=== PATIENT | male | born 1950 | race Caucasian/White ===

== ENCOUNTER 2018-09-29 13:45 | Inpatient (IN) | payer MEDICARE, OTHER ==
[~2018-09-29 13:45] MED LIST: Heparin 10,000 UNITS/ 10 ML VIAL ONE
[2018-09-29 14:29] LABS: Hemoglobin 9.3 g/dL (14.0-18.0); Mean Corpuscular HGB CONC 35.8 g/dL (32.0-36.0); Mean Corpuscular Hemoglobin 31.3 pg (27.0-31.0); Mean Corpuscular Volume 87.6 fL (78.0-98.0); Platelet Count 406 thou/uL (130-400); RBC Distribution Width 12.3 % (11.5-14.5); Red Blood Cell (RBC) Count 2.97 mill/uL (4.70-6.10); White Blood Cell (WBC) Count 30.4 thou/uL (4.8-10.8)
[2018-09-29] MEDS ORDERED: cefTRIAXone\\ROCEPHIN 2 GM VIAL ONE (14:31)
[2018-09-29] MEDS ORDERED: Pantoprazole 40 MG VIAL ONE (14:31)
[2018-09-29 14:36] LABS: INR-International Normal Ratio 1.5; PTT 32.2 SEC (22.9-36.1); Prothrombin Time 18.5 SEC (12.0-14.7)
[2018-09-29 14:47] LABS: Band 36 % (5-11); Lymphocytes 2 % (21-51); MDiff Complete? YES; Metamyelocyte 1 % (0-0); Monocytes 2 % (0-10); Neutrophil 59 % (42-75); Platelet Morphology Comment Appears Increased
[2018-09-29 14:51] LABS: ALT (SGPT) 43 U/L (8-55); AST (SGOT) 33 U/L (5-34); Albumin 2.2 g/dL (3.4-4.8); Alkaline Phosphatase 67 U/L (40-150); Anion Gap 31 mmol/L (10-20); Bilirubin, Total 0.5 mg/dL (0.2-1.2); Calc. Creatinine Clearance 0 mL/min (70-130); Calcium 7.2 mg/dL (7.8-10.44); Carbon Dioxide 12 mmol/L (23-31); Chloride 97 mmol/L (98-107); Estimated GFR-MDRD 4; Globulin 3.3 g/dL (2.4-3.5); Glucose 233 mg/dL (80-115); Magnesium 1.9 mg/dL (1.6-2.6); Potassium 4.3 mmol/L (3.5-5.1); Protein, Total 5.5 g/dL (5.8-8.1); Sodium 136 mmol/L (136-145)
[2018-09-29 15:01] LABS: BUN (Urea Nitrogen) 217 mg/dL (8.4-25.7)
[2018-09-29 15:09] LABS: CKMB 5.7 ng/mL (0-6.6)
[2018-09-29 15:37] LABS: Actual Bicarbonate (HCO3a) 12.4 mEq/L (22-28); Analyzer IN Cardio ER; Base Excess (BEa) -17.4 mEq/L (-2.0 to +3.0); CO2 Tension 46.1 mmHg (35.0-45.0); Calcium, Ionized 0.86 mmol/L (1.12-1.30); Carboxyhemoglobin (COHb) 0.3 gm% (0.0-3.0); Hemoglobin (Hb) 10.7 g/dL (14.0-18.0); O2 Tension (PaO2) 79.3 mmHg (> 80.0); Potassium - ABG Lab 3.84 mmol/L (3.70-5.30)
[2018-09-29 15:43] LABS: ALV-art Gradient 34.195 (0-20); pH, Arterial 7.05 (7.35-7.45)
--- NOTE | 2018-09-29 15:55 | RAD ---
CHEST 1 VIEW: Date: 09/29/18 HISTORY: Altered mental status. COMPARISON: None. FINDINGS: Heart size enlarged. Mild edema and pulmonary venous congestion. No pneumothorax. No acute osseous ab normality. Right distal clavicular osteolysis. IMPRESSION: Cardiomegaly and mild pulmonary vascular congestion and early edema. POS: H
[2018-09-29] MEDS ORDERED: Rocuronium Bromide 10 MG/ML (10ML VIAL) ONE (16:05)
--- NOTE | 2018-09-29 17:32 | RAD ---
FRONTAL VIEW CHEST: 09/29/18 COMPARISON: Radiograph same day. CLINICAL HISTORY: Confirm endotracheal tube placement. FINDINGS: Endotracheal tube is in place with tip at the thoracic inlet level. Portion of the right lung is excl uded from view, laterally, limiting assessment in this regard. Calcification of the right perihilar r egion indicates granulomatous calcification. Chest otherwise similar. IMPRESSION: Interval placement of endotracheal tube, with tip overlying region of the thoracic aorta. POS: [facility]
[2018-09-29 17:49] LABS: Troponin I 0.035 ng/mL (< 0.028)
[2018-09-29 18:23] LABS: Lactic Acid 2.4 mmol/L (0.5-2.2)
[2018-09-29 18:29] LABS: HBSAB Concentration 0.96 mIU/mL; HBSAg Index 0.16 S/CO (0-0.99); Hep B Core Total Ab Non-Reactive (NonReactive); Hep B Core Total Index 0.09 S/CO (0-0.79); Hep B Surf AB Non-Reactive (NonReactive); Hep B Surf Ag Non-Reactive S/CO (NonReactive); Hep C IgG Ab Non-Reactive (NonReactive); Hep C Index 0.19 S/CO (0-0.79)
--- NOTE | 2018-09-29 18:50 | CON ---
DATE OF CONSULTATION: 09/29/2018 TIME SPENT: This is 35 minutes critical care time. CONSULTING PHYSICIAN: Dr. Vinson. REASON FOR CONSULTATION: Critical care management. HISTORY OF PRESENT ILLNESS: A 68-year-old male, who was found down at home by family. He had not been heard of from several days and the family went to check on him and found him basically unresponsive. He was brought to the ER. He was found to be in blood. It is assumed that he has a lower GI bleed. He was given some blood down in the ER. He was found to be profoundly acidotic with a low serum pH. He subsequently intubated by the ER staff. He was hypotensive during the post intubation. PAST MEDICAL HISTORY: Presumed to be remarkable for hypothyroidism and hypertension. PAST SURGICAL HISTORY: Unknown. FAMILY MEDICAL HISTORY: Not known. SOCIAL HISTORY: Not known. OUTPATIENT MEDICATIONS: Unknown. REVIEW OF SYSTEMS: Unobtainable. PHYSICAL EXAMINATION: VITAL SIGNS: Temperature 97, pulse 66, blood pressure 73/47, and O2 saturation 100% and tidal CO2 of 33. Before he was intubated, he was actually awake and able to converse with me some. HEENT: Class IV Mallampati airway. NECK: No JVD. LUNGS: Clear. CARDIAC: S1 and S2. Slightly tachycardic. ABDOMEN: Profoundly obese. EXTREMITIES: He has stasis changes over his ankles. He has tenia present over both feet. LABORATORY DATA: Sodium 136, potassium 4.3, chloride 97, CO2 of 12, BUN 217, creatinine 12, and glucose 233. Lactate 5. CPK 291 and troponin 0.035. Albumin 2.2. ABG, pH of 7.05, pCO2 of 46, and pO2 of 79, that was prior to intubation that was on 2 L. INR 1.5. White blood cell count 30, hematocrit 26, and platelet count 406 with 36% bands and 59% neutrophils. His chest x-ray showed no indication of mass, effusion, or infiltrate. ASSESSMENT: 1. Acute renal failure. 2. Lower gastrointestinal bleed. 3. Possible sepsis. 4. Hyperglycemia. PLAN: 1. The patient has been intubated for his severe acidosis. 2. Nephrology has been consulted for acute hemodialysis. 3. GI has been consulted to evaluate lower GI bleeding. 4. He has received transfusion and he will likely need serial H and Hs. 5. Empiric antibiotic coverage. 6. Bicarbonate ip with possible just an IV fluids after hemodialysis. 7. Methylprednisolone empirically since he was given an etomidate by the emergency room physician for intubation. Job ID: [id number]
[2018-09-29 19:05] LABS: Actual Bicarbonate (HCO3a) 12.5 mEq/L (22-28); Base Excess (BEa) -16.1 mEq/L (-2.0 to +3.0); CO2 Tension 40.1 mmHg (35.0-45.0); Calcium, Ionized 0.87 mmol/L (1.12-1.30); Carboxyhemoglobin (COHb) 0.6 gm% (0.0-3.0); O2 Tension (PaO2) 229.8 mmHg (> 80.0); Potassium - ABG Lab 4.08 mmol/L (3.70-5.30); Puncture Site R RADIAL; pH, Arterial 7.11 (7.35-7.45)
[2018-09-29 19:06] LABS: ALV-art Gradient 147.875 (0-20)
[2018-09-29] MEDS ORDERED: Ventilator Sedation Protocol 1 EACH FS ONE (19:22)
[2018-09-29] MEDS ORDERED: DISCONTINUE PREVIOUS NARCOTIC PAIN MEDICATIONS AND BENZODIAZEPINES FS SCH (19:26)
[2018-09-29] MEDS ORDERED: Propofol BOLUS 1,000 MG/100 ML VIAL IV PRN (19:26)
[2018-09-29] MEDS ORDERED: fentaNYL Citrate/PF 2,000 MCG in Sodium Chloride 0.9% 60 ML IV SCH (19:26)
[2018-09-29] MEDS ORDERED: Fentanyl BOLUS 250 ML IVPB PRN (19:26)
[2018-09-29] MEDS ORDERED: Sodium Bicarb 50 MEQ/50 ML Abboject 8.4% SYRINGE IVP SCH (19:30)
[2018-09-29] MEDS ORDERED: methylPREDNISolone Sod Succ 40 MG VIAL IVP SCH (19:30)
[2018-09-29] MEDS: Sodium Bicarbonate 140 MEQ in Dextrose 5% in Water 1,000 ML IV SCH (19:52)
[2018-09-29 19:59] LABS: Hemoglobin 11.5 g/dL (14.0-18.0); Mean Corpuscular HGB CONC 35.5 g/dL (32.0-36.0); Mean Corpuscular Hemoglobin 30.3 pg (27.0-31.0); Mean Corpuscular Volume 85.5 fL (78.0-98.0); Mean Platelet Volume 8.3 fL (7.4-10.4); Platelet Count 370 thou/uL (130-400); RBC Distribution Width 12.6 % (11.5-14.5); White Blood Cell (WBC) Count 19.9 thou/uL (4.8-10.8)
[2018-09-29] MEDS ORDERED: EPINEPHrine 1 MG/10 ML Abboject SYRINGE ONE (20:00)
[2018-09-29] MEDS: Lorazepam 2 MG/ML VIAL SLOW IVP PRN (20:01)
[2018-09-29 20:02] LABS: INR-International Normal Ratio 1.3
[2018-09-29] MEDS: Propofol 1,000 MG/100 ML VIAL IV PRN (20:07)
[2018-09-29] MEDS: Piperacillin/Tazobactam 2.25 GM in Sodium Chloride 0.9% 100 ML IVPB SCH (20:08)
[2018-09-29] MEDS: Norepinephrine 8 MG/0.9% NS 250 ML IVPB SCH (20:18)
[2018-09-29 20:23] LABS: Band 33 % (5-11); Eosinophils 1 % (0-10); Lymphocytes 5 % (21-51); MDiff Complete? YES; Monocytes 5 % (0-10); Myelocyte 2 % (0-0); Neutrophil 54 % (42-75); Toxic Granulation SLIGHT; Troponin I 0.038 ng/mL (< 0.028)
[2018-09-29 20:43] LABS: ALT (SGPT) 47 U/L (8-55); AST (SGOT) 41 U/L (5-34); Albumin 2.7 g/dL (3.4-4.8); Alkaline Phosphatase 93 U/L (40-150); Anion Gap 27 mmol/L (10-20); Bilirubin, Total 0.6 mg/dL (0.2-1.2); Calc. Creatinine Clearance 0 mL/min (70-130); Calcium 7.5 mg/dL (7.8-10.44); Carbon Dioxide 16 mmol/L (23-31); Chloride 99 mmol/L (98-107); Estimated GFR-MDRD 5; Globulin 3.8 g/dL (2.4-3.5); Glucose 173 mg/dL (80-115); Iron 109 ug/dL (65-175); Iron Binding Capacity, Total 131 mcg/dL (261-462); Potassium 4.2 mmol/L (3.5-5.1); Protein, Total 6.5 g/dL (5.8-8.1); Sodium 138 mmol/L (136-145)
[2018-09-29 20:56] LABS: BUN (Urea Nitrogen) 189 mg/dL (8.4-25.7)
[2018-09-29] MEDS: Pantoprazole 80 MG, Admixture Fee 1 EACH in Sodium Chloride 0.9% 100 ML IVP SCH (22:34)
--- NOTE | 2018-09-29 22:37 | CON ---
DATE OF CONSULTATION: 09/29/2018 GASTROENTEROLOGY CONSULTATION CHIEF COMPLAINT: Blood from the rectum. HISTORY OF PRESENT ILLNESS: Mr. Garcia is a 68-year-old man, who came to the emergency room confused with blood caked on his hands and body that apparently was from bloody diarrhea over the last unknown period of time. He at baseline is normal functioning individual who lives alone. I spoke to his brother who states that they normally talk on the phone every three days, however, he has not heard from him for at least the last five days or perhaps the last seven days. He has been cared for at the [place] prior to this. The patient is able to tell me his name, but otherwise he is not oriented. He states that he drinks no alcohol and his brother states that he is aware of no alcohol or smoking history. The patient was able to tell me that he takes metformin, but is unable to relate any other past medical history or past surgical history. The patient's brother states that he has a plate in his head from a fall when he was in the [employer]. His brother did report that he over the last year has reported intermittent red blood with the stool, but he has never had a colonoscopy before. PAST MEDICAL HISTORY: Apparently diabetes mellitus. PAST SURGICAL HISTORY: He had a plate in his head from a fall in the past. No other history known as the patient is unable to communicate meaningfully. FAMILY HISTORY: Brother has had colon polyps and the father had colon polyps. No known history of cancer. SOCIAL HISTORY: Brother is not aware of any alcohol, tobacco, or drugs. ALLERGIES: NO KNOWN DRUG ALLERGIES. MEDICATIONS: The patient reports metformin, but otherwise medicines are unknown. REVIEW OF SYSTEMS: Negative x10 systems reviewed except as stated in the history of present illness. PHYSICAL EXAMINATION: VITAL SIGNS: The ER doctor reported that his blood pressure was 50/30 on presentation. His blood pressure is up to 100/60s range now after fluid resuscitation. He was actually given 2 units of red blood cell transfusion empirically by the ER after he was found to be hypotensive with the findings of the blood. His pulse is in the 80s. He was hypothermic with the temperature of 92 rectally and this appears to be coming up. GENERAL: The patient is confused. He is oriented to his name only. HEENT: His eyes have no scleral icterus. Oropharynx is clear without lesions. No cervical or supraclavicular lymphadenopathy. LUNGS: Lungs have diffuse expiratory wheezes with prolonged expiratory phase. HEART: Regular rate and rhythm without murmur. ABDOMEN: Soft and he states it is tender to palpation. However, there is no guarding. Bowel sounds are hypoactive. EXTREMITIES: No lower extremity edema. RECTAL: Reveals some small amount of liquid red blood in the rectal vault. LABORATORY DATA: White blood cell count 30.4, hemoglobin 9.3, platelet count 406. INR 1.5. PH 7.05, pCO2 of 46, PO2 of 79. Sodium 136, potassium 4.3, chloride 97, CO2 of 12, BUN 217, creatinine 12.52, and lactic acid 5.0, magnesium 1.9, bilirubin 0.5, AST 33, ALT 43, alkaline phosphatase 67, ammonia 90, CK 291, and albumin 2.2. IMPRESSION: 1. Hypovolemic shock. Sepsis is possible with high white count and hypothermia. No obvious source identified yet. 2. Hematochezia. Brother reports that he has had intermittent hematochezia for the last year. However, he presents now with red blood from the rectum and red blood in his fingernails and hands and caked on his abdomen from prior incontinence of bloody stool. 3. Uremia. 4. Encephalopathy. 5. Anemia secondary to acute blood loss. 6. Question of chronic liver disease given mildly elevated ammonia and elevated INR at 1.5. No known history of alcohol use. [facility]. His albumin is low. RECOMMENDATIONS: 1. We will check labs to further evaluate the liver disease. 2. Octreotide and proton pump inhibitor IV drip. 3. Follow trend of the hemoglobin and transfuse as necessary. 4. Nephrology has been consulted. 5. For the severe acidosis, he is being intubated and will be admitted to the ICU. 6. We will defer endoscopy until he is further stabilized. He will likely need to start with upper endoscopy. For now, he just needs volume resuscitation and we can transfuse as needed. Job ID: [id number]
[2018-09-29 22:40] LABS: Bilirubin Negative (Negative); Blood, Urine Large (Negative); Glucose, Urine (Dipstick) Negative (Negative); Leukocyte Moderate (Negative); Nitrite Positive (Negative); Protein, Urine (Dipstick) > or equal to 300 mg/dL (Neg-Trace); Urobilinogen 0.2 mg/dL (0.2-1.0)
[2018-09-29 22:41] LABS: Clarity Turbid (Clear)
[2018-09-29 22:42] LABS: Specific Gravity, Urine 1.022 (1.002-1.036)
[2018-09-29 22:44] LABS: Bacteria/HPF 1+ HPF (None Seen); Crystals/HPF 3+ AMORPH URATES HPF (Negative); Hyaline Casts/LPF 0-3 HYALINE CAST LPF (0-3 Hyaline); Squamous Epithelial 0-3 HPF (0-3); Yeast-All Forms None Seen HPF (None Seen)
[2018-09-29] MEDS: methylPREDNISolone Sod Succ 40 MG VIAL IVP SCH (23:24)
--- NOTE | 2018-09-30 00:11 | HP ---
PRIMARY CARE PROVIDER: [facility]. CHIEF COMPLAINT: Found down. HISTORY OF PRESENT ILLNESS: This is a 68-year-old male, who presents to [facility] Emergency Department in transport by the EMS personnel after patient was found down on the floor covered in blood. The patient apparently was discovered after welfare check at which point, the patient's mother and brother were concerned for his health. The patient was last seen normal multiple days prior to this admission. The history is obtained after review of the electronic medical record as well as discussion with the emergency room attending as the patient is currently on mechanical ventilation and obtunded. The patient was noted with blood covering his body and concerned for GI bleed. EMS personnel reported the patient's initial blood pressure in the 72/45 range and initiated on IV fluids. The patient apparently had complained of abdominal pain and general weakness. In the emergency room, the patient underwent extensive evaluation and was typed and crossed for 4 units of blood and transfused 2 units due to hypotension and concerned for ongoing GI bleed. The patient was noted with a multitude of metabolic processes including a creatinine of 12.5, lactic acidosis, elevated ammonia level, and signs of septic shock. The patient was placed on aggressive IV fluid hydration as well as given vancomycin, Rocephin, and Protonix. The patient was intubated in the emergency room and continued on hyperventilation. The patient is currently undergoing placement of a right femoral temporary hemodialysis catheter. PAST MEDICAL HISTORY: 1. Congestive heart failure, unknown type. 2. Hypothyroidism. 3. Morbid obesity. PAST SURGICAL HISTORY: Reviewed and negative. MEDICATIONS: Current medications, reviewed and negative. ALLERGIES: NO KNOWN DRUG ALLERGIES. FAMILY HISTORY: Unable to obtain due to the patient's altered mentation and respiratory failure. SOCIAL HISTORY: Unable to obtain due to the patient's respiratory failure. REVIEW OF SYSTEMS: Unable to obtain due to the patient's respiratory failure and altered mentation. PHYSICAL EXAMINATION: VITAL SIGNS: Currently, blood pressure 97/46, pulse 80, respiratory rate 24, temperature 93.1 degrees rectally, and O2 saturation 98% on 60% FiO2 by mechanical ventilation. GENERAL APPEARANCE: This is a 68-year-old male, currently on mechanical ventilation, sedate and unresponsive. HEENT: Pupils are minimally reactive to light and accommodation. Extraocular muscles noted. Sclerae anicteric. Nares patent. OP with ET tube in place. NECK: Supple. No cervical adenopathy. No thyromegaly. No carotid bruits. No JVD noted. CHEST: Diminished breath sounds in the bases bilaterally. CARDIOVASCULAR: S1 and S2 with tachycardia. No murmur, rub, or gallop appreciated. ABDOMEN: Obese with landmarks difficult to palpate due to the patient's body habitus. Bowel sounds positive in all four quadrants. EXTREMITIES: Warm and dry with fair turgor. Mild edema to the lower extremities bilaterally. Pulses palpable distally at the dorsalis pedis, posterior tibial, and popliteal arteries bilaterally. Capillary refill less than 2 seconds. NEUROLOGIC: Obtunded and unresponsive on current mechanical ventilation with sedation. GENITOURINARY: Shows Malloy catheter with scant rohini urine. PERTINENT LABORATORY FINDINGS: Sodium 136, potassium 4.3, chloride 97, CO2 of 12, BUN 217, creatinine 12.52, estimated GFR 4, glucose 233, lactic acid level 5.0, calcium 7.2, and magnesium 1.9. LFTs within normal limits. Serum ammonia level 90. Total CK of 291, troponin I 0.035. Albumin 2.2. CBC showed a white blood cell count of 30.4, hemoglobin 9.3, hematocrit 26, MCV 88, platelet count 406 with 59 % neutrophils, 36% bands. PT 18.5, INR 1.5, and PTT 32.2. ABG dated 09/29/2018 at 1525 p.m. showed a pH of 7.05, pCO2 of 46.1, pO2 of 79.3, bicarbonate 12.4, and O2 saturation 91% on 24% FiO2. X-RAY FINDINGS: Portable chest x-ray dated 09/29/2018 showed endotracheal tube in appropriate positioning. No acute infiltrate identified. EKG dated 09/29/2018 by my interpretation shows sinus mechanism with heart rates in the 70s. Normal R- wave progression noted in precordial leads. Normal axis. No acute ST-T wave changes noted. ASSESSMENT/PLAN: 1. Sepsis with septic shock. The patient will be admitted to the Critical Care Unit. Exact etiology and source unclear. We will continue vancomycin and Zosyn empirically. Continue aggressive fluid hydration per protocol. Serial lactic acid monitoring. Blood and urine cultures pending. Continue pressor support due to severe hypotension with Levophed. 2. Acute hypercapnic respiratory failure. Status post intubation in the emergency room. We will continue SIMV mechanical ventilation with FiO2 of 60%. Consult Pulmonology, Critical Care Service for further management and ongoing evaluation. Suspect multifactorial respiratory failure. Continue IV antibiotics as stated previously. 3. Acute gastrointestinal bleed. Exact source unclear. We will continue serial hemoglobin and hematocrit monitoring. Stat GI consultation. Status post transfusion of 2 units of packed red blood cells. We will continue serial hemoglobin and hematocrit monitoring and transfuse as clinically appropriate. Likely will need endoscopy once clinically stabilizing. Continue Protonix 40 mg IV daily. Avoid anticoagulation and NSAIDs. 4. Acute kidney injury, suspect multifactorial including severe volume depletion. Avoid nephrotoxic agents and limit contrast exposure. Consult Nephrology Service. Right femoral hemodialysis catheter placement completed. Plan for emergent hemodialysis. Continue IV fluids and monitor renal function. 5. Acute blood loss anemia. Secondary to gastrointestinal bleed. See above for management. Repeat CBC in the a.m. 6. Prophylaxis. SCDs while in bed. Protonix 40 mg IV daily. Repeat portable chest x-ray in the a.m. 7. Code status Full. Surrogate medical decision maker is patient's brother. Job ID: [id number] [facility]
[2018-09-30 00:46] LABS: Hemoglobin 9.4 g/dL (14.0-18.0); Platelet Count 379 thou/uL (130-400)
[2018-09-30 01:05] LABS: Actual Bicarbonate (HCO3a) 17.2 mEq/L (22-28); Base Excess (BEa) -9.1 mEq/L (-2.0 to +3.0); CO2 Tension 38.7 mmHg (35.0-45.0); Calcium, Ionized 0.85 mmol/L (1.12-1.30); Carboxyhemoglobin (COHb) 0.6 gm% (0.0-3.0); Hemoglobin (Hb) 10.2 g/dL (14.0-18.0); O2 Tension (PaO2) 80.7 mmHg (> 80.0); Potassium - ABG Lab 4.06 mmol/L (3.70-5.30); pH, Arterial 7.27 (7.35-7.45)
[2018-09-30 01:07] LABS: Puncture Site R RADIAL
[2018-09-30 01:08] LABS: ALV-art Gradient 156.125 (0-20)
--- NOTE | 2018-09-30 03:20 | CON ---
DATE OF CONSULTATION: HISTORY OF PRESENT ILLNESS: Mr. Garcia is a 68-year-old white male, who was found at home in a pool of blood. No working diagnosis. He may have had a GI bleed-rectal hemorrhage? He was found to be short of breath and with generalized weakness. At the ER, he was found to be in respiratory distress. He was subsequently intubated. He was noted to have acute kidney injury. Due to the feelings that he may have had uremic sign and symptoms, we initiated dialysis. He underwent a 1-hour dialysis today with minimal fluid removal. REVIEW OF SYSTEMS: Not obtainable since the patient is now intubated and sedated. HOME MEDICATIONS: None reported. HOSPITAL MEDICATIONS: He is on, 1. Levophed drip. 2. Protonix 40 mg IV daily. 3. Zosyn 2.25 g IV q.8. 4. Fentanyl drip. 5. Solu-Medrol 20 mg IV q.6. 6. Ativan 2 mg IV p.r.n. PAST MEDICAL HISTORY: 1. Hypertension. 2. Hypothyroidism. PAST SURGICAL HISTORY: Unable to obtain. SOCIAL HISTORY: The patient lives in the [facility], lives alone, single, his nearest relative is from [place], [place]. ALLERGIES: UNKNOWN. TRAUMA: None. IMMUNIZATION: Unknown. HOSPITALIZATIONS: Please see past medical history. FAMILY HISTORY: Noncontributory. PHYSICAL EXAMINATION: VITAL SIGNS: Initial blood pressure 80/52, with heart rate of 73, respiratory rate 17, and O2 saturation was noted at 100% on 2 L. GENERAL: The patient is sedated, intubated on ventilator support. SKIN: Adequate turgor. HEENT: He has pale conjunctivae. Anicteric sclerae. No neck mass. No carotid bruits. No JVD. CHEST: No deformities. LUNGS: Decreased breath sounds. HEART: Normal sinus rhythm. No murmurs, gallops, or rubs. ABDOMEN: Globular, soft, nontender. No masses. EXTREMITIES: No edema. No deformities. LABORATORY DATA: Laboratories of September 29, 2018; sodium 138, potassium 4.2, chloride 99, carbon dioxide 16, BUN 189, creatinine 9.94, calcium 7.5, iron 109, AST 41, ALT 47, and albumin is 2.7. Troponin I 0.038. White count 30.4 and hemoglobin 9.3. Chest x-ray; no acute CHF, but there are increased lung markings. ASSESSMENT AND PLAN: 1. Acute kidney injury - consider hemodynamically-mediated renal dysfunction secondary to the bleeding. I could not rule out superimposed acute tubular necrosis. We will review urine sediment once it is available. For the moment, continue supportive care. Hemodialysis has been initiated. The plan is to do daily dialysis with this patient. 2. Gastrointestinal bleed. Continue supportive care. P.r.n. blood transfusion. Overall prognosis remains guarded with this patient. Job ID: [id number]
[2018-09-30] MEDS: Piperacillin/Tazobactam 2.25 GM in Sodium Chloride 0.9% 100 ML IVPB SCH ×3 (04:07→20:26)
[2018-09-30 05:00] LABS: Lactic Acid 1.1 mmol/L (0.5-2.2)
[2018-09-30 05:07] LABS: ALT (SGPT) 36 U/L (8-55); AST (SGOT) 34 U/L (5-34); Albumin 2.2 g/dL (3.4-4.8); Alkaline Phosphatase 57 U/L (40-150); Anion Gap 26 mmol/L (10-20); Bilirubin, Total 0.5 mg/dL (0.2-1.2); Calc. Creatinine Clearance 14 mL/min (70-130); Calcium 6.7 mg/dL (7.8-10.44); Carbon Dioxide 19 mmol/L (23-31); Chloride 98 mmol/L (98-107); Estimated GFR-MDRD 5; Glucose 246 mg/dL (80-115); Potassium 4.2 mmol/L (3.5-5.1); Protein, Total 5.2 g/dL (5.8-8.1); Sodium 139 mmol/L (136-145)
[2018-09-30 05:14] LABS: Band 29 % (5-11); Hemoglobin 9.4 g/dL (14.0-18.0); Lymphocytes 4 % (21-51); MDiff Complete? YES; Mean Corpuscular HGB CONC 35.8 g/dL (32.0-36.0); Mean Corpuscular Hemoglobin 30.3 pg (27.0-31.0); Mean Corpuscular Volume 84.6 fL (78.0-98.0); Mean Platelet Volume 8.1 fL (7.4-10.4); Monocytes 5 % (0-10); Myelocyte 1 % (0-0); Neutrophil 61 % (42-75); Platelet Count 387 thou/uL (130-400); Platelet Morphology Comment Appears Adequate; RBC Distribution Width 12.7 % (11.5-14.5); Red Blood Cell (RBC) Count 3.11 mill/uL (4.70-6.10); White Blood Cell (WBC) Count 22.4 thou/uL (4.8-10.8)
[2018-09-30 05:18] LABS: BUN (Urea Nitrogen) 193 mg/dL (8.4-25.7)
[2018-09-30] MEDS: methylPREDNISolone Sod Succ 40 MG VIAL IVP SCH ×4 (05:24→23:59)
[2018-09-30 06:47] LABS: Actual Bicarbonate (HCO3a) 19.3 mEq/L (22-28); Base Excess (BEa) -7.4 mEq/L (-2.0 to +3.0); Calcium, Ionized 0.85 mmol/L (1.12-1.30); Carboxyhemoglobin (COHb) 0.9 gm% (0.0-3.0); O2 Tension (PaO2) 95.5 mmHg (> 80.0); Potassium - ABG Lab 3.93 mmol/L (3.70-5.30); pH, Arterial 7.26 (7.35-7.45)
[2018-09-30 06:50] LABS: Puncture Site RRA
[2018-09-30] MEDS ORDERED: Dextrose 50% Abboject 50 ML SYRINGE SLOW IVP PRN (07:27)
[2018-09-30] MEDS ORDERED: Dextrose 5% in Water 1,000 ML IV PRN (07:27)
[2018-09-30] MEDS ORDERED: VANCOMYCIN IVPB PRN (07:28)
--- NOTE | 2018-09-30 08:09 | PRG ---
DATE OF SERVICE: 09/30/2018 CRITICAL CARE TIME: 40 minutes. SUBJECTIVE: The patient remains intubated on mechanical ventilation. He is sedated on propofol. He would not wake up for me this morning with the stimulation, but would withdrawal. OBJECTIVE: VITAL SIGNS: Temperature is 98.2, pulse 94, blood pressure 137/56, and O2 saturation 99%. He is currently on Levophed at 5 mcg/minutes. He remains on a bicarbonate drip. He had 1 hour of dialysis yesterday. His total intake since admission has been 1963 mL and output 415 mL. HEENT: Pupils reactive. Sclerae anicteric. Oropharynx clear. NECK: No JVD. LUNGS: Clear anteriorly. CARDIAC: S1 and S2, regular. ABDOMEN: Soft and nontender. Very obese. EXTREMITIES: Stasis changes over the ankles bilaterally. LABORATORY DATA: White blood cell count 22.4, hemoglobin 9.4, hematocrit 26.3, and platelet count 387. INR 1.3. PH 7.26, pCO2 of 44, pO2 of 95, that is on SIMV rate 28, tidal volume 500, PEEP 5, pressure support 10, and FiO2 of 40%. Sodium 139, potassium 4.2, chloride 98, CO2 of 19, BUN 193, creatinine 10.0, glucose 246, calcium 6.7, and albumin 2.2. His x-ray demonstrates an ET tube is in good position. Lung somers are actually fairly clear ASSESSMENT: 1. Acute renal failure, etiology likely acute tubular necrosis. 2. Gastrointestinal bleeding, which does not seem to be active at this time as his H and H are stable. 3. Severe metabolic acidosis, mediated by the renal failure. 4. Acute hypoxic respiratory failure, requiring mechanical ventilation. 5. Possible underlying sepsis syndrome. 6. Morbid obesity. 7. . PLAN: 1. This patient is not a candidate for weaning or extubation at this time due to his underlying critical illness. He will be continued on IV Zosyn and adjustments to the antibiotics will be made based on culture results. 2. Wean Levophed as tolerated. 3. Continue hemodialysis. 4. Hold enteral tube feeds at this time until his hemodynamics are more stable. 5. Continue methylprednisolone for another day or so given that he got etomidate yesterday. 6. Continue to monitor daily labs, ABG, and x-ray. 7. Update family when they become available. Job ID: [id number]
[2018-09-30] MEDS ORDERED: Prevnar 13-Val Conj/PF 0.5 ML SYRINGE IM ONE (09:00)
[2018-09-30] MEDS: Propofol 1,000 MG/100 ML VIAL IV PRN ×4 (09:12→22:58)
[2018-09-30] MEDS: Pantoprazole 80 MG, Admixture Fee 1 EACH in Sodium Chloride 0.9% 100 ML IVP SCH ×2 (09:13→16:09)
[2018-09-30] MEDS: Sodium Bicarbonate 140 MEQ in Dextrose 5% in Water 1,000 ML IV SCH ×2 (09:13→19:44)
[2018-09-30] MEDS: Pantoprazole 40 MG VIAL IVP SCH (09:13)
--- NOTE | 2018-09-30 09:30 | RAD ---
CHEST 1 VIEW: Date: 09/30/18 HISTORY: Ventilated patient. COMPARISON: Radiograph prior day. FINDINGS: Endotracheal tube tip in good position. Calcified right hilar lymph nodes. Mild edema. Small effusion s. No pneumothorax. IMPRESSION: Similar examination of the chest. Enteric tube tip not well seen beyond the level of the clavicles. R ecommend retracting and readvancing. POS: [facility]
--- NOTE | 2018-09-30 09:52 | ULT ---
BILATERAL RENAL SONOGRAM: Date: 09/30/18 HISTORY: Renal failure. FINDINGS: Right kidney is 13.7 cm and left is 14.5 cm. Each has a normal sonographic appearance without evidenc e of mass, stone, or hydronephrosis. Urinary bladder is decompressed by a Malloy catheter. IMPRESSION: No evidence of urinary tract obstruction. POS: [facility]
--- NOTE | 2018-09-30 10:25 | PRG ---
DATE OF SERVICE: 09/30/2018 SUBJECTIVE: Mr. Garcia is a 68-year-old white male, who was seen by the Renal Service for his acute kidney injury. An emergent hemodialysis was done due to uremic signs and symptoms. The patient underwent one-hour hemodialysis yesterday. I am currently dialyzing him for 2 hours and will do a daily dialysis with him. Renal ultrasound did not show any obstruction. Urinalysis was suggestive more of a prerenal azotemia. No overt ATN was seen on the urine sediment. The plan is to continue supportive care and IV hydration as needed. No acute events noted last night. Please note, he is intubated. OBJECTIVE: VITAL SIGNS: Blood pressure is 106/56, heart rate is 80, respiratory rate 28, and pulse ox 99%. GENERAL: Sedated, intubated on ventilator support. SKIN: Adequate turgor. HEENT: He has a slightly pale conjunctivae. Anicteric sclerae. No neck mass. No carotid bruits. No JVD. CHEST: No deformities. LUNGS: Decreased breath sounds. HEART: Normal sinus rhythm. No murmur. No gallops. No rubs. ABDOMEN: Globular, soft, nontender. No masses. EXTREMITIES: No edema. No deformities. MEDICATIONS: Medications of September 30, 2018, reviewed. LABORATORY DATA: Laboratories of September 30, 2018, white count 22.4, hemoglobin 9.4. Sodium 139, potassium 4.2, chloride 98, carbon dioxide 19, BUN 193, creatinine 10, glucose is 246, calcium 6.7, AST 34, ALT 36. ASSESSMENT AND PLAN: 1. Acute kidney injury - continue to optimize hemodynamics. Consider again the possibility he may have acute tubular necrosis. Continuing daily hemodialysis. 2. Anemia, p.r.n. blood transfusion. 3. Sepsis syndrome ? - on empiric IV antibiotics. I would add albumin infusion today. Job ID: [id number]
[2018-09-30] MEDS ORDERED: HOLD VANCOMYCIN FOR LEVEL >20 FS SCH (10:30)
[2018-09-30] MEDS ORDERED: Vancomycin HCl 1.5 GM in Sodium Chloride 0.9% 250 ML 300 ML IVPB SCH (10:30)
[2018-09-30] MEDS ORDERED: Vancomycin HCl 750 MG in Sodium Chloride 0.9% 250 ML 250 ML IVPB SCH (10:30)
[2018-09-30] MEDS ORDERED: Vancomycin Sliding Scale 1 EACH FS ONE (10:30)
[2018-09-30] MEDS ORDERED: Vancomycin HCl 1.25 GM in Sodium Chloride 0.9% 250 ML 250 ML IVPB SCH (10:30)
[2018-09-30] MEDS ORDERED: Heparin 1,000 UNITS/ML VIAL ONE (11:11)
--- NOTE | 2018-09-30 11:58 | PRG ---
DATE OF SERVICE: 09/30/2018 SUBJECTIVE: Mr. Garcia passed one black stool last night and another black stool around 4 o'clock this morning. He is sedated on the ventilator now. OBJECTIVE: VITAL SIGNS: Temperature is 98.2, pulse 80, blood pressure 106/56. GENERAL: He is sedated on the ventilator with endotracheal and orogastric tube in place. LUNGS: Clear to auscultation bilaterally. HEART: Regular rate and rhythm. ABDOMEN: Soft and nondistended. EXTREMITIES: 1+ pitting lower extremity edema. LABORATORY DATA: White blood cell count 22.4, hemoglobin 9.4, platelets 387. INR 1.3, creatinine 10.0, bilirubin 0.5, AST 34, ALT 36, alkaline phosphatase 57, albumin 2.2. Viral hepatitis screen is negative. IMPRESSION: 1. Acute kidney disease with possible acute tubular necrosis. He has been started on hemodialysis. 2. Acidosis and leukocytosis. He is on broad-spectrum antibiotics. 3. Hematochezia/GI bleed. His hemoglobin is 9.4 after 2 units transfusion. He will eventually need endoscopy starting with upper endoscopy to evaluate, however, we will continue with acute supportive care for now. RECOMMENDATIONS: 1. Continue proton pump inhibitor. 2. Follow trend of the hemoglobin. Job ID: [id number]
[2018-09-30] MEDS: HumaLOG 300 UNITS/3 ML VIAL SC PRN ×3 (13:00→21:01)
[2018-09-30] MEDS: Albuterol Sulfate 2.5 mg/3 ml Neb NEB SCH ×3 (13:19→23:11)
[2018-09-30] MEDS: Albumin 25% 25 GM/100 ML BOT IVPB SCH ×2 (13:28→17:45)
[2018-09-30 13:36] LABS: Hemoglobin 9.1 g/dL (14.0-18.0)
[2018-09-30] MEDS: Lorazepam 2 MG/ML VIAL SLOW IVP PRN ×2 (14:25→19:12)
--- NOTE | 2018-09-30 14:29 | PDOC.PN ---
- Subjective Encounter Start Date: 09/30/18 Encounter Start Time: 14:26 Subjective: seen & examined in CCU.remains intubated and sedated. -: chart reviewed. -: 2 black BMs since yesterday - Objective Resuscitation Status - Order Detail: 09/29/18 17:25 Resuscitation Status Routine Resuscitation Status: FULL: Full Resuscitation MAR Reviewed: Yes Vital Signs & Weight: Vital Signs (12 hours) Temp Pulse Resp BP Pulse Ox 09/30/18 13:19 72 115/64 09/30/18 12:00 98.2 F 28 H 09/30/18 11:17 82 85/62 L 09/30/18 10:00 28 H 09/30/18 08:00 98.3 F 28 H 100 09/30/18 07:48 80 106/56 L 09/30/18 06:00 28 H 09/30/18 04:00 98.2 F 28 H 09/30/18 03:30 98 110/62 Weight Weight 310 lb Most Recent Monitor Data Heart Rate from ECG 79 NIBP 95/63 NIBP BP-Mean 73 Respiration from ECG 28 SpO2 100 I&O: 09/29/18 09/30/18 10/01/18 06:59 06:59 06:59 Intake Total 1962 Output Total 415 40 Balance 1547 -40 Result Diagrams: 09/30/18 13:22 09/30/18 04:00 Additional Labs: Accuchecks 09/30/18 12:58 POC Glucose 202 H Microbiology 09/29/18 14:02 Venous blood - Right Hand Blood Culture - Preliminary Specimen has been received and culture in progress. No Growth to date. 09/29/18 14:02 Venous blood - Left Arm Blood Culture - Preliminary Specimen has been received and culture in progress. No Growth to date. Laboratory Tests 09/29/18 09/29/18 09/29/18 14:02 14:02 14:02 WBC 30.4 H Hgb 9.3 L Band Neuts % (Manual) 36 H Creatinine 12.52 H Lactic Acid 5.0 H* 09/29/18 09/29/18 09/29/18 17:57 19:40 19:40 WBC 19.9 H Hgb 11.5 L Band Neuts % (Manual) 33 H Creatinine 9.94 H Lactic Acid 2.4 H 09/30/18 09/30/18 09/30/18 00:25 04:00 04:00 WBC 22.4 H Hgb 9.4 L 9.4 L Band Neuts % (Manual) 29 H Creatinine 10.00 H Lactic Acid 09/30/18 04:00 WBC Hgb Band Neuts % (Manual) Creatinine Lactic Acid 1.1 Phys Exam - Physical Examination Constitutional: NAD sedated HEENT: moist MMs, sclera anicteric ETT Neck: no nodes, no JVD Respiratory: no wheezing, no rales, no rhonchi Cardiovascular: RRR, no significant murmur BS distant Musculoskeletal: no edema, pulses present sedated Deviation from normal: sedated Skin: no rash Dx/Plan (1) Hemorrhagic shock Code(s): R57.8 - OTHER SHOCK Status: Acute Comment: GI bleed (2) MARCK (acute kidney injury) Code(s): N17.9 - ACUTE KIDNEY FAILURE, UNSPECIFIED Status: Acute Comment: started on Hemodialysis (3) Acute hypercapnic respiratory failure Code(s): J96.02 - ACUTE RESPIRATORY FAILURE WITH HYPERCAPNIA Status: Acute Comment: Intuabted.Vent management per [facility].Non weanable (4) Acute GI bleeding Code(s): K92.2 - GASTROINTESTINAL HEMORRHAGE, UNSPECIFIED Status: Acute (5) Metabolic encephalopathy Code(s): G93.41 - METABOLIC ENCEPHALOPATHY Status: Acute (6) Sepsis Code(s): A41.9 - SEPSIS, UNSPECIFIED ORGANISM Status: Acute (7) UTI (urinary tract infection) Status: Acute Qualifiers: Encounter type: initial encounter - Plan continue antibiotics, respiratory therapy, DVT proph w/SCDs Cont empiric ABx,supportive care -: cont PPI.Endoscopy when stable. -: HD w daily monitoring of renal Fx. cont albumin -: Vent support .Daily labs.serial H/H.stable for now -: urine & blood Cx. * .Guarded prognosis * remains on pressors.Monitor BP Review of Systems - Review of Systems Other: can not be obtained due to intubated /sedated state - Medications/Allergies Allergies/Adverse Reactions: Allergies Allergy/AdvReac Type Severity Reaction Status Date / Time No Known Allergies Allergy Unverified 09/29/18 22:20 Medications: Current Medications Albumin Human (Albumin 25%) 25 gm IVPB Q6HR DOMINIQUE Stop: 10/03/18 06:01 Last Admin: 09/30/18 13:28 Dose: 25 gm Albuterol Sulfate (Ventolin) 2.5 mg NEB [id number] [facility] Last Admin: 09/30/18 13:19 Dose: 2.5 mg Dextrose/Water (Dextrose 50%) 25 gm SLOW IVP PRN PRN PRN Reason: Hypoglycemia Glucagon (Glucagon) 1 mg IM PRN PRN PRN Reason: Hypoglycemia Sodium Bicarbonate 140 meq/ (Dextrose/Water) 1,140 mls @ 100 mls/hr IV .[id number] [facility] Last Admin: 09/30/18 09:13 Dose: 1,140 mls Norepinephrine Bitartrate (Levophed) 250 mls @ 0 mls/hr IVPB INF [facility]; Protocol Last Admin: 09/29/18 20:18 Dose: 250 mls Piperacillin Sod/Tazobactam (Sod 2.25 gm/ Sodium Chloride) 100 mls @ 200 mls/ hr IVPB 0400,1200,2000 [facility] Last Admin: 09/30/18 13:27 Dose: 100 mls Fentanyl Citrate 2,000 mcg/ (Sodium Chloride) 100 mls @ 0 mls/hr IV INF [facility]; Protocol Stop: 10/29/18 19:26 Fentanyl Citrate (Fentanyl Bolus) 250 mls @ 0 mls/hr IVPB PRN PRN PRN Reason: Breakthrough pain/agitation Stop: 10/29/18 19:26 Pantoprazole Sodium 80 mg/Miscellaneous Medication 1 each/ Sodium Chloride 100 mls @ 10 mls/hr IVP INF [facility] Last Admin: 09/30/18 09:13 Dose: 100 mls Dextrose/Water (D5w) 1,000 mls @ 0 mls/hr IV .Q0M PRN PRN Reason: Hypoglycemia Vancomycin HCl 1.5 gm/ Sodium (Chloride) 300 mls @ 200 mls/hr IVPB WILLCALL DOMINIQUE Vancomycin HCl 1.25 gm/ Sodium (Chloride) 250 mls @ 166.667 mls/hr IVPB [facility]CALL DOMINIQUE Vancomycin HCl 1 gm/ Device 200 mls @ 200 mls/hr IVPB [place]CALL DOMINIQUE Vancomycin HCl 750 mg/ Sodium (Chloride) 250 mls @ 250 mls/hr IVPB WILLCALL [facility] Insulin Human Lispro (Humalog) 0 units SC .AGGRESSIVE SLIDING PRN PRN Reason: Aggressive Correctional Scale Lorazepam (Ativan) 2 mg SLOW IVP Q1H PRN PRN Reason: Breakthrough agitation Stop: 10/29/18 19:26 Last Admin: 09/29/18 20:01 Dose: 2 mg Methylprednisolone Sodium Succinate (Solu-Medrol) 20 mg IVP Q6HR [facility] Last Admin: 09/30/18 13:27 Dose: 20 mg Miscellaneous Medication (Pharmacy To Dose) 1 each IVPB DAILYPRN PRN PRN Reason: LABS Morphine Sulfate (Morphine) 2 mg SLOW IVP Q1H PRN PRN Reason: BREAKTHROUGH PAIN/Agitation Stop: 10/29/18 19:26 Discontinue Previous Narcotic Pain Medications And Benzodiazepines 1 each FS .ONE [facility] Stop: 10/29/18 19:26 Hold Vancomycin For (Level >20) 0 each FS .AT DIALYSIS [facility] Pantoprazole Sodium (Protonix) 40 mg IVP DAILY [facility] Last Admin: 09/30/18 09:13 Dose: Not Given Propofol (Diprivan) 1,000 mg IV INF PRN; Protocol PRN Reason: TO ACHIEVE GOAL RASS Stop: 10/29/18 19:26 Last Admin: 09/30/18 13:27 Dose: 1,000 mg Propofol (Diprivan Bolus) 20 mg IV Q5MIN PRN PRN Reason: BREAKTHROUGH AGITATION Stop: 10/29/18 19:26 Sodium Chloride (Flush - Normal Saline) 10 ml IV DAILY [facility] Last Admin: 09/30/18 09:14 Dose: 10 ml
[2018-09-30 18:11] LABS: Hemoglobin 7.8 g/dL (14.0-18.0)
[2018-10-01] MEDS: HumaLOG 300 UNITS/3 ML VIAL SC PRN ×5 (00:36→20:02)
[2018-10-01] MEDS: Propofol 1,000 MG/100 ML VIAL IV PRN ×6 (01:52→21:08)
[2018-10-01] MEDS: Piperacillin/Tazobactam 2.25 GM in Sodium Chloride 0.9% 100 ML IVPB SCH ×3 (04:11→20:01)
[2018-10-01] MEDS: Pantoprazole 80 MG, Admixture Fee 1 EACH in Sodium Chloride 0.9% 100 ML IVP SCH (04:26)
[2018-10-01 05:06] LABS: Anion Gap 20 mmol/L (10-20); Calc. Creatinine Clearance 20 mL/min (70-130); Calcium 6.7 mg/dL (7.8-10.44); Carbon Dioxide 24 mmol/L (23-31); Chloride 97 mmol/L (98-107); Estimated GFR-MDRD 8; Glucose 243 mg/dL (80-115); Potassium 3.1 mmol/L (3.5-5.1); Sodium 138 mmol/L (136-145)
[2018-10-01 05:18] LABS: BUN (Urea Nitrogen) 133 mg/dL (8.4-25.7)
[2018-10-01 05:39] LABS: Hemoglobin 7.9 g/dL (14.0-18.0); Mean Corpuscular HGB CONC 35.5 g/dL (32.0-36.0); Mean Corpuscular Volume 84.5 fL (78.0-98.0); Mean Platelet Volume 7.9 fL (7.4-10.4); Platelet Count 309 thou/uL (130-400); RBC Distribution Width 12.7 % (11.5-14.5); Red Blood Cell (RBC) Count 2.62 mill/uL (4.70-6.10); White Blood Cell (WBC) Count 20.4 thou/uL (4.8-10.8)
[2018-10-01] MEDS: Albumin 25% 25 GM/100 ML BOT IVPB SCH ×3 (06:05→11:36)
[2018-10-01] MEDS: methylPREDNISolone Sod Succ 40 MG VIAL IVP SCH ×3 (06:05→18:23)
[2018-10-01] MEDS: Albuterol Sulfate 2.5 mg/3 ml Neb NEB SCH ×3 (06:27→18:33)
[2018-10-01 06:52] LABS: Actual Bicarbonate (HCO3a) 25.5 mEq/L (22-28); Base Excess (BEa) 2.2 mEq/L (-2.0 to +3.0); CO2 Tension 34.2 mmHg (35.0-45.0); Calcium, Ionized 0.87 mmol/L (1.12-1.30); Carboxyhemoglobin (COHb) 1.1 gm% (0.0-3.0); Hemoglobin (Hb) 8.4 g/dL (14.0-18.0); O2 Tension (PaO2) 104.6 mmHg (> 80.0); Potassium - ABG Lab 2.93 mmol/L (3.70-5.30); pH, Arterial 7.49 (7.35-7.45)
[2018-10-01 06:55] LABS: Puncture Site LRA
[2018-10-01] MEDS: Lorazepam 2 MG/ML VIAL SLOW IVP PRN ×2 (07:36→12:40)
[2018-10-01] MEDS ORDERED: Dextrose 50% Abboject 50 ML SYRINGE SLOW IVP PRN (07:36)
[2018-10-01] MEDS ORDERED: Insulin Regular 300 UNITS/3 ML VIAL SC PRN (07:36)
[2018-10-01] MEDS ORDERED: Dextrose 5% in Water 1,000 ML IV PRN (07:36)
[2018-10-01] MEDS: Sodium Chloride 0.9% 1,000 ML IV SCH ×2 (07:39→22:57)
[2018-10-01 07:56] LABS: MDiff Complete? YES
[2018-10-01 07:57] LABS: Band 33 % (5-11); Eosinophils 1 % (0-10); Lymphocytes 11 % (21-51); Monocytes 6 % (0-10); Myelocyte 4 % (0-0); Neutrophil 45 % (42-75); Platelet Morphology Comment Appears Adequate; Polychromasia SLIGHT = 2-3 cells (100X) (0-2/hpf); Toxic Granulation SLIGHT
--- NOTE | 2018-10-01 08:20 | PRG ---
DATE OF SERVICE: 10/01/2018 TIME SPENT: 35 minutes of critical care time. SUBJECTIVE: The patient remains intubated on mechanical ventilation. He required blood transfusion last night because his H and H dropped today. OBJECTIVE: VITAL SIGNS: Temperature is 98.3 with no fever overnight, pulse 67, and blood pressure 142/68. He has been weaned off his Levophed drip, Protonix drip, and propofol. Intake for 24 hours was 2546, output 330 urine, 110 gastric. He also was dialyzed, but I do not think any fluid was removed with that. NEUROLOGIC: He will open his eyes. He will follow commands by squeezing hand and moving feet. HEENT: Otherwise, unremarkable. NECK: No JVD. LUNGS: Clear anteriorly. CARDIAC: S1 and S2, regular. ABDOMEN: Obese, soft, and nontender. EXTREMITIES: Edematous. LABORATORY DATA: White blood cell count 20.4, hemoglobin 7.9, hematocrit 22.1, and platelet count 309. PH of 7.49, pCO2 of 34, and pO2 of 105. Sodium 138, potassium 3.1, chloride 97, CO2 of 24, BUN 133, creatinine 7.3, and glucose 243. IMAGING DATA: His chest x-ray shows an ET tube that is in the proper position. He has clear diaphragms, clear heart borders. Lung somers are actually fairly clear. ASSESSMENT: 1. Acute renal failure, likely secondary to acute tubular necrosis. 2. Gastrointestinal bleeding with continued melena. 3. Anemia due to blood loss. 4. Severe metabolic acidosis that has been corrected with bicarbonate infusion and by dialysis. 5. Acute hypoxic respiratory failure, requiring mechanical ventilation. 6. Possible underlying sepsis syndrome. 7. Morbid obesity. 8. Hyperglycemia. PLAN: 1. The patient will have an EGD and perhaps colonoscopy today. 2. He will receive 2 more units of PRBCs. 3. I have decreased his respiratory rate downward. 4. Stop bicarbonate drip. Start low-dose normal saline. 5. Continue IV antibiotics. 6. Start insulin coverage for the hyperglycemia. Job ID: [id number]
--- NOTE | 2018-10-01 08:51 | RAD ---
SINGLE VIEW OF THE CHEST: Comparison: 09-30-18 History: Ventilated patient with respiratory failure. FINDINGS: Single view of the chest shows a normal sized cardiomediastinal silhouette. Endotracheal tube is unch anged in position. There is no evidence of consolidation, mass, or pleural effusion. Degenerative anabell nges are seen in the spine and shoulders. IMPRESSION: Stable exam. POS: [facility]
--- NOTE | 2018-10-01 09:06 | PRG ---
DATE OF SERVICE: 10/01/2018 RENAL MEDICINE SUBJECTIVE: Mr. Garcia is a 68-year-old white male, who was seen for his acute kidney injury secondary to presumed ATN. The patient underwent hemodialysis in the last two days. I am currently dialyzing him for total of 3 hours with fluid removal only as tolerated. During dialysis, he will be given 2 units of packed RBC. The patient is also being followed up by GI for his acute GI bleed. OBJECTIVE: VITAL SIGNS: Blood pressure is 145/69, heart rate 73, respiratory rate 20, pulse ox 99%. GENERAL: The patient is intubated on ventilator support, arousable. SKIN: Adequate turgor. HEENT: He has pale conjunctivae. Anicteric sclerae. No neck mass. No carotid bruits. No JVD. CHEST: No deformities. LUNGS: Decreased breath sounds. HEART: Normal sinus rhythm. No murmurs, no gallops, no rubs. ABDOMEN: Globular, soft, nontender. No masses. EXTREMITIES: No edema. No deformities. LABORATORY DATA: Laboratories of October 01, 2018; white count 20.4, hemoglobin 7.9. Sodium 138, potassium 3.1, chloride 97, carbon dioxide 24, BUN 133, creatinine 7.29, glucose 243, calcium 6.7. MEDICATIONS: Medications of October 01, 2018 was reviewed. ASSESSMENT AND PLAN: 1. Acute kidney injury-secondary to presumptive acute tubular necrosis. Continue supportive care. Continue to optimize hemodynamics. Currently, on albumin. p.r.n. blood transfusion. 2. Anemia. We will transfuse 2 units of packed RBC with dialysis today. 3. Mild hypokalemia. Adjust potassium bath with dialysis. 4. Continue daily dialysis. Job ID: [id number]
[2018-10-01] MEDS: Pantoprazole 40 MG VIAL IVP SCH (09:11)
[2018-10-01 09:23] LABS: Vancomycin, Random 14.1 ug/mL (See Comment)
[2018-10-01] MEDS: Vancomycin HCl 1 GM in Premix Bag 1 BAG IVPB SCH (10:11)
[2018-10-01] MEDS ORDERED: EPINEPHrine 1 MG/10 ML Abboject SYRINGE ONE (12:43)
--- NOTE | 2018-10-01 14:15 | PDOC.PN ---
- Subjective Encounter Start Date: 10/01/18 Encounter Start Time: 12:10 -: non-verbal, old records requested/rev Pt seen and examined, chart reviewed in its entirety, this is my first visit with this patient follow up for UGIB,m ABLA, hemorrhagic shock, MARCK and acute respiratory failure No F/C, no N/V/D/C. No cough or sputum. continues to have melena. GI in room to perform EGD now ROs not obtainable due to intubated statis - Objective Resuscitation Status - Order Detail: 09/29/18 17:25 Resuscitation Status Routine Resuscitation Status: FULL: Full Resuscitation MAR Reviewed: Yes Vital Signs & Weight: Vital Signs (12 hours) Temp Pulse Resp BP Pulse Ox 10/01/18 14:08 73 20 95 10/01/18 10:30 97.6 F 20 100 10/01/18 10:23 61 149/76 H 10/01/18 10:02 97.6 F 21 H 100 10/01/18 10:00 22 H 10/01/18 09:30 97.5 F L 20 100 10/01/18 08:00 97.6 F 22 H 99 10/01/18 06:27 63 28 H 124/64 99 10/01/18 06:00 28 H 10/01/18 04:00 98.3 F 28 H 10/01/18 03:25 69 139/75 10/01/18 02:44 98.2 F Weight Admit Weight 310 lb Weight 310 lb Most Recent Monitor Data Heart Rate from ECG 62 NIBP 144/72 NIBP BP-Mean 96 Respiration from ECG 20 SpO2 100 I&O: 09/30/18 10/01/18 10/02/18 06:59 06:59 06:59 Intake Total 1962 2546.4 587 Output Total 415 440 60 Balance 1547 2106.4 527 Result Diagrams: 10/02/18 05:00 10/02/18 05:00 Additional Labs: Accuchecks 10/01/18 10/01/18 10/01/18 11:45 04:30 00:33 POC Glucose 160 H 253 H 272 H 09/30/18 09/30/18 20:53 16:14 POC Glucose 265 H 229 H Radiology Reviewed by me: Yes EKG Reviewed by me: Yes Phys Exam - Physical Examination Constitutional: NAD sedated and intubated HEENT: PERRLA, moist MMs, sclera anicteric, oral pharynx no lesions Neck: no nodes, no JVD, supple, full ROM Respiratory: no wheezing, no rales, no rhonchi, clear to auscultation bilateral Cardiovascular: RRR, no significant murmur, no rub Gastrointestinal: soft, non-tender, no distention, positive bowel sounds Musculoskeletal: edema present Neurological: non-focal Lymphatic: no nodes Deviation from normal: sedated and intubated Skin: no rash, normal turgor, cap refill <2 seconds Dx/Plan (1) UGIB (upper gastrointestinal bleed) Code(s): K92.2 - GASTROINTESTINAL HEMORRHAGE, UNSPECIFIED Status: Acute Comment: endoscopy today, follow up GI recs (2) Acute blood loss anemia Code(s): D62 - ACUTE POSTHEMORRHAGIC ANEMIA Status: Acute (3) MARCK (acute kidney injury) Code(s): N17.9 - ACUTE KIDNEY FAILURE, UNSPECIFIED Status: Acute Comment: started on Hemodialysis (4) Acute hypercapnic respiratory failure Code(s): J96.02 - ACUTE RESPIRATORY FAILURE WITH HYPERCAPNIA Status: Acute Comment: Intuabted.Vent management per PCCM.Non weanable (5) Hemorrhagic shock Code(s): R57.8 - OTHER SHOCK Status: Acute Comment: GI bleed (6) Metabolic encephalopathy Code(s): G93.41 - METABOLIC ENCEPHALOPATHY Status: Acute - Plan cont current plan of care, plan discussed w/ family, PT/OT, respiratory therapy * .
--- NOTE | 2018-10-01 17:05 | OP ---
DATE OF PROCEDURE: 10/01/2018 PROCEDURE PERFORMED: Esophagogastroduodenoscopy with control of hemorrhage with bipolar cautery of a visible vessel within a duodenal ulcer. DESCRIPTION OF PROCEDURE: Informed consent was obtained. The patient was already sedated on vent with propofol, and no additional anesthesia was needed. The endoscope was advanced easily to the second portion of the duodenum, and retroflexion was performed in the stomach. The esophagus had severe grade D erosive esophagitis at the GE junction. There was a near circumferential ulcer that was somewhat cratered at the GE junction. The stomach had NG trauma and some slightly ischemic appearing changes in the mid body of the stomach along the greater curvature. The mucosa was somewhat edematous and erythematous. The pylorus was normal. At the junction between the first and second portions of the duodenum, there was a 1 cm cratered ulcer with a clean white base. There was a larger 2.5 cm ulcer, which was cratered just distal to that with a visible vessel in the base. There were actually two protruding red vessels, and initially the ulcer was cauterized with epinephrine 1:10,000 in four quadrants with 1 mL per quadrant. Both vessels were then cauterized with a 10-Bahraini gold probe with good hemostasis confirmed. The remainder of the second portion of the duodenum was unremarkable. IMPRESSION: 1. Large ulcer at the junction between the first and second portion of the duodenum with a visible vessel cauterized with 10-Bahraini gold probe with good hemostasis and injection with epinephrine. 2. Second 1 cm duodenal bulb ulcer was also noted. 3. Near circumferential ulceration at the GE junction. 4. NG trauma in the stomach with some erythematous and friable changes of this gastric mucosa with mild ischemic changes of the mid body at the greater curvature. RECOMMENDATIONS: Continue proton pump inhibitor drip. Job ID: [id number]
[2018-10-01] MEDS: Sodium Bicarbonate 140 MEQ in Dextrose 5% in Water 1,000 ML IV SCH (22:25)
[2018-10-02] MEDS: methylPREDNISolone Sod Succ 40 MG VIAL IVP SCH ×2 (00:13→05:50)
[2018-10-02] MEDS: HumaLOG 300 UNITS/3 ML VIAL SC PRN ×2 (00:30→04:14)
[2018-10-02] MEDS: Albuterol Sulfate 2.5 mg/3 ml Neb NEB SCH ×5 (01:07→23:34)
[2018-10-02] MEDS: Pantoprazole 80 MG, Admixture Fee 1 EACH in Sodium Chloride 0.9% 100 ML IVP SCH ×2 (01:23→11:09)
[2018-10-02] MEDS: Lorazepam 2 MG/ML VIAL SLOW IVP PRN (03:34)
[2018-10-02] MEDS: Piperacillin/Tazobactam 2.25 GM in Sodium Chloride 0.9% 100 ML IVPB SCH ×3 (04:10→23:32)
[2018-10-02] MEDS: Propofol 1,000 MG/100 ML VIAL IV PRN ×5 (05:16→19:41)
[2018-10-02 05:34] LABS: Anion Gap 17 mmol/L (10-20); BUN (Urea Nitrogen) 90 mg/dL (8.4-25.7); Calc. Creatinine Clearance 27 mL/min (70-130); Calcium 7.1 mg/dL (7.8-10.44); Carbon Dioxide 25 mmol/L (23-31); Chloride 99 mmol/L (98-107); Estimated GFR-MDRD 11; Glucose 189 mg/dL (80-115); Potassium 3.4 mmol/L (3.5-5.1); Sodium 138 mmol/L (136-145)
[2018-10-02 06:10] LABS: Band 22 % (5-11); Lymphocytes 2 % (21-51); MDiff Complete? YES; Mean Corpuscular HGB CONC 34.6 g/dL (32.0-36.0); Mean Corpuscular Hemoglobin 29.7 pg (27.0-31.0); Mean Corpuscular Volume 85.8 fL (78.0-98.0); Mean Platelet Volume 7.3 fL (7.4-10.4); Metamyelocyte 3 % (0-0); Monocytes 7 % (0-10); Myelocyte 3 % (0-0); Neutrophil 63 % (42-75); Platelet Count 341 thou/uL (130-400); RBC Distribution Width 12.9 % (11.5-14.5); Red Blood Cell (RBC) Count 3.02 mill/uL (4.70-6.10); Toxic Granulation SLIGHT; White Blood Cell (WBC) Count 22.6 thou/uL (4.8-10.8)
[2018-10-02 07:10] LABS: Actual Bicarbonate (HCO3a) 24.7 mEq/L (22-28); CO2 Tension 40.5 mmHg (35.0-45.0); Calcium, Ionized 0.92 mmol/L (1.12-1.30); Carboxyhemoglobin (COHb) 1.7 gm% (0.0-3.0); Hemoglobin (Hb) 7.5 g/dL (14.0-18.0); O2 Tension (PaO2) 95.2 mmHg (> 80.0); Potassium - ABG Lab 3.23 mmol/L (3.70-5.30)
[2018-10-02 07:11] LABS: ALV-art Gradient 103.725 (0-20); Puncture Site RRA
--- NOTE | 2018-10-02 08:04 | PRG ---
DATE OF SERVICE: 10/02/2018 TIME SPENT: 35 minutes of critical care time. SUBJECTIVE: The patient remains intubated, on mechanical ventilation. He is deeply sedated this morning, although he tends to move his all 4 extremities without much difficulty. OBJECTIVE: VITAL SIGNS: Temperature is 97.7 with no fever overnight, pulse 77, blood pressure 142/69, saturation 100%, respiratory rate 20. Intake for 24 hours was 3687, output 347 urine, and 330 gastric, no ultrafiltration volume was documented. HEENT: Pupils are reactive. Oropharynx, ET tube in place. NECK: No JVD. LUNGS: Clear anteriorly. CARDIOVASCULAR: S1 and S2, regular. No murmur. ABDOMEN: Obese, soft, nontender. EXTREMITIES: He has a right groin Trialysis catheter. LABORATORY DATA: White blood count 22.6, hemoglobin 9, hematocrit 25.9, and platelet count 341. PH 7.40, pCO2 of 40, pO2 of 95 on SIMV rate 20, tidal volume 500, PEEP 5, pressure support 10, FiO2 of 35%. Sodium 138, potassium 3.4, chloride 99, CO2 of 25, BUN 90, creatinine 5.2, glucose 189. ASSESSMENT: 1. Acute respiratory failure, requiring mechanical ventilation. 2. Gastrointestinal bleeding from a duodenal ulcer - status post EGD and cauterization yesterday. 3. Anemia due to blood loss. 4. Metabolic acidosis that has been corrected with dialysis and bicarbonate infusion. 5. Possible underlying sepsis. 6. Morbid obesity. 7. Hyperglycemia. PLAN: 1. The patient is experiencing some bleeding from his NG tube this morning, he may need a second look by Gastroenterology. 2. Hold tube feeds until he is cleared by GI. 3. Continue Protonix. 4. Decrease methylprednisolone. 5. Continue empiric antibiotics. Job ID: [id number]
[2018-10-02] MEDS: NPH, Human Insulin Isophane 300 UNIT/3 ML VIAL SC SCH ×2 (08:23→23:59)
[2018-10-02] MEDS: Pantoprazole 40 MG VIAL IVP SCH (08:24)
--- NOTE | 2018-10-02 09:08 | PRG ---
DATE OF SERVICE: 10/02/2018 RENAL MEDICINE SUBJECTIVE: Mr. Garcia is a 68-year-old white male, who was admitted for hemorrhagic shock. He was given volume depletion as well, placed on pressor support. He was found to be in acute kidney injury. He received hemodialysis in the last several days. We will continue current maintenance hemodialysis. No evidence of renal recovery. In the interim, he had an upper GI endoscopy with findings of a large ulcer at the junction of the 1st, 2nd duodenum, and visible vessel was noted and this was subsequently cauterized. The patient remains intubated, but he is arousable. OBJECTIVE: VITAL SIGNS: Blood pressure is 109/54, heart rate 76, respiratory rate 16, pulse ox 100%. GENERAL: The patient is sedated, but arousable and still intubated on ventilator support. SKIN: Adequate turgor. HEENT: He has a slightly pale conjunctivae. Anicteric sclerae. No neck mass. No carotid bruits. No JVD. CHEST: No deformities. LUNGS: Decreased breath sounds. No wheezing. HEART: Normal sinus rhythm. No murmur. No gallops. No rubs. ABDOMEN: Globular, soft, nontender. No masses. EXTREMITIES: No edema. No deformities. MEDICATIONS: Medications of October 02, 2018 was reviewed. LABORATORY DATA: Laboratories of October 02, 2018; white count 22.6, hemoglobin 9. Sodium 138, potassium 3.4, chloride 99, carbon dioxide 25, BUN 90, creatinine 5.27, glucose 189, calcium 7.1. ASSESSMENT/PLAN: 1. Acute kidney injury-most likely from a presumed ischemic acute tubular necrosis. Continue supportive care. The patient will be scheduled for hemodialysis. After today's dialysis, consider placing this patient on a 3 times a week hemodialysis regimen. Observe for any possible renal recovery. 2. Status post GI bleed, stable. Status post upper GI endoscopy with cauterization of significant ulcers and blood vessels. GI is following. 3. Sepsis syndrome on empiric IV antibiotics. I discussed the case at length with the patient's brother. Consider doing daily basic met. Job ID: [id number]
--- NOTE | 2018-10-02 09:39 | RAD ---
PORTABLE UPRIGHT FRONTAL CHEST RADIOGRAPH: Date: 10-02-18 Comparison: 10-01-18 History: Ventilated patient. FINDINGS: Stable endotracheal tube and nasogastric tube. No pneumothorax is evident. There is pulmonary vascular congestion with nonspecific increased linear density in the perihilar reg ions in both lung bases, right greater than left. There is no lobar consolidation. IMPRESSION: Lines and tubes as detailed above. Nonspecific hazy increased density in the perihilar regions in bot h lung bases, right greater than left. Findings may signify pulmonary edema and/or infectious pneumon itis. Follow up to resolution advised. POS: [facility]
[2018-10-02] MEDS: Sodium Chloride 0.9% 1,000 ML IV SCH (11:04)
[2018-10-02] MEDS ORDERED: Norepinephrine 4 MG/4 ML VIAL ONE (12:11)
[2018-10-02] MEDS ORDERED: PROPOFOL 200 MG/20 ML VIAL ONE (12:11)
[2018-10-02] MEDS ORDERED: Sodium Chloride 0.9% 500 ML IVPB PRN (12:26)
--- NOTE | 2018-10-02 12:49 | PDOC.PN ---
- Subjective Encounter Start Date: 10/02/18 Encounter Start Time: 11:40 -: non-verbal ollow up for UGIB, ABLA, hemorrhagic shock, MARCK and acute respiratory failure No F/C, no N/V/D/C. No cough or sputum. continues to have melena. EGD with multiple UGI sourced, causterized, still having bloody NG tube output and BRBPR. to repeat EGD today. ROs not obtainable due to intubated statis - Objective Resuscitation Status - Order Detail: 09/29/18 17:25 Resuscitation Status Routine Resuscitation Status: FULL: Full Resuscitation MAR Reviewed: Yes Vital Signs & Weight: Vital Signs (12 hours) Temp Pulse Pulse Resp BP BP Pulse Ox 10/02/18 12:00 98.4 F 21 H 10/02/18 11:39 98.7 F 85 24 H 107/57 L 100 10/02/18 11:10 98.3 F 79 18 80/42 L 100 10/02/18 10:30 81 93/56 L 10/02/18 10:00 26 H 10/02/18 08:00 98.4 F 23 H 100 10/02/18 06:29 70 143/75 H 10/02/18 06:24 62 20 99 10/02/18 06:00 20 10/02/18 04:00 97.7 F 20 10/02/18 02:00 20 10/02/18 01:07 62 20 100 Weight Admit Weight 310 lb Weight 313 lb 7 oz Most Recent Monitor Data Heart Rate from ECG 82 NIBP 88/50 NIBP BP-Mean 62 Respiration from ECG 20 SpO2 100 I&O: 10/01/18 10/02/18 10/03/18 06:59 06:59 06:59 Intake Total 2546.4 3687 350 Output Total 440 577 270 Balance 2106.4 3110 80 Result Diagrams: 10/02/18 05:00 10/02/18 05:00 Additional Labs: Accuchecks 10/02/18 10/02/18 10/02/18 08:01 04:15 00:26 POC Glucose 184 H 203 H 192 H 10/01/18 10/01/18 19:33 16:51 POC Glucose 180 H 205 H Phys Exam - Physical Examination sedated and intubated HEENT: PERRLA, moist MMs, sclera anicteric Neck: no nodes, no JVD, supple, full ROM Respiratory: no wheezing, no rales, no rhonchi, clear to auscultation bilateral Cardiovascular: RRR, no significant murmur, no rub Gastrointestinal: soft, no distention, positive bowel sounds Musculoskeletal: edema present Lymphatic: no nodes Skin: no rash, normal turgor, cap refill <2 seconds Dx/Plan (1) UGIB (upper gastrointestinal bleed) Code(s): K92.2 - GASTROINTESTINAL HEMORRHAGE, UNSPECIFIED Status: Acute Comment: endoscopy today, follow up GI recs (2) Acute blood loss anemia Code(s): D62 - ACUTE POSTHEMORRHAGIC ANEMIA Status: Acute (3) MARCK (acute kidney injury) Code(s): N17.9 - ACUTE KIDNEY FAILURE, UNSPECIFIED Status: Acute Comment: started on Hemodialysis (4) Acute hypercapnic respiratory failure Code(s): J96.02 - ACUTE RESPIRATORY FAILURE WITH HYPERCAPNIA Status: Acute Comment: Intuabted.Vent management per PCCM.Non weanable (5) Hemorrhagic shock Code(s): R57.8 - OTHER SHOCK Status: Acute Comment: GI bleed (6) Metabolic encephalopathy Code(s): G93.41 - METABOLIC ENCEPHALOPATHY Status: Acute - Plan * .
[2018-10-02 13:14] LABS: Hemoglobin 8.3 g/dL (14.0-18.0)
[2018-10-02] MEDS: Norepinephrine 8 MG/0.9% NS 250 ML IVPB SCH (13:25)
[2018-10-02 17:04] LABS: Hemoglobin 9.9 g/dL (14.0-18.0)
--- NOTE | 2018-10-02 20:08 | OP ---
DATE OF PROCEDURE: 10/02/2018 HORTICULTURE PROFESSOR SURGEON: None. PROCEDURE PERFORMED: Esophagogastroduodenoscopy, diagnostic. INDICATION: Recurrent upper gastrointestinal bleeding with further acute blood loss anemia. The patient had an EGD yesterday demonstrating a duodenal ulcer with visible vessels, which were cauterized by Dr. Rojas. MEDICATIONS: See Anesthesia record. LOCATION: The procedure was performed rather in the patient's intensive care unit room. FINDINGS: After discussion of the risks, benefits, and alternatives of the procedure, informed consent was obtained and verified. Pre-endoscopic cardiopulmonary examination was satisfactory. Time-out was performed before the procedure started. The procedure was performed with anesthesia assistance in the patient's ICU room. The patient was placed in left lateral decubitus position. A Pentax adult therapeutic upper endoscope was placed into the oropharynx and passed through the cricopharyngeus under direct visualization. The esophageal mucosa appeared normal in the proximal and mid esophagus. In the very distal esophagus of the GE junction, there was significant erosive esophagitis with circumferential ulceration, but this was clean based with no evidence of bleeding. There were no esophageal varices. The endoscope was advanced into the stomach. Forward and retroflexed views of the entire gastric mucosa were obtained. There was a moderate amount of clotted blood in the gastric fundus. I was able to completely evacuate the gastric fundus with suction and get a good examination of the entire gastric mucosa. There was some NG tube trauma and diffuse erythema and edema throughout the stomach, but no evidence of any ulcerations or erosions within the stomach. No bleeding lesion within the stomach. No gastric varices. The endoscope was passed through the pylorus and into the first and second portions of the duodenum. At the apex of the duodenal bulb, there was a very large cratered ulcer. This was previously seen by Dr. Rojas yesterday. There was an adherent clot involving most of the base of this ulceration and with some doing, I was able to completely remove the blood clot from the base of the ulcer. There was no active bleeding or oozing from the ulcer bed at the time of this exam. The ulcer base was quite large, clean based for the most part, but with several necrotic appearing areas. There were several large red pigmented areas within the ulcer bed. I am really not able to identify, which specific area the recent bleeding came from. The second and third portions of the duodenum appeared normal. I did not apply any endoscopic therapy to the ulcer bed on this examination, as the patient's active bleeding have stopped, also due to the significant depth of the ulceration and concerns for possibly instigating further bleeding with attempted cautery of the ulcer bed. The upper endoscope was completely withdrawn and the patient allowed to recover. The patient tolerated the procedure well. There were no immediate postprocedure complications. IMPRESSION: 1. Large deep cratered ulcer in the duodenal bulb, with several necrotic appearing areas at the base, no active bleeding. 2. Some old blood in the gastric fundus, completely removed with suctioning. 3. Orogastric tube trauma in the gastric body. 4. Circumferential clean based ulceration at the gastroesophageal junction. RECOMMENDATION: 1. Continue close monitoring in the ICU. 2. Trend H and H and transfuse as needed. 3. Stay on Protonix IV continuous infusion. 4. Please call us back anytime if concern for rebleeding. GI will continue to follow. Job ID: [id number]
[2018-10-02 20:16] LABS: Vancomycin, Random 10.8 ug/mL (See Comment)
[2018-10-02] MEDS ORDERED: methylPREDNISolone Sod Succ 40 MG VIAL IVP SCH (21:00)
[2018-10-02] MEDS: Vancomycin HCl 1 GM in Premix Bag 1 BAG IVPB SCH (21:40)
[2018-10-03] MEDS: Propofol 1,000 MG/100 ML VIAL IV PRN ×6 (00:26→20:19)
[2018-10-03] MEDS: Sodium Chloride 0.9% 1,000 ML IV SCH ×4 (02:19→22:42)
[2018-10-03 04:17] LABS: Anion Gap 13 mmol/L (10-20); BUN (Urea Nitrogen) 44 mg/dL (8.4-25.7); Calc. Creatinine Clearance 45 mL/min (70-130); Calcium 6.7 mg/dL (7.8-10.44); Carbon Dioxide 27 mmol/L (23-31); Chloride 103 mmol/L (98-107); Estimated GFR-MDRD 19; Glucose 171 mg/dL (80-115); Potassium 3.9 mmol/L (3.5-5.1); Sodium 139 mmol/L (136-145)
[2018-10-03] MEDS: Piperacillin/Tazobactam 2.25 GM in Sodium Chloride 0.9% 100 ML IVPB SCH ×3 (04:19→20:14)
[2018-10-03 04:56] LABS: Band 20 % (5-11); Eosinophils 1 % (0-10); Hemoglobin 9.2 g/dL (14.0-18.0); Lymphocytes 4 % (21-51); MDiff Complete? YES; Mean Corpuscular HGB CONC 34.9 g/dL (32.0-36.0); Mean Corpuscular Hemoglobin 30.5 pg (27.0-31.0); Mean Corpuscular Volume 87.3 fL (78.0-98.0); Metamyelocyte 1 % (0-0); Myelocyte 3 % (0-0); Neutrophil 71 % (42-75); Platelet Count 279 thou/uL (130-400); RBC Distribution Width 13.1 % (11.5-14.5); White Blood Cell (WBC) Count 31.8 thou/uL (4.8-10.8)
[2018-10-03] MEDS: Albuterol Sulfate 2.5 mg/3 ml Neb NEB SCH ×4 (06:11→23:24)
[2018-10-03 06:48] LABS: Actual Bicarbonate (HCO3a) 28.1 mEq/L (22-28); Base Excess (BEa) 2.7 mEq/L (-2.0 to +3.0); CO2 Tension 48.7 mmHg (35.0-45.0); Calcium, Ionized 0.95 mmol/L (1.12-1.30); Carboxyhemoglobin (COHb) 2.8 gm% (0.0-3.0); Hemoglobin (Hb) 5.5 g/dL (14.0-18.0); O2 Tension (PaO2) 71.1 mmHg (> 80.0); Potassium - ABG Lab 3.73 mmol/L (3.70-5.30); pH, Arterial 7.38 (7.35-7.45)
[2018-10-03 06:49] LABS: ALV-art Gradient 117.575 (0-20); Puncture Site RRA
[2018-10-03] MEDS: Pantoprazole 80 MG, Admixture Fee 1 EACH in Sodium Chloride 0.9% 100 ML IVP SCH ×2 (07:23→20:20)
[2018-10-03] MEDS ORDERED: Pancrelipase DR 12000 1 CAP PER TUBE PRN (08:11)
[2018-10-03] MEDS ORDERED: Sodium Bicarbonate Tab 325 MG TAB PER TUBE PRN (08:11)
--- NOTE | 2018-10-03 08:40 | PRG ---
DATE OF SERVICE: 10/03/2018 This is 35 minutes critical care time. SUBJECTIVE: The patient remains intubated on mechanical ventilation. This morning the nurse had turned the sedation off, and he actually followed all commands for me. OBJECTIVE: VITAL SIGNS: Temperature is 99.0, pulse 72, blood pressure 116/51, 24-hour intake 3021 and output 751. HEENT: Unremarkable. NECK: No JVD. LUNGS: Clear anteriorly. CARDIAC: S1, S2 regular. ABDOMEN: Soft, obese, nontender. EXTREMITIES: Edematous. LABORATORY DATA: White blood cell count 31.8, hemoglobin 9.2, hematocrit 26.2, and platelet count 279. PH of 7.38, pCO2 of 48, pO2 of 71, SIMV rate 16, tidal volume 500, PEEP 5, pressure support 10, FiO2 of 35%. Sodium 139, potassium 3.9, chloride 103, CO2 of 27, BUN 44, creatinine 3.2, glucose 171, calcium 6.7. Cultures at this point show no growth to date. IMAGING STUDIES: Chest x-ray demonstrates a very turned film. He has bilateral pulmonary edema, left greater than right. ET tube is in good position. ASSESSMENT: 1. Acute respiratory failure requiring mechanical ventilation. 2. Gastrointestinal bleeding, which appears to have stabilized. 3. Anemia due to blood loss. 4. Metabolic acidosis that has been corrected with bicarbonate and dialysis. 5. Increasing white count. PLAN: 1. The patient will continue hemodialysis. 2. Go ahead and draw some surveillance cultures given the increase in his white count. 3. Continue the Zosyn and vancomycin for the time being. 4. Discontinue the methylprednisolone. 5. Turn the ventilator rate some more. Goal extubation in the next 48 hours. Job ID: [id number]
--- NOTE | 2018-10-03 08:49 | RAD ---
PORTABLE FRONTAL CHEST RADIOGRAPH: Date: 10/03/18 COMPARISON: 10/02/18. HISTORY: Ventilated patient. FINDINGS: Rotation to the right limits detailed assessment. Endotracheal tube present, in proper position. There is hazy increased density throughout the left hemithorax, which may signify nonspecific air spa ce disease and/or pleural fluid. Follow-up imaging following treatment suggested. IMPRESSION: Rotation to the right limits detailed assessment. Hazy increased density noted in left hemithorax. POS: [facility]
--- NOTE | 2018-10-03 09:25 | PRG ---
DATE OF SERVICE: 10/03/2018 RENAL MEDICINE SUBJECTIVE: Mr. Garcia is a 68-year-old white male, who was seen by the Renal Service for his acute kidney injury. Due to his uremic signs and symptoms at that time, he was initiated on dialysis. The renal dysfunction is most likely from acute tubular necrosis. He is now currently on three times a week hemodialysis. No acute events noted. He was noted to have worsening white count. For that reason, sal cultures being done. He continues to be on empiric antibiotics. OBJECTIVE: VITAL SIGNS: Blood pressure is 126/62-Levophed drip being tapered, heart rate 83, respiratory 20, pulse ox 97%. GENERAL: The patient is arousable, intubated on ventilator support. SKIN: Adequate turgor. HEENT: He has slightly pale conjunctivae. Anicteric sclerae. No neck mass. No carotid bruits. No JVD. CHEST: No deformities. LUNGS: Decreased breath sounds. HEART: Normal sinus rhythm. No murmur. No gallops. No rubs. ABDOMEN: Globular, soft, nontender. No masses. EXTREMITIES: No edema. No deformities. MEDICATIONS: Medications of October 03, 2018 was reviewed. LABORATORY DATA: Laboratories of October 03, 2018; white count 31.8, hemoglobin 9.2. Sodium 139, potassium 3.9, chloride 103, carbon dioxide 27, BUN 44, creatinine 3.27, glucose 171, calcium 6.7. ASSESSMENT AND PLAN: 1. Acute kidney injury-secondary to presumed acute tubular necrosis. The patient received daily dialysis in the last several days. The plan is to hold off dialysis today. We will again schedule him for hemodialysis tomorrow-I placed him on three times a week hemodialysis with each dialysis at 4 hours. 2. Sepsis-currently on IV antibiotics. Repeat cultures have been done. 3. Borderline anemia. Continue to observe. Overall, prognosis remains guarded. Job ID: [id number]
[2018-10-03 09:54] LABS: Vancomycin, Random 14.5 ug/mL (See Comment)
[2018-10-03] MEDS: NPH, Human Insulin Isophane 300 UNIT/3 ML VIAL SC SCH ×2 (10:00→20:20)
[2018-10-03] MEDS: Pantoprazole 40 MG VIAL IVP SCH ×2 (10:08→20:14)
[2018-10-03] MEDS ORDERED: Heparin 10,000 UNITS/ 10 ML VIAL ONE (12:56)
[2018-10-03] MEDS ORDERED: Norepinephrine 8 MG/0.9% NS 250 ML ONE (12:57)
[2018-10-03] MEDS ORDERED: Phenylephrine HCL 10 MG/ML VIAL ONE (12:57)
[2018-10-03] MEDS ORDERED: Fentanyl 250 MCG/5 ML VIAL ONE (12:58)
[2018-10-03] MEDS ORDERED: Midazolam HCl 2 mg/2 ml Vial ONE (12:58)
--- NOTE | 2018-10-03 13:46 | PDOC.PN ---
- Subjective Encounter Start Date: 10/03/18 Encounter Start Time: 13:43 Mr. Garcia was seen today in follow-up of Peptic ulcer, and GI bleed. - Objective Resuscitation Status - Order Detail: 09/29/18 17:25 Resuscitation Status Routine Resuscitation Status: FULL: Full Resuscitation MAR Reviewed: Yes Vital Signs & Weight: Vital Signs (12 hours) Temp Pulse Pulse Resp BP BP Pulse Ox 10/03/18 12:01 99.0 F 72 14 143/69 H 99 10/03/18 11:50 98.6 F 83 18 121/65 99 10/03/18 11:45 98.6 F 71 13 143/69 H 99 10/03/18 10:37 72 94/43 L 10/03/18 08:00 18 99 10/03/18 07:00 99.0 F 10/03/18 06:12 72 116/51 L 10/03/18 06:11 67 16 99 10/03/18 06:00 20 10/03/18 04:00 99.0 F 16 10/03/18 02:00 18 Weight Admit Weight 310 lb Weight 317 lb 1.6 oz Most Recent Monitor Data Heart Rate from ECG 81 NIBP 103/66 NIBP BP-Mean 78 Respiration from ECG 21 SpO2 100 I&O: 10/02/18 10/03/18 10/04/18 06:59 06:59 06:59 Intake Total 3687 3021.9 0 Output Total 577 751 80 Balance 3110 2270.9 -80 Result Diagrams: 10/03/18 03:50 10/03/18 03:50 Additional Labs: Accuchecks 10/03/18 10/02/18 10/02/18 00:28 19:19 16:36 POC Glucose 128 H 134 H 161 H Phys Exam - Physical Examination HEENT: PERRLA Respiratory: no wheezing, no rales, no rhonchi, clear to auscultation bilateral Cardiovascular: RRR, no significant murmur, no rub Gastrointestinal: soft + distention, bbowel sounds decreased Musculoskeletal: pulses present, edema present trace pedal edema Dx/Plan (1) Duodenal ulcer with hemorrhage Code(s): K26.4 - CHRONIC OR UNSPECIFIED DUODENAL ULCER WITH HEMORRHAGE Status : Acute (2) Acute respiratory failure Code(s): J96.00 - ACUTE RESPIRATORY FAILURE, UNSP W HYPOXIA OR HYPERCAPNIA Status: Acute (3) Hemorrhagic shock Code(s): R57.8 - OTHER SHOCK Status: Acute Comment: GI bleed (4) MARCK (acute kidney injury) Code(s): N17.9 - ACUTE KIDNEY FAILURE, UNSPECIFIED Status: Acute Comment: started on Hemodialysis (5) Acute blood loss anemia Code(s): D62 - ACUTE POSTHEMORRHAGIC ANEMIA Status: Acute - Plan * Duodenal Ulcer with hemorrhage- patient had EGD yesterday with cauterization- however this afternoon, he was noted to again have bright red blood coming from the NG tube * Plan is for Surgery for the Duodenal ulcer- continue Protonix drip * MARCK- requiring dialysis- this is due to ATN from hemorrhagic shock * Acute blood loss anemia- this was severe, and has required transfusion of 10 units of Packed RBC's, I anticipate he will be requiring more * He continue to require Vent support * Prognosis is guarded.
[2018-10-03] MEDS ORDERED: PROPOFOL 200 MG/20 ML VIAL ONE (14:52)
[2018-10-03] MEDS ORDERED: Rocuronium Bromide 10 MG/ML (10ML VIAL) ONE (14:52)
[2018-10-03 15:02] LABS: INR-International Normal Ratio 1.2; PTT 23.4 SEC (22.9-36.1)
[2018-10-03 15:03] LABS: D-Dimer Test 2.63 *mcg/mL (0.27-0.43)
[2018-10-03] MEDS ORDERED: Sodium Chloride 0.9% 40 ML ONE (15:13)
[2018-10-03] MEDS ORDERED: Heparin 10,000 UNITS/1 ML VIAL ONE ×2 (15:13→15:43)
[2018-10-03] MEDS ORDERED: Lidocaine 2% PF 5 ML VIAL ONE (15:29)
[2018-10-03] MEDS ORDERED: Bupivacaine HCl 0.5%/Epinephrine 1:200,000/PF 30 ml Vial ONE (15:29)
[2018-10-03 15:57] LABS: Follow-up Coag Comp? YES
[2018-10-03 16:36] LABS: Actual Bicarbonate (HCO3a) 21.4 mEq/L (22-28); CO2 Tension 58.3 mmHg (35.0-45.0); Calcium, Ionized 0.91 mmol/L (1.12-1.30); Carboxyhemoglobin (COHb) 1.3 gm% (0.0-3.0); Hemoglobin (Hb) 9.8 g/dL (14.0-18.0); O2 Tension (PaO2) 103.1 mmHg (> 80.0); Potassium - ABG Lab 3.67 mmol/L (3.70-5.30)
[2018-10-03 16:37] LABS: Hemoglobin 9.3 g/dL (14.0-18.0); Mean Corpuscular HGB CONC 33.2 g/dL (32.0-36.0); Mean Corpuscular Hemoglobin 29.9 pg (27.0-31.0); Mean Corpuscular Volume 90.2 fL (78.0-98.0); Mean Platelet Volume 7.4 fL (7.4-10.4); Platelet Count 241 thou/uL (130-400); RBC Distribution Width 13.3 % (11.5-14.5); Red Blood Cell (RBC) Count 3.12 mill/uL (4.70-6.10); White Blood Cell (WBC) Count 43.7 thou/uL (4.8-10.8)
[2018-10-03 16:41] LABS: Puncture Site ALINE; pH, Arterial 7.18 (7.35-7.45)
[2018-10-03 16:42] LABS: ALV-art Gradient 144.875 (0-20)
[2018-10-03 16:43] LABS: Anion Gap 17 mmol/L (10-20); BUN (Urea Nitrogen) 50 mg/dL (8.4-25.7); Calc. Creatinine Clearance 37 mL/min (70-130); Calcium 6.3 mg/dL (7.8-10.44); Carbon Dioxide 18 mmol/L (23-31); Chloride 108 mmol/L (98-107); Estimated GFR-MDRD 15; Glucose 189 mg/dL (80-115); Potassium 3.9 mmol/L (3.5-5.1); Sodium 139 mmol/L (136-145)
[2018-10-03 17:04] LABS: Anisocytosis SLIGHT = 6-15 cells (100X) (0-5/hpf); Band 22 % (5-11); Elliptocytes SLIGHT = 2-5 cells (100X) (0-1/hpf); Lymphocytes 21 % (21-51); MDiff Complete? YES; Monocytes 4 % (0-10); Neutrophil 52 % (42-75); Platelet Morphology Comment Appears Adequate; Poikilocytosis SLIGHT = 6-15 cells (100X) (0-5/hpf); Reactive Lymphocytes 1 % (0-10); Toxic Granulation SLIGHT
--- NOTE | 2018-10-03 18:16 | OP ---
DATE OF PROCEDURE: 10/03/2018 PROCEDURE PERFORMED: Esophagogastroduodenoscopy to control hemorrhage. PREMEDICATION: The patient is on propofol drip. PREPROCEDURE DIAGNOSES: 1. Recurrent gastrointestinal bleed manifesting as hematochezia and bloody effluent through the nasogastric tube. 2. Anemia from acute gastrointestinal blood loss. POSTPROCEDURE DIAGNOSES: 1. Large actively bleeding duodenal ulcer, unable to control. 2. Circumferential gastroesophageal junction ulcer, no bleeding. DESCRIPTION OF PROCEDURE: Written consents were obtained prior to procedure. After adequate sedation, forward viewing endoscope was advanced down the stomach under direct vision. There was large amount of blood and clots in the stomach. These were copiously irrigated. Was visualized in the stomach, no mucosal abnormality other than NG suction trauma was noted. No source of active bleeding was noted in the stomach lumen. A circumferential ulcer was seen also in the lower esophagus above the GE junction. This appears to be that there is no stigmata of bleeding from this ulcer. Upon entering the duodenum, copious amount of fresh hemorrhage was noted. Despite vigorous insufflation and irrigation, the ulcer base could not be fully visualized because of the clots and active hemorrhage. Injection of epinephrine was performed into the ulcer base for a total of 4 cm. The abdomen became progressively distended. There was a concern that patient may have a perforation. The hemorrhage could not be controlled endoscopically. The instruments were fully removed. Vitals remained stable. ASSESSMENT: Recurrent and actively bleeding duodenal ulcer, unsuccessful endoscopic therapy to control hemorrhage. PLAN: Surgery, I have discussed with Dr. Escalante. Also discussed with his brother and uncle. Job ID: [id number]
[2018-10-03] MEDS: Norepinephrine 8 MG/0.9% NS 250 ML IVPB SCH (18:59)
--- NOTE | 2018-10-03 19:39 | RAD ---
PORTABLE SUPINE CHEST: 10/03/2018 PROVIDED CLINICAL HISTORY: Central line placement. COMPARISON: Study performed earlier, same date. FINDINGS: Interval placement of right IJ dialysis catheter, the tip of which projects in the expected location of the cavoatrial junction. The supine nature of the examination is not sensitive for detection of p neumothorax or pleural fluid. Left perihilar air space disease may be present. Endotracheal tube is again seen in a similar position. Enteric catheter may also be present, but the distal aspects of t he catheter are not well visualized. IMPRESSION: 1. Interval right internal jugular central line placement. 2. Left perihilar air space disease. POS: [facility]
--- NOTE | 2018-10-03 20:16 | ULT ---
BILATERAL UPPER EXTREMITY VENOUS MAPPIN10/03/18 PROVIDED CLINICAL HISTORY: End-stage renal disease. FINDINGS: The bilateral internal jugular, proximal subclavian and mid right internal jugular veins are not seen due to bandaging. RIGHT UPPER EXTREMITY BRACHIAL ARTERY: 4.3 mm RADIAL ARTERY: 2 mm ULNAR ARTERY: 2.3 mm CEPHALIC VEIN Proximal Arm: Partial clot Mid Arm: Partial clot Distal Arm: Partial clot Antecubital Fossa: Noncompressible Proximal Forearm: Not evaluated Mid Forearm: Not evaluated Distal Forearm: Not evaluated BASILIC VEIN Proximal Arm: 2.9 mm Mid Arm: 1.9 mm Distal Arm: 1.1 mm Antecubital Fossa: 1.6 mm Proximal Forearm: 0.8 mm Mid Forearm: 0.9 mm Distal Forearm: 0.5 mm LEFT UPPER EXTREMITY BRACHIAL ARTERY: 4.3 mm RADIAL ARTERY: 2.2 mm ULNAR ARTERY: 2.2 mm CEPHALIC VEIN Proximal Arm: 1.5 mm Mid Arm: 2.7 mm Distal Arm: Thrombus about IV Antecubital Fossa: 1.1 mm Proximal Forearm: 0.9 mm Mid Forearm: 0.6 mm Distal Forearm: 0.6 mm BASILIC VEIN Proximal Arm: Not seen Mid Arm: Not seen Distal Arm: 0.9 mm Antecubital Fossa: 1.5 mm Proximal Forearm: 0.8 mm Mid Forearm: 0.8 mm Distal Forearm: 0.7 mm IMPRESSION: Venous mapping as above. Evidence for thrombus formation involving the right cephalic vein. POS: [facility]
[2018-10-03 22:09] LABS: Anion Gap 15 mmol/L (10-20); BUN (Urea Nitrogen) 55 mg/dL (8.4-25.7); Calc. Creatinine Clearance 35 mL/min (70-130); Calcium 6.2 mg/dL (7.8-10.44); Carbon Dioxide 18 mmol/L (23-31); Chloride 108 mmol/L (98-107); Estimated GFR-MDRD 14; Glucose 154 mg/dL (80-115); Sodium 137 mmol/L (136-145)
[2018-10-03 22:10] LABS: Hemoglobin 9.7 g/dL (14.0-18.0); Mean Corpuscular HGB CONC 33.6 g/dL (32.0-36.0); Mean Corpuscular Hemoglobin 29.6 pg (27.0-31.0); Mean Corpuscular Volume 88.1 fL (78.0-98.0); Mean Platelet Volume 7.4 fL (7.4-10.4); Platelet Count 222 thou/uL (130-400); RBC Distribution Width 13.3 % (11.5-14.5); Red Blood Cell (RBC) Count 3.29 mill/uL (4.70-6.10); White Blood Cell (WBC) Count 35.4 thou/uL (4.8-10.8)
[2018-10-03 22:11] LABS: Band 23 % (5-11); Lymphocytes 8 % (21-51); MDiff Complete? YES; Metamyelocyte 3 % (0-0); Monocytes 5 % (0-10); Myelocyte 4 % (0-0); Neutrophil 57 % (42-75); Nucleated RBC 1 % (0); Toxic Granulation SLIGHT
--- NOTE | 2018-10-03 22:32 | HP ---
HISTORY OF PRESENT ILLNESS: Josh Garcia is a 68-year-old male patient, admitted with a bleeding duodenal ulcer on 09/29/2018. He has had several interventions about the case and more to stop the bleeding on 10/01/2018, 10/02/2018, and 10/03/2018. He has a bleeding post-bulbar ulcer. He has received more than 12 units of blood. As I see him today, he started bleeding again of bright red blood from his NG tube and per rectum. Dr. Gray looked with the scope and could not see any blood. Plan is to take emergently to the operating room as he is in hemorrhagic shock, hypotensive on pressors. Home medications are not known. The patient is admitted by the hospitalist service, seen by Dr. Lavon Romero for acute renal failure and a temporary hemodialysis catheter of Trialysis placed in the right groin. The patient lives at home alone. He mostly stays inside. He is not very active. PAST MEDICAL HISTORY: Reports congestive heart failure, type unknown, hypothyroidism, morbid obesity, metabolic syndrome. PAST SURGICAL HISTORY: None reported. ALLERGIES: NONE REPORTED. DR. MAJANO HAS BEEN FOLLOWING IN THIS HOSPITALIZATION FOR VENTILATORY SUPPORT AND RESUSCITATION. PHYSICAL EXAMINATION: GENERAL: The patient is intubated and sedated. VITAL SIGNS: Heart rate 82, blood pressure 102/73, respiratory rate 15 on the ventilator and on vasopressors. LUNGS: Clear to auscultation. CARDIAC: Regular rate and rhythm without murmur or gallop. ABDOMEN: Soft, obese, protuberant, distended. EXTREMITIES: Unremarkable. LABORATORY DATA: White count 31,000, hemoglobin 9.2. Sodium 139, potassium 3.9, BUN 44, creatinine 3.27, GFR 49, glucose 179, calcium 6.7. This morning, his PT was 15, INR 1.2. ASSESSMENT AND PLAN: Duodenal ulcer with bleeding refractory to endoscopic management, now needs a laparotomy for control of bleeding. The patient is in hemorrhagic shock and is on vasopressors. He has suffered respiratory failure, on the ventilator. Plan is to take him emergently to the operating room. I have discussed with the patient's brothers and uncle and planned operative intervention emergently. We will likely place a hemodialysis catheter and a central line. Job ID: [id number]
[2018-10-03] MEDS: Albumin 25% 25 GM/100 ML BOT IVPB SCH (22:42)
--- NOTE | 2018-10-03 23:16 | OP ---
DATE OF PROCEDURE: 10/03/2018 PREOPERATIVE DIAGNOSES: 1. Hemorrhagic shock. 2. Bleeding duodenal ulcer. 3. Respiratory failure. 4. Renal failure. 5. Poor IV access. POSTOPERATIVE DIAGNOSES: 1. Hemorrhagic shock. 2. Bleeding duodenal ulcer. 3. Respiratory failure. 4. Renal failure. 5. Poor IV access. PROCEDURES PERFORMED: Exploratory laparotomy, duodenostomy, oversew of bleeding posterior duodenal ulcer with Heineke-Mikulicz pyloroplasty and omental flap patch with #19 Gold ANDERSON drain in foramen of Leonor. Right IJ cuffed tunneled hemodialysis catheter, left IJ central line, ultrasound fluoroscopy used. ANESTHESIA: General. ESTIMATED BLOOD LOSS: 300 mL copious amounts of additional blood in the stomach and duodenum. OG tube replaced to NG tube and palpated in good position in the procedure. ESTIMATED BLOOD TRANSFUSED: Three units of blood administered, 4th unit of blood started, sent back to ICU, 5 units of fresh frozen plasma, 1 unit of platelet. DESCRIPTION OF PROCEDURE: The patient was taken to the operating room where under general anesthesia, abdomen was clipped of hair, prepared with ChloraPrep and draped in routine fashion. Incision was made from the xiphoid to the umbilicus, skin, subcutaneous tissue, midline fascia, and abdominal cavity sharply. The omental adhesions to the liver, taken down using cautery. Gallbladder identified, kept free of harm. Bookwalter retractor used for exposure. Bisi maneuver performed. Mobilized the duodenum and distal stomach and proximal duodenum. Duodenostomy carried out over the first portion of the duodenum for the duodenal sweep and over the pylorus to enable pyloroplasty. The bleeding duodenal ulcer identified in the first portion of the duodenum posteriorly. There was a large mucosal defect. There was bleeding at the base controlled with 3-0 silk suture. A [id number] suture was used. Interrupted 3-0 silk sutures were used to approximate the mucosa over the ulcer. The wall was thinned out superior, posterior, and lateral. At this point, a 3-0 silk was used to approximate the serosa on the superior, posterior, lateral portion of the duodenum. A good hemostasis had been obtained. The pyloroplasty was closed transversely in two layers with inner layer of continuous locking suture of 3-0 Vicryl and outer layer of interrupted Lembert suture with 3-0 silk. Omental flap was fashioned from the transverse colon, freeing the omentum towards the hepatic flexure towards the midline, freeing it and creating a flap in order to reach tension free up over the duodenal closure. This was secured with interrupted sutures of 3-0 silk to reinforce the duodenal closure. A #19 Gold ANDERSON drain was placed in the foramen of Leonor and around the right gutter, and secured with 3-0 nylon suture to the abdominal wall. Mastisol and op-site applied. Abdominal cavity irrigated, irrigant evacuated. OG tube replaced with NG tube, palpated in good position at 70 cm. Fascia approximated with continuous suture #1 PDS after sponge, instrument, and needle counts were correct. Skin and subcutaneous tissues were irrigated. Skin approximated with deena. Prevena dressing applied. The instruments were changed. Neck and chest clipped of hair, prepared with ChloraPrep, draped in routine fashion. Fluoroscopy and ultrasound used for placement of central lines. Right and left internal jugular vein cannulated with a trocar catheters and J-wire was threaded. Trocar catheters were removed. Skin was incised and enlarged sharply bilaterally and over the left side, a Seldinger technique was used to place the triple-lumen catheter, secured with 3-0 nylon suture. Each port aspirated with blood, flushed with saline solution and sterile dressing was applied. On the right side, the tunneling device was used to tunnel the pre-curved AngioDynamics, Cuffed-tunneled hemodialysis catheter was tunneled between two incisions, placed in the fabric cuff beneath the skin exit site. Catheter was secured with 2 sutures of 3-0 nylon and CHD sterile dressing applied. Small and medium size dilators were placed with J-wire and the internal jugular vein removed. Dilator and Peel-Away sheath placed with J-wire in superior vena cava. Dilator and J-wire were removed. Catheter placed through the Peel-Away sheath. Pull away sheath removed and fluoroscopically, catheter was noted to be in good position as the platysma, it was approximately four Monocryl, skin with subdermal 4-0 Monocryl, and Dermaglue applied. Each port aspirated of blood, flushed with saline solution and heparinized saline solution of 1000 units of heparin per mL indicating the volume of the port. The patient tolerated the procedure well. Fluoroscopic images revealed good line placement. Job ID: [id number]
[2018-10-04] MEDS: Propofol 1,000 MG/100 ML VIAL IV PRN ×6 (00:26→19:52)
[2018-10-04] MEDS: Morphine 2 MG/ML SYRINGE SLOW IVP PRN (00:30)
[2018-10-04] MEDS: Piperacillin/Tazobactam 2.25 GM in Sodium Chloride 0.9% 100 ML IVPB SCH ×3 (03:07→19:53)
[2018-10-04 04:43] LABS: INR-International Normal Ratio 1.1; Prothrombin Time 14.5 SEC (12.0-14.7)
[2018-10-04 05:03] LABS: Band 14 % (5-11); Hemoglobin 8.5 g/dL (14.0-18.0); Lymphocytes 7 % (21-51); MDiff Complete? YES; Mean Corpuscular HGB CONC 34.1 g/dL (32.0-36.0); Mean Corpuscular Hemoglobin 30.4 pg (27.0-31.0); Mean Corpuscular Volume 89.2 fL (78.0-98.0); Mean Platelet Volume 7.2 fL (7.4-10.4); Metamyelocyte 1 % (0-0); Monocytes 2 % (0-10); Myelocyte 2 % (0-0); Neutrophil 74 % (42-75); Platelet Count 198 thou/uL (130-400); RBC Distribution Width 13.6 % (11.5-14.5); Red Blood Cell (RBC) Count 2.79 mill/uL (4.70-6.10); Toxic Granulation SLIGHT; White Blood Cell (WBC) Count 29.5 thou/uL (4.8-10.8)
[2018-10-04 05:10] LABS: ALT (SGPT) 41 U/L (8-55); AST (SGOT) 43 U/L (5-34); Albumin 2.6 g/dL (3.4-4.8); Alkaline Phosphatase 39 U/L (40-150); Anion Gap 16 mmol/L (10-20); BUN (Urea Nitrogen) 57 mg/dL (8.4-25.7); Bilirubin, Direct 0.2 mg/dL (0.1-0.3); Bilirubin, Total 0.3 mg/dL (0.2-1.2); Calc. Creatinine Clearance 33 mL/min (70-130); Calcium 6.2 mg/dL (7.8-10.44); Carbon Dioxide 20 mmol/L (23-31); Chloride 110 mmol/L (98-107); Estimated GFR-MDRD 13; Glucose 149 mg/dL (80-115); Magnesium 1.7 mg/dL (1.6-2.6); Phosphorus 7.6 mg/dL (2.3-4.7); Potassium 4.2 mmol/L (3.5-5.1); Protein, Total 4.3 g/dL (5.8-8.1); Sodium 142 mmol/L (136-145)
[2018-10-04] MEDS: Sodium Chloride 0.9% 1,000 ML IV SCH ×3 (05:18→16:43)
[2018-10-04] MEDS: Albumin 25% 25 GM/100 ML BOT IVPB SCH ×3 (05:18→23:25)
[2018-10-04] MEDS: Albuterol Sulfate 2.5 mg/3 ml Neb NEB SCH ×3 (06:33→19:19)
[2018-10-04 06:55] LABS: Actual Bicarbonate (HCO3a) 20.8 mEq/L (22-28); Base Excess (BEa) -5.3 mEq/L (-2.0 to +3.0); CO2 Tension 43.6 mmHg (35.0-45.0); Calcium, Ionized 0.85 mmol/L (1.12-1.30); Hemoglobin (Hb) 7.9 g/dL (14.0-18.0); O2 Tension (PaO2) 89.1 mmHg (> 80.0); Potassium - ABG Lab 3.93 mmol/L (3.70-5.30)
[2018-10-04 07:04] LABS: Puncture Site ALINE
[2018-10-04] MEDS: Norepinephrine 8 MG/0.9% NS 250 ML IVPB SCH (07:39)
[2018-10-04] MEDS: NPH, Human Insulin Isophane 300 UNIT/3 ML VIAL SC SCH ×2 (08:50→23:25)
[2018-10-04] MEDS: Pantoprazole 40 MG VIAL IVP SCH ×2 (08:50→19:53)
--- NOTE | 2018-10-04 09:02 | RAD ---
CHEST 1 VIEW: INDICATION: Intubation. COMPARISON: Prior examination 10/03/2018. FINDINGS: The lungs are clear. The patient is intubated with associated gastric catheter placement. Right IJ dialysis catheter is unchanged. Position limits the evaluation. No definite pneumothorax is evident . IMPRESSION: 1. No acute cardiopulmonary abnormality. 2. Stable tubes and lines. POS: [facility]
--- NOTE | 2018-10-04 09:34 | PRG ---
DATE OF SERVICE: 10/04/2018 TIME SPENT: 35 minutes of critical care time. SUBJECTIVE: The patient was taken to the OR yesterday for laparotomy with pyloroplasty and over-sew of duodenal ulcer posterior portion involved. He was left intubated after surgery. OBJECTIVE: VITAL SIGNS: On exam, his temperature is 98.4, pulse is in the 60s, blood pressure 120/48, currently on Levophed at 10 mcg/minute. He is also sedated on propofol. A 24-hour intake , output 1255. His urine output has been rather minimal. Weight currently is 320 pounds. NEUROLOGICAL: He will wake up and open his eyes. HEENT: Unremarkable. NECK: Without adenopathy or JVD. LUNGS: Diminished breath sounds at the bases. CARDIAC: S1 and S2, regular. ABDOMEN: Midline surgical wound VAC noted. EXTREMITIES: No clubbing or cyanosis. He has generalized edema throughout. LABORATORY DATA: White blood cell count 29.5, hemoglobin 8.5, hematocrit 24.9, and platelet count 198. INR is 1.1. PH of 7.30, pCO2 of 43, pO2 of 89 on SIMV rate of 20, tidal volume of 500, PEEP 5, pressure support 10, and FiO2 of 45%. Sodium 142, potassium 4.2, chloride 110, CO2 of 20, BUN 67, creatinine is 4.5, and glucose 149. ASSESSMENT: 1. Acute respiratory failure, requiring mechanical ventilation. 2. Status post laparotomy for repair of a bleeding duodenal ulcer. 3. Sepsis syndrome. 4. Acute renal failure. PLAN: 1. The patient is not weanable at this time secondary to overall illness. Still has rather severe metabolic acidosis, is not making much in the way urine and will require dialysis. 2. Nutritionally, we may need this to consider TPN in the upcoming days. 3. Update family when available. Job ID: [id number]
--- NOTE | 2018-10-04 09:54 | PRG ---
DATE OF SERVICE: 10/04/2018 RENAL MEDICINE SUBJECTIVE: Mr. Garcia is a 68-year-old white male, who was seen for acute kidney injury secondary to ischemic ATN from hemorrhagic shock. The patient had another rebleed yesterday and he underwent an exploratory laparotomy with Dr. Escalante. He was found to have a bleeding ulcer and due to an ostomy and oversew of bleeding posterior duodenal ulcer was done. We were currently dialyzing the patient without any heparin. Fluid removal will only be done as tolerated. OBJECTIVE: VITAL SIGNS: Blood pressure is 92/44 with a heart rate of 97, O2 saturation 100%. GENERAL: Noted to be sedated, intubated, on ventilator support. SKIN: Adequate turgor. HEENT: He has a slightly pale conjunctivae. Anicteric sclerae. No neck mass. No carotid bruits. No JVD. CHEST: No deformities. LUNGS: Decreased breath sounds. No wheezing. No crackles. HEART: Normal sinus rhythm. No murmurs, gallops, or rubs. ABDOMEN: Globular, soft. Positive for surgical dressing. EXTREMITIES: No edema. MEDICATIONS: Medications of October 04, 2018, reviewed. LABORATORY DATA: Laboratories of October 04, 2018, white count 29.5, hemoglobin 8.5. Sodium 142, potassium 4.2, chloride 110, carbon dioxide 20, BUN 57, creatinine 4.48, glucose 149, calcium 6.2, magnesium 1.7. ASSESSMENT AND PLAN: 1. Acute kidney injury, secondary to ischemic acute tubular necrosis. Continuing every other day dialysis. Fluid removal will only be done as tolerated by the patient. If needed, we can give him further volume support. 2. Status post upper GI bleed, status post exploratory laparotomy. Supportive care. P.r.n. blood transfusion. Overall prognosis remains guarded. Job ID: [id number]
[2018-10-04 12:25] LABS: Hemoglobin 8.6 g/dL (14.0-18.0)
[2018-10-04] MEDS: Vancomycin HCl 1 GM in Premix Bag 1 BAG IVPB SCH (12:33)
[2018-10-04 18:06] LABS: Hemoglobin 7.7 g/dL (14.0-18.0)
--- NOTE | 2018-10-04 19:01 | PRG ---
DATE OF SERVICE: 10/04/2018 SUBJECTIVE: Josh Garcia is in the ICU, intubated. He is doing well today. He opens his eyes to voice. Dr. Doe is present during this evaluation. OBJECTIVE: VITAL SIGNS: Heart rate 92, blood pressure 138/54. The patient is sedated on the ventilator. LUNGS: Clear to auscultation. CARDIAC: Regular rate and rhythm without murmur or gallop. ABDOMEN: Soft. Postoperative dressings in place. Drain, serosanguineous, slightly bloody output significant. EXTREMITIES: Unremarkable. LABORATORY DATA: His hemoglobin is 8.5; 12 o'clock, hemoglobin 8.6. Chemistries; sodium 142, potassium 4.2, BUN 57, creatinine 4.48, GFR 13. Accu-Cheks 123 to 135. ASSESSMENT AND PLAN: 1. Hemorrhagic shock after bleeding duodenal ulcer, now controlled; now shock, resolving; he is resuscitated and warm. His coagulopathy has resolved. His hemoglobin seems to be stable. We will check that later this evening and in the morning. We are weaning the Levophed. Continue NG tube to suction, ANDERSON to drainage. Incisional wound VAC in place. 2. Acute renal failure, on dialysis. Right IJ hemodialysis catheter present. Ultrasound vein mapping has been obtained in case his renal function does not improve, preserve veins for future dialysis access in case that is necessary. Ultrasound vein mapping reveals a clot in his right arm from previous iatrogenic IV access, basilic vein 2.9 x 1.9 x 1.1 mm, left upper extremity, so there is clot about an IV in his distal arm. 3. Respiratory failure. Continue respiratory support until he is weanable. Continue dialysis via IJ catheter. Remove the groin line when able. Job ID: [id number]
[2018-10-04 19:27] LABS: Hemoglobin 7.6 g/dL (14.0-18.0); Mean Corpuscular HGB CONC 33.6 g/dL (32.0-36.0); Mean Corpuscular Hemoglobin 29.3 pg (27.0-31.0); Mean Corpuscular Volume 87.2 fL (78.0-98.0); Mean Platelet Volume 8.1 fL (7.4-10.4); Platelet Count 142 thou/uL (130-400); White Blood Cell (WBC) Count 20.4 thou/uL (4.8-10.8)
[2018-10-04 19:43] LABS: Band 13 % (5-11); Lymphocytes 5 % (21-51); MDiff Complete? YES; Metamyelocyte 2 % (0-0); Monocytes 1 % (0-10); Myelocyte 2 % (0-0); Neutrophil 77 % (42-75); Ovalocytes SLIGHT = 2-5 cells (100X) (0-1/hpf); Platelet Morphology Comment Appears Adequate; Polychromasia SLIGHT = 2-3 cells (100X) (0-2/hpf); Toxic Granulation SLIGHT
--- NOTE | 2018-10-04 23:14 | PRG ---
DATE OF SERVICE: 10/04/2018 SUBJECTIVE: The patient is hemodynamically stable on Levophed. He was intubated, currently receiving hemodialysis. No further evidence of bleeding since surgery yesterday. NG tube has clear bilious aspirate. OBJECTIVE: VITAL SIGNS: Temperature is 98.7, blood pressure 153/67, pulse of 86, and O2 saturation 100%. GENERAL: The patient is sedated and intubated. HEENT: Shows anicteric sclerae. NG tube with clear bilious aspirate. CV: Shows normal S1, S2. Regular rate and rhythm. CHEST: Shows breath sounds. ABDOMEN: Protuberant, but soft. Bowel sound is audible. EXTREMITIES: Shows 1+ edema. LABORATORY DATA: WBC is 29.5, hemoglobin 8.6, hematocrit 25.8, and platelet count of 198. INR is 1.1. Electrolytes within normal range. Creatinine 4.48, CO2 of 20. Bilirubin 0.3, AST 43, ALT 41, and alkaline phosphatase 39. ASSESSMENT: 1. Status post severe upper gastrointestinal bleed from duodenal ulcer, failed endoscopic therapy, postoperative day #1 from surgery. Bleeding appears to have seized. 2. Hemorrhagic shock, now stabilized. 3. Respiratory failure. 4. Acute renal failure. RECOMMENDATION: 1. Stable from GI standpoint. Continue supportive care. 2. We will follow. Job ID: [id number]
[2018-10-05] MEDS: Albuterol Sulfate 2.5 mg/3 ml Neb NEB SCH ×4 (00:11→18:30)
[2018-10-05] MEDS: Propofol 1,000 MG/100 ML VIAL IV PRN ×6 (00:13→22:20)
[2018-10-05] MEDS: Sodium Chloride 0.9% 1,000 ML IV SCH ×5 (00:36→10:17)
[2018-10-05] MEDS: Piperacillin/Tazobactam 2.25 GM in Sodium Chloride 0.9% 100 ML IVPB SCH ×3 (03:00→21:01)
[2018-10-05 03:13] LABS: INR-International Normal Ratio 1.2; Prothrombin Time 14.8 SEC (12.0-14.7)
[2018-10-05 03:20] LABS: Band 18 % (5-11); Eosinophils 3 % (0-10); Hemoglobin 7.5 g/dL (14.0-18.0); Lymphocytes 7 % (21-51); MDiff Complete? YES; Mean Corpuscular HGB CONC 34.2 g/dL (32.0-36.0); Mean Corpuscular Hemoglobin 29.8 pg (27.0-31.0); Mean Corpuscular Volume 86.9 fL (78.0-98.0); Mean Platelet Volume 6.6 fL (7.4-10.4); Metamyelocyte 1 % (0-0); Monocytes 2 % (0-10); Neutrophil 69 % (42-75); Platelet Count 132 thou/uL (130-400); Platelet Morphology Comment Appears Adequate; RBC Distribution Width 13.8 % (11.5-14.5); Red Blood Cell (RBC) Count 2.51 mill/uL (4.70-6.10); White Blood Cell (WBC) Count 18.7 thou/uL (4.8-10.8)
[2018-10-05 03:30] LABS: Anion Gap 13 mmol/L (10-20); BUN (Urea Nitrogen) 30 mg/dL (8.4-25.7); Calc. Creatinine Clearance 46 mL/min (70-130); Calcium 6.8 mg/dL (7.8-10.44); Carbon Dioxide 25 mmol/L (23-31); Chloride 105 mmol/L (98-107); Estimated GFR-MDRD 19; Glucose 105 mg/dL (80-115); Magnesium 1.8 mg/dL (1.6-2.6); Potassium 3.3 mmol/L (3.5-5.1); Sodium 140 mmol/L (136-145)
[2018-10-05 03:32] LABS: ALT (SGPT) 23 U/L (8-55); AST (SGOT) 35 U/L (5-34); Albumin 2.8 g/dL (3.4-4.8); Alkaline Phosphatase 35 U/L (40-150); Bilirubin, Direct 0.3 mg/dL (0.1-0.3); Bilirubin, Total 0.5 mg/dL (0.2-1.2); Phosphorus 6.6 mg/dL (2.3-4.7); Protein, Total 4.5 g/dL (5.8-8.1)
[2018-10-05 06:59] LABS: Actual Bicarbonate (HCO3a) 23.8 mEq/L (22-28); Base Excess (BEa) -1.8 mEq/L (-2.0 to +3.0); CO2 Tension 44.9 mmHg (35.0-45.0); Calcium, Ionized 0.92 mmol/L (1.12-1.30); Carboxyhemoglobin (COHb) 1.2 gm% (0.0-3.0); O2 Tension (PaO2) 123.7 mmHg (> 80.0); Potassium - ABG Lab 3.19 mmol/L (3.70-5.30); pH, Arterial 7.34 (7.35-7.45)
[2018-10-05 07:10] LABS: ALV-art Gradient 141.025 (0-20); Puncture Site ALINE
[2018-10-05] MEDS: Pantoprazole 40 MG VIAL IVP SCH ×2 (08:01→21:01)
--- NOTE | 2018-10-05 08:35 | RAD ---
PORTABLE SUPINE FRONTAL CHEST RADIOGRAPH: Date: 10/05/18 COMPARISON: 10/04/18. HISTORY: Ventilated patient. FINDINGS: The patient is rotated to the right. Supine imaging provided, limiting assessment for pneumothorax an d pleural fluid. Endotracheal tube and nasogastric tube in stable position. Stable right-sided dialysis catheter. There is pulmonary vascular congestion with hazy perihilar density and density within the medial left base, which may signify edema or infectious pneumonitis. IMPRESSION: Lines and tubes as above. Nonspecific hazy density in bilateral perihilar regions and the left lung b ase. POS: [facility]
[2018-10-05] MEDS ORDERED: Potassium Chloride 40 MEQ in Premix Bag 1 BAG IVPB SCH (09:00)
--- NOTE | 2018-10-05 09:14 | PRG ---
DATE OF SERVICE: 10/05/2018 TIME SPENT: 35 minutes of critical care time. SUBJECTIVE: The patient remains intubated, on mechanical ventilation. There have been no acute changes overnight. OBJECTIVE: VITAL SIGNS: On exam, his temperature is 98.8, heart rate 91, blood pressure 139/53. Total intake for 24 hours 5405, output 1475. HEENT: Unremarkable. NECK: No JVD. CHEST: Clear anteriorly. CARDIAC: S1 and S2, regular. ABDOMEN: Midline wound healing well. EXTREMITIES: Edematous. LABORATORY DATA: Sodium 140, potassium 3.3, chloride 105, CO2 of 25, BUN 30, creatinine 3.2, glucose 105, calcium 6.8, phosphorus 6.6, AST 35, and ALT 23. White blood cell count 18.7, hemoglobin 7.5, hematocrit 21.8, and platelet count 132. INR 1.2. PH of 7.34, pCO2 of 45, pO2 of 123 on SIMV rate of 20, tidal volume 500, PEEP 5, pressure support 10, and FiO2 of 45%. His chest x-ray is beginning to clear. ASSESSMENT: 1. Acute respiratory failure, requiring mechanical ventilation. 2. Status post laparotomy for repair of bleeding duodenal ulcer. 3. Anemia due to blood loss. 4. Sepsis syndrome. 5. Acute renal failure, which is improving. PLAN: 1. I do not think he is weanable quite yet. I do anticipate over the weekend that weaning can begin. 2. He does not need a blood transfusion yet, but he may need blood over the weekend. 3. Dialysis if indicated by Nephrology, although the patient's urine output seems to be adequate at this time. 4. Continue the piperacillin and vancomycin. 5. Discontinue the Levophed order from the NOV. 6. Decrease IV fluids. 7. Potassium supplementation. Job ID: [id number]
[2018-10-05] MEDS: NPH, Human Insulin Isophane 300 UNIT/3 ML VIAL SC SCH ×2 (09:19→21:01)
[2018-10-05] MEDS: Lorazepam 2 MG/ML VIAL SLOW IVP PRN ×2 (10:06→16:02)
[2018-10-05] MEDS ORDERED: Dextrose 50% Abboject 50 ML SYRINGE SLOW IVP PRN (11:06)
[2018-10-05] MEDS ORDERED: Dextrose 5% in Water 1,000 ML IV PRN (11:06)
--- NOTE | 2018-10-05 11:17 | PRG ---
DATE OF SERVICE: 10/05/2018 RENAL MEDICINE SUBJECTIVE: Mr. Garcia is a 68-year-old white male, who was seen by the Renal Service for his acute kidney injury secondary to presumed ischemic ATN. He was admitted for GI bleed. He was in high hemorrhagic shock. He underwent upper GI endoscopy with cauterization of the involved blood vessels. However, he persistently bled and underwent exploratory laparotomy with surgical intervention of the bleeding by Dr. Escalante, doing well. He is stabilizing. He continues to be on dialysis. We are using heparin-free dialysis. No acute events noted last night. OBJECTIVE: VITAL SIGNS: Blood pressure is 146/71, heart rate 83, respiratory rate 23, pulse ox 100%. GENERAL: Intubated, on ventilator support, sedated. HEENT: Slightly pale conjunctivae. Anicteric sclerae. NECK: No neck mass. No carotid bruits. No JVD. CHEST: No deformities. LUNGS: Decreased breath sounds. HEART: Normal sinus rhythm. No murmur. No gallops. No rubs. ABDOMEN: Globular, soft. Positive for surgical wound dressing. EXTREMITIES: No edema. No deformities. MEDICATIONS: Medications of October 05, 2018, were reviewed. LABORATORY DATA: Laboratories of October 05, 2018: White count 18.7, hemoglobin 7.5. Sodium 140, potassium 3.3, chloride 105, carbon dioxide 25, BUN 30, creatinine 3.26, phosphorus 6.6, AST 35, ALT 23, albumin 2.8. ASSESSMENT AND PLAN: 1. Anemia, p.r.n. blood transfusion. Gastrointestinal bleed is stabilizing. 2. Status post hemorrhagic shock-supportive care. Continue fluid resuscitation as needed. 3. Acute kidney injury secondary to acute tubular necrosis, currently undergoing every other day hemodialysis using no heparin. There is no indication for any acute dialytic intervention today. Agree with current management. Job ID: [id number]
--- NOTE | 2018-10-05 11:47 | PRG ---
DATE OF SERVICE: 10/05/2018 SUBJECTIVE: Mr. Garcia is on the ventilator. He is doing well. He is not able to be weaned at this time. Heart rate 85, 146/71. ANDERSON drain output is more serosanguineous and not bloody. It has drained about 430 mL over the last 24 hours, which is not unexpected. Malloy urine output is 125 mL per 24 hours. His hemoglobin remained stable. His potassium is 3.3 this morning. He is given a small fluid potassium replacements. Sodium 140, chloride 105, BUN 30, creatinine 3.2, GFR 19. Accu-Cheks have been 97 to 100. His magnesium is 1.8. Phosphorus elevated at 6.6. OBJECTIVE: LUNGS: Clear to auscultation. CARDIAC: Regular rate and rhythm. ABDOMEN: Soft, quiet, incisional VAC in place. EXTREMITIES: Unremarkable. ASSESSMENT AND PLAN: 1. Acute renal failure. Continue dialysis. He has ultrasound vein mapping. He has thrombosis of many veins in both arms due to iatrogenic IVs and blood access. If his kidney do not recover, he may need a fistula and I would avoid any IVs or blood draws and certainly avoid PICC lines and midlines in his arms. 2. Respiratory failure. Ventilatory management per Pulmonary. 3. Status post laparotomy, duodenotomy, oversew of duodenal ulcer. Would continue n.p.o., NG tube suction until further notice. 4. Malnutrition. Initiate TPN. 5. Morbid obesity. 6 feet, 325 pounds, [address] English is covering this weekend. Please call if needed. Job ID: [id number]
[2018-10-05 12:47] LABS: Hemoglobin 7.7 g/dL (14.0-18.0); Mean Corpuscular HGB CONC 34.3 g/dL (32.0-36.0); Mean Corpuscular Hemoglobin 30.2 pg (27.0-31.0); Mean Platelet Volume 7.2 fL (7.4-10.4); Platelet Count 162 thou/uL (130-400); RBC Distribution Width 14.3 % (11.5-14.5); Red Blood Cell (RBC) Count 2.55 mill/uL (4.70-6.10); White Blood Cell (WBC) Count 18.1 thou/uL (4.8-10.8)
[2018-10-05 12:57] LABS: Band 7 % (5-11); Basophilic Stippling SLIGHT = 1-2 cells (100X) (None Seen); Eosinophils 3 % (0-10); Lymphocytes 12 % (21-51); MDiff Complete? YES; Metamyelocyte 1 % (0-0); Monocytes 1 % (0-10); Myelocyte 1 % (0-0); Neutrophil 75 % (42-75); Ovalocytes SLIGHT = 2-5 cells (100X) (0-1/hpf); Platelet Morphology Comment Appears Adequate; Polychromasia SLIGHT = 2-3 cells (100X) (0-2/hpf)
--- NOTE | 2018-10-05 15:00 | EKG ---
Test Reason : HYPOTENSION Blood Pressure : / mmHG Vent. Rate : 073 BPM Atrial Rate : 073 BPM P-R Int : 162 ms QRS Dur : 114 ms QT Int : 436 ms P-R-T Axes : 074 068 073 degrees QTc Int : 480 ms Normal sinus rhythm Prolonged QT Abnormal ECG Confirmed by ROBINA RIVERA M.D. ([id number]), photographic editor YOLANDA GUILLEN ([id number]) on 10/05/2018 2:59:59 PM Referred By: FRANCESCO Confirmed By:ROBINA RIVERA M.D.
--- NOTE | 2018-10-05 15:31 | PDOC.PN ---
- Subjective Encounter Start Date: 10/05/18 Encounter Start Time: 15:29 Patient seen and examined, no family at bedside. - Objective Resuscitation Status - Order Detail: 09/29/18 17:25 Resuscitation Status Routine Resuscitation Status: FULL: Full Resuscitation Vital Signs & Weight: Vital Signs (12 hours) Temp Pulse Resp BP Pulse Ox 10/05/18 15:16 85 154/75 H 10/05/18 14:00 20 10/05/18 13:33 80 142/87 H 10/05/18 12:00 98.6 F 10/05/18 10:00 20 10/05/18 09:37 85 146/71 H 10/05/18 08:00 98.7 F 10/05/18 07:30 87 128/49 L 100 10/05/18 06:00 20 10/05/18 04:00 98.8 F 20 Weight Admit Weight 310 lb Weight 325 lb Most Recent Monitor Data Heart Rate from ECG 84 NIBP 146/80 NIBP BP-Mean 102 Respiration from ECG 20 SpO2 100 I&O: 10/04/18 10/05/18 10/06/18 06:59 06:59 06:59 Intake Total 4056.6 5405 441 Output Total 1255 1475 105 Balance 2801.6 3930 336 Result Diagrams: 10/05/18 12:04 10/05/18 02:57 Additional Labs: Accuchecks 10/05/18 10/05/18 10/05/18 11:59 08:08 01:00 POC Glucose 93 97 96 10/04/18 10/04/18 20:05 15:58 POC Glucose 100 111 H Phys Exam - Physical Examination Constitutional: NAD HEENT: PERRLA, sclera anicteric OG tube in place NG tube in place coarse breath sounds no respiratory distress Cardiovascular: RRR, no significant murmur, no rub Gastrointestinal: soft, non-tender, no distention, positive bowel sounds Musculoskeletal: pulses present, edema present (trace) Dx/Plan (1) Acute GI bleeding Code(s): K92.2 - GASTROINTESTINAL HEMORRHAGE, UNSPECIFIED Status: Acute (2) Acute respiratory failure Code(s): J96.00 - ACUTE RESPIRATORY FAILURE, UNSP W HYPOXIA OR HYPERCAPNIA Status: Acute (3) Hemorrhagic shock Code(s): R57.8 - OTHER SHOCK Status: Acute Comment: GI bleed (4) Metabolic encephalopathy Code(s): G93.41 - METABOLIC ENCEPHALOPATHY Status: Acute (5) UGIB (upper gastrointestinal bleed) Code(s): K92.2 - GASTROINTESTINAL HEMORRHAGE, UNSPECIFIED Status: Acute Comment: endoscopy today, follow up GI recs - Plan * remains intubated * Hgb stable * labs in AM * SBT daily for now * no changes in plan of care
[2018-10-05 18:26] LABS: Hemoglobin 7.6 g/dL (14.0-18.0); Mean Corpuscular HGB CONC 34.1 g/dL (32.0-36.0); Mean Corpuscular Hemoglobin 30.1 pg (27.0-31.0); Mean Corpuscular Volume 88.3 fL (78.0-98.0); Mean Platelet Volume 6.7 fL (7.4-10.4); Platelet Count 172 thou/uL (130-400); RBC Distribution Width 14.2 % (11.5-14.5); Red Blood Cell (RBC) Count 2.53 mill/uL (4.70-6.10); White Blood Cell (WBC) Count 17.6 thou/uL (4.8-10.8)
[2018-10-05 19:05] LABS: Band 7 % (5-11); Eosinophils 2 % (0-10); Lymphocytes 8 % (21-51); MDiff Complete? YES; Monocytes 3 % (0-10); Neutrophil 80 % (42-75); Platelet Morphology Comment Appears Adequate; Polychromasia MODERATE = 3-4 cells (100X) (0-2/hpf)
[2018-10-05] MEDS: Sodium Acetate 2 mEq/ml 70 MEQ, Calcium Chloride 10 MEQ, Magnesium Sulfate 4.06 MEQ/ML ... IV SCH (21:51)
[2018-10-06] MEDS: Albuterol Sulfate 2.5 mg/3 ml Neb NEB SCH ×5 (00:18→23:35)
[2018-10-06] MEDS: Propofol 1,000 MG/100 ML VIAL IV PRN ×5 (04:08→21:34)
[2018-10-06] MEDS: Piperacillin/Tazobactam 2.25 GM in Sodium Chloride 0.9% 100 ML IVPB SCH ×3 (04:08→19:38)
[2018-10-06] MEDS: Sodium Chloride 0.9% 1,000 ML IV SCH ×2 (04:09→19:24)
[2018-10-06 04:53] LABS: ALT (SGPT) 20 U/L (8-55); AST (SGOT) 43 U/L (5-34); Albumin 2.7 g/dL (3.4-4.8); Alkaline Phosphatase 45 U/L (40-150); Anion Gap 15 mmol/L (10-20); BUN (Urea Nitrogen) 44 mg/dL (8.4-25.7); Bilirubin, Direct 0.3 mg/dL (0.1-0.3); Bilirubin, Total 0.4 mg/dL (0.2-1.2); Calc. Creatinine Clearance 33 mL/min (70-130); Calcium 7.1 mg/dL (7.8-10.44); Carbon Dioxide 23 mmol/L (23-31); Chloride 104 mmol/L (98-107); Estimated GFR-MDRD 13; Glucose 126 mg/dL (80-115); Magnesium 1.8 mg/dL (1.6-2.6); Phosphorus 9.2 mg/dL (2.3-4.7); Potassium 3.4 mmol/L (3.5-5.1); Protein, Total 4.9 g/dL (5.8-8.1); Sodium 139 mmol/L (136-145)
[2018-10-06 05:12] LABS: Band 2 % (5-11); Hemoglobin 7.6 g/dL (14.0-18.0); Hypochromia SLIGHT = 6-15 cells (100X) (0-5/hpf); Lymphocytes 12 % (21-51); MDiff Complete? YES; Mean Corpuscular HGB CONC 34.2 g/dL (32.0-36.0); Mean Corpuscular Hemoglobin 30.2 pg (27.0-31.0); Mean Corpuscular Volume 88.3 fL (78.0-98.0); Mean Platelet Volume 6.7 fL (7.4-10.4); Monocytes 1 % (0-10); Neutrophil 85 % (42-75); Platelet Count 202 thou/uL (130-400); Platelet Morphology Comment Appears Adequate; RBC Distribution Width 14.5 % (11.5-14.5); Red Blood Cell (RBC) Count 2.52 mill/uL (4.70-6.10)
[2018-10-06 07:00] LABS: Actual Bicarbonate (HCO3a) 22.4 mEq/L (22-28); Base Excess (BEa) -4.6 mEq/L (-2.0 to +3.0); Calcium, Ionized 0.94 mmol/L (1.12-1.30); Carboxyhemoglobin (COHb) 0.5 gm% (0.0-3.0); Hemoglobin (Hb) 8.5 g/dL (14.0-18.0); O2 Tension (PaO2) 93.5 mmHg (> 80.0); Potassium - ABG Lab 3.45 mmol/L (3.70-5.30); pH, Arterial 7.26 (7.35-7.45)
[2018-10-06 07:03] LABS: Puncture Site RBRACH
--- NOTE | 2018-10-06 08:59 | RAD ---
SEMIUPRIGHT PORTABLE FRONTAL CHEST RADIOGRAPH: DATE: 10/06/2018. COMPARISON: 09/29/2018. HISTORY: Respiratory failure. FINDINGS: Detailed assessment of the chest is limited secondary to body habitus, portable technique, rotation t o the right, and shallow inspiration. Dialysis catheter on the right present, distal tip overlying t he region of the SVC. Endotracheal tube and nasogastric tube in proper position. Dense bibasilar op acity suggests nonspecific bilateral lower lobe consolidation/collapse and bilateral pleural effusion s, worsened. IMPRESSION: Lines and tubes as above. Increased density in both lung bases. This study is technically limited a s detailed above. POS: [facility]
[2018-10-06] MEDS: Pantoprazole 40 MG VIAL IVP SCH ×2 (09:17→20:12)
[2018-10-06] MEDS: NPH, Human Insulin Isophane 300 UNIT/3 ML VIAL SC SCH ×2 (09:21→22:27)
[2018-10-06 09:22] LABS: Vancomycin, Random 12.3 ug/mL (See Comment)
--- NOTE | 2018-10-06 09:23 | PRG ---
DATE OF SERVICE: 10/06/2018 SUBJECTIVE: Josh Garcia is morbidly obese gentleman, 351 pounds, intubated, on the vent, massive GI bleed, status post surgery. OBJECTIVE: VITAL SIGNS: Pulse 110, blood pressure is 145/65, sats 100%, respirations 20. He is on TPN right now. His I's and O's are 5405 in, 1475 out. CHEST: Decreased breath sounds. Anterior rhonchi. CARDIAC: Normal S1 and S2. No gallops. ABDOMEN: Massive. EXTREMITIES: Trace edema. LABORATORY DATA: White count 15703, hemoglobin and hematocrit of 7 and 21, platelet count is normal. His pO2 is 93, pCO2 chest x-ray shows large bilateral pleural effusions. Creatinine is 4.53. IMPRESSION: 1. Multiorgan failure. 2. Respiratory failure. 3. Status post lap for bleeding ulcer. 4. Renal failure, bilateral pleural effusion. 5. He is not weanable at this stage. Continue TPN nutrition, PT, supportive care. 6. Antibiotics on board. 7. One-half hour of critical time. Job ID: [id number]
--- NOTE | 2018-10-06 09:44 | PRG ---
DATE OF SERVICE: 10/06/2018 SUBJECTIVE: Mr. Garcia was hemodynamically stable overnight. TPN was started by Dr. Escalante. OBJECTIVE: VITAL SIGNS: Pulse is 104, blood pressure 133/65, respirations on vent. No urine output overnight. 20 out of his drain, and 120 out of his NG tube. ABDOMEN: Soft. Prevena midline wound VAC is in place. ANDERSON drain is mostly serosanguineous. ASSESSMENT: Postop oversew bleeding duodenal ulcer by Dr. Escalante with need for dialysis to start today. PLAN: We will hold off on contrast study to evaluate for the gastric outlet until he is extubated. We will follow. Job ID: [id number]
[2018-10-06] MEDS ORDERED: Heparin 1,000 UNITS/ML VIAL ONE (11:11)
[2018-10-06] MEDS: Lorazepam 2 MG/ML VIAL SLOW IVP PRN (12:29)
--- NOTE | 2018-10-06 13:28 | PDOC.PN ---
- Subjective Encounter Start Date: 10/06/18 Encounter Start Time: 13:27 Patient seen and examined - Objective Resuscitation Status - Order Detail: 09/29/18 17:25 Resuscitation Status Routine Resuscitation Status: FULL: Full Resuscitation Vital Signs & Weight: Vital Signs (12 hours) Temp Pulse Resp BP Pulse Ox 10/06/18 13:05 95 111/54 L 10/06/18 12:00 99 F 20 10/06/18 10:00 20 10/06/18 08:00 99.1 F 10/06/18 07:26 100 10/06/18 07:25 20 10/06/18 06:51 110 H 145/65 H 10/06/18 06:00 20 10/06/18 04:00 97.9 F 20 10/06/18 02:17 99 10/06/18 02:00 20 Weight Admit Weight 310 lb Weight 351 lb 6.669 oz Most Recent Monitor Data Heart Rate from ECG 97 NIBP 111/54 NIBP BP-Mean 73 Respiration from ECG 0 SpO2 100 I&O: 10/05/18 10/06/18 10/07/18 06:59 06:59 06:59 Intake Total 5405 3446 Output Total 1475 522 70 Balance 3930 2924 -70 Result Diagrams: 10/06/18 04:07 10/06/18 04:07 Additional Labs: Accuchecks 10/06/18 10/05/18 10/05/18 04:07 21:11 16:52 POC Glucose 127 H 87 93 10/05/18 16:21 POC Glucose 150 H Phys Exam - Physical Examination Constitutional: NAD HEENT: PERRLA intubated NG tube in place coarse breath sounds no respiratory distress Cardiovascular: no significant murmur, no rub tachycardia Gastrointestinal: soft, non-tender, no distention, positive bowel sounds Musculoskeletal: pulses present, edema present Dx/Plan (1) Acute GI bleeding Code(s): K92.2 - GASTROINTESTINAL HEMORRHAGE, UNSPECIFIED Status: Acute (2) Acute respiratory failure Code(s): J96.00 - ACUTE RESPIRATORY FAILURE, UNSP W HYPOXIA OR HYPERCAPNIA Status: Acute (3) Hemorrhagic shock Code(s): R57.8 - OTHER SHOCK Status: Acute Comment: GI bleed (4) Metabolic encephalopathy Code(s): G93.41 - METABOLIC ENCEPHALOPATHY Status: Acute (5) UGIB (upper gastrointestinal bleed) Code(s): K92.2 - GASTROINTESTINAL HEMORRHAGE, UNSPECIFIED Status: Acute Comment: endoscopy today, follow up GI recs - Plan * SBT per pulmonary * cont current plan * no changes * no family at bedside * labs in AM
[2018-10-06] MEDS: Vancomycin HCl 1 GM in Premix Bag 1 BAG IVPB SCH (20:12)
[2018-10-06] MEDS: Sodium Acetate 2 mEq/ml 70 MEQ, Calcium Chloride 10 MEQ, Magnesium Sulfate 4.06 MEQ/ML ... IV SCH (22:06)
[2018-10-06] MEDS: Insulin Regular 300 UNITS/3 ML VIAL SC PRN (22:31)
[2018-10-07] MEDS: Propofol 1,000 MG/100 ML VIAL IV PRN ×6 (00:53→23:53)
[2018-10-07] MEDS: Piperacillin/Tazobactam 2.25 GM in Sodium Chloride 0.9% 100 ML IVPB SCH ×3 (04:01→20:46)
[2018-10-07 06:00] LABS: Band 10 % (5-11); Hemoglobin 7.1 g/dL (14.0-18.0); Lymphocytes 6 % (21-51); MDiff Complete? YES; Mean Corpuscular HGB CONC 34.2 g/dL (32.0-36.0); Mean Corpuscular Hemoglobin 30.2 pg (27.0-31.0); Mean Corpuscular Volume 88.3 fL (78.0-98.0); Mean Platelet Volume 6.6 fL (7.4-10.4); Monocytes 8 % (0-10); Neutrophil 75 % (42-75); Platelet Count 223 thou/uL (130-400); Platelet Morphology Comment Appears Adequate; RBC Distribution Width 14.5 % (11.5-14.5); RBC Morphology Normal; Reactive Lymphocytes 1 % (0-10); Red Blood Cell (RBC) Count 2.34 mill/uL (4.70-6.10); White Blood Cell (WBC) Count 14.9 thou/uL (4.8-10.8)
[2018-10-07 06:02] LABS: Anion Gap 14 mmol/L (10-20); BUN (Urea Nitrogen) 46 mg/dL (8.4-25.7); Calc. Creatinine Clearance 43 mL/min (70-130); Calcium 7.4 mg/dL (7.8-10.44); Carbon Dioxide 26 mmol/L (23-31); Chloride 98 mmol/L (98-107); Estimated GFR-MDRD 17; Glucose 140 mg/dL (80-115); Sodium 135 mmol/L (136-145)
[2018-10-07 06:07] LABS: Potassium 2.9 mmol/L (3.5-5.1)
[2018-10-07] MEDS: Albuterol Sulfate 2.5 mg/3 ml Neb NEB SCH ×3 (07:07→18:26)
[2018-10-07 07:16] LABS: Actual Bicarbonate (HCO3a) 28.3 mEq/L (22-28); Base Excess (BEa) 2.4 mEq/L (-2.0 to +3.0); CO2 Tension 51.7 mmHg (35.0-45.0); Calcium, Ionized 1.01 mmol/L (1.12-1.30); Carboxyhemoglobin (COHb) 1.7 gm% (0.0-3.0); Hemoglobin (Hb) 7.5 g/dL (14.0-18.0); O2 Tension (PaO2) 88.4 mmHg (> 80.0); Potassium - ABG Lab 2.81 mmol/L (3.70-5.30); pH, Arterial 7.36 (7.35-7.45)
[2018-10-07 07:18] LABS: Puncture Site RBRACH
[2018-10-07 07:19] LABS: ALV-art Gradient 132.175 (0-20)
[2018-10-07] MEDS ORDERED: Potassium Chloride 20 MEQ in Premix Bag 1 BAG IVPB SCH ×2 (08:15→09:30)
--- NOTE | 2018-10-07 08:30 | PRG ---
DATE OF SERVICE: 10/07/2018 SUBJECTIVE: This morning, he remains intubated on the vent and opens his eyes, very responsive, very appropriate once sedation is withheld. OBJECTIVE: VITAL SIGNS: Blood pressure 131/58, pulse 91, saturation is 98%, and respirations 20. CHEST: Bilateral rhonchi. CARDIAC: Normal S1, S2. No gallops. ABDOMEN: No masses. NEUROLOGIC: Sedated. LABORATORY DATA: White count 14,000; H and H 7 and 20, and platelet count 223, slight left shift. PO2 is 88, , potassium 2.9, creatinine 3.6. IMPRESSION: 1. Status post gastrointestinal bleed, hemorrhagic shock. 2. Renal failure. 3. Morbid obesity. 4. Severe deconditioning. PLAN: At this stage, he is not weanable. Continue TPN. Replace electrolytes. PT, supportive care. One-half hour of critical time. Job ID: [id number]
--- NOTE | 2018-10-07 08:30 | RAD ---
PORTABLE SEMIUPRIGHT FRONTAL CHEST RADIOGRAPH: DATE: 10/07/2018. COMPARISON: 10/05/2018. HISTORY: Ventilated patient. FINDINGS: Stable endotracheal tube, nasogastric tube, right-sided dialysis catheter, and left-sided central rita ous catheter. Pulmonary vascular congestion persists with nonspecific hazy bibasilar increased densi ty. IMPRESSION: Stable appearance of the chest. POS: [facility]
[2018-10-07] MEDS: Lorazepam 2 MG/ML VIAL SLOW IVP PRN ×2 (09:05→13:55)
[2018-10-07] MEDS: Pantoprazole 40 MG VIAL IVP SCH ×2 (09:05→21:12)
[2018-10-07] MEDS: NPH, Human Insulin Isophane 300 UNIT/3 ML VIAL SC SCH ×2 (09:05→21:13)
--- NOTE | 2018-10-07 09:58 | PRG ---
DATE OF SERVICE: 10/07/2018 SUBJECTIVE: Mr. Garcia was stable overnight. He is still on the ventilator. He had dialysis yesterday. OBJECTIVE: VITAL SIGNS: Blood pressure 134/61, heart rate is 97, and respirations vent. His NG output 600 overnight, nonbloody. LABORATORY DATA: White blood cell count is 14, hemoglobin is 7.1, platelet count is 223. Creatinine now is 3.66. ASSESSMENT: Postop oversew bleeding duodenal ulcer, now on ventilator, sounds like the plans were to potentially extubate early in the week. PLAN: Continue current management. Job ID: [id number]
--- NOTE | 2018-10-07 11:07 | PDOC.PN ---
- Subjective Encounter Start Date: 10/07/18 Encounter Start Time: 11:04 Patient seen and examined. - Objective Resuscitation Status - Order Detail: 09/29/18 17:25 Resuscitation Status Routine Resuscitation Status: FULL: Full Resuscitation Vital Signs & Weight: Vital Signs (12 hours) Temp Pulse Resp BP Pulse Ox 10/07/18 10:51 99 118/54 L 10/07/18 10:00 23 H 10/07/18 08:00 99.6 F 20 10/07/18 07:40 98 10/07/18 07:08 91 130/62 10/07/18 07:00 99.6 F 10/07/18 06:00 20 10/07/18 04:00 99.7 F H 22 H 10/07/18 02:05 99 10/07/18 02:00 23 H 10/07/18 00:00 99.1 F 20 10/06/18 23:36 95 Weight Admit Weight 310 lb Weight 337 lb 4.916 oz Most Recent Monitor Data Heart Rate from ECG 97 NIBP 134/63 NIBP BP-Mean 86 Respiration from ECG 23 SpO2 100 I&O: 10/06/18 10/07/18 10/08/18 06:59 06:59 06:59 Intake Total 3446 3914 Output Total 522 1005 10 Balance 4621 2909 -10 Result Diagrams: 10/07/18 05:39 10/07/18 05:39 Additional Labs: Accuchecks 10/07/18 10/06/18 10/06/18 05:36 22:28 17:24 POC Glucose 149 H 166 H 124 H Phys Exam - Physical Examination Constitutional: NAD HEENT: PERRLA +ET tube +NG tube Neck: no nodes, no JVD Respiratory: no wheezing, no rales, no rhonchi Cardiovascular: RRR, no significant murmur, no rub Gastrointestinal: soft, non-tender, no distention Musculoskeletal: pulses present, edema present (trace) Dx/Plan (1) Acute GI bleeding Code(s): K92.2 - GASTROINTESTINAL HEMORRHAGE, UNSPECIFIED Status: Acute (2) Acute respiratory failure Code(s): J96.00 - ACUTE RESPIRATORY FAILURE, UNSP W HYPOXIA OR HYPERCAPNIA Status: Acute (3) Hemorrhagic shock Code(s): R57.8 - OTHER SHOCK Status: Acute Comment: GI bleed (4) Metabolic encephalopathy Code(s): G93.41 - METABOLIC ENCEPHALOPATHY Status: Acute (5) UGIB (upper gastrointestinal bleed) Code(s): K92.2 - GASTROINTESTINAL HEMORRHAGE, UNSPECIFIED Status: Acute Comment: endoscopy today, follow up GI recs - Plan * no changes in plan of care for now * monitor Hgb closely, stable * continue vent, SBT per pulmonary team * GI onboard as well * no family at bedside
[2018-10-07] MEDS ORDERED: Heparin 1,000 UNITS/ML VIAL ONE (11:11)
[2018-10-07] MEDS: Insulin Regular 300 UNITS/3 ML VIAL SC PRN (12:46)
[2018-10-07] MEDS: Sodium Chloride 0.9% 1,000 ML IV SCH (20:09)
[2018-10-07] MEDS: Sodium Acetate 2 mEq/ml 70 MEQ, Calcium Chloride 10 MEQ, Magnesium Sulfate 4.06 MEQ/ML ... IV SCH (22:00)
[2018-10-07 23:48] LABS: Creatinine, Urine 152.26 mg/dL (63-166)
[2018-10-08] MEDS: Albuterol Sulfate 2.5 mg/3 ml Neb NEB SCH ×4 (00:05→18:41)
[2018-10-08] MEDS: Sodium Chloride 0.9% 1,000 ML IV SCH ×2 (00:39→13:13)
[2018-10-08] MEDS: Epoetin (ESRD) 10,000 UNITS/ML VIAL SC SCH (00:39)
[2018-10-08] MEDS: Piperacillin/Tazobactam 2.25 GM in Sodium Chloride 0.9% 100 ML IVPB SCH ×3 (03:56→21:01)
[2018-10-08] MEDS: Propofol 1,000 MG/100 ML VIAL IV PRN ×5 (03:58→21:01)
[2018-10-08 06:00] LABS: #Monocytes 1.5 thou/uL (0.11-0.59); #Neutrophils 7.8 thou/uL (1.40-6.50); %Eosinophils 0.3 % (0.0-10.0); %Monocytes 14.7 % (0.0-10.0); %Neutrophils 74.9 % (42.0-75.0); Hemoglobin 7.8 g/dL (14.0-18.0); Mean Corpuscular HGB CONC 33.4 g/dL (32.0-36.0); Mean Corpuscular Hemoglobin 29.8 pg (27.0-31.0); Mean Corpuscular Volume 89.1 fL (78.0-98.0); Mean Platelet Volume 6.8 fL (7.4-10.4); Platelet Count 261 thou/uL (130-400); RBC Distribution Width 14.1 % (11.5-14.5); Red Blood Cell (RBC) Count 2.61 mill/uL (4.70-6.10); White Blood Cell (WBC) Count 10.4 thou/uL (4.8-10.8)
[2018-10-08 06:13] LABS: Anion Gap 12 mmol/L (10-20); BUN (Urea Nitrogen) 43 mg/dL (8.4-25.7); Calc. Creatinine Clearance 46 mL/min (70-130); Calcium 7.9 mg/dL (7.8-10.44); Carbon Dioxide 29 mmol/L (23-31); Chloride 100 mmol/L (98-107); Estimated GFR-MDRD 19; Glucose 136 mg/dL (80-115); Sodium 138 mmol/L (136-145)
[2018-10-08 07:07] LABS: Actual Bicarbonate (HCO3a) 28.5 mEq/L (22-28); Base Excess (BEa) 2.4 mEq/L (-2.0 to +3.0); CO2 Tension 52.5 mmHg (35.0-45.0); Calcium, Ionized 1.04 mmol/L (1.12-1.30); Carboxyhemoglobin (COHb) 1.3 gm% (0.0-3.0); Hemoglobin (Hb) 8.1 g/dL (14.0-18.0); O2 Tension (PaO2) 93.1 mmHg (> 80.0); pH, Arterial 7.35 (7.35-7.45)
[2018-10-08 07:18] LABS: ALV-art Gradient 126.475 (0-20); Puncture Site RR
[2018-10-08] MEDS ORDERED: Potassium Chloride 40 MEQ in Premix Bag 1 BAG IVPB SCH (07:45)
--- NOTE | 2018-10-08 08:28 | PRG ---
DATE OF SERVICE: 10/08/2018 TIME SPENT: 35 minutes of critical care time. SUBJECTIVE: The patient remains intubated, on mechanical ventilation, but no acute changes. OBJECTIVE: VITAL SIGNS: On exam, his temperature is 99.9, pulse 92, and blood pressure 92/44. 24-hour intake . HEENT: Unremarkable. NECK: No JVD. LUNGS: Coarse breath sounds. CARDIAC: S1 and S2 regular. ABDOMEN: Midline wound VAC no cellulitis around the wound. EXTREMITIES: No clubbing, cyanosis, or edema. LABORATORY DATA: White blood cell count 10, hematocrit 23.2, and platelet count 261. A pH 7.35, pCO2 of 52, pO2 of 93 on SIMV rate of 20, tidal volume 500, PEEP 5, pressure support 10, and FiO2 40%. Sodium 138, potassium 3, chloride 100, CO2 of 29, BUN 43, creatinine 3.2, and glucose 136. ASSESSMENT: 1. Acute respiratory failure, requiring mechanical ventilation. 2. Acute renal failure. 3. Status post perforated duodenal ulcer, requiring laparotomy and repair. 4. Morbid obesity. PLAN: 1. I do not think that he is able to wean at this time secondary to his hypercapnia. I will go ahead and have his propofol stopped. We can use Ativan and morphine and fentanyl as needed. 2. Continue TPN. 3. He will need a little potassium today in addition to what is in his TPN. 4. His blood glucoses remain well on the NPH insulin. Job ID: [id number]
--- NOTE | 2018-10-08 09:05 | RAD ---
PORTABLE SEMIUPRIGHT FRONTAL CHEST RADIOGRAPH: Date: 10/08/18 COMPARISON: 10/07/18. HISTORY: Ventilated patient. FINDINGS: Stable endotracheal tube, nasogastric tube, left-sided vascular catheter, and right-sided dialysis ca theter. Opacity in the right base noted, evidence of partial consolidation/collapse and pleural fluid . Hazy increased density in the mid left lung zone and the left base with associated left pleural den sity, worsened. IMPRESSION: Nonspecific worsening bibasilar pleural and parenchymal opacity. Findings may signify edema, infectio us pneumonitis, and/or aspiration. POS: [facility]
[2018-10-08] MEDS: Pantoprazole 40 MG VIAL IVP SCH ×2 (09:20→21:02)
[2018-10-08] MEDS: NPH, Human Insulin Isophane 300 UNIT/3 ML VIAL SC SCH ×2 (09:22→22:17)
[2018-10-08] MEDS: Vancomycin HCl 1 GM in Premix Bag 1 BAG IVPB SCH (09:41)
--- NOTE | 2018-10-08 09:55 | PRG ---
DATE OF SERVICE: 10/08/2018 SUBJECTIVE: Mr. Garcia is undergoing dialysis. His pressure is in the 80s, systolic, has been in the 90s prior. Early this morning, it was 110s to 130s with occasional dips into the 90s. Heart rate is 92. Urine output is 75 per 24 hours. Over the weekend, 24 hour urine output was 260 to 335. White count has decreased from 20 to 14, hemoglobin 7.1. Sodium 138, potassium 3, BUN 43, creatinine 3.28. OBJECTIVE: LUNGS: Clear to auscultation. CARDIAC: Regular rate and rhythm without murmur or gallop. ABDOMEN: Soft. Bowel sounds present. ANDERSON drainage is more serous, 10 mL per 24 hours. ASSESSMENT/PLAN: 1. Acute renal failure. The patient remains oliguric. He remains on dialysis. 2. Anemia with hypotension during dialysis. We will transfuse two units of blood. 3. Respiratory failure. Weaning per Pulmonary Medicine. 4. Malnutrition. Continue TPN. Dr. Gray and I does not think the patient is weanable at this time due to his hypercapnia. Job ID: [id number]
--- NOTE | 2018-10-08 10:21 | PRG ---
DATE OF SERVICE: 10/08/2018 RENAL MEDICINE SUBJECTIVE: Mr. Garcia is a 68-year-old white male, being followed up by the Renal Service for his acute kidney injury secondary to ischemic ATN. He has been receiving daily dialysis due to volume overload. He is currently undergoing dialysis today, attempting fluid removal as tolerated. OBJECTIVE: VITAL SIGNS: Blood pressure is 112/53, heart rate 92, respiratory rate is 12, and pulse ox 100%. GENERAL: The patient is sedated, intubated, on ventilator support. SKIN: Adequate turgor. HEENT: He has pale conjunctivae. Anicteric sclerae. No neck mass. No carotid bruits. No JVD. CHEST: No deformities. LUNGS: Decreased breath sounds. HEART: Normal sinus rhythm. No murmurs, gallops, or rubs. ABDOMEN: Globular, soft, nontender. No masses. EXTREMITIES: Positive for edema. MEDICATIONS: Medications of October 08, 2018, reviewed. LABORATORY DATA: Laboratories of October 08, 2018: White count 10.4, hemoglobin 7.8. Sodium 138, potassium 3, chloride 100, carbon dioxide 29, BUN 43, creatinine 3.28, glucose 136, and calcium 7.9. ASSESSMENT AND PLAN: 1. Mild hypokalemia, just now had dialysis, potassium bath. 2. Acute kidney injury secondary to acute tubular necrosis. Supportive dialysis. Receiving daily dialysis for fluid removal. Overall, prognosis remains guarded with this patient. 3. Status post hemorrhagic shock - underwent exploratory laparotomy with repair GI bleeders. P.r.n. blood transfusion. Continue supportive care. Job ID: [id number]
[2018-10-08] MEDS ORDERED: Heparin 10,000 UNITS/ 10 ML VIAL ONE (11:00)
[2018-10-08 13:52] LABS: Actual Bicarbonate (HCO3a) 23.1 mEq/L (22-28); Analyzer IN Cardio OR; Base Excess (BEa) -4.3 mEq/L (-2.0 to +3.0); CO2 Tension 53.6 mmHg (35.0-45.0); Calcium, Ionized 0.91 mmol/L (1.12-1.30); Carboxyhemoglobin (COHb) 0.4 gm% (0.0-3.0); Hemoglobin (Hb) 9.9 g/dL (14.0-18.0); O2 Tension (PaO2) 170.1 mmHg (> 80.0); Potassium - ABG Lab 4.22 mmol/L (3.70-5.30)
[2018-10-08 13:53] LABS: Actual Bicarbonate (HCO3a) 19.3 mEq/L (22-28); Analyzer IN Cardio OR; Base Excess (BEa) -7.3 mEq/L (-2.0 to +3.0); Calcium, Ionized 0.84 mmol/L (1.12-1.30); Carboxyhemoglobin (COHb) 0.6 gm% (0.0-3.0); Hemoglobin (Hb) 8.9 g/dL (14.0-18.0); O2 Tension (PaO2) 139.7 mmHg (> 80.0); Potassium - ABG Lab 4.04 mmol/L (3.70-5.30); pH, Arterial 7.26 (7.35-7.45)
[2018-10-08 13:55] LABS: Actual Bicarbonate (HCO3a) 22.6 mEq/L (22-28); Analyzer IN Cardio OR; Base Excess (BEa) -4.5 mEq/L (-2.0 to +3.0); CO2 Tension 51.5 mmHg (35.0-45.0); Calcium, Ionized 0.92 mmol/L (1.12-1.30); Carboxyhemoglobin (COHb) 0.6 gm% (0.0-3.0); Hemoglobin (Hb) 9.8 g/dL (14.0-18.0); O2 Tension (PaO2) 156.1 mmHg (> 80.0); Potassium - ABG Lab 4.19 mmol/L (3.70-5.30); pH, Arterial 7.26 (7.35-7.45)
[2018-10-08 13:58] LABS: Puncture Site ALINE; pH, Arterial 7.25 (7.35-7.45)
[2018-10-08 13:59] LABS: Puncture Site ALINE
[2018-10-08 13:59] LABS: Puncture Site ALINE
--- NOTE | 2018-10-08 17:57 | PDOC.PN ---
- Subjective Encounter Start Date: 10/08/18 Encounter Start Time: 17:56 Mr. Cole was seen today in follow-up of Duodenal Ulcer with bleed. He remains intubated. He will open his eyes, and track. - Objective Resuscitation Status - Order Detail: 09/29/18 17:25 Resuscitation Status Routine Resuscitation Status: FULL: Full Resuscitation MAR Reviewed: Yes Vital Signs & Weight: Vital Signs (12 hours) Temp Pulse Pulse Pulse Pulse Pulse Resp 10/08/18 16:00 29 H 10/08/18 15:27 99.1 F 98 26 H 10/08/18 15:22 97 10/08/18 15:12 99.0 F 98 26 H 10/08/18 14:00 28 H 10/08/18 13:31 97 10/08/18 13:29 80 82 10/08/18 12:00 99.0 F 20 10/08/18 10:29 89 10/08/18 10:00 20 10/08/18 08:31 92 10/08/18 08:00 99.5 F 20 10/08/18 06:00 20 BP BP BP BP Pulse Ox Pulse Ox Pulse Ox 10/08/18 16:00 10/08/18 15:27 115/52 L 99 10/08/18 15:22 111/53 L 10/08/18 15:12 111/53 L 99 10/08/18 14:00 10/08/18 13:31 123/62 10/08/18 13:29 127/57 L 123/62 100 100 10/08/18 12:00 10/08/18 10:29 110/60 10/08/18 10:00 10/08/18 08:31 112/53 L 10/08/18 08:00 100 10/08/18 06:00 Weight Admit Weight 310 lb Weight 326 lb 15.128 oz Most Recent Monitor Data Heart Rate from ECG 100 NIBP 153/78 NIBP BP-Mean 103 Respiration from ECG 23 SpO2 98 I&O: 10/07/18 10/08/18 10/09/18 06:59 06:59 06:59 Intake Total 3914 3526 0 Output Total 1005 485 35 Balance 2909 3041 -35 Result Diagrams: 10/08/18 05:49 10/08/18 05:49 Additional Labs: Accuchecks 10/08/18 10/08/18 10/07/18 12:39 05:12 21:17 POC Glucose 124 H 140 H 127 H 10/07/18 18:14 POC Glucose 121 H Phys Exam - Physical Examination HEENT: PERRLA Respiratory: no wheezing, no rales, no rhonchi, clear to auscultation bilateral Cardiovascular: RRR, no significant murmur, no rub Gastrointestinal: soft Mildly distended, bowel sounds are diminished Musculoskeletal: pulses present, edema present + lower extremity edema Neurological: non-focal Dx/Plan (1) Duodenal ulcer with hemorrhage Code(s): K26.4 - CHRONIC OR UNSPECIFIED DUODENAL ULCER WITH HEMORRHAGE Status : Acute (2) Acute respiratory failure Code(s): J96.00 - ACUTE RESPIRATORY FAILURE, UNSP W HYPOXIA OR HYPERCAPNIA Status: Acute (3) Hemorrhagic shock Code(s): R57.8 - OTHER SHOCK Status: Acute Comment: GI bleed (4) MARCK (acute kidney injury) Code(s): N17.9 - ACUTE KIDNEY FAILURE, UNSPECIFIED Status: Acute Comment: started on Hemodialysis (5) Acute blood loss anemia Code(s): D62 - ACUTE POSTHEMORRHAGIC ANEMIA Status: Acute - Plan * Duodenal Ulcer with massive hemorrhage- he is post exploratory lap, and resection of the ulcer, and oversew. Continue PPI * Acute blood loss anemia- agree with transfusion * Respiratory failure- he continues to require ventilator support * Acute Kidney Injury- he is requiring dialysis * Nutritional Support- TPN.
[2018-10-08] MEDS: Sodium Acetate 2 mEq/ml 70 MEQ, Calcium Chloride 10 MEQ, Magnesium Sulfate 4.06 MEQ/ML ... IV SCH (22:05)
[2018-10-09] MEDS: Propofol 1,000 MG/100 ML VIAL IV PRN ×2 (00:40→04:22)
[2018-10-09] MEDS: Sodium Chloride 0.9% 1,000 ML IV SCH ×2 (01:08→13:34)
[2018-10-09] MEDS: Albuterol Sulfate 2.5 mg/3 ml Neb NEB SCH ×4 (01:24→18:08)
[2018-10-09] MEDS: Piperacillin/Tazobactam 2.25 GM in Sodium Chloride 0.9% 100 ML IVPB SCH ×4 (04:22→21:00)
[2018-10-09 05:12] LABS: Band 14 % (5-11); Hemoglobin 8.1 g/dL (14.0-18.0); Lymphocytes 16 % (21-51); MDiff Complete? YES; Mean Corpuscular HGB CONC 34.2 g/dL (32.0-36.0); Mean Corpuscular Hemoglobin 30.6 pg (27.0-31.0); Mean Corpuscular Volume 89.4 fL (78.0-98.0); Mean Platelet Volume 6.6 fL (7.4-10.4); Metamyelocyte 1 % (0-0); Monocytes 18 % (0-10); Myelocyte 1 % (0-0); Neutrophil 50 % (42-75); Platelet Count 294 thou/uL (130-400); Platelet Morphology Comment Appears Adequate; RBC Distribution Width 13.6 % (11.5-14.5); Red Blood Cell (RBC) Count 2.66 mill/uL (4.70-6.10); White Blood Cell (WBC) Count 7.8 thou/uL (4.8-10.8)
[2018-10-09 05:13] LABS: Anion Gap 14 mmol/L (10-20); BUN (Urea Nitrogen) 52 mg/dL (8.4-25.7); Calc. Creatinine Clearance 44 mL/min (70-130); Calcium 8.3 mg/dL (7.8-10.44); Carbon Dioxide 27 mmol/L (23-31); Chloride 100 mmol/L (98-107); Estimated GFR-MDRD 18; Glucose 117 mg/dL (80-115); Magnesium 1.9 mg/dL (1.6-2.6); Sodium 138 mmol/L (136-145)
[2018-10-09 07:23] LABS: Actual Bicarbonate (HCO3a) 27.6 mEq/L (22-28); Base Excess (BEa) 1.6 mEq/L (-2.0 to +3.0); CO2 Tension 51.7 mmHg (35.0-45.0); Calcium, Ionized 1.12 mmol/L (1.12-1.30); Carboxyhemoglobin (COHb) 1.4 gm% (0.0-3.0); Hemoglobin (Hb) 8.3 g/dL (14.0-18.0); O2 Tension (PaO2) 110.7 mmHg (> 80.0); Potassium - ABG Lab 2.79 mmol/L (3.70-5.30); pH, Arterial 7.35 (7.35-7.45)
[2018-10-09 07:25] LABS: ALV-art Gradient 109.875 (0-20); Puncture Site RR
[2018-10-09] MEDS ORDERED: Potassium Chloride 40 MEQ in Premix Bag 1 BAG IVPB SCH (07:45)
[2018-10-09 07:58] LABS: Phosphorus 2.5 mg/dL (2.3-4.7)
--- NOTE | 2018-10-09 08:41 | RAD ---
CHEST ONE VIEW: History: Dyspnea. Follow up. Comparison: 10-08-18 FINDINGS: Cardiac silhouette is magnified, enlarged, and partially obscured by bilateral pleural fluid and biba silar infiltrates that are similar in appearance to the prior study. Patient is rotated rightward on the current study. Pulmonary vasculature is engorged with patchy bilateral perihilar infiltrates. Allowing for rotation, lines and tubes appear unchanged in position. environmental monitoring technician leads overlie th e chest. IMPRESSION: Pulmonary vascular congestion, pleural fluid, and other findings are stable. POS: [facility]
--- NOTE | 2018-10-09 09:50 | PRG ---
DATE OF SERVICE: 10/09/2018 TIME SPENT: 35 minutes of critical care time. SUBJECTIVE: This patient remains intubated on mechanical ventilation. There have been no acute changes overnight. OBJECTIVE: VITAL SIGNS: On exam, his temperature is 99.4 with T-max of 100.3, pulse 79, blood pressure 134/65, 24-hour intake 375, output 2185. He had about 3658 by dialysis yesterday. NEUROLOGIC: He will wake up. He squeezed my hand, was able to move his feet today. HEENT: Otherwise, unremarkable. NECK: No JVD. LUNGS: Clear anteriorly. CARDIAC: S1, S2, regular. ABDOMEN: Soft, mildly tender around the incisional site, but no cellulitis noted. EXTREMITIES: No clubbing or cyanosis. Trace edema. LABORATORY DATA: White blood cell count 7.8, hematocrit 23.8, and platelet count 294. PH 7.35, pCO2 of 51, pO2 of 110 on SIMV rate 20, tidal volume 500, PEEP 5, pressure support 10, and FiO2 of 40%. Sodium 138, potassium 3, chloride 100, CO2 of 27, BUN 52, creatinine 3.5, glucose 117. ASSESSMENT: 1. Acute respiratory failure, requiring mechanical ventilation. 2. Status post laparotomy for perforated duodenal ulcer. 3. Morbid obesity. 4. Acute renal failure. PLAN: 1. I will try to slowly move his respiratory rate lower. 2. Stop the propofol. Use fentanyl as needed for breakthrough sedation, otherwise just p.r.n. Ativan. 3. Hopefully, the dialysis will continue to improve the appearance of the patient's x-ray, which is very fluid overloaded. Job ID: [id number]
[2018-10-09] MEDS: Pantoprazole 40 MG VIAL IVP SCH ×2 (09:52→21:00)
[2018-10-09] MEDS: Lorazepam 2 MG/ML VIAL SLOW IVP PRN ×2 (09:53→22:22)
[2018-10-09] MEDS: NPH, Human Insulin Isophane 300 UNIT/3 ML VIAL SC SCH ×2 (10:01→22:00)
--- NOTE | 2018-10-09 10:10 | PRG ---
DATE OF SERVICE: 10/09/2018 RENAL MEDICINE SUBJECTIVE: Mr. Garcia is a 68-year-old white male, who was admitted for hemorrhagic shock. He also developed acute tubular necrosis. He is currently on maintenance hemodialysis. We have been doing daily dialysis due to volume overload. I am currently dialyzing the patient with attempt to max out fluid removal. I am at the bedside supervising his dialysis. OBJECTIVE: VITAL SIGNS: Blood pressure is 134/65 with a heart rate of 79, respiratory rate 20, pulse ox 95%. GENERAL: He is awake and follows simple commands, intubated on ventilator support. SKIN: Adequate turgor. HEENT: He has pinkish conjunctivae. Anicteric sclerae. No neck mass. No carotid bruits. No JVD. CHEST: No deformities. LUNGS: Decreased breath sounds. HEART: Normal sinus rhythm. No murmur. No gallops. No rubs. ABDOMEN: Globular, soft, nontender. No masses. EXTREMITIES: No edema. No deformities. MEDICATIONS: Medications of October 09, 2018 was reviewed. LABORATORY DATA: Laboratories of October 09, 2018; white count 7.8, hemoglobin 8.1. Sodium 138, potassium 3, chloride 100, carbon dioxide 27, BUN 52, creatinine 3.47, glucose 117, calcium 8.3, and magnesium 1.9. ASSESSMENT AND PLAN: 1. Mild hypokalemia-we will use a 4.0 potassium bath with dialysis today. 2. Acute kidney injury secondary to ischemic acute tubular necrosis-continue hemodialysis regimen. We will do a 4-hour dialysis with fluid removal as tolerated. We will resume him back on his Monday, , and Monday dialysis. 3. Volume overload/pulmonary edema, maxing out fluid removal. 4. Acute respiratory failure. Continue supportive care. Still intubated. 5. Gastrointestinal bleed-stabilizing. Job ID: [id number]
[2018-10-09] MEDS ORDERED: Iopamidol 370 76% 50 ML VIAL FS ONE (10:37)
--- NOTE | 2018-10-09 10:51 | PRG ---
DATE OF SERVICE: 10/09/2018 SUBJECTIVE: Josh Garcia is doing well today. He is on the ventilator. OBJECTIVE: GENERAL: He is awake and appropriate, responsive. VITAL SIGNS: Heart rate 85, blood pressure 132/63, heart rate 79. Gastric drainage 2050 over 24 hours. ANDERSON drain 30 mL, serous, slightly sanguinous. Malloy catheter 105 over 24 hours. LUNGS: Clear to auscultation. CARDIAC: Regular rate and rhythm without murmur or gallop. ABDOMEN: Soft. Incisional wound VAC was removed. EXTREMITIES: Unremarkable. ASSESSMENT AND PLAN: 1. respiratory failure. Weaning per Pulmonary. 2. Malnutrition, on TPN. 3. Status post duodenostomy and oversew bleeding duodenal ulcer and omental patch. He is postoperative day #6. We will obtain CT scan abdomen with oral contrast per NG tube to assess gastric outlet and repair. I doubt that he has a leak. Hopefully, he can be weaned soon. We will avoid IV contrast due to his acute renal failure. Job ID: [id number]
[2018-10-09 11:37] LABS: Vancomycin, Trough 12.7 ug/mL
[2018-10-09] MEDS ORDERED: Heparin 10,000 UNITS/ 10 ML VIAL ONE (12:00)
--- NOTE | 2018-10-09 15:33 | PDOC.PN ---
- Subjective Encounter Start Date: 10/09/18 Encounter Start Time: 13:00 Mr. Garcia was seen today in follow-up of duodenal ulcer with hemorrhagic shock. He remains intubated. - Objective Resuscitation Status - Order Detail: 09/29/18 17:25 Resuscitation Status Routine Resuscitation Status: FULL: Full Resuscitation MAR Reviewed: Yes Vital Signs & Weight: Vital Signs (12 hours) Temp Pulse Resp BP 10/09/18 15:26 94 145/69 H 10/09/18 13:11 92 134/70 10/09/18 11:17 94 148/71 H 10/09/18 08:00 20 10/09/18 07:36 85 132/63 10/09/18 06:00 20 10/09/18 04:00 99.4 F 22 H 10/09/18 03:37 85 113/58 L Weight Admit Weight 310 lb Weight 326 lb 15.128 oz Most Recent Monitor Data Heart Rate from ECG 79 NIBP 134/65 NIBP BP-Mean 88 Respiration from ECG 20 SpO2 95 I&O: 10/08/18 10/09/18 10/10/18 06:59 06:59 06:59 Intake Total 3526 3705 Output Total 485 2185 6 Balance 3041 1520 -6 Result Diagrams: 10/09/18 04:23 10/09/18 04:23 Additional Labs: Accuchecks 10/09/18 10/09/18 10/09/18 11:16 04:29 00:43 POC Glucose 108 117 H 114 H 10/08/18 10/08/18 21:01 17:56 POC Glucose 131 H 141 H Phys Exam - Physical Examination HEENT: PERRLA Respiratory: no wheezing, no rales, no rhonchi, clear to auscultation bilateral Cardiovascular: RRR, no significant murmur, no rub Gastrointestinal: soft bowel sounds are diminished, mildly distended Musculoskeletal: pulses present, edema present Dx/Plan (1) Duodenal ulcer with hemorrhage Code(s): K26.4 - CHRONIC OR UNSPECIFIED DUODENAL ULCER WITH HEMORRHAGE Status : Acute (2) Acute respiratory failure Code(s): J96.00 - ACUTE RESPIRATORY FAILURE, UNSP W HYPOXIA OR HYPERCAPNIA Status: Acute (3) Hemorrhagic shock Code(s): R57.8 - OTHER SHOCK Status: Acute Comment: GI bleed (4) MARCK (acute kidney injury) Code(s): N17.9 - ACUTE KIDNEY FAILURE, UNSPECIFIED Status: Acute Comment: started on Hemodialysis (5) Acute blood loss anemia Code(s): D62 - ACUTE POSTHEMORRHAGIC ANEMIA Status: Acute - Plan * Duodenal Ulcer with Hemorrhage- he is s/p duodenotomy, and duodenal oversew and omental patch. * His H&H has remained stable * plan is for CT scan of abdomen to rule out leak * MARCK- he is on dialysis now * Nutritional Support with TPN
--- NOTE | 2018-10-09 17:32 | CT ---
ABDOMEN CT WITHOUT CONTRAST: 10/09/18 HISTORY: Oversew to repair gastric bleed. COMPARISON: None. TECHNIQUE: An abdomen CT is performed without IV contrast. Enteric contrast was administered. Coronal reformatte d images are submitted for interpretation. FINDINGS: Limited evaluation due to IV contrast and motion. There are bilateral small effusions with adjacent c onsolidation in the lower lobes due to atelectasis, aspiration or pneumonia. Limited evaluation of the solid organs. No renal solid organ abnormality. No evidence of obstructive uropathy. Symmetric attenuation of the psoas muscle. Unremarkable gallbladder. No gastrohepatic, retrocrural or periportal lymphadenopathy. Unremarkable gallbladder. There is a per cutaneous drainage catheter in the right upper quadrant. Contrast opacifies a normal appearing stomac h. There is irregular appearance of the first and second portion of the duodenum. The third portion i s slightly irregular as well. The fourth portion of the duodenum and the proximal small bowel loops h ave a normal caliber. Additional multiple normal caliber small bowel loops are identified. There does not appear to be any extraluminal contrast to suggest a perforation. There does not appear to be any free air or additional fluid collections with air to suggest abscess/leak. There does appear to be a normal caliber contrast filled appendix in the right lower quadrant. There is induration of the right thoracic chest wall likely iatrogenic. IMPRESSION: 1. Opacification of multiple loops of the alimentary canal with oral contrast. There does appear to be irregular appearance of the first, second and to a lesser extent third portion of the duodenum . There does not appear to be any evidence of extravasated contrast in this region. Currently, this r egion is not opacified with contrast, but there is evidence of contrast that has passed through this region and into additional normal caliber small bowel loops. 2. There is no CT evidence of leak, extravasation, or abscess at this time. 3. Bilateral pleural effusion with consolidation in the adjacent lung parenchyma due to atelecta sis, pneumonia or aspiration. POS: [facility]
[2018-10-09] MEDS: Sodium Acetate 2 mEq/ml 70 MEQ, Calcium Chloride 10 MEQ, Magnesium Sulfate 4.06 MEQ/ML ... IV SCH (22:31)
[2018-10-10] MEDS: Albuterol Sulfate 2.5 mg/3 ml Neb NEB SCH ×4 (00:36→18:23)
[2018-10-10] MEDS: Piperacillin/Tazobactam 2.25 GM in Sodium Chloride 0.9% 100 ML IVPB SCH ×3 (03:38→20:37)
[2018-10-10] MEDS: Morphine 2 MG/ML SYRINGE SLOW IVP PRN (03:46)
[2018-10-10 04:39] LABS: Anion Gap 13 mmol/L (10-20); BUN (Urea Nitrogen) 53 mg/dL (8.4-25.7); Calc. Creatinine Clearance 45 mL/min (70-130); Calcium 8.4 mg/dL (7.8-10.44); Carbon Dioxide 28 mmol/L (23-31); Chloride 99 mmol/L (98-107); Estimated GFR-MDRD 19; Glucose 113 mg/dL (80-115); Potassium 3.2 mmol/L (3.5-5.1); Sodium 137 mmol/L (136-145)
[2018-10-10 04:49] LABS: Band 2 % (5-11); Hemoglobin 8.3 g/dL (14.0-18.0); Hypochromia SLIGHT = 6-15 cells (100X) (0-5/hpf); Lymphocytes 11 % (21-51); MDiff Complete? YES; Mean Corpuscular HGB CONC 33.6 g/dL (32.0-36.0); Mean Corpuscular Hemoglobin 30.1 pg (27.0-31.0); Mean Corpuscular Volume 89.7 fL (78.0-98.0); Mean Platelet Volume 6.2 fL (7.4-10.4); Monocytes 6 % (0-10); Neutrophil 81 % (42-75); Platelet Count 340 thou/uL (130-400); Platelet Morphology Comment Appears Adequate; RBC Distribution Width 13.5 % (11.5-14.5); Red Blood Cell (RBC) Count 2.76 mill/uL (4.70-6.10)
[2018-10-10 07:11] LABS: Actual Bicarbonate (HCO3a) 25.5 mEq/L (22-28); Base Excess (BEa) -0.5 mEq/L (-2.0 to +3.0); CO2 Tension 49.2 mmHg (35.0-45.0); Calcium, Ionized 1.13 mmol/L (1.12-1.30); Carboxyhemoglobin (COHb) 1.6 gm% (0.0-3.0); Hemoglobin (Hb) 8.3 g/dL (14.0-18.0); O2 Tension (PaO2) 99.2 mmHg (> 80.0); Potassium - ABG Lab 3.12 mmol/L (3.70-5.30); pH, Arterial 7.33 (7.35-7.45)
[2018-10-10 07:21] LABS: Puncture Site L.R.
[2018-10-10] MEDS ORDERED: Acetaminophen 650 MG in Premix Bag 1 BAG IVPB PRN (07:58)
--- NOTE | 2018-10-10 08:12 | RAD ---
PORTABLE CHEST: History: Respiratory distress. Comparison: Prior day's exam. FINDINGS: Endotracheal tube is in satisfactory position. The distal end of the NG tube is not seen on this exam ination. Parenchymal lung changes are stable. IMPRESSION: Stable exam. POS: [facility]
[2018-10-10] MEDS ORDERED: Potassium Chloride 40 MEQ in Premix Bag 1 BAG IVPB SCH (09:00)
--- NOTE | 2018-10-10 09:14 | PRG ---
DATE OF SERVICE: 10/10/2018 TIME SPENT: A 35 minutes of critical care time. SUBJECTIVE: The patient remains intubated on mechanical ventilation. He is awake, able to follow commands consistently for the first time that I have seen him. OBJECTIVE: VITAL SIGNS: On exam, his temperature is 100.7 that has been his T-max, pulse 92, and blood pressure 106/47. His weight is down to 324 from a maximum of 351, his admission weight was 310. A 24-hour intake 3705 and output 2185. Most of that removed by dialysate. His urine output has been minimal. HEENT: Unremarkable. NECK: No JVD. LUNGS: He has diminished breath sounds in the bases. CARDIAC: S1 and S2. Regular. ABDOMEN: Soft and nontender around the wound site. EXTREMITIES: Edematous. LABORATORY DATA: Sodium 137, potassium 3.2, chloride 99, CO2 of 28, BUN 53, creatinine 3.3, and glucose 113. White blood cell count 9, hematocrit 24.7, and platelet count 340. A pH of 7.33, pCO2 of 49, pO2 of 99 on SIMV rate 16, tidal volume 500, PEEP 5, pressure support 10, and FiO2 of 40%. His chest x-ray shows continued pulmonary edema albeit better. CT of the abdomen yesterday showed minimal pleural effusion bilaterally. ASSESSMENT: 1. Acute respiratory failure requiring mechanical ventilation. 2. Status post laparotomy for perforated duodenal ulcer. 3. Acute renal failure. 4. Morbid obesity. PLAN: I think the patient is working toward extubation in the next 48 hours. I will trial on spontaneous breathing today and see how long he last. Hopefully, Nephrology will continue to remove fluid, so he will be closer to his admission weight. I think we can go ahead and stop his IV fluids since he is getting TPN separately. His blood sugars are under good control. His potassium needs to be replaced. Job ID: [id number]
--- NOTE | 2018-10-10 09:36 | PRG ---
DATE OF SERVICE: 10/10/2018 RENAL MEDICINE SUBJECTIVE: Mr. Garcia is a 68-year-old white male, who was admitted for hemorrhagic shock. He developed acute renal failure secondary to acute tubular necrosis. He has been undergoing daily dialysis due to volume overload in the last few days. No acute events last night. OBJECTIVE: VITAL SIGNS: Blood pressure is 133/62 with a heart rate of 100, respiratory rate 22, O2 saturation 99%. GENERAL: The patient is intubated on ventilator support. He is arousable, can follow simple commands. HEENT: He has slightly pale conjunctivae. Anicteric sclerae. No neck mass. No carotid bruits. No JVD. CHEST: No deformities. LUNGS: Decreased breath sounds. HEART: Normal sinus rhythm. No murmurs, no gallops, no rubs. ABDOMEN: Globular, soft, nontender. No masses. EXTREMITIES: No edema. No deformities. MEDICATIONS: Medications of October 10, 2018 was reviewed. LABORATORY DATA: Laboratories of October 10, 2018; white count 9, hemoglobin 8.3, sodium 137, potassium 3.2, chloride 99, carbon dioxide 28, BUN 53, creatinine 3.33, glucose 133, calcium 8.4. ASSESSMENT AND PLAN: 1. Acute kidney injury secondary to ischemic acute tubular necrosis. Continue hemodialysis regimen. We will plan to do an [id number] dialysis with this patient depending on his volume status. He is again scheduled for dialysis in a.m. 2. Mild hypokalemia. We will continue to observe this. 3. Status post gastrointestinal bleed, stable, p.r.n. blood transfusion. Overall prognosis remains guarded. Job ID: [id number]
--- NOTE | 2018-10-10 09:40 | PDOC.PN ---
- Subjective Encounter Start Date: 10/10/18 Encounter Start Time: 09:36 Mr. Garcia was - Objective Resuscitation Status - Order Detail: 09/29/18 17:25 Resuscitation Status Routine Resuscitation Status: FULL: Full Resuscitation MAR Reviewed: Yes Vital Signs & Weight: Vital Signs (12 hours) Temp Pulse Pulse Resp BP BP Pulse Ox 10/10/18 08:14 100 137/60 10/10/18 08:00 99.5 F 20 10/10/18 06:31 99 133/59 L 10/10/18 06:30 100 19 100 10/10/18 06:00 16 10/10/18 04:00 100.7 F H 26 H 10/10/18 02:24 104 H 10/10/18 02:00 23 H 10/10/18 00:00 99.9 F H 21 H 10/09/18 22:00 19 10/09/18 21:54 104 H Pulse Ox 10/10/18 08:14 94 L 10/10/18 08:00 10/10/18 06:31 10/10/18 06:30 10/10/18 06:00 10/10/18 04:00 10/10/18 02:24 10/10/18 02:00 10/10/18 00:00 10/09/18 22:00 10/09/18 21:54 Weight Admit Weight 310 lb Weight 324 lb 4.8 oz Most Recent Monitor Data Heart Rate from ECG 100 NIBP 133/62 NIBP BP-Mean 85 Respiration from ECG 22 SpO2 99 I&O: 10/09/18 10/10/18 10/11/18 06:59 06:59 06:59 Intake Total 3705 1146 Output Total 2185 1136 130 Balance 1520 10 -130 Result Diagrams: 10/10/18 04:14 10/10/18 04:14 Additional Labs: Accuchecks 10/10/18 10/09/18 10/09/18 04:01 22:23 18:32 POC Glucose 117 H 115 H 121 H 10/09/18 11:16 POC Glucose 108 Dx/Plan (1) Duodenal ulcer with hemorrhage Code(s): K26.4 - CHRONIC OR UNSPECIFIED DUODENAL ULCER WITH HEMORRHAGE Status : Acute (2) Acute respiratory failure Code(s): J96.00 - ACUTE RESPIRATORY FAILURE, UNSP W HYPOXIA OR HYPERCAPNIA Status: Acute (3) Hemorrhagic shock Code(s): R57.8 - OTHER SHOCK Status: Acute Comment: GI bleed (4) MARCK (acute kidney injury) Code(s): N17.9 - ACUTE KIDNEY FAILURE, UNSPECIFIED Status: Acute Comment: started on Hemodialysis (5) Acute blood loss anemia Code(s): D62 - ACUTE POSTHEMORRHAGIC ANEMIA Status: Acute - Plan * .
--- NOTE | 2018-10-10 09:50 | PDOC.PN ---
- Subjective Encounter Start Date: 10/10/18 Encounter Start Time: 09:48 Mr. Garcia was seen today in follow-up of Duodenal ulcer with hemorrhage. He is intubated, and awake and alert. He indicates no abdominal pain. - Objective Resuscitation Status - Order Detail: 09/29/18 17:25 Resuscitation Status Routine Resuscitation Status: FULL: Full Resuscitation MAR Reviewed: Yes Vital Signs & Weight: Vital Signs (12 hours) Temp Pulse Pulse Resp BP BP Pulse Ox 10/10/18 08:14 100 137/60 10/10/18 08:00 99.5 F 20 10/10/18 06:31 99 133/59 L 10/10/18 06:30 100 19 100 10/10/18 06:00 16 10/10/18 04:00 100.7 F H 26 H 10/10/18 02:24 104 H 10/10/18 02:00 23 H 10/10/18 00:00 99.9 F H 21 H 10/09/18 22:00 19 10/09/18 21:54 104 H Pulse Ox 10/10/18 08:14 94 L 10/10/18 08:00 10/10/18 06:31 10/10/18 06:30 10/10/18 06:00 10/10/18 04:00 10/10/18 02:24 10/10/18 02:00 10/10/18 00:00 10/09/18 22:00 10/09/18 21:54 Weight Admit Weight 310 lb Weight 324 lb 4.8 oz Most Recent Monitor Data Heart Rate from ECG 100 NIBP 133/62 NIBP BP-Mean 85 Respiration from ECG 22 SpO2 99 I&O: 10/09/18 10/10/18 10/11/18 06:59 06:59 06:59 Intake Total 3705 1146 Output Total 2185 1136 130 Balance 1520 10 -130 Result Diagrams: 10/10/18 04:14 10/10/18 04:14 Additional Labs: Accuchecks 10/10/18 10/09/18 10/09/18 04:01 22:23 18:32 POC Glucose 117 H 115 H 121 H 10/09/18 11:16 POC Glucose 108 Phys Exam - Physical Examination HEENT: PERRLA Respiratory: no wheezing, no rales, no rhonchi, clear to auscultation bilateral Cardiovascular: RRR, no significant murmur, no rub Gastrointestinal: soft, non-tender, no distention, positive bowel sounds Musculoskeletal: no edema, pulses present + venous stasis changes Neurological: non-focal Dx/Plan (1) Duodenal ulcer with hemorrhage Code(s): K26.4 - CHRONIC OR UNSPECIFIED DUODENAL ULCER WITH HEMORRHAGE Status : Acute (2) Acute respiratory failure Code(s): J96.00 - ACUTE RESPIRATORY FAILURE, UNSP W HYPOXIA OR HYPERCAPNIA Status: Acute (3) Hemorrhagic shock Code(s): R57.8 - OTHER SHOCK Status: Acute Comment: GI bleed (4) MARCK (acute kidney injury) Code(s): N17.9 - ACUTE KIDNEY FAILURE, UNSPECIFIED Status: Acute Comment: started on Hemodialysis (5) Acute blood loss anemia Code(s): D62 - ACUTE POSTHEMORRHAGIC ANEMIA Status: Acute - Plan * Duodenal Ulcer- s/p duodenotomy, and oversew. His H&H has been stable * Respiratory failure- he is currently undergoing a CPAP trial * Acute Kidney injury- he is currently requiring dialysis * Nutritional Support with TPN.
[2018-10-10] MEDS: Lorazepam 2 MG/ML VIAL SLOW IVP PRN (12:14)
[2018-10-10] MEDS: Pantoprazole 40 MG VIAL IVP SCH ×2 (12:16→20:36)
[2018-10-10] MEDS: NPH, Human Insulin Isophane 300 UNIT/3 ML VIAL SC SCH ×2 (12:19→21:45)
--- NOTE | 2018-10-10 17:44 | PRG ---
DATE OF SERVICE: 10/10/2018 SUBJECTIVE: Mr. Garcia is doing well. He is still intubated. He is in the process of being weaned. Hopefully, he will be extubated tomorrow. He is up in the neuro chair today. OBJECTIVE: VITAL SIGNS: Temperature 98 degrees, blood pressure 136/84, heart rate 101. LUNGS: Clear to auscultation. CARDIAC: Regular rate and rhythm without murmur or gallop. ABDOMEN: Soft, obese, nontender. Surgical wound looks good. Staple line intact. EXTREMITIES: Unremarkable. LABORATORY DATA: CAT scan yesterday revealed no evidence of leak and patent GI tract. The patient's ANDERSON drain has minimal output. Gastric drainage 950 mL yesterday. Urine output 51 mL for 24 hours. White count is 9, hemoglobin 8.3. Basic metabolic profile is normal except potassium 3.2, creatinine 3.3, BUN 53. ASSESSMENT/PLAN: 1. Acute renal failure. Continue dialysis. He remains oliguric. 2. Respiratory failure. Wean per Pulmonary Medicine. Hopefully, he can be extubated tomorrow. 3. Hemorrhaging duodenal ulcer, status post laparotomy oversew, NG-tube is in place. NG-tube seems to be coming down. CAT scan reveals absence of any leak and patent GI tract. ANDERSON drain has minimal output and will remove it. 4. Malnutrition. Continue TPN. 5. The patient is postoperative day #7, status post operation on October 03, 2018. Job ID: [id number]
[2018-10-10] MEDS: Sodium Acetate 2 mEq/ml 70 MEQ, Calcium Chloride 10 MEQ, Magnesium Sulfate 4.06 MEQ/ML ... IV SCH (21:47)
[2018-10-11] MEDS: Albuterol Sulfate 2.5 mg/3 ml Neb NEB SCH ×4 (00:01→18:22)
[2018-10-11] MEDS: Lorazepam 2 MG/ML VIAL SLOW IVP PRN ×2 (00:55→21:35)
[2018-10-11] MEDS: Piperacillin/Tazobactam 2.25 GM in Sodium Chloride 0.9% 100 ML IVPB SCH ×3 (04:53→21:15)
[2018-10-11 05:16] LABS: #Basophils 0.1 thou/uL (0.0-0.2); #Eosinphils 0.1 thou/uL (0.0-0.7); #Lymphocytes 1.2 thou/uL (1.20-3.40); #Monocytes 1.4 thou/uL (0.11-0.59); #Neutrophils 7.1 thou/uL (1.40-6.50); %Basophils 0.9 % (0.0-1.0); %Eosinophils 0.9 % (0.0-10.0); %Monocytes 14.5 % (0.0-10.0); %Neutrophils 71.7 % (42.0-75.0); Hemoglobin 8.2 g/dL (14.0-18.0); Mean Corpuscular Hemoglobin 30.6 pg (27.0-31.0); Mean Corpuscular Volume 89.8 fL (78.0-98.0); Mean Platelet Volume 6.2 fL (7.4-10.4); Platelet Count 348 thou/uL (130-400); RBC Distribution Width 13.7 % (11.5-14.5); Red Blood Cell (RBC) Count 2.69 mill/uL (4.70-6.10); White Blood Cell (WBC) Count 9.9 thou/uL (4.8-10.8)
[2018-10-11 05:20] LABS: INR-International Normal Ratio 1.1
[2018-10-11 05:49] LABS: ALT (SGPT) 18 U/L (8-55); AST (SGOT) 22 U/L (5-34); Albumin 2.5 g/dL (3.4-4.8); Alkaline Phosphatase 65 U/L (40-150); Bilirubin, Direct 0.5 mg/dL (0.1-0.3); Bilirubin, Total 0.7 mg/dL (0.2-1.2); Phosphorus 2.2 mg/dL (2.3-4.7); Protein, Total 5.7 g/dL (5.8-8.1)
[2018-10-11 05:57] LABS: Anion Gap 19 mmol/L (10-20); BUN (Urea Nitrogen) 94 mg/dL (8.4-25.7); Calc. Creatinine Clearance 28 mL/min (70-130); Carbon Dioxide 23 mmol/L (23-31); Chloride 97 mmol/L (98-107); Estimated GFR-MDRD 11; Glucose 107 mg/dL (80-115); Magnesium 2.2 mg/dL (1.6-2.6); Potassium 3.2 mmol/L (3.5-5.1); Sodium 136 mmol/L (136-145)
[2018-10-11 06:39] LABS: Actual Bicarbonate (HCO3a) 23.8 mEq/L (22-28); Base Excess (BEa) -3.3 mEq/L (-2.0 to +3.0); CO2 Tension 54.7 mmHg (35.0-45.0); Calcium, Ionized 1.19 mmol/L (1.12-1.30); Carboxyhemoglobin (COHb) 1.6 gm% (0.0-3.0); Hemoglobin (Hb) 8.2 g/dL (14.0-18.0); O2 Tension (PaO2) 97.5 mmHg (> 80.0); Potassium - ABG Lab 3.21 mmol/L (3.70-5.30); pH, Arterial 7.26 (7.35-7.45)
[2018-10-11 06:41] LABS: Puncture Site RR
[2018-10-11 06:42] LABS: ALV-art Gradient 119.325 (0-20)
[2018-10-11] MEDS: Pantoprazole 40 MG VIAL IVP SCH ×2 (08:34→23:26)
[2018-10-11 08:53] LABS: Vancomycin, Random 15.6 ug/mL (See Comment)
--- NOTE | 2018-10-11 09:17 | RAD ---
PORTABLE CHEST: Date: 10/11/18 HISTORY: Respiratory distress. COMPARISON: 10/10/18. FINDINGS: Endotracheal tube is in satisfactory position. Right-sided HemoSplit catheter and NG tubes also are u nchanged. Parenchymal lung changes are stable. IMPRESSION: Stable exam. POS: OFF
--- NOTE | 2018-10-11 09:27 | PRG ---
DATE OF SERVICE: 10/11/2018 RENAL MEDICINE SUBJECTIVE: Mr. Garcia is a 68-year-old white male, who was seen for acute kidney injury secondary to acute tubular necrosis. He was admitted for hemorrhagic shock. He is currently undergoing dialysis without heparin. He still unable to be weaned off from his ventilator. No acute events last night. OBJECTIVE: VITAL SIGNS: Blood pressure is 110/61 with a heart rate of 77, respiratory rate 18, pulse ox 100%. GENERAL: The patient is sleepy, but arousable. He is intubated on ventilator support. SKIN: Adequate turgor. HEENT: He has slightly pale conjunctivae. Anicteric sclerae. No neck mass. No carotid bruits. No JVD. CHEST: No deformities. LUNGS: Decreased breath sounds. HEART: Normal sinus rhythm. No murmurs, no gallops, no rubs. ABDOMEN: Globular, soft, nontender. No masses. EXTREMITIES: No edema. No deformities. MEDICATIONS: Medications of October 11, 2018 was reviewed. LABORATORY DATA: Laboratories of October 11, 2018; white count is 9.9, hemoglobin 8.2. Sodium 136, potassium 3.2, chloride 97, carbon dioxide 23, BUN 94, creatinine 5.41, glucose 107, calcium is 9.0, magnesium 2.2. ASSESSMENT AND PLAN: 1. Acute kidney injury secondary to ischemic acute tubular necrosis-no evidence of renal recovery. Continuing three times a week hemodialysis. I am doing a 4-hour hemodialysis and I am at the bedside supervising his dialysis. We will attempt 4 L fluid removal as tolerated by the patient. 2. Status post hemorrhagic shock, hemodynamically stable. Continue p.r.n. blood transfusion. The patient is also on Epogen. 3. Acute respiratory failure. Pulmonary following, unable to be weaned off from the ventilator for the moment. Consideration for tracheostomy is being done. 4. Agree with current management. Job ID: [id number]
--- NOTE | 2018-10-11 09:44 | PRG ---
DATE OF SERVICE: 10/11/2018 This is 35 minutes critical care time. SUBJECTIVE: The patient remains intubated on mechanical ventilation. He is extremely weak. At the current time, he is not on any kind of sedation. OBJECTIVE: VITAL SIGNS: On exam, his temperature is 98.9, pulse 88, blood pressure 110/61. 24-hour intake 2751, output 1045. HEENT: Unremarkable. NECK: No JVD. LUNGS: Clear anteriorly. CARDIAC: S1 and S2 regular. ABDOMEN: Obese, soft, nontender. EXTREMITIES: Edematous. His chest x-ray demonstrates bilateral pulmonary edema and pleural effusions. His film is very rotated. LABORATORY DATA: PH 7.26, pCO2 of 54, pO2 of 97, CPAP 5, pressure support 10. White blood cell count 9.9, hemoglobin 8.2, hematocrit 24.1, and platelet count 348. Sodium 136, potassium 3.2, chloride 97, CO2 of 23, BUN 94, creatinine 5.4, glucose 107. ASSESSMENT: 1. Continued hypoxic respiratory failure, requiring mechanical ventilation. 2. 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 He is not requiring any sedation and barely has any strength at all when asked to do things. 3. Status post laparotomy for perforated duodenal ulcer. 4. Acute renal failure. 5. Morbid obesity. PLAN: 1. I thought the patient might be a candidate for extubation this morning; however, CO2 is high and his neuromuscular weakness is extreme. Based on that, I am going to place him back on a rate. 2. Continue hemodialysis. 3. Continue antibiotics. 4. Possibility of a trach early next week if we do not see improvement. Job ID: [id number]
[2018-10-11] MEDS ORDERED: Heparin 1,000 UNITS/ML VIAL ONE (11:11)
[2018-10-11] MEDS: NPH, Human Insulin Isophane 300 UNIT/3 ML VIAL SC SCH ×2 (15:27→21:16)
[2018-10-11] MEDS: Morphine 2 MG/ML SYRINGE SLOW IVP PRN (15:37)
--- NOTE | 2018-10-11 16:14 | PDOC.PN ---
- Subjective Encounter Start Date: 10/11/18 Encounter Start Time: 16:10 Mr. Garcia was seen today in follow-up. He remains intubated. He appears comfortable, and follows commands. - Objective Resuscitation Status - Order Detail: 09/29/18 17:25 Resuscitation Status Routine Resuscitation Status: FULL: Full Resuscitation MAR Reviewed: Yes Vital Signs & Weight: Vital Signs (12 hours) Temp Pulse Pulse Resp BP BP Pulse Ox 10/11/18 15:43 100 10/11/18 15:26 97 10/11/18 14:46 93 158/80 H 10/11/18 14:00 20 10/11/18 12:42 89 163/82 H 10/11/18 12:00 98.9 F 30 H 10/11/18 10:23 89 130/68 10/11/18 10:00 21 H 10/11/18 08:42 92 109/60 10/11/18 08:00 98.9 F 15 98 10/11/18 07:44 89 144/66 H 10/11/18 06:00 24 H Pulse Ox 10/11/18 15:43 10/11/18 15:26 10/11/18 14:46 100 10/11/18 14:00 10/11/18 12:42 10/11/18 12:00 10/11/18 10:23 10/11/18 10:00 10/11/18 08:42 10/11/18 08:00 10/11/18 07:44 10/11/18 06:00 Weight Admit Weight 310 lb Weight 323 lb 13.745 oz Most Recent Monitor Data Heart Rate from ECG 92 NIBP 158/80 NIBP BP-Mean 106 Respiration from ECG 24 SpO2 100 I&O: 10/10/18 10/11/18 10/12/18 06:59 06:59 06:59 Intake Total 1146 2751.4 Output Total 1136 1045 405 Balance 10 1706.4 -405 Result Diagrams: 10/11/18 04:43 10/11/18 04:43 Additional Labs: Accuchecks 10/11/18 10/11/18 10/10/18 10:33 04:44 21:44 POC Glucose 109 107 102 10/10/18 16:20 POC Glucose 112 H Phys Exam - Physical Examination HEENT: PERRLA Respiratory: no wheezing, no rales, no rhonchi, clear to auscultation bilateral Cardiovascular: RRR, no significant murmur, no rub Gastrointestinal: soft, non-tender, no distention, positive bowel sounds Musculoskeletal: no edema, pulses present Dx/Plan (1) Duodenal ulcer with hemorrhage Code(s): K26.4 - CHRONIC OR UNSPECIFIED DUODENAL ULCER WITH HEMORRHAGE Status : Acute (2) Acute respiratory failure Code(s): J96.00 - ACUTE RESPIRATORY FAILURE, UNSP W HYPOXIA OR HYPERCAPNIA Status: Acute (3) Hemorrhagic shock Code(s): R57.8 - OTHER SHOCK Status: Acute Comment: GI bleed (4) MARCK (acute kidney injury) Code(s): N17.9 - ACUTE KIDNEY FAILURE, UNSPECIFIED Status: Acute Comment: started on Hemodialysis (5) Acute blood loss anemia Code(s): D62 - ACUTE POSTHEMORRHAGIC ANEMIA Status: Acute - Plan * Duodenal Ulcer with hemorrhagic shock- he is s/p surgical repair, and H&H is stable * Respiratory failure- he is not yet ready for extubation- primarily due to muscular weakness- continue the weaning process * HTN- blood pressure is sable * DM- blood glucose is stable- ? history of diabetes- will discontinue Lantus, as he has not been receiving it, and continue with SSI * MARCK- due to ATN- he is requiring dialysis.
--- NOTE | 2018-10-11 17:58 | PRG ---
DATE OF SERVICE: 10/11/2018 SUBJECTIVE: Josh Garcia is doing well today. He is still on the ventilator. OBJECTIVE: VITAL SIGNS: Heart rate 94, blood pressure 160/61. Urine output is very little 165 over 24 hours. Gastric drainage 850. LUNGS: Clear to auscultation. CARDIAC: No murmur or gallop. ABDOMEN: Soft. Bowel sounds are occasional. LABORATORY DATA: White count 9, hemoglobin 8.3. Basic metabolic profile; BUN 94, creatinine 5.41, GFR 11, sodium 136, and potassium 3.2. ASSESSMENT AND PLAN: 1. Acute renal failure, oliguric. Continue dialysis. He has dialysis catheter. 2. Status post laparotomy, duodenotomy, oversewed ulcer, Heineke-Mikulicz pyloroplasty and omental patch. His wound is well healed. Incisional VAC removed. His drain has been removed. His liver function tests are normal. 3. Respiratory failure. Weaning per Pulmonary. Job ID: [id number]
[2018-10-11] MEDS: Sodium Acetate 2 mEq/ml 70 MEQ, Calcium Chloride 10 MEQ, Magnesium Sulfate 4.06 MEQ/ML ... IV SCH (21:18)
[2018-10-11] MEDS ORDERED: Lorazepam 2 MG/ML VIAL ONE (21:32)
[2018-10-12] MEDS ORDERED: Lorazepam 2 MG/ML VIAL ONE (00:34)
[2018-10-12] MEDS: Albuterol Sulfate 2.5 mg/3 ml Neb NEB SCH ×4 (00:55→18:45)
[2018-10-12] MEDS: Piperacillin/Tazobactam 2.25 GM in Sodium Chloride 0.9% 100 ML IVPB SCH ×3 (04:03→20:56)
[2018-10-12 04:53] LABS: Hemoglobin 7.7 g/dL (14.0-18.0); Mean Corpuscular HGB CONC 33.3 g/dL (32.0-36.0); Mean Corpuscular Hemoglobin 30.5 pg (27.0-31.0); Mean Corpuscular Volume 91.6 fL (78.0-98.0); Mean Platelet Volume 6.3 fL (7.4-10.4); Platelet Count 315 thou/uL (130-400); RBC Distribution Width 13.5 % (11.5-14.5); Red Blood Cell (RBC) Count 2.51 mill/uL (4.70-6.10); White Blood Cell (WBC) Count 7.6 thou/uL (4.8-10.8)
[2018-10-12 05:10] LABS: Anion Gap 14 mmol/L (10-20); BUN (Urea Nitrogen) 80 mg/dL (8.4-25.7); Calc. Creatinine Clearance 40 mL/min (70-130); Calcium 8.8 mg/dL (7.8-10.44); Carbon Dioxide 28 mmol/L (23-31); Chloride 99 mmol/L (98-107); Estimated GFR-MDRD 16; Glucose 117 mg/dL (80-115); Potassium 3.2 mmol/L (3.5-5.1); Sodium 138 mmol/L (136-145)
[2018-10-12 05:24] LABS: Band 7 % (5-11); Eosinophils 2 % (0-10); Lymphocytes 17 % (21-51); MDiff Complete? YES; Monocytes 8 % (0-10); Neutrophil 66 % (42-75)
[2018-10-12 07:25] LABS: CO2 Tension 56.7 mmHg (35.0-45.0); Carboxyhemoglobin (COHb) 1.7 gm% (0.0-3.0); Hemoglobin (Hb) 8.7 g/dL (14.0-18.0); O2 Tension (PaO2) 106.3 mmHg (> 80.0); Potassium - ABG Lab 3.16 mmol/L (3.70-5.30)
[2018-10-12 07:31] LABS: Puncture Site L.R.
[2018-10-12 07:32] LABS: ALV-art Gradient 108.025 (0-20)
--- NOTE | 2018-10-12 07:41 | PRG ---
DATE OF SERVICE: 10/12/2018 RENAL MEDICINE SUBJECTIVE: Mr. Garcia is a 68-year-old white male, who was admitted for hemorrhagic shock. GI bleed established. He developed acute renal failure secondary to acute tubular necrosis. He is undergoing hemodialysis. I have placed this patient currently on every other day dialysis. He underwent dialysis yesterday, we removed 4 L. Treatment was also slightly shortened due to clotting. We are not using any heparin with dialysis due to recent GI bleed. OBJECTIVE: VITAL SIGNS: Blood pressure is noted at 116/59, heart rate 86, respiratory rate 15, and pulse ox 100%. GENERAL: The patient is awake, intubated on ventilator support. SKIN: Adequate turgor. HEENT: He has a slightly pale conjunctivae. Anicteric sclerae. NECK: No neck mass. No carotid bruits. No JVD. CHEST: No deformities. LUNGS: Clear breath sounds. No wheezing. No crackles. HEART: Normal sinus rhythm. No murmurs. No gallops. No rubs. ABDOMEN: Globular, soft, nontender. No masses. EXTREMITIES: No edema. MEDICATIONS: Medications of October 12, 2018, was reviewed. LABORATORY DATA: Laboratories of October 12, 2018, white count 7.6, hemoglobin 7.7. Sodium 138, potassium 3.2, chloride 99, carbon dioxide 28, BUN 80, creatinine 3.8, glucose 117, and calcium 8.8. ASSESSMENT AND PLAN: 1. Acute kidney injury secondary to ischemic acute tubular necrosis. Continue supportive dialysis. No evidence of renal recovery. Fluid removal as tolerated. The patient is again scheduled for a 4-hour hemodialysis in a.m. My plan is to max out fluid removal. If needed, we will do an extra dialysis this coming Monday. 2. Status post hemorrhagic shock, hemodynamically stable. P.r.n. blood transfusion. 3. Acute respiratory failure, currently unweanable. Currently, on vent support. Agree with current management. Job ID: [id number]
[2018-10-12] MEDS ORDERED: Potassium Chloride 40 MEQ in Premix Bag 1 BAG IVPB SCH (08:15)
--- NOTE | 2018-10-12 08:43 | RAD ---
CHEST 1 VIEW: Date: 10/12/18 HISTORY: Dyspnea. Intubated. Follow-up. COMPARISON: 10/11/18. FINDINGS: Cardiac silhouette is magnified and enlarged. Pulmonary vasculature remains engorged. Patient remains rotated rightward. Bibasilar opacities have decreased somewhat since the prior study, now with ephraim r visualization of the hemidiaphragms. Lines and tubes appear unchanged in position. No evidence of p neumothorax. IMPRESSION: Interval decrease in bilateral pleural fluid and bibasilar atelectasis. Improved aeration of the lung bases. POS: [facility]
--- NOTE | 2018-10-12 08:53 | PDOC.PN ---
- Subjective Encounter Start Date: 10/12/18 Encounter Start Time: 10:52 Mr. Garcia was seen today in follow-up. He has been extubated this morning. He will nod and shake his head to questions, but does not speak. He indicates by shaking his head that he is not short of breath. - Objective Resuscitation Status - Order Detail: 09/29/18 17:25 Resuscitation Status Routine Resuscitation Status: FULL: Full Resuscitation MAR Reviewed: Yes Vital Signs & Weight: Vital Signs (12 hours) Temp Pulse Resp BP Pulse Ox 10/12/18 07:09 88 147/77 H 10/12/18 07:07 89 22 H 100 10/12/18 06:00 15 10/12/18 04:00 98.7 F 15 10/12/18 02:36 85 147/73 H 10/12/18 02:00 17 10/12/18 00:55 88 19 100 10/12/18 00:00 97.9 F 15 10/11/18 22:18 90 154/81 H 10/11/18 22:00 24 H Weight Admit Weight 310 lb Weight 318 lb 9.087 oz Most Recent Monitor Data Heart Rate from ECG 89 NIBP 147/77 NIBP BP-Mean 100 Respiration from ECG 21 SpO2 100 I&O: 10/11/18 10/12/18 10/13/18 06:59 06:59 06:59 Intake Total 2751.4 2498 Output Total 1045 522 5 Balance 1706.4 1975 Result Diagrams: 10/12/18 03:05 10/12/18 03:05 Additional Labs: Accuchecks 10/12/18 10/11/18 10/11/18 04:49 21:03 16:43 POC Glucose 118 H 109 133 H 10/11/18 10:33 POC Glucose 109 Phys Exam - Physical Examination HEENT: PERRLA + rhonchi bilaterally, and rales at the bases Cardiovascular: RRR, no significant murmur, no rub Gastrointestinal: soft, non-tender, no distention, positive bowel sounds Musculoskeletal: edema present Neurological: non-focal, moves all 4 limbs Dx/Plan (1) Duodenal ulcer with hemorrhage Code(s): K26.4 - CHRONIC OR UNSPECIFIED DUODENAL ULCER WITH HEMORRHAGE Status : Acute (2) Acute respiratory failure Code(s): J96.00 - ACUTE RESPIRATORY FAILURE, UNSP W HYPOXIA OR HYPERCAPNIA Status: Acute (3) Hemorrhagic shock Code(s): R57.8 - OTHER SHOCK Status: Acute Comment: GI bleed (4) MARCK (acute kidney injury) Code(s): N17.9 - ACUTE KIDNEY FAILURE, UNSPECIFIED Status: Acute Comment: started on Hemodialysis (5) Acute blood loss anemia Code(s): D62 - ACUTE POSTHEMORRHAGIC ANEMIA Status: Acute - Plan * Duodenal ulcer with massive hemorhage, and hemorrhagic shock, leading to MARCK and ATN. He has now been extubated. He is s/p duodenotomy and oversew. * Continue IV Protonix * His H&H has trended down some- transfuse if 7 or less * Respiratory failure- improved. * MARCK- he has been requiring dialysis- as per Nephrology * severe Muscular deconditioning- continue PT
[2018-10-12] MEDS: Pantoprazole 40 MG VIAL IVP SCH ×2 (09:03→21:56)
[2018-10-12] MEDS: NPH, Human Insulin Isophane 300 UNIT/3 ML VIAL SC SCH ×2 (09:03→22:00)
--- NOTE | 2018-10-12 09:07 | PRG ---
DATE OF SERVICE: This is 35 minutes of critical time. SUBJECTIVE: The patient remains intubated on mechanical ventilation. He will wake up and follow commands, indicates that he is not in pain. OBJECTIVE: VITAL SIGNS: On exam, his temperature is 98.7, pulse 89, blood pressure 147/77, 24-hour intake 2498, output 520 plus 3400 by dialysis. Urine output was minimal at 172. HEENT: Unremarkable. NECK: No JVD. CHEST: Clear anteriorly. CARDIAC: S1 and S2. Regular. ABDOMEN: Obese, soft, nontender. EXTREMITIES: Edematous. LABORATORY DATA: Sodium 138, potassium 3.2, chloride 99, CO2 of 28, BUN 80, creatinine 3.8, glucose 117. PH 7.30, pCO2 of 56, PO2 of 106 on SIMV rate 12, tidal volume 500, PEEP 5, pressure support 10, and FiO2 of 40%. White blood cell count 7.6, hematocrit 23.0, platelet count 315. Chest x-ray showed no acute changes. ASSESSMENT: 1. Acute respiratory failure requiring mechanical ventilation. 2. Acute renal failure. 3. Status post perforated duodenal ulcer, requiring laparotomy. 4. Morbid obesity. PLAN: The patient will be extubated and observed. He passed spontaneous breathing trial fairly easily. I will stop the vancomycin. It is likely Zosyn can be stopped on Monday. I am quite concerned about critical illness myopathy, he will likely monitored closely for post extubation respiratory failure. I have written for BiPAP that he can use as needed. Job ID: [id number]
[2018-10-12] MEDS: Scopolamine 1.5 mg/72 hour Patch TD SCH (11:13)
--- NOTE | 2018-10-12 13:01 | PRG ---
DATE OF SERVICE: 10/12/2018 SUBJECTIVE: Josh Garcia is doing well today. He was extubated early this morning. Dr. Luu is following him. OBJECTIVE: VITAL SIGNS: Temperature 98.6 degrees, blood pressure 119/58, pulse 95. GENERAL: The patient is alert, he can follow commands. LUNGS: Clear to auscultation. Few rhonchi at the base. CARDIAC: Regular rate and rhythm. ABDOMEN: Soft, protuberant. Bowel sounds present. Wound well healed. Staple line intact. ANDERSON drain has been removed. There are bowel sounds present. LABORATORY DATA: Prior to the NG tube removal on extubation this morning, his NG tube output for 24 hours was 350 mL, urine output 172 mL. This morning, his white count is 7.6, hemoglobin 7.7. Basic metabolic profile; sodium 138, potassium 3.2, BUN 80, creatinine 3.8, GFR 16. ASSESSMENT AND PLAN: 1. Respiratory failure, extubated today. 2. Malnutrition, continue TPN. Advance clears to full liquids after swallow evaluation obtained. 3. Status post duodenal ulcer bleeding oversewed with duodenotomy, Heineke-Mikulicz pyloroplasty. CT scan in the last 2 days reveals no evidence of leak or other problems. We will advance him to full liquids and advance his diet slowly after that. 4. Deconditioning. Physical therapy, OT consult, discharge planning, rehab consult. Anticipate discharge to rehab over the next week. Job ID: [id number]
[2018-10-12] MEDS: Sodium Acetate 2 mEq/ml 70 MEQ, Calcium Chloride 10 MEQ, Magnesium Sulfate 4.06 MEQ/ML ... IV SCH (22:01)
[2018-10-13] MEDS: Albuterol Sulfate 2.5 mg/3 ml Neb NEB SCH ×4 (00:30→18:47)
[2018-10-13] MEDS: Piperacillin/Tazobactam 2.25 GM in Sodium Chloride 0.9% 100 ML IVPB SCH ×3 (04:36→19:59)
[2018-10-13 05:10] LABS: #Basophils 0.1 thou/uL (0.0-0.2); #Eosinphils 0.2 thou/uL (0.0-0.7); #Lymphocytes 1.2 thou/uL (1.20-3.40); #Monocytes 1.2 thou/uL (0.11-0.59); #Neutrophils 5.4 thou/uL (1.40-6.50); %Basophils 0.7 % (0.0-1.0); %Eosinophils 2.8 % (0.0-10.0); %Lymphocytes 14.7 % (21.0-51.0); %Monocytes 14.7 % (0.0-10.0); %Neutrophils 67.1 % (42.0-75.0); Hemoglobin 7.8 g/dL (14.0-18.0); Mean Corpuscular HGB CONC 33.6 g/dL (32.0-36.0); Mean Corpuscular Hemoglobin 30.5 pg (27.0-31.0); Mean Corpuscular Volume 90.9 fL (78.0-98.0); Mean Platelet Volume 6.1 fL (7.4-10.4); Platelet Count 286 thou/uL (130-400); RBC Distribution Width 13.6 % (11.5-14.5); Red Blood Cell (RBC) Count 2.56 mill/uL (4.70-6.10); White Blood Cell (WBC) Count 8.1 thou/uL (4.8-10.8)
[2018-10-13 05:20] LABS: Anion Gap 21 mmol/L (10-20); Calc. Creatinine Clearance 24 mL/min (70-130); Calcium 9.4 mg/dL (7.8-10.44); Carbon Dioxide 22 mmol/L (23-31); Chloride 97 mmol/L (98-107); Estimated GFR-MDRD 9; Glucose 108 mg/dL (80-115); Potassium 3.4 mmol/L (3.5-5.1); Sodium 137 mmol/L (136-145)
[2018-10-13 05:27] LABS: BUN (Urea Nitrogen) 126 mg/dL (8.4-25.7)
--- NOTE | 2018-10-13 08:17 | RAD ---
PORTABLE CHEST: Date: 10/13/18 PROVIDED CLINICAL HISTORY: Respiratory insufficiency. FINDINGS: Comparison with 10/12/18. Interval removal of endotracheal tube and enteric catheter. Additional significant interval change wi th respect to the prior examination is not apparent. IMPRESSION: As above. POS: [facility]
[2018-10-13] MEDS: NPH, Human Insulin Isophane 300 UNIT/3 ML VIAL SC SCH ×2 (09:31→20:05)
[2018-10-13] MEDS: Pantoprazole 40 MG VIAL IVP SCH ×2 (09:31→20:04)
--- NOTE | 2018-10-13 10:00 | PDOC.PN ---
- Subjective Encounter Start Date: 10/13/18 Encounter Start Time: 09:20 -: old records requested/rev pt is getting HD, he is overall doing ok Patient seen and examined. No new complaints. No overnight events - Objective Resuscitation Status - Order Detail: 09/29/18 17:25 Resuscitation Status Routine Resuscitation Status: FULL: Full Resuscitation MAR Reviewed: Yes Vital Signs & Weight: Vital Signs (12 hours) Temp Pulse Resp Pulse Ox 10/13/18 07:53 100 10/13/18 07:40 98 24 H 100 10/13/18 07:00 98.7 F 10/13/18 04:00 98.7 F 10/13/18 03:29 92 L 10/13/18 00:30 93 22 H 100 10/13/18 00:00 98.5 F Weight Admit Weight 310 lb Weight 319 lb 0.142 oz Most Recent Monitor Data Heart Rate from ECG 94 NIBP 125/69 NIBP BP-Mean 87 Respiration from ECG 22 SpO2 100 I&O: 10/12/18 10/13/18 10/14/18 06:59 06:59 06:59 Intake Total 2498 2648 Output Total 522 270 25 Balance 1976 2378 -25 Result Diagrams: 10/13/18 04:20 10/13/18 04:20 Additional Labs: Accuchecks 10/13/18 10/12/18 10/12/18 04:29 21:43 16:02 POC Glucose 104 114 H 125 H Radiology Reviewed by me: Yes (chest xray reviewed) EKG Reviewed by me: Yes (nsr) Phys Exam - Physical Examination Constitutional: NAD HEENT: PERRLA, moist MMs, sclera anicteric Neck: no JVD, supple left IJ central line, right HD catheter Respiratory: no wheezing, no rales, no rhonchi Cardiovascular: RRR, no significant murmur, no rub Gastrointestinal: soft, non-tender, no distention, positive bowel sounds surgical site clean with sutures Musculoskeletal: no edema, pulses present martinez+ Neurological: moves all 4 limbs Lymphatic: no nodes Psychiatric: normal affect Skin: no rash, normal turgor Dx/Plan (1) MARCK (acute kidney injury) Code(s): N17.9 - ACUTE KIDNEY FAILURE, UNSPECIFIED Status: Acute Comment: started on Hemodialysis (2) Acute blood loss anemia Code(s): D62 - ACUTE POSTHEMORRHAGIC ANEMIA Status: Acute Comment: now stable H & H (3) Acute hypercapnic respiratory failure Code(s): J96.02 - ACUTE RESPIRATORY FAILURE WITH HYPERCAPNIA Status: Acute Comment: extubated, (4) Duodenal ulcer with hemorrhage Code(s): K26.4 - CHRONIC OR UNSPECIFIED DUODENAL ULCER WITH HEMORRHAGE Status : Acute Comment: s/p surgical repair (5) Hemorrhagic shock Code(s): R57.8 - OTHER SHOCK Status: Resolved Comment: GI bleed (6) Metabolic encephalopathy Code(s): G93.41 - METABOLIC ENCEPHALOPATHY Status: Acute (7) Sepsis Code(s): A41.9 - SEPSIS, UNSPECIFIED ORGANISM Status: Acute (8) UTI (urinary tract infection) Status: Acute Qualifiers: Encounter type: initial encounter - Plan cont current plan of care, continue antibiotics * continue zosyn * continue HD as per nephrology * continue PT/OT * advance diet as tolerated * he will need rehab on discharge * medication reviewed as below * symptomatic treatment. Review of Systems - Review of Systems ENT: negative: Ear Pain, Ear Discharge, Nose Pain, Nose Discharge, Nose Congestion, Mouth Pain, Mouth Swelling, Throat Pain, Throat Swelling, Other Respiratory: negative: Cough, Dry, Shortness of Breath, Hemoptysis, SOB with Excertion, Pleuritic Pain, Sputum, Wheezing Cardiovascular: negative: chest pain, palpitations, orthopnea, paroxysmal nocturnal dyspnea, edema, light headedness, other Gastrointestinal: negative: Nausea, Vomiting, Abdominal Pain, Diarrhea, Constipation, Melena, Hematochezia, Other Genitourinary: negative: Dysuria, Frequency, Incontinence, Hematuria, Retention , Other Musculoskeletal: negative: Neck Pain, Shoulder Pain, Arm Pain, Back Pain, Hand Pain, Leg Pain, Foot Pain, Other Other: not reliable with pt due to his level of cognitive status - Medications/Allergies Allergies/Adverse Reactions: Allergies Allergy/AdvReac Type Severity Reaction Status Date / Time No Known Allergies Allergy Unverified 09/29/18 22:20 Medications: Current Medications Albuterol Sulfate (Ventolin) 2.5 mg NEB [id number] [facility] Last Admin: 10/13/18 07:40 Dose: 2.5 mg Lipase/Protease/Amylase ([place] [id number]) 1 cap PER TUBE ASDIR PRN PRN Reason: TUBE OCCLUSION TX Dextrose/Water (Dextrose 50%) 25 gm SLOW IVP PRN PRN PRN Reason: Hypoglycemia Epoetin Andres (Procrit) 10,000 units SC Q7D [facility] Last Admin: 10/08/18 00:39 Dose: 10,000 units Glucagon (Glucagon) 1 mg IM PRN PRN PRN Reason: Hypoglycemia Piperacillin Sod/Tazobactam (Sod 2.25 gm/ Sodium Chloride) 100 mls @ 200 mls/ hr IVPB 0400,1200,2000 [facility] Last Admin: 10/13/18 04:36 Dose: 100 mls Fentanyl Citrate 2,000 mcg/ (Sodium Chloride) 100 mls @ 0 mls/hr IV INF [facility]; Protocol Stop: 10/29/18 19:26 Fentanyl Citrate (Fentanyl Bolus) 250 mls @ 0 mls/hr IVPB PRN PRN PRN Reason: Breakthrough pain/agitation Stop: 10/29/18 19:26 Dextrose/Water (D5w) 1,000 mls @ 0 mls/hr IV .Q0M PRN PRN Reason: Hypoglycemia Sodium Acetate 70 meq/ Calcium Chloride 10 meq/ Magnesium Sulfate 10 meq/ Multivitamins 10 ml/ Chromium/Copper/Manganese/Seleni/Zn 5 ml/Insulin Human Regular 16 units / Dextrose/Water/ Amino Acids/Sterile Water 1,659.9759 mls @ 69.166 mls/hr IV 2200 [facility] Last Admin: 10/12/18 22:01 Dose: 1,659.9759 mls Insulin Human NPH (Humulin N) 15 unit SC BID [facility] Last Admin: 10/13/18 09:31 Dose: 15 unit Insulin Human Regular (Humulin R) 0 units SC .MODERATE SLIDING SC PRN PRN Reason: Moderate Correctional Scale Last Admin: 10/07/18 12:46 Dose: 2 unit Lorazepam (Ativan) 2 mg SLOW IVP Q1H PRN PRN Reason: Breakthrough agitation Stop: 10/29/18 19:26 Last Admin: 10/11/18 21:35 Dose: 2 mg Morphine Sulfate (Morphine) 2 mg SLOW IVP Q1H PRN PRN Reason: BREAKTHROUGH PAIN/Agitation Stop: 10/29/18 19:26 Last Admin: 10/11/18 15:37 Dose: 2 mg Discontinue Previous Narcotic Pain Medications And Benzodiazepines 1 each FS .ONE [facility] Stop: 10/29/18 19:26 Pantoprazole Sodium (Protonix) 40 mg IVP Q12HR [facility] Last Admin: 10/13/18 09:31 Dose: 40 mg Scopolamine (Transderm Scop) 1.5 mg TD Q3D [facility] Last Admin: 10/12/18 11:13 Dose: 1.5 mg Sodium Bicarbonate (Bicarbonate, Sodium) 650 mg PER TUBE ASDIR PRN PRN Reason: TUBE OCCLUSION TX Sodium Chloride (Flush - Normal Saline) 10 ml IVF Q12HR [facility] Last Admin: 10/13/18 09:37 Dose: 10 ml Sodium Chloride (Flush - Normal Saline) 10 ml IVF PRN PRN PRN Reason: Saline Flush Last Admin: 10/10/18 12:17 Dose: 10 ml
[2018-10-13] MEDS ORDERED: Artificial Tears 18 DROP/0.9 ML EA EYE PRN (10:03)
[2018-10-13] MEDS ORDERED: Sodium Chloride 0.65% Nasal 44 ML BOT EA NARE PRN (10:03)
[2018-10-13] MEDS ORDERED: Eucerin (Mineral Oil/Petrolatum,White) 30 gm Jar TOP PRN (10:03)
[2018-10-13] MEDS ORDERED: Ondansetron ODT 4 MG TAB PO PRN (10:03)
[2018-10-13] MEDS ORDERED: hydrALAZINE 20 MG/ML VIAL SLOW IVP PRN (10:03)
[2018-10-13] MEDS ORDERED: Senokot S 8.6-50 MG TAB PO PRN (10:03)
[2018-10-13] MEDS ORDERED: Ondansetron PF 4 MG/2 ML Vial IVP PRN (10:03)
[2018-10-13] MEDS ORDERED: Activase 2 MG VIAL CATH SCH (11:15)
--- NOTE | 2018-10-13 11:24 | PRG ---
DATE OF SERVICE: 10/13/2018 RENAL MEDICINE SUBJECTIVE: Mr. Garcia is currently undergoing hemodialysis and I am at the bedside. He developed acute kidney injury secondary to ischemic acute tubular necrosis. No evidence of renal recovery; however, I noted that the blood lines have clotting and for that reason, I have shortened his dialysis treatment, so we returned his blood. We are not giving heparin due to the recent GI bleed. The other possibility is the major problem with the dialysis catheter. For that reason, I have placed overnight Activase and again was scheduled for dialysis in a.m. No acute events. He is now extubated. OBJECTIVE: VITAL SIGNS: Blood pressure 138/76, heart rate 96, respiratory rate 25, and pulse ox 100%. GENERAL: Noted to be awake, comfortable, not in overt distress. SKIN: Adequate turgor. HEENT: He has slightly pale conjunctivae. Anicteric sclerae. No neck mass. No carotid bruits. No JVD. CHEST: No deformities. LUNGS: Decreased breath sounds. HEART: Normal sinus rhythm. No murmurs, gallops, or rubs. ABDOMEN: Globular, soft, and nontender. No masses. EXTREMITIES: No edema. No deformities. MEDICATIONS: Medications of October 13, 2018, reviewed. LABORATORY DATA: Laboratories of October 13, 2018; white count 8.1, hemoglobin 7.8. Sodium 137, potassium 3.4, chloride 97, carbon dioxide 22, BUN 126, creatinine 6.15. Calcium 9.4. ASSESSMENT AND PLAN: 1. Acute kidney injury secondary to ischemic acute tubular necrosis-problem with blood lines. We will again reschedule the patient for hemodialysis tomorrow. We will apply Activase overnight with this patient. If there is still a problem, consider reconsulting surgery for another dialysis catheter placement. 2. Status post hemorrhagic shock, stabilizing. Continue current management. Job ID: [id number]
[2018-10-13 14:19] LABS: Actual Bicarbonate (HCO3a) 26.1 mEq/L (22-28); Base Excess (BEa) -0.1 mEq/L (-2.0 to +3.0); CO2 Tension 50.9 mmHg (35.0-45.0); Calcium, Ionized 1.14 mmol/L (1.12-1.30); Carboxyhemoglobin (COHb) 1.7 gm% (0.0-3.0); Hemoglobin (Hb) 8.1 g/dL (14.0-18.0); O2 Tension (PaO2) 91.2 mmHg (> 80.0); Potassium - ABG Lab 3.49 mmol/L (3.70-5.30); pH, Arterial 7.33 (7.35-7.45)
[2018-10-13 14:21] LABS: Puncture Site L.B.
--- NOTE | 2018-10-13 14:43 | PRG ---
DATE OF SERVICE: 10/13/2018 SUBJECTIVE: Mr. Garcia is doing well today. He still is agitated and requires a sitter for his safety. OBJECTIVE: VITAL SIGNS: Temperature 98 degrees, blood pressure 164/89, heart rate 91, respiratory rate 21. LUNGS: Clear to auscultation. CARDIAC: Regular rate and rhythm without murmur or gallop. ABDOMEN: Soft and nontender. Surgical wound well healed. [place] in place. LABORATORY DATA: White count 8, hemoglobin 7.8. Basic metabolic profile shows potassium 3.4, BUN 126, creatinine 6.15. Urine output 270 in the last 24 hours. ANDERSON drain has been removed. ASSESSMENT AND PLAN: 1. Postoperative day #10. The patient underwent a swallow study yesterday and is not safe to swallow. Speech therapy came by today during dialysis and they could not do the study. They are waiting speech therapy for clearance for his diet. He has had a previous CT scan noting an intact duodenum without leakage and patency. We would recommend initiating full liquids whenever speech therapy deems is necessary. He will continue TPN for now. Overall is doing well. Would watch in ICU another 24 hours and once his behavior improves, he could be transferred to the floor. 2. Renal failure, on dialysis. He may need more permanent dialysis access this week. We will discuss with Nephrology. Would wean his TPN once he is taking adequate diet. Job ID: [id number]
[2018-10-13] MEDS ORDERED: Heparin 10,000 UNITS/ 10 ML VIAL ONE (15:00)
[2018-10-13] MEDS: Sodium Acetate 2 mEq/ml 70 MEQ, Calcium Chloride 10 MEQ, Magnesium Sulfate 4.06 MEQ/ML ... IV SCH (22:36)
--- NOTE | 2018-10-14 00:07 | PRG ---
DATE OF SERVICE: 10/13/2018 SUBJECTIVE: Mr. Garcia appeared very weak. He denied having any complaints. OBJECTIVE: VITAL SIGNS: This evening, his blood pressures have been in the 120s to 150s. His last blood pressure was 133/60, heart rate is 83, and respiratory rate is 27. LUNGS: Clear. He was using few accessory muscles of respiration this morning. HEART: Regular rhythm. ABDOMEN: Soft. LABORATORY DATA: White count 8.1, hemoglobin 7.8, and platelets 286. Sodium 137, potassium 3.4, chloride 97, bicarb 22, BUN 126, and creatinine 6.15. Today on 4 L; pH 7.33, CO2 of 50, and pO2 of 91. Intake and output, positive 2378. Chest radiograph is unchanged compared to yesterday. IMPRESSION: Respiratory failure, status post extubation, clinically stable. He is a CO2 retainer and likely has sleep apnea. I have recommended that we use BiPAP p.r.n. and at bedtime. He did not have BiPAP placed last night for what I was told by the nurses. Other problems include acute renal failure, status post perforated duodenal ulcer, status post laparotomy and obesity with deconditioning. We will continue to keep him in the critical care unit. Prognosis remains guarded. Job ID: [id number]
[2018-10-14] MEDS: Albuterol Sulfate 2.5 mg/3 ml Neb NEB SCH ×2 (00:20→07:26)
[2018-10-14] MEDS: Piperacillin/Tazobactam 2.25 GM in Sodium Chloride 0.9% 100 ML IVPB SCH ×3 (03:53→20:38)
[2018-10-14 04:16] LABS: #Basophils 0.1 thou/uL (0.0-0.2); #Eosinphils 0.2 thou/uL (0.0-0.7); #Neutrophils 4.5 thou/uL (1.40-6.50); %Basophils 1.5 % (0.0-1.0); %Lymphocytes 14.8 % (21.0-51.0); %Monocytes 14.8 % (0.0-10.0); %Neutrophils 65.9 % (42.0-75.0); Hemoglobin 7.1 g/dL (14.0-18.0); Mean Corpuscular HGB CONC 33.3 g/dL (32.0-36.0); Mean Corpuscular Hemoglobin 30.1 pg (27.0-31.0); Mean Corpuscular Volume 90.6 fL (78.0-98.0); Mean Platelet Volume 6.1 fL (7.4-10.4); Platelet Count 224 thou/uL (130-400); RBC Distribution Width 13.5 % (11.5-14.5); Red Blood Cell (RBC) Count 2.34 mill/uL (4.70-6.10); White Blood Cell (WBC) Count 6.9 thou/uL (4.8-10.8)
[2018-10-14 04:22] LABS: Anion Gap 17 mmol/L (10-20); BUN (Urea Nitrogen) 120 mg/dL (8.4-25.7); Calc. Creatinine Clearance 30 mL/min (70-130); Calcium 8.9 mg/dL (7.8-10.44); Carbon Dioxide 24 mmol/L (23-31); Chloride 99 mmol/L (98-107); Estimated GFR-MDRD 12; Glucose 113 mg/dL (80-115); Potassium 3.4 mmol/L (3.5-5.1); Sodium 137 mmol/L (136-145)
[2018-10-14] MEDS: Pantoprazole 40 MG VIAL IVP SCH ×2 (08:54→20:38)
[2018-10-14] MEDS: NPH, Human Insulin Isophane 300 UNIT/3 ML VIAL SC SCH ×2 (08:55→20:42)
--- NOTE | 2018-10-14 08:58 | RAD ---
PORTABLE CHEST: Date: 10/14/18 PROVIDED CLINICAL HISTORY: Respiratory insufficiency. FINDINGS: Comparison with 10/13/18. Interval improvement in aeration of the lung parenchyma. No pleural fluid or pneumothorax apparent. IMPRESSION: Interval improvement in bilateral air space disease. POS: [facility]
--- NOTE | 2018-10-14 09:57 | PDOC.PN ---
- Subjective Encounter Start Date: 10/14/18 Encounter Start Time: 09:56 Subjective: Seen and examined with no new complaint - Objective Resuscitation Status - Order Detail: 09/29/18 17:25 Resuscitation Status Routine Resuscitation Status: FULL: Full Resuscitation Vital Signs & Weight: Vital Signs (12 hours) Temp Pulse Resp BP Pulse Ox 10/14/18 08:00 98.0 F 10/14/18 07:26 92 21 H 97 10/14/18 04:00 98.5 F 10/14/18 03:53 71 186/122 H 10/14/18 00:21 71 19 96 10/14/18 00:20 72 19 98 10/14/18 00:00 98.4 F Weight Admit Weight 310 lb Weight 319 lb 0.142 oz Most Recent Monitor Data Heart Rate from ECG 92 NIBP 159/89 NIBP BP-Mean 112 Respiration from ECG 17 SpO2 96 I&O: 10/13/18 10/14/18 10/15/18 06:59 06:59 06:59 Intake Total 2648 2483 Output Total 270 221 0 Balance 2378 2262 0 Result Diagrams: 10/14/18 03:45 10/14/18 03:45 Additional Labs: Accuchecks 10/14/18 10/13/18 10/13/18 03:48 20:04 16:01 POC Glucose 114 H 112 H 121 H 10/13/18 10:10 POC Glucose 120 H Phys Exam - Physical Examination Constitutional: NAD HEENT: PERRLA, moist MMs, sclera anicteric, TM's clear Neck: no nodes, no JVD, supple, full ROM Respiratory: no wheezing, no rales, no rhonchi, clear to auscultation bilateral Cardiovascular: RRR, no significant murmur, no rub Gastrointestinal: soft, non-tender, positive bowel sounds Musculoskeletal: pulses present Dx/Plan (1) MARCK (acute kidney injury) Code(s): N17.9 - ACUTE KIDNEY FAILURE, UNSPECIFIED Status: Acute Comment: started on Hemodialysis (2) Acute blood loss anemia Code(s): D62 - ACUTE POSTHEMORRHAGIC ANEMIA Status: Acute Comment: now stable H & H (3) Acute hypercapnic respiratory failure Code(s): J96.02 - ACUTE RESPIRATORY FAILURE WITH HYPERCAPNIA Status: Acute Comment: extubated, (4) Duodenal ulcer with hemorrhage Code(s): K26.4 - CHRONIC OR UNSPECIFIED DUODENAL ULCER WITH HEMORRHAGE Status : Acute Comment: s/p surgical repair (5) Metabolic encephalopathy Code(s): G93.41 - METABOLIC ENCEPHALOPATHY Status: Acute (6) Sepsis Code(s): A41.9 - SEPSIS, UNSPECIFIED ORGANISM Status: Acute (7) UTI (urinary tract infection) Status: Acute Qualifiers: Encounter type: initial encounter (8) Hemorrhagic shock Code(s): R57.8 - OTHER SHOCK Status: Resolved Comment: GI bleed - Plan PT/OT, hospital social worker, respiratory therapy, incentive spirometry Dialysis per Renal -: Anemia management ?Transfusion -coordinate with dialysis -: ?Epo -defer to Renal -: Continue ICU monitoring for now * .
--- NOTE | 2018-10-14 10:10 | PRG ---
DATE OF SERVICE: 10/14/2018 SUBJECTIVE: Mr. Garcia is a 68-year-old white male, who came in for hemorrhagic shock, developed acute kidney injury from acute tubular necrosis. Due to the worsening renal dysfunction, he was placed on dialysis. No evidence of renal recovery. I am currently dialyzing this patient. I am at the bedside supervising his dialysis. We are using no heparin due to the recent GI bleed. There was an issue about catheter dysfunction. Yesterday, I applied Activase overnight. No acute events. OBJECTIVE: VITAL SIGNS: Blood pressure is 159/89, heart rate 92, respiratory rate 17, and pulse ox 96%. GENERAL: Noted to be awake, comfortable, not in overt distress. SKIN: Adequate turgor. HEENT: Pale conjunctivae. Anicteric sclerae. No neck mass. No carotid bruits. No JVD. CHEST: No deformities. LUNGS: Clear breath sounds. No wheezing. No crackles. HEART: Normal sinus rhythm. No murmurs, gallops, or rubs. ABDOMEN: Globular, soft, nontender. No masses. EXTREMITIES: No edema. No deformities. MEDICATIONS: Medications of October 14, 2018, reviewed. LABORATORY DATA: Laboratories of October 14, 2018; white count 6.9, hemoglobin 7.1. Sodium 137, potassium 3.4, chloride 99, carbon dioxide 24, BUN 120, creatinine 4.94, glucose 113, calcium 8.9. ASSESSMENT AND PLAN: 1. Acute kidney injury secondary to ischemic acute tubular necrosis, continuing hemodialysis, maxing out fluid removal only as tolerated, using no heparin with dialysis. 2. Mild hypokalemia using a 4.0 potassium bath with dialysis. 3. Status post hemorrhagic shock. Repeat hemoglobin 7.1. We will transfuse 1 unit packed RBC with dialysis. 4. Overall, I agree with current management. Job ID: [id number]
[2018-10-14] MEDS ORDERED: Heparin 1,000 UNITS/ML VIAL ONE (11:11)
--- NOTE | 2018-10-14 11:17 | PRG ---
DATE OF SERVICE: 10/14/2018 SUBJECTIVE: Mr. Garcia apparently got through the gap in the bariatric bed and slipped out of the bed and sat on the floor. He had no injuries. He had BiPAP on at that time, I am told. OBJECTIVE: GENERAL: He is in no distress. Now, he is back in bed being dialyzed. VITAL SIGNS: His blood pressure is 150/103, last checked at 10, it was 125/60 at 9:45, heart rate 92, respiratory rate is 19, oximetry is 97% to 100%. His intake and output positive 2262. As mentioned, he is being dialyzed now. LUNGS: Clear anteriorly. HEART: Regular rhythm. ABDOMEN: Fairly massive and nontender. EXTREMITIES: Without edema. His feet are warm. LABORATORY DATA: White count 6.9, hemoglobin 7.1, platelets 224,000. Sodium 137, potassium 3.4, chloride 99, bicarb 24, BUN 120, creatinine 4.94. Chest radiograph is clear. IMPRESSION AND PLAN: 1. End-stage renal disease. 2. Anemia secondary to blood loss. 3. Ongoing anemia, received blood with dialysis today. 4. Probable sleep apnea. He slept with BiPAP last night and did well with that. 5. Deconditioning and diffuse muscle weakness. He will need to remain in the critical care unit at this point in time. He is certainly at risk for re- intubation at some point in time with any small insult. 6. Chronic respiratory failure with hypercarbia, most likely associated with sleep apnea. He does appear to have a slightly prolonged expiratory phase today. He only is receiving albuterol. I will switch him to albuterol and ipratropium to see if this makes a difference. Reviewing old notes, I do not find any history of obstructive lung disease. We will continue supportive care in the critical care unit. Job ID: [id number] MTDD
--- NOTE | 2018-10-14 19:12 | PRG ---
DATE OF SERVICE: 10/14/2018 SUBJECTIVE: Josh Garcia is actually doing well. He still has not passed his swallow study, although, he is alert and communicative. OBJECTIVE: VITAL SIGNS: Blood pressure 134/73, heart rate 83. LUNGS: Clear to auscultation. Few rhonchi at base. CARDIAC: Regular rate and rhythm. ABDOMEN: Soft. Good bowel sounds. Wound well healed. No drains removed several days ago. LABORATORY DATA: White count 6, hemoglobin 7.1. Basic metabolic profile consistent with acute renal failure. ASSESSMENT AND PLAN: 1. Acute renal failure. Continue hemodialysis. 2. Status post ulcer for GI hemorrhage. There is no evidence of ongoing bleeding. He is passing old black stool, but his hemoglobin remained stable. 3. Dysphagia. Awaiting him to pass a swallow study before advance his diet. CAT scans had demonstrated patency of his duodenum without extravasation. 4. Deconditioning. Job ID: [id number]
[2018-10-14] MEDS: Sodium Acetate 2 mEq/ml 70 MEQ, Calcium Chloride 10 MEQ, Magnesium Sulfate 4.06 MEQ/ML ... IV SCH (22:20)
[2018-10-15] MEDS: Epoetin (ESRD) 10,000 UNITS/ML VIAL SC SCH (00:22)
[2018-10-15] MEDS: Insulin Regular 300 UNITS/3 ML VIAL SC PRN (04:28)
[2018-10-15] MEDS: Piperacillin/Tazobactam 2.25 GM in Sodium Chloride 0.9% 100 ML IVPB SCH ×3 (04:28→20:33)
[2018-10-15 04:46] LABS: #Basophils 0.1 thou/uL (0.0-0.2); #Eosinphils 0.2 thou/uL (0.0-0.7); #Lymphocytes 1.1 thou/uL (1.20-3.40); #Monocytes 0.9 thou/uL (0.11-0.59); #Neutrophils 4.6 thou/uL (1.40-6.50); %Eosinophils 3.5 % (0.0-10.0); %Lymphocytes 16.2 % (21.0-51.0); %Monocytes 12.6 % (0.0-10.0); %Neutrophils 65.7 % (42.0-75.0); Hemoglobin 7.4 g/dL (14.0-18.0); Mean Corpuscular HGB CONC 33.1 g/dL (32.0-36.0); Mean Corpuscular Hemoglobin 30.1 pg (27.0-31.0); Platelet Count 185 thou/uL (130-400); RBC Distribution Width 13.7 % (11.5-14.5); Red Blood Cell (RBC) Count 2.46 mill/uL (4.70-6.10); White Blood Cell (WBC) Count 7.1 thou/uL (4.8-10.8)
[2018-10-15 05:04] LABS: Anion Gap 17 mmol/L (10-20); BUN (Urea Nitrogen) 103 mg/dL (8.4-25.7); Calc. Creatinine Clearance 35 mL/min (70-130); Calcium 8.5 mg/dL (7.8-10.44); Carbon Dioxide 25 mmol/L (23-31); Chloride 100 mmol/L (98-107); Estimated GFR-MDRD 14; Glucose 107 mg/dL (80-115); Potassium 3.4 mmol/L (3.5-5.1); Sodium 139 mmol/L (136-145)
--- NOTE | 2018-10-15 08:37 | PRG ---
DATE OF SERVICE: 10/15/2018 PULMONARY/CRITICAL CARE PROGRESS NOTE SUBJECTIVE: The patient remains in the CCU on BiPAP therapy. He will wake up. He nods his head appropriately. OBJECTIVE: VITAL SIGNS: On examination, temperature 98.3, pulse 63, blood pressure , and O2 sat 100%. A 24-hour intake 2243, output 185. Weight currently 326 pounds. Last dialysis was on 10/14, 3400 was taken off. HEENT: Unremarkable. NECK: No JVD. LUNGS: Fairly clear anteriorly. CARDIAC: S1 and S2, regular. ABDOMEN: Soft, obese. EXTREMITIES: No edema. LABORATORY DATA: White blood cell count 7.1, hemoglobin 7.4, hematocrit 22.4, and platelet count 185. Sodium 139, potassium 3.4, chloride 100, CO2 of 25, BUN 103, creatinine 4.2, and glucose 107. ASSESSMENT: 1. Acute respiratory failure - now status post extubation, requiring intermittent BiPAP. 2. Severe deconditioning/critical illness myopathy. 3. Acute renal failure, requiring dialysis. PLAN: 1. Continue BiPAP intermittently. 2. Continue physical therapy. 3. He will need to remain in the CCU for the time being because of the neuromuscular weakness. Job ID: [id number]
[2018-10-15] MEDS: Pantoprazole 40 MG VIAL IVP SCH ×2 (08:47→20:33)
[2018-10-15] MEDS: NPH, Human Insulin Isophane 300 UNIT/3 ML VIAL SC SCH ×2 (08:49→20:37)
--- NOTE | 2018-10-15 09:32 | RAD ---
AP VIEW CHEST: HISTORY: Ventilator-dependent patient. FINDINGS: AP view chest is obtained on 10/15/2018. Comparison is made to previous exam from 10/14/2018. AP view chest demonstrates a dual-lead right jugular dialysis catheter in place. A left jugular cent ral line is also in place. EKG leads seen over the chest. The lungs are well aerated. No acute int rathoracic abnormality seen. There do appear to be postsurgical changes in the distal right clavicle. IMPRESSION: No evidence of acute intrathoracic abnormality seen. POS: [facility]
[2018-10-15] MEDS: Scopolamine 1.5 mg/72 hour Patch TD SCH (11:23)
--- NOTE | 2018-10-15 13:07 | PRG ---
DATE OF SERVICE: 10/15/2018 RENAL MEDICINE SUBJECTIVE: Mr. Garcia is a 68-year-old white male, who was admitted for hemorrhagic shock and being followed by Renal Service for his acute kidney injury secondary to ischemic ATN. Still noted to be very catabolic. His repeat BUN today was noted at 103. This is in spite of daily dialysis. My plan is to do another dialytic intervention. We scheduled him for a 4-hour hemodialysis. No acute events noted. Please note, he is extubated. OBJECTIVE: VITAL SIGNS: Blood pressure 117/63, heart rate 81, respiratory rate 20, and pulse ox 97%. GENERAL: Awake, supine, comfortable, not in distress. SKIN: Adequate turgor. HEENT: He has slightly pale conjunctivae. Anicteric sclerae. NECK: No neck mass. No carotid bruits. No JVD. CHEST: No deformities. LUNGS: Clear breath sounds. No wheezing. No crackles. HEART: Normal sinus rhythm. No murmur. No gallops. No rubs. ABDOMEN: Globular, soft, and nontender. No masses. EXTREMITIES: Trace edema. MEDICATIONS: Medications of October 15, 2018, reviewed. LABORATORY DATA: Laboratories of October 15, 2018; white count 7.1, hemoglobin 7.4. Sodium 139, potassium 3.4, chloride 100, carbon dioxide 25, BUN 103, creatinine 4.21, glucose 107, and calcium 8.5. ASSESSMENT AND PLAN: 1. Acute kidney injury - secondary to ischemic acute tubular necrosis. Continue daily dialysis. Fluid removal only as tolerated. Using no heparin due to recent gastrointestinal bleed. 2. Anemia, p.r.n. blood transfusion. 3. Hypokalemia. Adjust potassium bath to formal potassium bath today. 4. Gastrointestinal bleed, stable. P.r.n. blood transfusion. Job ID: [id number]
--- NOTE | 2018-10-15 13:35 | PRG ---
DATE OF SERVICE: 10/15/2018 SUBJECTIVE: Josh Garcia still has not passed his swallow test. He is in the ICU. He is slightly agitated, but extubated and doing well. Heart rate 73 and blood pressure 117/63. He has black stools, but his hemoglobin stable at 7.4, has been in the past several days. White count 7.1. Sodium 139, potassium 3.4, BUN 103, and creatinine 14.21. The patient continues on dialysis for acute renal failure. ASSESSMENT AND PLAN: 1. Acute renal failure. Continue dialysis. 2. Mild encephalopathy. 3. He has not passed a swallow test, but when he does, he can start full liquids. 4. Status post duodenal ulcer bleed repair with Heineke-Mikhayder pyloroplasty and oversew bleeder. Job ID: [id number]
--- NOTE | 2018-10-15 20:54 | PDOC.PN ---
- Subjective Encounter Start Date: 10/15/18 Encounter Start Time: 20:53 Subjective: Seen and examined - Objective Resuscitation Status - Order Detail: 09/29/18 17:25 Resuscitation Status Routine Resuscitation Status: FULL: Full Resuscitation Vital Signs & Weight: Vital Signs (12 hours) Pulse Pulse Pulse Resp BP BP Pulse Ox 10/15/18 18:37 93 L 10/15/18 18:34 94 L 10/15/18 14:26 95 10/15/18 14:23 90 19 93 L 10/15/18 10:51 81 20 97 10/15/18 09:25 80 80 140/60 155/71 H Pulse Ox Pulse Ox 10/15/18 18:37 10/15/18 18:34 10/15/18 14:26 10/15/18 14:23 10/15/18 10:51 10/15/18 09:25 96 94 L Weight Admit Weight 310 lb Weight 326 lb 8.073 oz Most Recent Monitor Data Heart Rate from ECG 90 NIBP 113/57 NIBP BP-Mean 75 Respiration from ECG 22 SpO2 94 I&O: 10/14/18 10/15/18 10/16/18 06:59 06:59 06:59 Intake Total 2483 2243 1015 Output Total 221 185 130 Balance 2262 2058 885 Result Diagrams: 10/15/18 04:25 10/15/18 04:25 Additional Labs: Accuchecks 10/15/18 10/15/18 10/15/18 16:09 11:01 04:27 POC Glucose 107 95 185 H Phys Exam - Physical Examination Constitutional: NAD HEENT: moist MMs Neck: no nodes, no JVD, supple Respiratory: no wheezing, no rales, no rhonchi Cardiovascular: no significant murmur, no rub Gastrointestinal: soft, no distention, positive bowel sounds Musculoskeletal: no edema, pulses present, edema present Dx/Plan (1) MARCK (acute kidney injury) Code(s): N17.9 - ACUTE KIDNEY FAILURE, UNSPECIFIED Status: Acute Comment: started on Hemodialysis (2) Acute blood loss anemia Code(s): D62 - ACUTE POSTHEMORRHAGIC ANEMIA Status: Acute Comment: now stable H & H (3) Acute hypercapnic respiratory failure Code(s): J96.02 - ACUTE RESPIRATORY FAILURE WITH HYPERCAPNIA Status: Acute Comment: extubated, (4) Duodenal ulcer with hemorrhage Code(s): K26.4 - CHRONIC OR UNSPECIFIED DUODENAL ULCER WITH HEMORRHAGE Status : Acute Comment: s/p surgical repair (5) Metabolic encephalopathy Code(s): G93.41 - METABOLIC ENCEPHALOPATHY Status: Acute (6) Sepsis Code(s): A41.9 - SEPSIS, UNSPECIFIED ORGANISM Status: Acute (7) UTI (urinary tract infection) Status: Acute Qualifiers: Encounter type: initial encounter (8) Hemorrhagic shock Code(s): R57.8 - OTHER SHOCK Status: Resolved Comment: GI bleed - Plan PT/OT, social professionals, respiratory therapy Dialysis is per the Renal team * .
[2018-10-15] MEDS: Sodium Acetate 2 mEq/ml 70 MEQ, Calcium Chloride 10 MEQ, Magnesium Sulfate 4.06 MEQ/ML ... IV SCH (21:58)
[2018-10-16] MEDS: Piperacillin/Tazobactam 2.25 GM in Sodium Chloride 0.9% 100 ML IVPB SCH (04:28)
[2018-10-16 05:28] LABS: Anion Gap 14 mmol/L (10-20); BUN (Urea Nitrogen) 90 mg/dL (8.4-25.7); Calc. Creatinine Clearance 41 mL/min (70-130); Calcium 8.5 mg/dL (7.8-10.44); Carbon Dioxide 26 mmol/L (23-31); Chloride 101 mmol/L (98-107); Estimated GFR-MDRD 17; Glucose 137 mg/dL (80-115); Potassium 3.4 mmol/L (3.5-5.1); Sodium 138 mmol/L (136-145)
[2018-10-16 06:00] LABS: Band 11 % (5-11); Eosinophils 6 % (0-10); Lymphocytes 27 % (21-51); MDiff Complete? YES; Mean Corpuscular HGB CONC 33.3 g/dL (32.0-36.0); Mean Corpuscular Hemoglobin 30.2 pg (27.0-31.0); Mean Corpuscular Volume 90.6 fL (78.0-98.0); Mean Platelet Volume 6.3 fL (7.4-10.4); Monocytes 4 % (0-10); Myelocyte 3 % (0-0); Neutrophil 49 % (42-75); Platelet Count 213 thou/uL (130-400); RBC Distribution Width 14.1 % (11.5-14.5); Red Blood Cell (RBC) Count 2.31 mill/uL (4.70-6.10); White Blood Cell (WBC) Count 8.2 thou/uL (4.8-10.8)
--- NOTE | 2018-10-16 08:00 | PRG ---
DATE OF SERVICE: 10/16/2018 PULMONARY/CRITICAL CARE PROGRESS NOTE SUBJECTIVE: Mr. Garcia slept without the BiPAP last night. He actually feels okay this morning and has no acute complaints. OBJECTIVE: VITAL SIGNS: On exam, his temperature is 98.8, pulse 87, blood pressure 135/60. 24-hour intake 2302, output 305 plus 3000 out by dialysis. HEENT: Unremarkable. NECK: No JVD. CHEST: Clear anteriorly. CARDIAC: S1 and S2, regular. ABDOMEN: Soft, nontender. EXTREMITIES: No edema. LABORATORY DATA: White blood cell count 8.2, hemoglobin 7, hematocrit 20.9, and platelet count 213. Sodium 138, potassium 3.4, chloride 101, CO2 of 26, BUN 90, creatinine 3.6, and glucose 137. His chest x-ray demonstrates fairly clear lung somers bilaterally. ASSESSMENT: 1. Status post prolonged mechanical ventilation from hypoxic respiratory failure. 2. Status post repair of a bleeding duodenal ulcer. 3. Critical illness myopathy. 4. Acute renal failure. PLAN: 1. Can be transferred out to the intermediate care unit. 2. Stop daily x-rays. 3. Cut back on lab draws. 4. He is on the verge of needing a transfusion. Job ID: [id number]
--- NOTE | 2018-10-16 08:15 | RAD ---
PORTABLE CHEST: HISTORY: Respiratory distress. COMPARISON: 10/15/2018 study. FINDINGS: Heart size is enlarged. Mediastinal structures are unremarkable. The lungs are clear of any infiltr ative process. There are no signs of failure. No interval change since the prior study. IMPRESSION: Stable exam. POS: [facility]
[2018-10-16] MEDS: NPH, Human Insulin Isophane 300 UNIT/3 ML VIAL SC SCH (09:09)
[2018-10-16] MEDS: Pantoprazole 40 MG VIAL IVP SCH ×2 (09:09→21:30)
--- NOTE | 2018-10-16 10:13 | PDOC.PN ---
- Subjective Encounter Start Date: 10/16/18 Encounter Start Time: 10:12 Subjective: responsive, confused - Objective Resuscitation Status - Order Detail: 09/29/18 17:25 Resuscitation Status Routine Resuscitation Status: FULL: Full Resuscitation MAR Reviewed: Yes Vital Signs & Weight: Vital Signs (12 hours) Temp Pulse Resp Pulse Ox 10/16/18 07:33 99 10/16/18 07:30 90 30 H 97 10/16/18 03:00 98.8 F 10/16/18 02:38 98 10/16/18 02:36 98 10/16/18 00:00 98.8 F 100 10/15/18 22:34 84 19 97 10/15/18 22:32 94 L Weight Admit Weight 310 lb Weight 322 lb 5.053 oz Most Recent Monitor Data Heart Rate from ECG 87 NIBP 135/60 NIBP BP-Mean 85 Respiration from ECG 19 SpO2 99 I&O: 10/15/18 10/16/18 10/17/18 06:59 06:59 06:59 Intake Total 2243 2302 Output Total 185 305 Balance 2057 1996 Result Diagrams: 10/16/18 04:30 10/16/18 04:30 Additional Labs: Accuchecks 10/16/18 10/16/18 10/15/18 08:59 04:53 20:38 POC Glucose 142 H 146 H 117 H 10/15/18 10/15/18 16:09 11:01 POC Glucose 107 95 Phys Exam - Physical Examination Neck: no JVD Respiratory: clear to auscultation bilateral Cardiovascular: RRR, no significant murmur Gastrointestinal: soft, positive bowel sounds Musculoskeletal: edema present Dx/Plan (1) Acute renal failure Status: Acute Qualifiers: Acute renal failure type: with acute tubular necrosis Qualified Code(s): N17.0 - Acute kidney failure with tubular necrosis (2) Acute blood loss anemia Code(s): D62 - ACUTE POSTHEMORRHAGIC ANEMIA Status: Acute Comment: now stable H & H (3) Acute hypercapnic respiratory failure Code(s): J96.02 - ACUTE RESPIRATORY FAILURE WITH HYPERCAPNIA Status: Resolved Comment: extubated, (4) Duodenal ulcer with hemorrhage Code(s): K26.4 - CHRONIC OR UNSPECIFIED DUODENAL ULCER WITH HEMORRHAGE Status : Acute Comment: s/p surgical repair (5) Metabolic encephalopathy Code(s): G93.41 - METABOLIC ENCEPHALOPATHY Status: Acute (6) Hemorrhagic shock Code(s): R57.8 - OTHER SHOCK Status: Acute Comment: GI bleed - Plan on HD -: not taking po yet -: cont Q12h ppi * .
--- NOTE | 2018-10-16 11:03 | PRG ---
DATE OF SERVICE: 10/16/2018 SUBJECTIVE: Mr. Garcia is a 68-year-old white male, who was admitted for hemorrhagic shock and seen by the Renal Service for his acute kidney injury. The acute kidney injury secondary to ischemic ATN. He needed dialysis. He has been undergoing regular dialysis. No evidence of renal recovery. There were no acute events noted. Continues to receive p.r.n. blood transfusion. OBJECTIVE: VITAL SIGNS: Blood pressure is 135/60, heart rate 85, respiratory rate is 30, and pulse ox 97%. GENERAL: Noted to be awake and comfortable, not in distress. SKIN: Adequate turgor. HEENT: Slightly pale conjunctivae. Anicteric sclerae. NECK: No neck mass. No carotid bruits. No JVD. CHEST: No deformities. LUNGS: Clear breath sounds. HEART: Normal sinus rhythm. No murmurs. No gallops. No rubs. ABDOMEN: Globular, soft, and nontender. No masses. EXTREMITIES: No edema. No deformities. MEDICATIONS: Medications of October 16, 2018, were reviewed. LABORATORY DATA: Laboratories of October 16, 2018; sodium 138, potassium 3.4, chloride 101, carbon dioxide 26, BUN 90, creatinine 3.66, glucose 137, and calcium 8.5. ASSESSMENT AND PLAN: 1. Anemia/gastrointestinal bleed - p.r.n. blood transfusion. 2. Acute kidney injury secondary to ischemic acute tubular necrosis - supportive dialysis. Continue current hemodialysis regimen. We were using no heparin due to the recent gastrointestinal bleed. No indication for any dialytic intervention today. I have rescheduled him back on Monday on an [id number] hemodialysis at 4 hours each treatment. Overall, prognosis remains guarded. Job ID: [id number]
--- NOTE | 2018-10-16 15:19 | PRG ---
DATE OF SERVICE: 10/16/2018 Mr. Tinsley is doing well today. He is in ICU still. OBJECTIVE: VITAL SIGNS: 92, 23, 135/60. LUNGS: Clear to auscultation. CARDIAC: Regular rate and rhythm without murmur or gallop. ABDOMEN: Soft. Wounds is well healed, 2/3 of his deena removed. Bowel sounds present. He has had bowel movements, blackish stool, but his hemoglobin remained stable. EXTREMITIES: Unremarkable. LABORATORY DATA: White count stable at 8.2, hemoglobin stable at 7, it was 7.4 yesterday and 7.1 the day before. Basic metabolic profile is unremarkable except for findings consistent with renal failure. BUN 90, creatinine 3.66, sodium 138, potassium 3.4, CO2 is 26 ASSESSMENT AND PLAN: 1. Duodenal ulcer with GI tract blood no evidence of bleeding. 2. Anemia, stable. No need for transfusion. 3. Duodenal ulcer. Continue PPIs. 4. Dysphagia. Speech is seeing him. Once Speech clears his swallowing, he can advance to full liquids and GI soft diabetic diet. Job ID: [id number]
[2018-10-16] MEDS: Sodium Acetate 2 mEq/ml 70 MEQ, Calcium Chloride 10 MEQ, Magnesium Sulfate 4.06 MEQ/ML ... IV SCH (23:16)
[2018-10-17] MEDS: NPH, Human Insulin Isophane 300 UNIT/3 ML VIAL SC SCH ×3 (02:27→21:56)
[2018-10-17 06:36] LABS: Hemoglobin 6.3 g/dL (14.0-18.0); Platelet Count 255 thou/uL (130-400)
[2018-10-17] MEDS: Pantoprazole 40 MG VIAL IVP SCH ×2 (09:51→21:55)
--- NOTE | 2018-10-17 09:59 | PRG ---
DATE OF SERVICE: 10/17/2018 SUBJECTIVE: He apparently pulled out a central line last night. He is calm. He can converse, but he is somewhat disoriented and inappropriate with his speech. OBJECTIVE: VITAL SIGNS: Temperature is 99.2, pulse 96, respirations 18, O2 saturation 95% on room air, and blood pressure 149/78. GENERAL: He has a disheveled appearance, but is in no distress. HEENT: Unremarkable. NECK: No JVD. CHEST: Clear anteriorly. CARDIAC: S1 and S2. Regular. ABDOMEN: Postsurgical wounds are healing nicely. EXTREMITIES: No edema. LABORATORY DATA: His hematocrit today is 19.0 and platelet count is 255. ASSESSMENT: 1. Status post prolonged respiratory failure requiring mechanical ventilation. 2. Status post bleeding duodenal ulcer. 3. Acute renal failure. 4. Anemia. PLAN: He will need blood to be transfused with his next hemodialysis. Other than that, this is mainly a rehab project. Job ID: [id number]
--- NOTE | 2018-10-17 10:06 | PRG ---
DATE OF SERVICE: 10/17/2018 RENAL MEDICINE. SUBJECTIVE: Mr. Garcia is a 68-year-old white male, who was seen for his acute kidney injury secondary to ischemic ATN. He was initially admitted for hemorrhagic shock. He was noted to be significantly anemic this morning with a hemoglobin of 6.3. The patient voices no complaints of chest pain or shortness of breath. OBJECTIVE: VITAL SIGNS: Blood pressure 149/78, heart rate 96, respiratory rate 24, temperature 99.2, and pulse ox 94%. GENERAL: The patient is awake, comfortable, not in distress. SKIN: Adequate turgor. HEENT: Pale conjunctivae. Anicteric sclerae. NECK: No neck mass. No carotid bruits. No JVD. CHEST: No deformities. LUNGS: Clear breath sounds. No wheezing. No crackles. HEART: Normal sinus rhythm. No murmur. No gallops. No rubs. ABDOMEN: Globular, soft, and nontender. No masses. EXTREMITIES: No edema. No deformities. MEDICATIONS: Medications of October 17, 2018, was reviewed. LABORATORY DATA: Laboratories of October 16, 2018; sodium 138, potassium 3.4, chloride 101, carbon dioxide 26, BUN 90, creatinine 3.66, glucose 137, and calcium 8.5. October 17, 2018, hemoglobin 6.3. ASSESSMENT AND PLAN: 1. Anemia - we will give 2 units of packed RBC with dialysis. 2. Status post hemorrhagic shock, hemodynamically stable. P.R.N. blood transfusion. 3. Acute kidney injury secondary to ischemic acute tubular necrosis. The patient will continue hemodialysis. No evidence of renal recovery. We will plan for a 4-hour hemodialysis without any heparin use. Job ID: [id number]
--- NOTE | 2018-10-17 10:09 | PDOC.PN ---
- Subjective Encounter Start Date: 10/17/18 Encounter Start Time: 10:07 Subjective: confused - Objective Resuscitation Status - Order Detail: 09/29/18 17:25 Resuscitation Status Routine Resuscitation Status: FULL: Full Resuscitation MAR Reviewed: Yes Vital Signs & Weight: Vital Signs (12 hours) Temp Pulse Resp BP Pulse Ox 10/17/18 07:45 96 18 95 10/17/18 07:20 99.2 F 96 24 H 149/78 H 94 L 10/17/18 04:17 98.8 F 98 18 112/67 95 10/17/18 00:39 99.2 F 95 17 124/65 96 10/16/18 22:22 97 20 97 Weight Admit Weight 310 lb Weight 322 lb 5.053 oz Most Recent Monitor Data Heart Rate from ECG 100 NIBP 126/72 NIBP BP-Mean 90 Respiration from ECG 26 SpO2 97 I&O: 10/16/18 10/17/18 10/18/18 06:59 06:59 06:59 Intake Total 2302 968 396 Output Total 305 312 150 Balance 1996 656 246 Result Diagrams: 10/17/18 06:21 10/16/18 04:30 Additional Labs: Accuchecks 10/17/18 10/16/18 10/16/18 04:38 22:09 17:56 POC Glucose 131 H 138 H 149 H 10/16/18 11:43 POC Glucose 149 H Phys Exam - Physical Examination Neck: no JVD Respiratory: clear to auscultation bilateral Cardiovascular: RRR, no significant murmur Gastrointestinal: soft, non-tender, positive bowel sounds Musculoskeletal: no edema Neurological: non-focal Dx/Plan (1) Acute renal failure Status: Acute Qualifiers: Acute renal failure type: with acute tubular necrosis Qualified Code(s): N17.0 - Acute kidney failure with tubular necrosis (2) Acute blood loss anemia Code(s): D62 - ACUTE POSTHEMORRHAGIC ANEMIA Status: Acute Comment: now stable H & H (3) Acute hypercapnic respiratory failure Code(s): J96.02 - ACUTE RESPIRATORY FAILURE WITH HYPERCAPNIA Status: Resolved Comment: extubated, (4) Duodenal ulcer with hemorrhage Code(s): K26.4 - CHRONIC OR UNSPECIFIED DUODENAL ULCER WITH HEMORRHAGE Status : Acute Comment: s/p surgical repair (5) Metabolic encephalopathy Code(s): G93.41 - METABOLIC ENCEPHALOPATHY Status: Acute (6) Hemorrhagic shock Code(s): R57.8 - OTHER SHOCK Status: Acute Comment: GI bleed - Plan Hg 6.3-transfuse 2 units -: still olguric- cont HD -: cont ppi bid -: cont accu/ss/LA insulin * .
--- NOTE | 2018-10-17 17:10 | PRG ---
DATE OF SERVICE: 10/17/2018 SUBJECTIVE: Josh Garcia has been moved from ICU to intermediate care area. He is awake and alert, but not completely oriented. Today, he pulled out his central line and thus, his TPN was discontinued. OBJECTIVE: VITAL SIGNS: Temperature 98.8 degrees, pulse 94, and blood pressure 129/72. GENERAL: The patient has not been cleared by speech for safe swallowing and we are awaiting for re-evaluation this afternoon. HEAD, EARS, EYES, NOSE, AND THROAT: Unremarkable. LUNGS: Clear to auscultation. CARDIAC: Regular rate and rhythm without murmur or gallop. ABDOMEN: Soft and nontender. EXTREMITIES: Unremarkable. LABORATORY DATA: White count 8, hemoglobin is 6.3. Accu-Cheks 130 to 138. ASSESSMENT AND PLAN: Hemorrhaging duodenal ulcer. There is no evidence of bleeding. He underwent dialysis today and received 2 units of blood for hemoglobin 6.8. He is only having dark black stools with no evidence of ongoing bleeding. He has been confused and he pulled out his central line. At this point, I would recommend advancing his diet per speech pathology and if he is not cleared to swallow, then we may have to start IV fluids, half-normal saline at 50 an hour. We will await speech evaluation. Job ID: [id number]
[2018-10-17] MEDS: Sodium Acetate 2 mEq/ml 70 MEQ, Calcium Chloride 10 MEQ, Magnesium Sulfate 4.06 MEQ/ML ... IV SCH (19:36)
[2018-10-18 05:43] LABS: Anisocytosis SLIGHT = 6-15 cells (100X) (0-5/hpf); Band 15 % (5-11); Eosinophils 5 % (0-10); Hemoglobin 7.1 g/dL (14.0-18.0); Lymphocytes 24 % (21-51); MDiff Complete? YES; Mean Corpuscular HGB CONC 33.3 g/dL (32.0-36.0); Mean Corpuscular Hemoglobin 30.7 pg (27.0-31.0); Mean Corpuscular Volume 92.2 fL (78.0-98.0); Mean Platelet Volume 6.1 fL (7.4-10.4); Metamyelocyte 1 % (0-0); Monocytes 4 % (0-10); Neutrophil 51 % (42-75); Platelet Count 325 thou/uL (130-400); Platelet Morphology Comment Appears Adequate; RBC Distribution Width 14.9 % (11.5-14.5); Red Blood Cell (RBC) Count 2.32 mill/uL (4.70-6.10); White Blood Cell (WBC) Count 14.2 thou/uL (4.8-10.8)
--- NOTE | 2018-10-18 09:06 | PDOC.PN ---
- Subjective Encounter Start Date: 10/18/18 Encounter Start Time: 09:04 Subjective: oriented to person only, calm - Objective Resuscitation Status - Order Detail: 09/29/18 17:25 Resuscitation Status Routine Resuscitation Status: FULL: Full Resuscitation MAR Reviewed: Yes Vital Signs & Weight: Vital Signs (12 hours) Temp Pulse Resp BP Pulse Ox 10/18/18 07:57 94 L 10/18/18 07:56 84 16 94 L 10/18/18 07:21 97 10/18/18 03:52 98.4 F 83 20 137/59 L 92 L 10/17/18 23:53 99.7 F H 91 12 145/70 H 93 L 10/17/18 22:05 100 16 95 Weight Admit Weight 310 lb Weight 285 lb 0.923 oz Most Recent Monitor Data Heart Rate from ECG 100 NIBP 126/72 NIBP BP-Mean 90 Respiration from ECG 26 SpO2 97 I&O: 10/17/18 10/18/18 10/19/18 06:59 06:59 06:59 Intake Total 968 516 Output Total 312 300 Balance 656 216 Result Diagrams: 10/18/18 04:54 10/16/18 04:30 Additional Labs: Accuchecks 10/18/18 10/17/18 10/17/18 04:40 22:17 16:39 POC Glucose 120 H 115 H 131 H 10/17/18 10:49 POC Glucose 135 H Phys Exam - Physical Examination Neck: no JVD Respiratory: clear to auscultation bilateral Cardiovascular: RRR, no significant murmur Gastrointestinal: soft, positive bowel sounds Musculoskeletal: no edema Dx/Plan (1) Acute renal failure Status: Acute Qualifiers: Acute renal failure type: with acute tubular necrosis Qualified Code(s): N17.0 - Acute kidney failure with tubular necrosis (2) Acute blood loss anemia Code(s): D62 - ACUTE POSTHEMORRHAGIC ANEMIA Status: Acute Comment: now stable H & H (3) Acute hypercapnic respiratory failure Code(s): J96.02 - ACUTE RESPIRATORY FAILURE WITH HYPERCAPNIA Status: Resolved Comment: extubated, (4) Duodenal ulcer with hemorrhage Code(s): K26.4 - CHRONIC OR UNSPECIFIED DUODENAL ULCER WITH HEMORRHAGE Status : Acute Comment: s/p surgical repair (5) Metabolic encephalopathy Code(s): G93.41 - METABOLIC ENCEPHALOPATHY Status: Acute (6) Hemorrhagic shock Code(s): R57.8 - OTHER SHOCK Status: Acute Comment: GI bleed - Plan cont HD -: monitor H&H, transfuse prn Hg< 7 -: cont PPI -: cont accu/ss/ LA insulin * .
--- NOTE | 2018-10-18 09:08 | PRG ---
DATE OF SERVICE: 10/18/2018 SUBJECTIVE: He is in good spirits. He has no acute complaints. He is beginning to eat. OBJECTIVE: VITAL SIGNS: Temperature 98.4, pulse 84, respirations 16, O2 saturation 94% on room air, and blood pressure 137/59. HEENT: Unremarkable. NECK: No JVD. CHEST: Clear. CARDIAC: S1 and S2. Regular. ABDOMEN: Soft, obese, nontender. EXTREMITIES: No edema. LABORATORY DATA: White blood cell count 14.3, hemoglobin 7.1, hematocrit 21.4, and platelet count 325. ASSESSMENT: 1. Anemia due to blood loss and chronic renal failure. 2. Acute on chronic renal failure. 3. Status post mechanical ventilation for respiratory failure. 4. Status post bleeding duodenal ulcer. PLAN: The patient can be transferred out to the medical floor. He is to continue with physical therapy. LTAC placement needs to be considered. Job ID: [id number]
[2018-10-18] MEDS: Pantoprazole 40 MG VIAL IVP SCH ×2 (09:09→20:26)
[2018-10-18] MEDS: NPH, Human Insulin Isophane 300 UNIT/3 ML VIAL SC SCH ×2 (09:16→20:45)
--- NOTE | 2018-10-18 10:02 | PRG ---
DATE OF SERVICE: 10/18/2018 SUBJECTIVE: Mr. Garcia is a 68-year-old white male, who was admitted for hemorrhagic shock, developed acute tubular necrosis secondary to ischemic ATN. He is currently on maintenance hemodialysis. He is on 3 times a week hemodialysis and tolerating said treatment. The patient has 2 units of packed RBC yesterday. No other complaints today. OBJECTIVE: VITAL SIGNS: Blood pressure is 137/59, heart rate 83, respiratory rate 20, temperature 98.4, pulse ox 92%. GENERAL: Awake, alert, comfortable, not in distress. SKIN: Adequate turgor. HEENT: Pale conjunctivae. Anicteric sclerae. NECK: No neck mass. No carotid bruits. No JVD. CHEST: No deformities. LUNGS: Clear breath sounds. No wheezing. No crackles. HEART: Normal sinus rhythm. No murmurs, gallops, or rubs. ABDOMEN: Globular. Soft, nontender. No masses. EXTREMITIES: No edema. No deformities. LABORATORY DATA: On October 18, 2018; white count 14.2, hemoglobin 7.1. ASSESSMENT AND PLAN: 1. Acute kidney injury secondary to ischemic acute tubular necrosis. Continue supportive care. Continue hemodialysis regimen on Monday, Monday, and Monday. 2. Anemia. Received 2 units of packed RBC. Still with low hemoglobin at 7.1. Consider transfusing 1 unit packed RBC. 3. Status post hemorrhagic shock, stable. The patient is hemodynamically stable at the present time. Overall, prognosis remains guarded. Job ID: [id number]
[2018-10-18] MEDS: Scopolamine 1.5 mg/72 hour Patch TD SCH (13:56)
--- NOTE | 2018-10-18 15:04 | PRG ---
DATE OF SERVICE: 10/18/2018 SUBJECTIVE: Josh Garcia is doing well today. He is tolerating his diet. He has not had any nausea or vomiting. OBJECTIVE: VITAL SIGNS: Heart rate 90, blood pressure 109/63. LUNGS: Clear to auscultation. CARDIAC: Regular rate and rhythm without murmur or gallop. ABDOMEN: Soft and nontender. Wound looks good. Elvis have been removed. LABORATORY DATA: White count 14 and hemoglobin 7.1. ASSESSMENT AND PLAN: The patient is doing well. We would recommend discharge to rehab whenever he is accepted. I will need to see him in my office in 2 to 3 weeks. I will see him as needed this hospitalization. He may need dialysis access in the future. We will assess that when he returns to see me in the office. Job ID: [id number]
[2018-10-18] MEDS: Sodium Acetate 2 mEq/ml 70 MEQ, Calcium Chloride 10 MEQ, Magnesium Sulfate 4.06 MEQ/ML ... IV SCH (23:10)
--- NOTE | 2018-10-19 09:01 | PRG ---
DATE OF SERVICE: 10/19/2018 RENAL MEDICINE SUBJECTIVE: Mr. Garcia is a 68-year-old white male, who was admitted for hemorrhagic shock, developed multiorgan dysfunction including acute kidney injury secondary to ischemic ATN. He continues to be on maintenance hemodialysis. I am currently at the bedside supervising his dialysis. He is tolerating said treatment. He has been having intermittent anemia and for that reason, he is receiving p.r.n. blood transfusion. No new complaints today. No chest pain or shortness of breath. OBJECTIVE: VITAL SIGNS: Blood pressure is 131/81, heart rate 101, respiratory rate 20, temperature 98.6, and pulse ox 94%. GENERAL: Awake, supine, comfortable, not in distress. SKIN: Adequate turgor. HEENT: Slightly pale conjunctivae. Anicteric sclerae. NECK: No neck mass. No carotid bruits. No JVD. CHEST: No deformities. LUNGS: Clear breath sounds. No wheezing. No crackles. HEART: Normal sinus rhythm. No murmurs. No gallops. No rubs. ABDOMEN: Globular, soft, and nontender. No masses. EXTREMITIES: No edema. No deformities. MEDICATIONS: Medications of October 19, 2018, reviewed. LABORATORY DATA: Laboratories of October 18, 2018; white count 14.2, hemoglobin 7.1. ASSESSMENT AND PLAN: 1. Acute kidney injury secondary to ischemic acute tubular necrosis. Continuing maintenance hemodialysis of 3 times a week. We will review basic met and CBC in a.m. Observe for possible renal recovery. 2. Status post hemorrhagic shock - much improved. The patient is hemodynamically stable. 3. Anemia, on weekly Epogen. P.r.n. blood transfusion. As previously mentioned, we will recheck CBC in a.m. Job ID: [id number]
[2018-10-19] MEDS: Pantoprazole 40 MG VIAL IVP SCH ×2 (11:03→21:35)
[2018-10-19] MEDS: NPH, Human Insulin Isophane 300 UNIT/3 ML VIAL SC SCH ×2 (11:03→21:35)
--- NOTE | 2018-10-19 11:15 | PRG ---
DATE OF SERVICE: 10/19/2018 SUBJECTIVE: Mr. Garcia is doing well today. He is tolerating his diet. OBJECTIVE: VITAL SIGNS: 98.6, 91, and 131/81. LUNGS: Clear to auscultation. CARDIAC: Regular rate and rhythm without murmur or gallop. ABDOMEN: Soft and nontender. Wound well healed. LABORATORY DATA: Laboratories, none ASSESSMENT AND PLAN: Tolerate his diet, having bowel movements. Wound is well healed. From a surgical standpoint, he is doing well. Surgery Services will see him as needed. Dr. Beth is covering this weekend. Please call if necessary. Otherwise, we will see him as needed. He should follow up in my office in the next 2 to 3 weeks. Diet as tolerated. No restrictions. Job ID: [id number]
[2018-10-19] MEDS ORDERED: Heparin 10,000 UNITS/ 10 ML VIAL ONE (12:00)
[2018-10-19 12:09] LABS: #Basophils 0.3 thou/uL (0.0-0.2); #Eosinphils 1.3 thou/uL (0.0-0.7); #Lymphocytes 1.9 thou/uL (1.20-3.40); #Monocytes 1.3 thou/uL (0.11-0.59); #Neutrophils 9.4 thou/uL (1.40-6.50); %Basophils 1.8 % (0.0-1.0); %Eosinophils 8.9 % (0.0-10.0); %Lymphocytes 13.2 % (21.0-51.0); %Monocytes 9.1 % (0.0-10.0); Hemoglobin 8.2 g/dL (14.0-18.0); Mean Corpuscular HGB CONC 33.1 g/dL (32.0-36.0); Mean Corpuscular Hemoglobin 30.8 pg (27.0-31.0); Mean Corpuscular Volume 92.9 fL (78.0-98.0); Mean Platelet Volume 6.1 fL (7.4-10.4); Platelet Count 519 thou/uL (130-400); RBC Distribution Width 15.6 % (11.5-14.5); Red Blood Cell (RBC) Count 2.65 mill/uL (4.70-6.10); White Blood Cell (WBC) Count 14.1 thou/uL (4.8-10.8)
[2018-10-19 14:53] LABS: Anion Gap 14 mmol/L (10-20); BUN (Urea Nitrogen) 49 mg/dL (8.4-25.7); Calc. Creatinine Clearance 37 mL/min (70-130); Calcium 8.6 mg/dL (7.8-10.44); Carbon Dioxide 28 mmol/L (23-31); Chloride 102 mmol/L (98-107); Estimated GFR-MDRD 16; Glucose 115 mg/dL (80-115); Iron 38 ug/dL (65-175); Iron Binding Capacity, Total 261 mcg/dL (261-462); Potassium 4.2 mmol/L (3.5-5.1); Sodium 140 mmol/L (136-145)
--- NOTE | 2018-10-19 15:39 | PDOC.PN ---
- Subjective Encounter Start Date: 10/19/18 Encounter Start Time: 15:37 Subjective: oriented to person only - Objective Resuscitation Status - Order Detail: 09/29/18 17:25 Resuscitation Status Routine Resuscitation Status: FULL: Full Resuscitation MAR Reviewed: Yes Vital Signs & Weight: Vital Signs (12 hours) Temp Pulse Resp BP Pulse Ox 10/19/18 13:55 96 20 94 L 10/19/18 12:57 98.3 F 96 20 110/75 95 10/19/18 08:00 94 L 10/19/18 07:44 98.6 F 101 H 20 131/81 94 L 10/19/18 07:23 94 L 10/19/18 07:22 91 20 94 L Weight Admit Weight 310 lb Weight 301 lb 9.6 oz Most Recent Monitor Data Heart Rate from ECG 100 NIBP 126/72 NIBP BP-Mean 90 Respiration from ECG 26 SpO2 97 I&O: 10/18/18 10/19/18 10/20/18 06:59 06:59 06:59 Intake Total 516 500 Output Total 300 550 Balance 216 -50 Result Diagrams: 10/19/18 12:00 10/19/18 14:09 Additional Labs: Accuchecks 10/19/18 10/19/18 10/18/18 12:56 05:22 20:40 POC Glucose 125 H 110 128 H 10/18/18 17:21 POC Glucose 114 H Phys Exam - Physical Examination Neck: no JVD Respiratory: clear to auscultation bilateral Cardiovascular: RRR, no significant murmur Gastrointestinal: soft, positive bowel sounds Musculoskeletal: no edema Dx/Plan (1) Acute renal failure Status: Acute Qualifiers: Acute renal failure type: with acute tubular necrosis Qualified Code(s): N17.0 - Acute kidney failure with tubular necrosis (2) Acute blood loss anemia Code(s): D62 - ACUTE POSTHEMORRHAGIC ANEMIA Status: Acute Comment: now stable H & H (3) Acute hypercapnic respiratory failure Code(s): J96.02 - ACUTE RESPIRATORY FAILURE WITH HYPERCAPNIA Status: Resolved Comment: extubated, (4) Duodenal ulcer with hemorrhage Code(s): K26.4 - CHRONIC OR UNSPECIFIED DUODENAL ULCER WITH HEMORRHAGE Status : Acute Comment: s/p surgical repair (5) Metabolic encephalopathy Code(s): G93.41 - METABOLIC ENCEPHALOPATHY Status: Acute (6) Hemorrhagic shock Code(s): R57.8 - OTHER SHOCK Status: Acute Comment: GI bleed - Plan cont HD -: cont ppi. accu/ss/LA insulin -: may need placement- mental status still poor * .
[2018-10-19] MEDS: Sodium Acetate 2 mEq/ml 70 MEQ, Calcium Chloride 10 MEQ, Magnesium Sulfate 4.06 MEQ/ML ... IV SCH (21:46)
[2018-10-20] MEDS: Pantoprazole 40 MG VIAL IVP SCH ×2 (07:57→21:05)
[2018-10-20] MEDS: NPH, Human Insulin Isophane 300 UNIT/3 ML VIAL SC SCH (07:57)
--- NOTE | 2018-10-20 08:41 | PRG ---
DATE OF SERVICE: 10/20/2018 RENAL MEDICINE SUBJECTIVE: Mr. Garcia is a 68-year-old white male admitted for hemorrhagic shock with multiorgan dysfunction. He is currently on maintenance hemodialysis due to his renal failure from acute tubular necrosis. Since admission, he has been doing well and stable. No other complaints today. No chest pain or shortness of breath. OBJECTIVE: VITAL SIGNS: Blood pressure is 117/71, heart rate 104, respiratory rate 18, temperature 98.6, pulse ox 94%. GENERAL: Awake, alert, comfortable, not in distress. SKIN: Adequate turgor. HEENT: He has slightly pale conjunctivae. Anicteric sclerae. NECK: No neck mass. No carotid bruits. No JVD. CHEST: No deformities. LUNGS: Clear breath sounds. No wheezing. No crackles. HEART: Normal sinus rhythm. No murmur. No gallops. No rubs. ABDOMEN: Globular, soft, and nontender. No masses. EXTREMITIES: No edema. No deformities. MEDICATIONS: Medications of October 20, 2018, were reviewed. LABORATORY DATA: Laboratories of October 19, 2018: Sodium 140, potassium 4.2, chloride 102, carbon dioxide 28, BUN 49, creatinine 3.85. Iron 38, TIBC 261. October 19, 2018, hemoglobin 8.2. ASSESSMENT AND PLAN: 1. Status post hemorrhagic shock-stable. Hemodynamically stable. Continue supportive care. 2. Acute kidney injury secondary to ischemic acute tubular necrosis. Continue current dialytic regimen. No evidence of renal recovery. No indication for an emergent dialysis today. 3. Anemia, on weekly Epogen. Recheck CBC and basic metabolic panel in a.m. Job ID: [id number]
[2018-10-20 09:06] LABS: Anion Gap 19 mmol/L (10-20); BUN (Urea Nitrogen) 62 mg/dL (8.4-25.7); Calc. Creatinine Clearance 24 mL/min (70-130); Calcium 9.1 mg/dL (7.8-10.44); Carbon Dioxide 23 mmol/L (23-31); Chloride 100 mmol/L (98-107); Estimated GFR-MDRD 11; Glucose 109 mg/dL (80-115); Potassium 4.3 mmol/L (3.5-5.1); Sodium 138 mmol/L (136-145)
[2018-10-20 10:33] LABS: #Basophils 0.2 thou/uL (0.0-0.2); #Eosinphils 1.1 thou/uL (0.0-0.7); #Lymphocytes 1.9 thou/uL (1.20-3.40); #Neutrophils 10.4 thou/uL (1.40-6.50); %Basophils 1.1 % (0.0-1.0); %Eosinophils 7.5 % (0.0-10.0); %Lymphocytes 12.9 % (21.0-51.0); %Monocytes 6.8 % (0.0-10.0); %Neutrophils 71.7 % (42.0-75.0); Basophilic Stippling SLIGHT = 1-2 cells (100X) (None Seen); Hemoglobin 7.7 g/dL (14.0-18.0); MDiff Complete? YES; Mean Corpuscular HGB CONC 32.7 g/dL (32.0-36.0); Mean Corpuscular Hemoglobin 30.3 pg (27.0-31.0); Mean Corpuscular Volume 92.8 fL (78.0-98.0); Mean Platelet Volume 6.6 fL (7.4-10.4); Microcytosis SLIGHT = 6-15 cells (100X) (0-5/hpf); Platelet Count 629 thou/uL (130-400); Platelet Morphology Comment Appears Increased; Polychromasia SLIGHT = 2-3 cells (100X) (0-2/hpf); RBC Distribution Width 15.6 % (11.5-14.5); Red Blood Cell (RBC) Count 2.53 mill/uL (4.70-6.10); Small Platelets MODERATE; White Blood Cell (WBC) Count 14.5 thou/uL (4.8-10.8)
--- NOTE | 2018-10-20 13:40 | PDOC.PN ---
- Subjective Encounter Start Date: 10/20/18 (f/u DM) Encounter Start Time: 13:38 Subjective: Pt without c/o pain. RN notes not taking much PO, not taking supplements -: or ana maria. - Objective Resuscitation Status - Order Detail: 09/29/18 17:25 Resuscitation Status Routine Resuscitation Status: FULL: Full Resuscitation Vital Signs & Weight: Vital Signs (12 hours) Temp Pulse Resp BP Pulse Ox 10/20/18 10:24 89 18 93 L 10/20/18 08:02 98.6 F 104 H 18 117/71 94 L 10/20/18 08:00 94 L 10/20/18 07:00 101 H 18 95 10/20/18 02:17 99 20 95 Weight Admit Weight 310 lb Weight 285 lb 15.033 oz Most Recent Monitor Data Heart Rate from ECG 100 NIBP 126/72 NIBP BP-Mean 90 Respiration from ECG 26 SpO2 97 I&O: 10/19/18 10/20/18 10/21/18 06:59 06:59 06:59 Intake Total 500 200 Output Total 550 4220 Balance -50 -4020 Result Diagrams: 10/20/18 08:02 10/20/18 08:02 Additional Labs: Accuchecks 10/20/18 10/20/18 10/19/18 11:40 05:26 21:08 POC Glucose 136 H 101 105 10/19/18 16:31 POC Glucose 118 H Phys Exam - Physical Examination Constitutional: NAD Respiratory: no wheezing, no rales, no rhonchi, clear to auscultation bilateral Cardiovascular: RRR, no significant murmur Gastrointestinal: soft, positive bowel sounds Musculoskeletal: no edema Dx/Plan (1) Acute blood loss anemia Code(s): D62 - ACUTE POSTHEMORRHAGIC ANEMIA Status: Acute (2) Acute renal failure Status: Acute Qualifiers: Acute renal failure type: with acute tubular necrosis Qualified Code(s): N17.0 - Acute kidney failure with tubular necrosis (3) Duodenal ulcer with hemorrhage Code(s): K26.4 - CHRONIC OR UNSPECIFIED DUODENAL ULCER WITH HEMORRHAGE Status : Acute Comment: s/p surgical repair (4) Hemorrhagic shock Code(s): R57.8 - OTHER SHOCK Status: Acute Comment: GI bleed (5) Metabolic encephalopathy Code(s): G93.41 - METABOLIC ENCEPHALOPATHY Status: Acute (6) Acute hypercapnic respiratory failure Code(s): J96.02 - ACUTE RESPIRATORY FAILURE WITH HYPERCAPNIA Status: Resolved - Plan * Pt continues to have cognitive impairment s/p this critical illness - discussed with brother that it is not surprising given all that pt has been through. Recommended he continue to visit, talk about the past and favorite memories, and answer questions about today as they are asked. * apprecaite Nephrology - next dialysis on Monday * continue current plan of care with improving nutrition, and pt/ot * anticipate pt will need inpatient rehab - has significant weakness * skin ulcers- continue wound care * as appetite is lower - will d/c scheduled nph insulin and use ssi only for now * * d/c martinez cath with request for four times daily bladder scan and i/o cath if > 200 ml * * dvt prophy - scd's * gi prophy - not indicated * code status full * * reviewed plan of care with patient and brother, no questions or further needs at end of eval
[2018-10-20] MEDS: Insulin Regular 300 UNITS/3 ML VIAL SC PRN (17:03)
[2018-10-20] MEDS: Sodium Acetate 2 mEq/ml 70 MEQ, Calcium Chloride 10 MEQ, Magnesium Sulfate 4.06 MEQ/ML ... IV SCH (19:26)
[2018-10-21] MEDS: Pantoprazole 40 MG VIAL IVP SCH ×2 (08:33→20:05)
[2018-10-21 09:23] LABS: Anion Gap 22 mmol/L (10-20); BUN (Urea Nitrogen) 68 mg/dL (8.4-25.7); Calc. Creatinine Clearance 18 mL/min (70-130); Calcium 8.8 mg/dL (7.8-10.44); Carbon Dioxide 21 mmol/L (23-31); Chloride 98 mmol/L (98-107); Estimated GFR-MDRD 8; Glucose 113 mg/dL (80-115); Potassium 4.4 mmol/L (3.5-5.1); Sodium 137 mmol/L (136-145)
[2018-10-21 09:36] LABS: #Basophils 0.2 thou/uL (0.0-0.2); #Eosinphils 0.8 thou/uL (0.0-0.7); #Lymphocytes 1.6 thou/uL (1.20-3.40); #Monocytes 1.3 thou/uL (0.11-0.59); #Neutrophils 11.2 thou/uL (1.40-6.50); %Basophils 1.2 % (0.0-1.0); %Eosinophils 5.6 % (0.0-10.0); %Lymphocytes 10.5 % (21.0-51.0); %Monocytes 8.5 % (0.0-10.0); %Neutrophils 74.3 % (42.0-75.0); Hemoglobin 7.3 g/dL (14.0-18.0); Mean Corpuscular HGB CONC 31.8 g/dL (32.0-36.0); Mean Corpuscular Hemoglobin 29.9 pg (27.0-31.0); Mean Corpuscular Volume 93.9 fL (78.0-98.0); Mean Platelet Volume 6.7 fL (7.4-10.4); Platelet Count 695 thou/uL (130-400); RBC Distribution Width 15.3 % (11.5-14.5); Red Blood Cell (RBC) Count 2.44 mill/uL (4.70-6.10); White Blood Cell (WBC) Count 15.1 thou/uL (4.8-10.8)
--- NOTE | 2018-10-21 11:49 | PRG ---
DATE OF SERVICE: 10/21/2018 RENAL MEDICINE SUBJECTIVE: Mr. Garcia is a 68-year-old white man, who was admitted for hemorrhagic shock. He developed multiorgan dysfunction including acute kidney injury from ischemic ATN. He is currently on maintenance hemodialysis. He is tolerating said treatment. He has no new complaints today. I do not find any indication to do any emergent dialysis today. He is currently on a Monday, Monday, Monday dialysis session. OBJECTIVE: VITAL SIGNS: Blood pressure is 114/59, heart rate 108, respiratory rate 18, temperature 98.7, pulse ox 93% on room air. GENERAL: Awake, alert, supine, comfortable, not in distress. SKIN: Adequate turgor. HEENT: Slightly pale conjunctivae. Anicteric sclerae. No neck mass. No carotid bruits. No JVD. CHEST: No deformities. LUNGS: Clear breath sounds. HEART: Normal sinus rhythm. No murmur. No gallops or rubs. ABDOMEN: Globular, soft, nontender. No masses. EXTREMITIES: No edema. No deformities. MEDICATIONS: Medications of October 21, 2018, reviewed. LABORATORY DATA: Laboratories of October 21, 2018: White count 15.1, hemoglobin 7.3. Sodium 137, potassium 4.4, chloride 98, carbon dioxide 21, BUN 68, creatinine 7.22. ASSESSMENT AND PLAN: 1. Acute kidney injury - secondary to ischemic acute tubular necrosis. Continue supportive dialysis. I have scheduled him for hemodialysis tomorrow. We will place him now on a Monday, Monday, and Monday hemodialysis regimen. Again, fluid removal only as tolerated. 2. Anemia. P.r.n. blood transfusion. The patient is currently on Epogen 10,000 units subcu every week. 3. Recheck basic met and CBC in a.m. Job ID: [id number]
--- NOTE | 2018-10-21 12:19 | PRG ---
DATE OF SERVICE: 10/21/2018 SUBJECTIVE: The patient is doing reasonably well, had no complaints. OBJECTIVE: VITAL SIGNS: Temperature 98.7, pulse 108, respirations 18, O2 saturation 93% on room air, blood pressure 114/59. HEENT: Unremarkable. NECK: No adenopathy, JVD, or bruits. LUNGS: Clear anteriorly. CARDIAC: S1, S2. Regular. ABDOMEN: Soft. EXTREMITIES: No edema. LABORATORY DATA: White blood cell count 15, hematocrit 22.9, and platelet count 695. Sodium 137, potassium 4.4, BUN 68, creatinine 7.2, and glucose 113. ASSESSMENT: 1. Status post mechanical ventilation after ptz-dy-dziugmor arrest and significant duodenal ulcer with bleed. 2. Status post laparotomy. 3. Acute renal failure. PLAN: The patient has improved immensely from a pulmonary standpoint to the point where he is off oxygen. Main issue now is his kidneys and whether or not they will recover. The patient's hyperglycemia is being managed by the hospitalist group and seems to have resolved on its own. Pulmonary has no further recommendations, but we will be glad to see him if further issues. Job ID: [id number]
--- NOTE | 2018-10-21 15:42 | PDOC.PN ---
- Subjective Encounter Start Date: 10/21/18 (f/u anemia) Encounter Start Time: 15:40 Subjective: Pt without complaints today. Denies any pain/n/v. Reports his -: appetite remains low. - Objective Resuscitation Status - Order Detail: 09/29/18 17:25 Resuscitation Status Routine Resuscitation Status: FULL: Full Resuscitation Vital Signs & Weight: Vital Signs (12 hours) Temp Pulse Resp BP Pulse Ox 10/21/18 14:19 108 H 18 94 L 10/21/18 13:20 99.2 F 106 H 18 107/67 92 L 10/21/18 10:35 102 H 16 95 10/21/18 09:01 98.7 F 108 H 18 114/59 L 93 L 10/21/18 08:08 93 L 10/21/18 08:06 108 H 19 93 L Weight Admit Weight 310 lb Weight 285 lb 15.033 oz Most Recent Monitor Data Heart Rate from ECG 100 NIBP 126/72 NIBP BP-Mean 90 Respiration from ECG 26 SpO2 97 I&O: 10/20/18 10/21/18 10/22/18 06:59 06:59 06:59 Intake Total 200 810 180 Output Total 4220 300 Balance -4020 510 180 Result Diagrams: 10/21/18 08:38 10/21/18 08:38 Additional Labs: Accuchecks 10/21/18 10/21/18 10/21/18 12:32 06:03 05:51 POC Glucose 111 H 116 H 111 H 10/20/18 10/20/18 21:23 16:13 POC Glucose 125 H 181 H Phys Exam - Physical Examination Constitutional: NAD Respiratory: no wheezing, no rales, no rhonchi Cardiovascular: RRR, no significant murmur Gastrointestinal: soft, non-tender, no distention, positive bowel sounds midline incision well healed. No surrounding erythema Musculoskeletal: no edema Neurological: non-focal, moves all 4 limbs Dx/Plan (1) Acute blood loss anemia Code(s): D62 - ACUTE POSTHEMORRHAGIC ANEMIA Status: Acute (2) Acute renal failure Status: Acute Qualifiers: Acute renal failure type: with acute tubular necrosis Qualified Code(s): N17.0 - Acute kidney failure with tubular necrosis (3) Duodenal ulcer with hemorrhage Code(s): K26.4 - CHRONIC OR UNSPECIFIED DUODENAL ULCER WITH HEMORRHAGE Status : Acute Comment: s/p surgical repair (4) Hemorrhagic shock Code(s): R57.8 - OTHER SHOCK Status: Acute Comment: GI bleed (5) Metabolic encephalopathy Code(s): G93.41 - METABOLIC ENCEPHALOPATHY Status: Acute (6) Acute hypercapnic respiratory failure Code(s): J96.02 - ACUTE RESPIRATORY FAILURE WITH HYPERCAPNIA Status: Resolved (7) Leukocytosis Code(s): D72.829 - ELEVATED WHITE BLOOD CELL COUNT, UNSPECIFIED Status: Acute - Plan * * cognitive impairment with illness appears stable * * apprecaite Nephrology - next dialysis on Monday. Anemia worse today - discussed with Dr. Romero today adn transfuse 1 unit prbc with dialysis tomorrow. Type & screen ordered * * Leukocytosis of uncertain etiology - this has been stable. no signs of infection - pt without resp sx, surgical incision does not appear infected. Continue to follow for change/fevers. * * continue current plan of care with improving nutrition, and pt/ot * * anticipate pt will need inpatient rehab - has significant weakness * * skin ulcers- continue wound care * * as appetite is lower - continue SSI only * * martinez cath d/c yesterday - monitor i/o and bladder scans ordered * * dvt prophy - scd's * gi prophy - not indicated * code status full * * reviewed plan of care with patient and brother, no questions or further needs at end of eval.
[2018-10-21] MEDS: Sodium Acetate 2 mEq/ml 70 MEQ, Calcium Chloride 10 MEQ, Magnesium Sulfate 4.06 MEQ/ML ... IV SCH (18:52)
[2018-10-21] MEDS: Epoetin (ESRD) 10,000 UNITS/ML VIAL SC SCH (23:24)
--- NOTE | 2018-10-22 09:59 | HP ---
RENAL MEDICINE HISTORY OF PRESENT ILLNESS: Mr. Garcia is a 68-year-old white male, was seen for an acute kidney injury secondary to ischemic ATN. He was initially admitted for hemorrhagic shock. He developed multiorgan dysfunction. In the interim, he was intubated, placed on ventilator support. He is now weaned off the ventilator. Still currently on dialysis. No evidence of renal recovery at the present time. PHYSICAL EXAMINATION: VITAL SIGNS: Blood pressure is 102/65, heart rate 105, respiratory rate 16, and pulse ox 95%. GENERAL: Awake, comfortable, not in distress. SKIN: Adequate turgor. HEENT: He has a slightly pale conjunctivae. Anicteric sclerae. No neck mass. No carotid bruits. No JVD. CHEST: No deformities. LUNGS: Clear breath sounds. HEART: Normal sinus rhythm. No murmur. No gallops. No rubs. ABDOMEN: Globular. Soft and nontender. No masses. EXTREMITIES: No edema. No deformities. MEDICATIONS: Medications of October 22, 2018, reviewed. LABORATORY DATA: Laboratories of October 21, 2018; BUN 68, creatinine 7.22, hemoglobin 7.3. ASSESSMENT AND PLAN: 1. Anemia-we will transfuse 1 unit of packed RBC with dialysis. Continue weekly Epogen. 2. Acute kidney injury-secondary to ischemic acute tubular necrosis, unimproved. Continue current dialytic intervention. We will continue current Monday, Monday, and Monday dialysis. Recheck basic metabolic panel and CBC in a.m. Job ID: [id number]
[2018-10-22] MEDS: Pantoprazole 40 MG VIAL IVP SCH ×2 (10:26→21:21)
--- NOTE | 2018-10-22 10:31 | PDOC.PN ---
- Subjective Encounter Start Date: 10/22/18 Encounter Start Time: 11:40 Subjective: Patient without complaints. No SOB. No abdominal pain. Had low grade fever -: in dialysis 100.4 after blood transfusion and BP ran low with tachycardia -: throughout the dialysis. - Objective Resuscitation Status - Order Detail: 09/29/18 17:25 Resuscitation Status Routine Resuscitation Status: FULL: Full Resuscitation MAR Reviewed: Yes Vital Signs & Weight: Vital Signs (12 hours) Temp Pulse Pulse Resp BP Pulse Ox 10/22/18 10:19 98.8 F 103 H 20 103/47 L 10/22/18 10:00 98.8 F 113 H 20 95/43 L 10/22/18 09:45 98.9 F 111 H 18 94/33 L 10/22/18 09:39 98.9 F 120 H 20 98/38 L 10/22/18 06:03 105 H 16 95 10/22/18 02:18 16 10/21/18 22:37 108 H 16 Weight Admit Weight 310 lb Weight 285 lb 15.033 oz Most Recent Monitor Data Heart Rate from ECG 100 NIBP 126/72 NIBP BP-Mean 90 Respiration from ECG 26 SpO2 97 I&O: 10/21/18 10/22/18 10/23/18 06:59 06:59 06:59 Intake Total 810 540 350 Output Total 300 0 Balance 510 540 350 Result Diagrams: 10/22/18 12:54 10/22/18 12:54 Additional Labs: Accuchecks 10/22/18 10/21/18 10/21/18 05:51 21:20 17:33 POC Glucose 119 H 131 H 121 H 10/21/18 12:32 POC Glucose 111 H Phys Exam - Physical Examination Constitutional: NAD HEENT: moist MMs Respiratory: no wheezing, no rales, no rhonchi Cardiovascular: no significant murmur mild tachycardia, no murmur Gastrointestinal: soft, positive bowel sounds Neurological: non-focal, moves all 4 limbs Psychiatric: normal affect Dx/Plan (1) Duodenal ulcer with hemorrhage Code(s): K26.4 - CHRONIC OR UNSPECIFIED DUODENAL ULCER WITH HEMORRHAGE Status : Acute Comment: s/p surgical repair (2) Acute blood loss anemia Code(s): D62 - ACUTE POSTHEMORRHAGIC ANEMIA Status: Acute (3) Acute renal failure Status: Acute Qualifiers: Acute renal failure type: with acute tubular necrosis Qualified Code(s): N17.0 - Acute kidney failure with tubular necrosis Comment: ischemic ATN, on dialysis (4) Hemorrhagic shock Code(s): R57.8 - OTHER SHOCK Status: Resolved Comment: GI bleed (5) Leukocytosis Code(s): D72.829 - ELEVATED WHITE BLOOD CELL COUNT, UNSPECIFIED Status: Acute (6) Metabolic encephalopathy Code(s): G93.41 - METABOLIC ENCEPHALOPATHY Status: Acute (7) Acute hypercapnic respiratory failure Code(s): J96.02 - ACUTE RESPIRATORY FAILURE WITH HYPERCAPNIA Status: Resolved (8) Tachycardia Code(s): R00.0 - TACHYCARDIA, UNSPECIFIED Status: Acute Comment: persistent over past day (9) Sepsis Code(s): A41.9 - SEPSIS, UNSPECIFIED ORGANISM Status: Suspected Comment: elevated HR, elevated WBC, low grade temp after blood transfusion, no identifiable source at this time, will check blood cultures and CXR - Plan cont current plan of care, PT/OT, adoption social worker, DVT proph w/SCDs * . - Discharge Day Encounter end time: 11:50
[2018-10-22 13:14] LABS: #Basophils 0.2 thou/uL (0.0-0.2); #Eosinphils 0.8 thou/uL (0.0-0.7); #Lymphocytes 1.2 thou/uL (1.20-3.40); #Monocytes 1.8 thou/uL (0.11-0.59); #Neutrophils 11.8 thou/uL (1.40-6.50); %Basophils 1.2 % (0.0-1.0); %Eosinophils 5.1 % (0.0-10.0); %Lymphocytes 7.4 % (21.0-51.0); %Monocytes 11.3 % (0.0-10.0); Hemoglobin 8.1 g/dL (14.0-18.0); Mean Corpuscular HGB CONC 32.9 g/dL (32.0-36.0); Mean Corpuscular Hemoglobin 30.9 pg (27.0-31.0); Mean Platelet Volume 6.2 fL (7.4-10.4); Platelet Count 678 thou/uL (130-400); RBC Distribution Width 14.4 % (11.5-14.5); Red Blood Cell (RBC) Count 2.63 mill/uL (4.70-6.10); White Blood Cell (WBC) Count 15.7 thou/uL (4.8-10.8)
[2018-10-22 13:22] LABS: Anion Gap 17 mmol/L (10-20); BUN (Urea Nitrogen) 45 mg/dL (8.4-25.7); Calc. Creatinine Clearance 28 mL/min (70-130); Carbon Dioxide 25 mmol/L (23-31); Estimated GFR-MDRD 12; Glucose 105 mg/dL (80-115)
[2018-10-22 13:31] LABS: Chloride 99 mmol/L (98-107); Potassium 4.5 mmol/L (3.5-5.1); Sodium 136 mmol/L (136-145)
[2018-10-22] MEDS ORDERED: Heparin 10,000 UNITS/ 10 ML VIAL ONE (15:00)
--- NOTE | 2018-10-22 18:10 | RAD ---
CHEST ONE VIEW: INDICATIONS: History of tachycardia. Elevated white count. COMPARISON: 10/16/2018 FINDINGS: Mild cardiomegaly is stable. There is mild pulmonary vascular congestion. There is a right IJ dialy sis catheter in place. No pleural effusion or pneumothorax is evident. IMPRESSION: 1. Mild cardiomegaly and mild pulmonary vascular congestion is stable to prior examination. 2. Stable right internal jugular dialysis catheter. POS: CATHERINE
[2018-10-22] MEDS: Sodium Acetate 2 mEq/ml 70 MEQ, Calcium Chloride 10 MEQ, Magnesium Sulfate 4.06 MEQ/ML ... IV SCH (20:55)
[2018-10-22] MEDS: diphenhydrAMINE 50 MG/ML VIAL IVP PRN (21:35)
--- NOTE | 2018-10-23 08:45 | PDOC.PN ---
- Subjective Encounter Start Date: 10/23/18 Encounter Start Time: 09:10 Subjective: Patient without complaints. No CP. No SOB. No events overnight. - Objective Resuscitation Status - Order Detail: 09/29/18 17:25 Resuscitation Status Routine Resuscitation Status: FULL: Full Resuscitation MAR Reviewed: Yes Vital Signs & Weight: Vital Signs (12 hours) Temp Pulse Resp BP BP Pulse Ox 10/23/18 08:00 98.7 F 106 H 17 92/57 L 92 L 10/23/18 06:14 111 H 16 93 L 10/23/18 00:00 98.9 F 111 H 20 109/72 93 L 10/22/18 22:18 110 H 12 Weight Admit Weight 310 lb Weight 294 lb 13.575 oz Most Recent Monitor Data Heart Rate from ECG 100 NIBP 126/72 NIBP BP-Mean 90 Respiration from ECG 26 SpO2 97 I&O: 10/22/18 10/23/18 10/24/18 06:59 06:59 06:59 Intake Total 540 350 Output Total 0 Balance 540 350 Result Diagrams: 10/23/18 08:03 10/23/18 08:03 Additional Labs: Accuchecks 10/23/18 10/22/18 10/22/18 06:49 20:41 16:47 POC Glucose 116 H 163 H 107 Radiology Reviewed by me: Yes (no new infiltrate) Phys Exam - Physical Examination Constitutional: NAD HEENT: moist MMs Respiratory: no wheezing, no rales, no rhonchi Cardiovascular: RRR, no significant murmur intermittent mild tachycardia Gastrointestinal: soft, positive bowel sounds Neurological: non-focal, moves all 4 limbs Psychiatric: normal affect, A&O x 3 Dx/Plan (1) Duodenal ulcer with hemorrhage Code(s): K26.4 - CHRONIC OR UNSPECIFIED DUODENAL ULCER WITH HEMORRHAGE Status : Acute Comment: s/p surgical repair (2) Acute blood loss anemia Code(s): D62 - ACUTE POSTHEMORRHAGIC ANEMIA Status: Acute (3) Acute renal failure Status: Acute Qualifiers: Acute renal failure type: with acute tubular necrosis Qualified Code(s): N17.0 - Acute kidney failure with tubular necrosis Comment: ischemic ATN, on dialysis (4) Hemorrhagic shock Code(s): R57.8 - OTHER SHOCK Status: Resolved Comment: GI bleed (5) Leukocytosis Code(s): D72.829 - ELEVATED WHITE BLOOD CELL COUNT, UNSPECIFIED Status: Acute (6) Metabolic encephalopathy Code(s): G93.41 - METABOLIC ENCEPHALOPATHY Status: Resolved (7) Acute hypercapnic respiratory failure Code(s): J96.02 - ACUTE RESPIRATORY FAILURE WITH HYPERCAPNIA Status: Resolved (8) Tachycardia Code(s): R00.0 - TACHYCARDIA, UNSPECIFIED Status: Acute Comment: persistent over past day (9) Sepsis Code(s): A41.9 - SEPSIS, UNSPECIFIED ORGANISM Status: Suspected Comment: elevated HR, elevated WBC but trending down today, low grade temp after blood transfusion but none since, no identifiable source at this time, CXR negative for infiltrate, blood culture pending - Plan cont current plan of care, PT/OT Patient will need outpatient dialysis arranged, rehab vs. SNF * . - Discharge Day Encounter end time: 09:20
[2018-10-23 09:10] LABS: #Basophils 0.1 thou/uL (0.0-0.2); #Eosinphils 0.8 thou/uL (0.0-0.7); #Lymphocytes 1.4 thou/uL (1.20-3.40); #Monocytes 1.9 thou/uL (0.11-0.59); #Neutrophils 8.9 thou/uL (1.40-6.50); %Basophils 1.1 % (0.0-1.0); %Eosinophils 6.2 % (0.0-10.0); %Lymphocytes 10.4 % (21.0-51.0); %Monocytes 14.2 % (0.0-10.0); Hemoglobin 8.1 g/dL (14.0-18.0); Mean Corpuscular HGB CONC 31.9 g/dL (32.0-36.0); Mean Corpuscular Hemoglobin 30.1 pg (27.0-31.0); Mean Corpuscular Volume 94.3 fL (78.0-98.0); Platelet Count 811 thou/uL (130-400); RBC Distribution Width 14.3 % (11.5-14.5); Red Blood Cell (RBC) Count 2.68 mill/uL (4.70-6.10); White Blood Cell (WBC) Count 13.1 thou/uL (4.8-10.8)
[2018-10-23 09:17] LABS: Anion Gap 21 mmol/L (10-20); BUN (Urea Nitrogen) 60 mg/dL (8.4-25.7); Calc. Creatinine Clearance 21 mL/min (70-130); Calcium 9.3 mg/dL (7.8-10.44); Carbon Dioxide 23 mmol/L (23-31); Chloride 99 mmol/L (98-107); Estimated GFR-MDRD 9; Glucose 96 mg/dL (80-115); Potassium 4.5 mmol/L (3.5-5.1); Sodium 138 mmol/L (136-145)
[2018-10-23] MEDS: Pantoprazole 40 MG VIAL IVP SCH ×2 (09:43→22:00)
--- NOTE | 2018-10-23 10:04 | PRG ---
DATE OF SERVICE: 10/23/2018 RENAL MEDICINE SUBJECTIVE: Mr. Garcia is a 68-year-old white male, who came in for hemorrhagic shock, developed multiorgan dysfunction including acute kidney injury from ischemic ATN. He is currently on maintenance hemodialysis. There is no evidence of any renal recovery at the present time. We are continuing 3 times a week hemodialysis. He is feeling better. He denies any complaints today. He denies any chest pain or shortness of breath. OBJECTIVE: VITAL SIGNS: Blood pressure 92/57, heart rate 106, respiratory rate 17, temperature 98.7, and pulse ox 92%. GENERAL: Awake, supine, comfortable, not in distress. SKIN: Adequate turgor. HEENT: He has a slightly pale conjunctivae. Anicteric sclerae. NECK: No neck mass. No carotid bruits. No JVD. CHEST: No deformities. LUNGS: Clear breath sounds. HEART: Normal sinus rhythm. No murmur. No gallops. No rubs. ABDOMEN: Globular, soft, nontender. No masses. EXTREMITIES: No edema. No deformities. MEDICATIONS: Medications of October 23, 2018, reviewed. LABORATORY DATA: Laboratories of October 22, 2018; white count 15.7, hemoglobin 8.1. Sodium 136, potassium 4.5, chloride 99, carbon dioxide 25, BUN 45, creatinine 4.74, glucose 105, and calcium 9. ASSESSMENT AND PLAN: 1. Acute kidney injury secondary to ischemic acute tubular necrosis. Continue supportive dialysis. No evidence of renal recovery. Fluid removal only as tolerated. 2. Anemia, p.r.n. blood transfusion. Continue Epogen. Start ferrous sulfate 325 mg tablet b.i.d. 3. Status post hemorrhagic shock, hemodynamically stable, doing well. Overall agree with current management. Job ID: [id number]
[2018-10-23] MEDS: Diabetic Tussin 200 MG/10 ML UDCUP PO PRN (13:30)
[2018-10-23] MEDS: Ferrous Sulfate 325 MG TAB PO SCH (16:23)
[2018-10-24] MEDS: Diabetic Tussin 200 MG/10 ML UDCUP PO PRN (02:00)
[2018-10-24 07:30] LABS: #Basophils 0.2 thou/uL (0.0-0.2); #Eosinphils 0.9 thou/uL (0.0-0.7); #Lymphocytes 1.2 thou/uL (1.20-3.40); #Monocytes 1.5 thou/uL (0.11-0.59); #Neutrophils 8.1 thou/uL (1.40-6.50); %Basophils 1.5 % (0.0-1.0); %Eosinophils 7.3 % (0.0-10.0); %Lymphocytes 10.5 % (21.0-51.0); %Monocytes 12.4 % (0.0-10.0); %Neutrophils 68.3 % (42.0-75.0); Hemoglobin 7.4 g/dL (14.0-18.0); Mean Corpuscular HGB CONC 32.3 g/dL (32.0-36.0); Mean Corpuscular Hemoglobin 30.5 pg (27.0-31.0); Mean Corpuscular Volume 94.5 fL (78.0-98.0); Mean Platelet Volume 6.6 fL (7.4-10.4); Platelet Count 758 thou/uL (130-400); RBC Distribution Width 14.2 % (11.5-14.5); Red Blood Cell (RBC) Count 2.43 mill/uL (4.70-6.10); White Blood Cell (WBC) Count 11.8 thou/uL (4.8-10.8)
[2018-10-24 07:42] LABS: Anion Gap 24 mmol/L (10-20); BUN (Urea Nitrogen) 77 mg/dL (8.4-25.7); Calc. Creatinine Clearance 18 mL/min (70-130); Calcium 9.1 mg/dL (7.8-10.44); Carbon Dioxide 20 mmol/L (23-31); Chloride 99 mmol/L (98-107); Estimated GFR-MDRD 7; Glucose 104 mg/dL (80-115); Potassium 4.5 mmol/L (3.5-5.1); Sodium 138 mmol/L (136-145)
[2018-10-24] MEDS: Ferrous Sulfate 325 MG TAB PO SCH ×2 (07:52→16:56)
[2018-10-24] MEDS: Pantoprazole 40 MG VIAL IVP SCH ×2 (07:52→20:22)
--- NOTE | 2018-10-24 08:09 | PDOC.PN ---
- Subjective Encounter Start Date: 10/24/18 Encounter Start Time: 10:40 Subjective: Patient seen in dialysis. No complaints. No chest pain. No SOB. -: No bleeding. - Objective Resuscitation Status - Order Detail: 09/29/18 17:25 Resuscitation Status Routine Resuscitation Status: FULL: Full Resuscitation MAR Reviewed: Yes Vital Signs & Weight: Vital Signs (12 hours) Temp Pulse Resp BP BP Pulse Ox 10/24/18 07:20 99.3 F 100 18 113/72 96 10/24/18 07:02 99 18 96 10/24/18 04:00 99.2 F 102 H 20 119/76 98 10/24/18 00:56 103 H 20 10/24/18 00:00 99.9 F H 103 H 20 117/64 97 Weight Admit Weight 310 lb Weight 293 lb 10.491 oz Most Recent Monitor Data Heart Rate from ECG 100 NIBP 126/72 NIBP BP-Mean 90 Respiration from ECG 26 SpO2 97 I&O: 10/23/18 10/24/18 10/25/18 06:59 06:59 06:59 Intake Total 350 620 Output Total 16 Balance 350 604 Result Diagrams: 10/24/18 06:48 10/24/18 06:48 Additional Labs: Accuchecks 10/24/18 10/23/18 10/23/18 05:53 21:23 16:54 POC Glucose 109 121 H 118 H 10/23/18 12:34 POC Glucose 122 H Phys Exam - Physical Examination Constitutional: NAD HEENT: moist MMs Respiratory: no wheezing, no rales, no rhonchi Cardiovascular: RRR Gastrointestinal: soft, non-tender, positive bowel sounds Neurological: non-focal, moves all 4 limbs Psychiatric: normal affect Dx/Plan (1) Duodenal ulcer with hemorrhage Code(s): K26.4 - CHRONIC OR UNSPECIFIED DUODENAL ULCER WITH HEMORRHAGE Status : Acute Comment: s/p surgical repair (2) Acute blood loss anemia Code(s): D62 - ACUTE POSTHEMORRHAGIC ANEMIA Status: Acute (3) Acute renal failure Status: Acute Qualifiers: Acute renal failure type: with acute tubular necrosis Qualified Code(s): N17.0 - Acute kidney failure with tubular necrosis Comment: ischemic ATN, on dialysis (4) Hemorrhagic shock Code(s): R57.8 - OTHER SHOCK Status: Resolved Comment: GI bleed (5) Leukocytosis Code(s): D72.829 - ELEVATED WHITE BLOOD CELL COUNT, UNSPECIFIED Status: Acute Comment: resolving, no antibiotics at this point (6) Metabolic encephalopathy Code(s): G93.41 - METABOLIC ENCEPHALOPATHY Status: Resolved (7) Acute hypercapnic respiratory failure Code(s): J96.02 - ACUTE RESPIRATORY FAILURE WITH HYPERCAPNIA Status: Resolved (8) Tachycardia Code(s): R00.0 - TACHYCARDIA, UNSPECIFIED Status: Resolved Comment: resolved today (9) Sepsis Code(s): A41.9 - SEPSIS, UNSPECIFIED ORGANISM Status: Ruled-out Comment: elevated HR now down, elevated WBC but trending down today, low grade temp after blood transfusion but none since, no identifiable source at this time, CXR negative for infiltrate, blood culture negative thus far - Plan cont current plan of care, PT/OT, DVT proph w/SCDs stable to go to rehab once approved * . - Discharge Day Encounter end time: 10:50
--- NOTE | 2018-10-24 08:44 | PRG ---
DATE OF SERVICE: 10/24/2018 SUBJECTIVE: Mr. Garcia is a 68-year-old white male, who was admitted for hemorrhagic shock, developed multiorgan dysfunction including acute kidney injury secondary to ischemic ATN. He is currently undergoing 3 times a week hemodialysis. Fluid removal only as tolerated and with the dialysis supervising his treatment. He voices no new complaints today. OBJECTIVE: VITAL SIGNS: Blood pressure 113/72, heart rate 100, respiratory rate 18, temperature 99.3, and pulse ox 96%. GENERAL: Awake, alert, comfortable, not in distress. SKIN: Adequate turgor. HEENT: Slightly pale conjunctivae. Anicteric sclerae. No neck mass. No carotid bruits. No JVD. CHEST: No deformities. LUNGS: Clear breath sounds. HEART: Normal sinus rhythm. No murmur. No gallops. No rubs. ABDOMEN: Globular. Soft, nontender, no masses. EXTREMITIES: No edema. No deformities. MEDICATIONS: Medications of 10/24/2018 was reviewed. LABORATORY DATA: Laboratories of 07/24/2019; white count 11.8, hemoglobin 7.4. Sodium 138, potassium 4.5, chloride 99, carbon dioxide 20, BUN 77, creatinine 7.82, glucose 104, and calcium 9.1. ASSESSMENT AND PLAN: 1. Anemia-continue weekly Epogen. On iron supplementation, p.r.n. blood transfusion. Recheck CBC in a.m. 2. Acute kidney injury secondary to ischemic acute tubular necrosis-no evidence of renal recovery. Continue 3 times a week hemodialysis. Again, fluid removal as tolerated. Avoid the heparin use due to the recent gastrointestinal bleed. Overall prognosis remains guarded. Recheck basic metabolic, CBC in a.m. Job ID: [id number]
[2018-10-24] MEDS ORDERED: Heparin 1,000 UNITS/ML VIAL ONE (11:11)
[2018-10-25 07:07] LABS: Clarity TURBID (Clear)
[2018-10-25 07:12] LABS: Pathc Cast-AUWi Flag 21.42 (0-2.49)
[2018-10-25 07:13] LABS: Bilirubin Unable to Interpret (Negative); Blood, Urine Unable to Interpret (Negative); Glucose, Urine (Dipstick) Unable to Interpret mg/dL (Negative); Leukocyte Unable to Interpret (Negative); Nitrite Unable to Interpret (Negative); Protein, Urine (Dipstick) Unable to Interpret mg/dL (Neg-Trace); Urobilinogen UNABLE TO INTERPRET mg/dL (0.2-1.0)
[2018-10-25 07:47] LABS: Bacteria/HPF 2+ HPF (None Seen); Hyaline Casts/LPF 0-3 HYALINE CAST LPF (0-3 Hyaline); Renal Epithelial 0-3 HPF (0-3); Yeast-All Forms None Seen HPF (None Seen)
[2018-10-25 07:48] LABS: Manual Microscopic Reviewed? No Path Casts Seen
[2018-10-25 07:50] LABS: Hemoglobin 7.6 g/dL (14.0-18.0); Mean Corpuscular HGB CONC 31.8 g/dL (32.0-36.0); Mean Corpuscular Hemoglobin 30.2 pg (27.0-31.0); Mean Platelet Volume 6.5 fL (7.4-10.4); Platelet Count 771 thou/uL (130-400); RBC Distribution Width 14.4 % (11.5-14.5); Red Blood Cell (RBC) Count 2.52 mill/uL (4.70-6.10); White Blood Cell (WBC) Count 11.6 thou/uL (4.8-10.8)
[2018-10-25 07:53] LABS: pH, Urine 4.8 (5.0-9.0)
[2018-10-25 08:11] LABS: Anion Gap 20 mmol/L (10-20); BUN (Urea Nitrogen) 54 mg/dL (8.4-25.7); Calc. Creatinine Clearance 23 mL/min (70-130); Calcium 8.7 mg/dL (7.8-10.44); Carbon Dioxide 24 mmol/L (23-31); Chloride 98 mmol/L (98-107); Estimated GFR-MDRD 10; Glucose 107 mg/dL (80-115); Potassium 4.1 mmol/L (3.5-5.1); Sodium 138 mmol/L (136-145)
[2018-10-25] MEDS: Pantoprazole 40 MG VIAL IVP SCH ×2 (08:25→20:05)
[2018-10-25] MEDS: Ferrous Sulfate 325 MG TAB PO SCH ×2 (08:25→17:03)
--- NOTE | 2018-10-25 09:25 | PRG ---
DATE OF SERVICE: 10/25/2018 RENAL MEDICINE. SUBJECTIVE: Mr. Garcia is a 68-year-old white male, who was admitted for hemorrhagic shock and developed multiorgan dysfunction. Acute respiratory failure is now resolved. He still has acute kidney injury from ischemic ATN. He is still dialysis dependent. No evidence of renal recovery at the present time. No new complaints today. No chest pain or shortness of breath. OBJECTIVE: VITAL SIGNS: Blood pressure is 102/68, heart rate 83, respiratory rate 24, temperature 98.8, and pulse ox 96%. GENERAL: Noted to be awake, alert, supine, comfortable, not in distress. SKIN: Adequate turgor. HEENT: He has slightly pale conjunctivae. Anicteric sclerae. No neck mass. No carotid bruits. No JVD. CHEST: No deformities. LUNGS: Clear breath sounds. No wheezing. No crackles. HEART: Normal sinus rhythm. No murmur. No gallops or rubs. ABDOMEN: Globular, soft, nontender. No masses. EXTREMITIES: No edema. No deformities. MEDICATIONS: Medications of October 25, 2018 reviewed. LABORATORY DATA: Laboratories of October 25, 2018; white count 11.6, hemoglobin 7.6. Sodium 138, potassium 4.1, chloride 98, carbon dioxide 24, BUN 54, creatinine 5.88, glucose 107, calcium 8.7. ASSESSMENT AND PLAN: 1. Acute kidney injury secondary to ischemic acute tubular necrosis. Continuing regular Monday, Monday, Monday dialysis. No evidence of renal recovery. Recheck basic metabolic panel in a.m. again. 2. Anemia. Hemoglobin noted 7.6. We are continuing weekly Epogen and iron supplementation - p.r.n. blood transfusion. 3. Status post hemorrhagic shock - much improved. Off all pressors. Awaiting eventual rehab placement or residential facility placement. Job ID: [id number]
--- NOTE | 2018-10-25 09:40 | PDOC.PN ---
- Subjective Encounter Start Date: 10/25/18 Encounter Start Time: 13:00 Subjective: Patient without complaint. No SOB. No CP. - Objective Resuscitation Status - Order Detail: 09/29/18 17:25 Resuscitation Status Routine Resuscitation Status: FULL: Full Resuscitation MAR Reviewed: Yes Vital Signs & Weight: Vital Signs (12 hours) Temp Pulse Resp BP Pulse Ox 10/25/18 08:00 98.8 F 83 24 H 102/68 96 Weight Admit Weight 310 lb Weight 293 lb 10.491 oz Most Recent Monitor Data Heart Rate from ECG 100 NIBP 126/72 NIBP BP-Mean 90 Respiration from ECG 26 SpO2 97 I&O: 10/24/18 10/25/18 10/26/18 06:59 06:59 06:59 Intake Total 620 480 Output Total 16 74 Balance 604 406 Result Diagrams: 10/25/18 06:46 10/25/18 06:46 Additional Labs: Accuchecks 10/25/18 10/24/18 10/24/18 06:04 21:27 16:15 POC Glucose 119 H 151 H 135 H 10/24/18 12:45 POC Glucose 100 Phys Exam - Physical Examination Constitutional: NAD HEENT: moist MMs Respiratory: no rales, no rhonchi scattered wheeze Cardiovascular: RRR, no significant murmur Gastrointestinal: soft, positive bowel sounds Neurological: non-focal, moves all 4 limbs Psychiatric: normal affect, A&O x 3 Dx/Plan (1) Duodenal ulcer with hemorrhage Code(s): K26.4 - CHRONIC OR UNSPECIFIED DUODENAL ULCER WITH HEMORRHAGE Status : Acute Comment: s/p surgical repair (2) Acute blood loss anemia Code(s): D62 - ACUTE POSTHEMORRHAGIC ANEMIA Status: Acute (3) Acute renal failure Status: Acute Qualifiers: Acute renal failure type: with acute tubular necrosis Qualified Code(s): N17.0 - Acute kidney failure with tubular necrosis Comment: ischemic ATN, on dialysis (4) Hemorrhagic shock Code(s): R57.8 - OTHER SHOCK Status: Resolved Comment: GI bleed (5) Leukocytosis Code(s): D72.829 - ELEVATED WHITE BLOOD CELL COUNT, UNSPECIFIED Status: Acute Comment: resolving, no antibiotics at this point (6) Metabolic encephalopathy Code(s): G93.41 - METABOLIC ENCEPHALOPATHY Status: Resolved (7) Acute hypercapnic respiratory failure Code(s): J96.02 - ACUTE RESPIRATORY FAILURE WITH HYPERCAPNIA Status: Resolved (8) Tachycardia Code(s): R00.0 - TACHYCARDIA, UNSPECIFIED Status: Resolved (9) Sepsis Code(s): A41.9 - SEPSIS, UNSPECIFIED ORGANISM Status: Ruled-out Comment: elevated HR now down, elevated WBC but trending down today, low grade temp after blood transfusion but none since, no identifiable source at this time, CXR negative for infiltrate, blood culture negative thus far - Plan cont current plan of care, PT/OT awaiting rehab placement, possibly tomorrow * . - Discharge Day Encounter end time: 13:15
[2018-10-25 10:03] LABS: Eosinophils 8 % (0-10); Hypochromia SLIGHT = 6-15 cells (100X) (0-5/hpf); Lymphocytes 10 % (21-51); MDiff Complete? YES; Monocytes 21 % (0-10); Neutrophil 61 % (42-75); Platelet Morphology Comment Appears Increased; Polychromasia SLIGHT = 2-3 cells (100X) (0-2/hpf)
[2018-10-26 07:04] LABS: Hemoglobin 7.2 g/dL (14.0-18.0); Mean Corpuscular HGB CONC 32.6 g/dL (32.0-36.0); Mean Corpuscular Hemoglobin 30.8 pg (27.0-31.0); Mean Corpuscular Volume 94.5 fL (78.0-98.0); Mean Platelet Volume 6.3 fL (7.4-10.4); Platelet Count 687 thou/uL (130-400); RBC Distribution Width 14.7 % (11.5-14.5); Red Blood Cell (RBC) Count 2.34 mill/uL (4.70-6.10); White Blood Cell (WBC) Count 10.5 thou/uL (4.8-10.8)
[2018-10-26 07:15] LABS: Anion Gap 19 mmol/L (10-20); BUN (Urea Nitrogen) 72 mg/dL (8.4-25.7); Calc. Creatinine Clearance 19 mL/min (70-130); Carbon Dioxide 25 mmol/L (23-31); Chloride 97 mmol/L (98-107); Estimated GFR-MDRD 8; Glucose 101 mg/dL (80-115); Potassium 4.1 mmol/L (3.5-5.1); Sodium 137 mmol/L (136-145)
[2018-10-26] MEDS: Acetaminophen 500 MG TAB PO PRN (07:20)
[2018-10-26 08:19] LABS: Band 7 % (5-11); Basophilic Stippling SLIGHT = 1-2 cells (100X) (None Seen); Eosinophils 5 % (0-10); Lymphocytes 12 % (21-51); MDiff Complete? YES; Metamyelocyte 1 % (0-0); Monocytes 19 % (0-10); Neutrophil 56 % (42-75); Polychromasia SLIGHT = 2-3 cells (100X) (0-2/hpf)
--- NOTE | 2018-10-26 10:11 | PRG ---
DATE OF SERVICE: 10/26/2018 RENAL MEDICINE. SUBJECTIVE: Mr. Garcia is a 68-year-old white male, who was admitted for hemorrhagic shock, developed multiorgan dysfunction including acute kidney injury from ischemic ATN. He is currently undergoing dialysis. No evidence of renal recovery. He also has received several units of packed RBC in the past. OBJECTIVE: VITAL SIGNS: Blood pressure is 120/73, heart rate 98, respiratory rate 20, temperature 100, and pulse ox 94%. GENERAL: The patient is awake, not in distress. SKIN: Adequate turgor. HEENT: Slightly pale conjunctivae. Anicteric sclerae. NECK: No neck mass. No carotid bruits. No JVD. CHEST: No deformities. LUNGS: Decreased breath sounds. HEART: Normal sinus rhythm. No murmur. No gallops. No rubs. ABDOMEN: Globular, soft, and nontender. No masses. EXTREMITIES: No edema. MEDICATIONS: Medications of October 26, 2018, was reviewed. LABORATORY DATA: Laboratories of October 26, 2018, white count 10.5 and hemoglobin 7.2. Sodium 137, potassium 4.1, chloride 97, carbon dioxide 25, BUN 72, creatinine 7.27, and calcium 9.0. ASSESSMENT AND PLAN: 1. Acute kidney injury secondary to ischemic acute tubular necrosis. Continue Monday, Monday, and Monday hemodialysis. Fluid removal only as tolerated. 2. Anemia. Continue Epogen and iron supplementation. P.R.N. blood transfusion. 3. Status post hemorrhagic shock, hemodynamically stable. Continue current management. Recheck basic metabolic and CBC in a.m. Job ID: [id number]
[2018-10-26] MEDS: Ferrous Sulfate 325 MG TAB PO SCH ×2 (10:49→16:43)
[2018-10-26] MEDS ORDERED: Heparin 1,000 UNITS/ML VIAL ONE (11:11)
[2018-10-26] MEDS: Pantoprazole 40 MG VIAL IVP SCH ×2 (12:18→20:35)
--- NOTE | 2018-10-26 13:26 | PDOC.PN ---
- Subjective Encounter Start Date: 10/26/18 Encounter Start Time: 13:20 Subjective: Expresses no complaint. - Objective Resuscitation Status - Order Detail: 09/29/18 17:25 Resuscitation Status Routine Resuscitation Status: FULL: Full Resuscitation Vital Signs & Weight: Vital Signs (12 hours) Temp Pulse Resp BP Pulse Ox 10/26/18 12:24 99.8 F H 102 H 20 115/73 95 10/26/18 07:23 100 F H 98 20 120/73 94 L 10/26/18 07:20 94 L Weight Admit Weight 310 lb Weight 290 lb 11.2 oz Most Recent Monitor Data Heart Rate from ECG 100 NIBP 126/72 NIBP BP-Mean 90 Respiration from ECG 26 SpO2 97 I&O: 10/25/18 10/26/18 10/27/18 06:59 06:59 06:59 Intake Total 480 770 Output Total 74 Balance 406 770 Result Diagrams: 10/26/18 06:35 10/26/18 06:35 Additional Labs: Accuchecks 10/26/18 10/26/18 10/25/18 12:31 05:36 21:02 POC Glucose 91 102 132 H 10/25/18 15:59 POC Glucose 111 H Phys Exam - Physical Examination Neck: no JVD Respiratory: clear to auscultation bilateral Cardiovascular: RRR Gastrointestinal: soft Musculoskeletal: no edema Neurological: moves all 4 limbs Psychiatric: normal affect Dx/Plan (1) MARCK (acute kidney injury) Code(s): N17.9 - ACUTE KIDNEY FAILURE, UNSPECIFIED Status: Acute Comment: Seen by nephrology. Had HD earlier. (2) Acute blood loss anemia Code(s): D62 - ACUTE POSTHEMORRHAGIC ANEMIA Status: Acute (3) Duodenal ulcer with hemorrhage Code(s): K26.4 - CHRONIC OR UNSPECIFIED DUODENAL ULCER WITH HEMORRHAGE Status : Acute Comment: s/p surgical repair (4) Acute hypercapnic respiratory failure Code(s): J96.02 - ACUTE RESPIRATORY FAILURE WITH HYPERCAPNIA Status: Resolved (5) Hemorrhagic shock Code(s): R57.8 - OTHER SHOCK Status: Resolved Plan: Resolved Comment: Due to PUD, resolved.. - Plan -: Continue current therapy. -: f/u with consultants.. * .
[2018-10-27 07:02] LABS: Anion Gap 16 mmol/L (10-20); BUN (Urea Nitrogen) 46 mg/dL (8.4-25.7); Calc. Creatinine Clearance 24 mL/min (70-130); Calcium 9.1 mg/dL (7.8-10.44); Carbon Dioxide 26 mmol/L (23-31); Chloride 98 mmol/L (98-107); Estimated GFR-MDRD 11; Glucose 89 mg/dL (80-115); Potassium 4.7 mmol/L (3.5-5.1); Sodium 135 mmol/L (136-145)
[2018-10-27] MEDS: Pantoprazole 40 MG VIAL IVP SCH ×2 (08:30→20:49)
[2018-10-27] MEDS: Ferrous Sulfate 325 MG TAB PO SCH ×2 (08:30→14:54)
[2018-10-27 08:52] LABS: Band 1 % (5-11); Eosinophils 8 % (0-10); Hemoglobin 7.9 g/dL (14.0-18.0); Lymphocytes 20 % (21-51); MDiff Complete? YES; Mean Corpuscular HGB CONC 32.1 g/dL (32.0-36.0); Mean Corpuscular Hemoglobin 30.5 pg (27.0-31.0); Mean Corpuscular Volume 94.9 fL (78.0-98.0); Mean Platelet Volume 6.2 fL (7.4-10.4); Metamyelocyte 1 % (0-0); Monocytes 19 % (0-10); Neutrophil 51 % (42-75); Platelet Count 635 thou/uL (130-400); Platelet Morphology Comment Appears Increased; RBC Distribution Width 14.8 % (11.5-14.5); White Blood Cell (WBC) Count 9.1 thou/uL (4.8-10.8)
--- NOTE | 2018-10-27 10:02 | PDOC.PN ---
- Subjective Encounter Start Date: 10/27/18 Encounter Start Time: 07:40 -: No complaint expressed. -: Feels better. - Objective Resuscitation Status - Order Detail: 09/29/18 17:25 Resuscitation Status Routine Resuscitation Status: FULL: Full Resuscitation Vital Signs & Weight: Vital Signs (12 hours) Temp Pulse Resp BP Pulse Ox 10/27/18 08:30 99.1 F 97 18 115/73 91 L 10/27/18 04:00 99.3 F 104 H 20 121/73 93 L 10/27/18 00:00 99.0 F Weight Admit Weight 310 lb Weight 279 lb 4.8 oz Most Recent Monitor Data Heart Rate from ECG 100 NIBP 126/72 NIBP BP-Mean 90 Respiration from ECG 26 SpO2 97 I&O: 10/26/18 10/27/18 10/28/18 06:59 06:59 06:59 Intake Total 770 1030 Balance 770 1030 Result Diagrams: 10/27/18 06:28 10/27/18 06:28 Additional Labs: Accuchecks 10/27/18 10/26/18 10/26/18 05:30 20:33 16:42 POC Glucose 92 99 101 10/26/18 12:31 POC Glucose 91 Phys Exam - Physical Examination Neck: no JVD Respiratory: clear to auscultation bilateral Cardiovascular: RRR Gastrointestinal: soft Musculoskeletal: no edema Dx/Plan (1) MARCK (acute kidney injury) Code(s): N17.9 - ACUTE KIDNEY FAILURE, UNSPECIFIED Status: Acute Comment: Seen by nephrology. f/u chemistry.. (2) Acute blood loss anemia Code(s): D62 - ACUTE POSTHEMORRHAGIC ANEMIA Status: Acute Plan: Hb/Hct stable (3) Duodenal ulcer with hemorrhage Code(s): K26.4 - CHRONIC OR UNSPECIFIED DUODENAL ULCER WITH HEMORRHAGE Status : Acute Comment: s/p surgical repair. On PPI. (4) Acute hypercapnic respiratory failure Code(s): J96.02 - ACUTE RESPIRATORY FAILURE WITH HYPERCAPNIA Status: Resolved Comment: resolved. (5) Hemorrhagic shock Code(s): R57.8 - OTHER SHOCK Status: Resolved Comment: Due to PUD. Resolved.. - Plan -: continue current therapy. -: Awaiting rehab placement. * .
--- NOTE | 2018-10-27 12:16 | PRG ---
DATE OF SERVICE: 10/27/2018 SUBJECTIVE: Mr. Garcia is a 68-year-old white male, who was initially admitted due to a hemorrhagic shock and developed multiple organ dysfunction. He has done better since admission. He is off his ventilator. However, he still continues to have renal dysfunction. No evidence of renal recovery at the present time. He is on maintenance hemodialysis. We are awaiting rehab transfer with this patient. No new complaints today. OBJECTIVE: VITAL SIGNS: Blood pressure 115/73, heart rate 97, respiratory rate 18, and temperature 99.1. GENERAL: Noted to be awake, alert, comfortable, not in distress. SKIN: Adequate turgor. HEENT: He has a slightly pale conjunctivae. Anicteric sclerae. NECK: No neck mass. No carotid bruits. No JVD. CHEST: No deformities. LUNGS: Clear breath sounds. No wheezing. No crackles. HEART: Normal sinus rhythm. No murmur. No gallops. No rubs. ABDOMEN: Globular, soft, nontender. No masses. EXTREMITIES: No edema. No deformities. MEDICATIONS: Medications of October 27, 2018, was reviewed. LABORATORY DATA: Laboratories of October 27, 2018; white count 9.1, hemoglobin 7.9. Sodium 135, potassium 4.7, chloride 98, carbon dioxide 26, BUN 46, creatinine 5.44, and calcium 9.1. ASSESSMENT AND PLAN: 1. Acute kidney injury secondary to ischemic acute tubular necrosis. No evidence of renal recovery. Continuing maintenance hemodialysis. The patient is currently placed on a Monday, Monday, and Monday schedule. Fluid removal only as tolerated. 2. Anemia. P.r.n. blood transfusion. Continuing weekly Epogen and ferrous sulfate supplementation. Overall, prognosis remains guarded. Awaiting outpatient transfer. Job ID: [id number]
[2018-10-28] MEDS: Ferrous Sulfate 325 MG TAB PO SCH ×2 (08:02→17:23)
[2018-10-28] MEDS: Acetaminophen 500 MG TAB PO PRN (08:02)
[2018-10-28 08:03] LABS: Anion Gap 20 mmol/L (10-20); BUN (Urea Nitrogen) 68 mg/dL (8.4-25.7); Calc. Creatinine Clearance 18 mL/min (70-130); Calcium 9.2 mg/dL (7.8-10.44); Carbon Dioxide 23 mmol/L (23-31); Chloride 97 mmol/L (98-107); Estimated GFR-MDRD 8; Glucose 88 mg/dL (80-115); Potassium 4.9 mmol/L (3.5-5.1); Sodium 135 mmol/L (136-145)
[2018-10-28 08:40] LABS: Band 8 % (5-11); Eosinophils 4 % (0-10); Lymphocytes 12 % (21-51); MDiff Complete? YES; Mean Corpuscular HGB CONC 31.6 g/dL (32.0-36.0); Mean Corpuscular Hemoglobin 29.4 pg (27.0-31.0); Mean Platelet Volume 6.3 fL (7.4-10.4); Metamyelocyte 2 % (0-0); Monocytes 22 % (0-10); Neutrophil 51 % (42-75); Platelet Count 632 thou/uL (130-400); RBC Distribution Width 14.7 % (11.5-14.5); Red Blood Cell (RBC) Count 2.72 mill/uL (4.70-6.10); White Blood Cell (WBC) Count 11.4 thou/uL (4.8-10.8)
[2018-10-28] MEDS ORDERED: Vancomycin HCl 1 GM in Premix Bag 1 BAG IVPB SCH ×2 (08:45→10:15)
--- NOTE | 2018-10-28 09:40 | PDOC.PN ---
- Subjective Encounter Start Date: 10/28/18 Encounter Start Time: 09:30 -: Had fever earlier - Objective Resuscitation Status - Order Detail: 09/29/18 17:25 Resuscitation Status Routine Resuscitation Status: FULL: Full Resuscitation Vital Signs & Weight: Vital Signs (12 hours) Temp Pulse Resp BP Pulse Ox 10/28/18 08:00 79 L 10/28/18 07:33 102.4 F H 120 H 24 H 117/73 91 L 10/28/18 06:43 122 H 28 H 91 L 10/28/18 06:42 91 L Weight Admit Weight 310 lb Weight 276 lb 9 oz Most Recent Monitor Data Heart Rate from ECG 100 NIBP 126/72 NIBP BP-Mean 90 Respiration from ECG 26 SpO2 97 I&O: 10/27/18 10/28/18 10/29/18 06:59 06:59 06:59 Intake Total 1030 620 Balance 1030 620 Result Diagrams: 10/28/18 07:10 10/28/18 07:10 Additional Labs: Accuchecks 10/28/18 10/27/18 10/27/18 05:12 20:25 16:49 POC Glucose 95 94 111 H 10/27/18 11:50 POC Glucose 99 Phys Exam - Physical Examination Neck: no JVD Respiratory: clear to auscultation bilateral Cardiovascular: RRR Gastrointestinal: soft Musculoskeletal: no edema Dx/Plan (1) MARCK (acute kidney injury) Code(s): N17.9 - ACUTE KIDNEY FAILURE, UNSPECIFIED Status: Acute Comment: Seen by nephrology. f/u chemistry.. (2) Acute blood loss anemia Code(s): D62 - ACUTE POSTHEMORRHAGIC ANEMIA Status: Acute (3) Duodenal ulcer with hemorrhage Code(s): K26.4 - CHRONIC OR UNSPECIFIED DUODENAL ULCER WITH HEMORRHAGE Status : Acute Comment: s/p surgical repair. On PPI. (4) Acute hypercapnic respiratory failure Code(s): J96.02 - ACUTE RESPIRATORY FAILURE WITH HYPERCAPNIA Status: Resolved Comment: resolved. (5) Hemorrhagic shock Code(s): R57.8 - OTHER SHOCK Status: Resolved Comment: Due to PUD. Resolved.. (6) Fever Code(s): R50.9 - FEVER, UNSPECIFIED Status: Acute Comment: Possibly due to catheter infection. Blood cultures sent. Started on Vancomycin - Plan * . f/u BxC. Continue Vancomycin. May need to DC dialysis cather...Defer to nephrology.
[2018-10-28] MEDS ORDERED: VANCOMYCIN IVPB PRN (10:01)
[2018-10-28] MEDS ORDERED: HOLD VANCOMYCIN FOR LEVEL >20 FS SCH (10:15)
[2018-10-28] MEDS ORDERED: Vancomycin HCl 750 MG in Sodium Chloride 0.9% 250 ML 250 ML IVPB SCH (10:15)
[2018-10-28] MEDS ORDERED: Vancomycin HCl 1.5 GM in Sodium Chloride 0.9% 250 ML 300 ML IVPB SCH (10:15)
[2018-10-28] MEDS ORDERED: Vancomycin HCl 1.25 GM in Sodium Chloride 0.9% 250 ML 250 ML IVPB SCH (10:15)
[2018-10-28] MEDS: diphenhydrAMINE 50 MG/ML VIAL IVP PRN (11:52)
[2018-10-28] MEDS: Pantoprazole 40 MG VIAL IVP SCH ×2 (11:52→20:24)
[2018-10-28] MEDS ORDERED: Sodium Chloride 0.9% 1,000 ML IV SCH (14:00)
--- NOTE | 2018-10-28 14:29 | RAD ---
PORTABLE CHEST: Date: 10/28/18 HISTORY: Hypoxemia. COMPARISON: 10/22/18 study. FINDINGS: Heart size is enlarged. Right-sided HemoSplit catheter is present. Mild vascular prominence, similar to the prior examination. Minimally increased markings in the bases, also stable. IMPRESSION: Cardiomegaly. Overall stable exam. POS: [facility]
--- NOTE | 2018-10-28 14:47 | PRG ---
DATE OF SERVICE: 10/28/2018 SERVICE: Pulmonary Medicine. INTERVAL HISTORY: The patient is doing fine from a respiratory standpoint. Denies any current chest pain, fevers, or chills. I was asked to re-evaluate the patient because of increasing hypoxemia. For the last 2 days, his oxygen requirements have gone from room air up to 3 L nasal cannula. On room air, he is saturating in the mid 70s. He has had increasing cough and sputum production for the last 2 days. He started bringing up yellow sputum. He did have a spike of temperature. Broad-spectrum antibiotics were initiated. He is having increasing tachycardia , and his heart rate and his blood pressure is falling off ever so slightly. Otherwise, there has been no interval change to his condition. PHYSICAL EXAMINATION: VITAL SIGNS: T-max 102.4, pulse 101, respirations 20, saturation 90% on 1 L nasal cannula. On room air, he is 75%. Blood pressure 96/63. HEENT: Normocephalic and atraumatic. Sclerae white. Conjunctivae pink. Oral mucosa is moist without lesions. LUNGS: Decent air entry. There is no prolonged expiratory phase present. I do not appreciate any wheezing. Rhonchi are present. There are no crackles. HEART: Normal rate and regular. ABDOMEN: Soft, nontender, and nondistended. Bowel sounds are positive. MUSCULOSKELETAL: No cyanosis or clubbing. No pitting in the bilateral lower extremities. SKIN: He has got skin tenting throughout. GENITOURINARY: No Malloy. NEUROLOGIC: Grossly nonfocal. LABORATORY DATA: WBC 11.4, hemoglobin 8.0, platelets 632,000. Creatinine 7.24 , BUN 68. Basic metabolic profile is otherwise unremarkable. Blood cultures x6 have been unremarkable to date. IMAGING: Chest x-ray from the demonstrated no acute cardiopulmonary abnormality. He had a right IJ that was in place. ASSESSMENT: 1. Acute hypoxic respiratory failure. 2. Severe deconditioning. 3. Severe sepsis. 4. Acute blood loss anemia, stable. 5. History of hemorrhagic shock status post [id number] arrest, and ultimate repair of duodenal ulcer with laparotomy. 6. Acute kidney injury, requiring hemodialysis still. DISCUSSION AND PLAN: The patient is quite dry. I agree with our broad-spectrum antibiotics and panculture. Chest x-ray will be performed. if there is infiltrate present, this will be treated through time. If, however, there is no infiltrate present, we will move forward with a V/Q scan to verify there is no pulmonary embolism. We will continue mobilization efforts. The patient is extremely dry at this point. I think we can back off our ultrafiltration to focus simply on cleaning his blood for the time being. I will give him a liter of fluid. Dr. Doe will resume care in the morning. Job ID: [id number] MTDD
[2018-10-28] MEDS: Sodium Chloride 0.45% 1,000 ML IV SCH (16:49)
[2018-10-28] MEDS: Cefepime 2 GM in Sodium Chloride 0.9% 100 ML IVPB SCH (20:24)
[2018-10-29] MEDS: Epoetin (ESRD) 10,000 UNITS/ML VIAL SC SCH (01:05)
[2018-10-29 07:26] LABS: Anion Gap 20 mmol/L (10-20); BUN (Urea Nitrogen) 77 mg/dL (8.4-25.7); Calc. Creatinine Clearance 16 mL/min (70-130); Calcium 8.7 mg/dL (7.8-10.44); Carbon Dioxide 20 mmol/L (23-31); Chloride 101 mmol/L (98-107); Estimated GFR-MDRD 7; Glucose 94 mg/dL (80-115); Potassium 4.7 mmol/L (3.5-5.1); Sodium 136 mmol/L (136-145)
[2018-10-29 07:30] LABS: Hemoglobin 7.7 g/dL (14.0-18.0); Mean Corpuscular HGB CONC 32.1 g/dL (32.0-36.0); Mean Corpuscular Volume 93.5 fL (78.0-98.0); Mean Platelet Volume 6.2 fL (7.4-10.4); Platelet Count 527 thou/uL (130-400); RBC Distribution Width 14.8 % (11.5-14.5); Red Blood Cell (RBC) Count 2.57 mill/uL (4.70-6.10); White Blood Cell (WBC) Count 11.3 thou/uL (4.8-10.8)
[2018-10-29 08:31] LABS: Band 16 % (5-11); Eosinophils 5 % (0-10); Lymphocytes 18 % (21-51); MDiff Complete? YES; Metamyelocyte 1 % (0-0); Monocytes 8 % (0-10); Neutrophil 52 % (42-75); Polychromasia SLIGHT = 2-3 cells (100X) (0-2/hpf)
[2018-10-29] MEDS: Ferrous Sulfate 325 MG TAB PO SCH ×2 (09:00→17:06)
--- NOTE | 2018-10-29 09:58 | PRG ---
DATE OF SERVICE: 10/29/2018 SUBJECTIVE: Mr. Garcia is a 68-year-old white male, who was admitted for hemorrhagic shock and developed multiorgan dysfunction, which included acute kidney injury secondary to ischemic ATN. He is undergoing hemodialysis today. Fluid removal is being done. No evidence of renal recovery. We will continue current 3 times a week hemodialysis. OBJECTIVE: VITAL SIGNS: Blood pressure is currently 97/61, heart rate 70. GENERAL: Awake, comfortable, not in overt distress. SKIN: Adequate turgor. HEENT: Slightly pale conjunctivae. Anicteric sclerae. NECK: No neck mass. No carotid bruits. No JVD. CHEST: No deformities. LUNGS: Clear breath sounds. No wheezing. No crackles. HEART: Normal sinus rhythm. No murmur. No gallops. No rubs. ABDOMEN: Globular, soft, nontender. No masses. EXTREMITIES: No edema. No deformities. MEDICATIONS: Medications of October 29, 2018, reviewed. LABORATORY DATA: Laboratories of October 29, 2018: White count 11.2, hemoglobin 7.7. Sodium 136, potassium 4.7, chloride 101, carbon dioxide 20, BUN 77, creatinine 7.92, glucose 94, calcium 8.7. ASSESSMENT AND PLAN: 1. Acute kidney injury secondary to ischemic acute tubular necrosis. No evidence of renal recovery. Continuing Monday, Monday, and Monday dialysis. Fluid removal only as tolerated by this patient. 2. Anemia, p.r.n. blood transfusion. Continue Epogen and iron supplementation. 3. Awaiting outpatient placement. Job ID: [id number]
[2018-10-29] MEDS: Sodium Chloride 0.45% 1,000 ML IV SCH ×2 (10:00→21:28)
--- NOTE | 2018-10-29 10:28 | NM ---
VENTILATION PERFUSION LUNG SCAN: DATE: 10/29/2018. COMPARISON: None. HISTORY: Hypoxemia. TECHNIQUE: Ventilation imaging obtained following the inhalation of 24.9 mCi Xenon 133 gas by face mask. Perfusion imaging is obtained following the intravenous administration of 6.5 mCi Technetium 99m labe led MAA. FINDINGS: The ventilation imaging demonstrates normal wash-in in equilibrium phase. There is air trapping note d on the washout imaging. The patient was scanned with the arms down, limiting assessment of the perfusion imaging in the later al positions No mismatched perfusion defect seen. Mild heterogeneity of the radiotracer in the oswald r regions, likely on the basis of vascular prominence. IMPRESSION: Low probability for pulmonary embolism. POS: [facility]
[2018-10-29 11:19] LABS: Vancomycin, Random 14.5 ug/mL (See Comment)
[2018-10-29] MEDS: Cefepime 2 GM in Sodium Chloride 0.9% 100 ML IVPB SCH ×2 (13:52→21:29)
[2018-10-29] MEDS: Pantoprazole 40 MG VIAL IVP SCH ×2 (13:53→21:30)
[2018-10-29] MEDS: Acetaminophen 500 MG TAB PO PRN ×2 (14:01→21:33)
[2018-10-29] MEDS ORDERED: Heparin 10,000 UNITS/ 10 ML VIAL ONE (15:00)
--- NOTE | 2018-10-29 15:26 | PDOC.PN ---
- Subjective Encounter Start Date: 10/29/18 Encounter Start Time: 15:18 Subjective: poor recent memory, orietation deficet persists - Objective Resuscitation Status - Order Detail: 09/29/18 17:25 Resuscitation Status Routine Resuscitation Status: FULL: Full Resuscitation MAR Reviewed: Yes Vital Signs & Weight: Vital Signs (12 hours) Temp Pulse Resp BP BP Pulse Ox 10/29/18 14:00 101.2 F H 100 20 100/66 96 10/29/18 08:27 99.1 F 108 H 20 97/61 92 L 10/29/18 08:00 99.0 F 108 H 20 97/61 92 L Weight Admit Weight 310 lb Weight 276 lb 9 oz Most Recent Monitor Data Heart Rate from ECG 100 NIBP 126/72 NIBP BP-Mean 90 Respiration from ECG 26 SpO2 97 I&O: 10/28/18 10/29/18 10/30/18 06:59 06:59 06:59 Intake Total 620 1598 Balance 620 1598 Result Diagrams: 10/29/18 06:49 10/29/18 06:49 Additional Labs: Accuchecks 10/29/18 10/28/18 10/28/18 05:39 21:21 16:32 POC Glucose 96 114 H 88 Radiology Reviewed by me: Yes (VQ scan- low probability PE) Phys Exam - Physical Examination Neck: no JVD Respiratory: clear to auscultation bilateral Cardiovascular: RRR, no significant murmur Gastrointestinal: soft, non-tender, positive bowel sounds Musculoskeletal: edema present Dx/Plan (1) Acute renal failure Status: Acute Qualifiers: Acute renal failure type: with acute tubular necrosis Qualified Code(s): N17.0 - Acute kidney failure with tubular necrosis Comment: ischemic ATN, on dialysis (2) Acute blood loss anemia Code(s): D62 - ACUTE POSTHEMORRHAGIC ANEMIA Status: Acute (3) Acute hypercapnic respiratory failure Code(s): J96.02 - ACUTE RESPIRATORY FAILURE WITH HYPERCAPNIA Status: Resolved Comment: resolved. (4) Duodenal ulcer with hemorrhage Code(s): K26.4 - CHRONIC OR UNSPECIFIED DUODENAL ULCER WITH HEMORRHAGE Status : Resolved Comment: s/p surgical repair. On PPI. (5) Metabolic encephalopathy Code(s): G93.41 - METABOLIC ENCEPHALOPATHY Status: Chronic (6) Hemorrhagic shock Code(s): R57.8 - OTHER SHOCK Status: Resolved Comment: Due to PUD. Resolved.. (7) Fever Code(s): R50.9 - FEVER, UNSPECIFIED Status: Acute Qualifiers: Fever type: unspecified Qualified Code(s): R50.9 - Fever, unspecified Comment: Possibly due to catheter infection. Blood cultures sent. Started on Vancomycin - Plan cultures blood, pending, cont iv antibx -: cont routine HD -: cont to be encephalopathic * .
[2018-10-30 07:39] LABS: #Basophils 0.1 thou/uL (0.0-0.2); #Eosinphils 0.9 thou/uL (0.0-0.7); #Lymphocytes 1.4 thou/uL (1.20-3.40); #Monocytes 1.5 thou/uL (0.11-0.59); #Neutrophils 6.8 thou/uL (1.40-6.50); %Basophils 0.9 % (0.0-1.0); %Lymphocytes 12.9 % (21.0-51.0); %Monocytes 13.8 % (0.0-10.0); %Neutrophils 64.4 % (42.0-75.0); Hemoglobin 7.6 g/dL (14.0-18.0); Mean Corpuscular HGB CONC 31.7 g/dL (32.0-36.0); Mean Corpuscular Hemoglobin 29.6 pg (27.0-31.0); Mean Corpuscular Volume 93.5 fL (78.0-98.0); Mean Platelet Volume 6.3 fL (7.4-10.4); Platelet Count 456 thou/uL (130-400); RBC Distribution Width 14.9 % (11.5-14.5); Red Blood Cell (RBC) Count 2.58 mill/uL (4.70-6.10); White Blood Cell (WBC) Count 10.6 thou/uL (4.8-10.8)
[2018-10-30 07:57] LABS: Anion Gap 18 mmol/L (10-20); BUN (Urea Nitrogen) 46 mg/dL (8.4-25.7); Calc. Creatinine Clearance 24 mL/min (70-130); Calcium 8.7 mg/dL (7.8-10.44); Carbon Dioxide 22 mmol/L (23-31); Chloride 100 mmol/L (98-107); Estimated GFR-MDRD 11; Glucose 93 mg/dL (80-115); Potassium 4.3 mmol/L (3.5-5.1); Sodium 136 mmol/L (136-145)
[2018-10-30] MEDS: Ferrous Sulfate 325 MG TAB PO SCH ×2 (07:59→16:30)
[2018-10-30] MEDS: Pantoprazole 40 MG VIAL IVP SCH ×2 (07:59→21:22)
[2018-10-30] MEDS: Cefepime 2 GM in Sodium Chloride 0.9% 100 ML IVPB SCH ×2 (07:59→21:21)
[2018-10-30 08:14] LABS: HBSAg Index 0.21 S/CO (0-0.99); Hep B Surf Ag Non-Reactive S/CO (NonReactive)
--- NOTE | 2018-10-30 09:56 | PRG ---
DATE OF SERVICE: 10/30/2018 SUBJECTIVE: Mr. Garcia is a 68-year-old white male, who was initially admitted for hemorrhagic shock and developed multiorgan dysfunction including acute kidney injury. He has an acute kidney injury secondary to ischemic ATN. He is currently on maintenance hemodialysis. He received dialysis yesterday without any difficulty. He is doing well. No new complaints today. No chest pain or shortness of breath. OBJECTIVE: VITAL SIGNS: Blood pressure is 104/60, with a heart rate of 100, respiratory rate 20, temperature 98.2, pulse ox 93%. GENERAL: Awake, alert, comfortable. SKIN: Adequate turgor. HEENT: He has slightly pale conjunctivae. Anicteric sclerae. NECK: No neck mass. No carotid bruits. No JVD. CHEST: No deformities. LUNGS: Clear breath sounds. No wheezing. No crackles. HEART: Normal sinus rhythm. No murmur. No gallops. No rubs. ABDOMEN: Globular, soft, nontender. No masses. EXTREMITIES: No edema. No deformities. MEDICATIONS: Medications of October 30, 2018, were reviewed. LABORATORY DATA: Laboratories of October 30, 2018: White count 10.6, hemoglobin 7.6. Sodium 136, potassium 4.3, chloride 100, carbon dioxide 22, BUN 46, creatinine 5.46, glucose 93, calcium 8.7. ASSESSMENT AND PLAN: 1. Hypotension - currently on volume repletion of normal saline at 100 mL/h. Agree with management. 2. Acute kidney injury - secondary to ischemic acute tubular necrosis. No evidence of renal recovery. Continuing three times a day hemodialysis. 3. Anemia, on Epogen and iron supplementation. We are currently awaiting rehab placement with this patient. Job ID: [id number]
--- NOTE | 2018-10-30 10:05 | PRG ---
DATE OF SERVICE: 10/30/2018 SUBJECTIVE: The patient is doing fairly well. Had no acute complaints. OBJECTIVE: VITAL SIGNS: Temperature 98.3, pulse 100, respiratory rate is 20, O2 saturation 93%, and blood pressure 104/60. HEENT: Unremarkable. NECK: No JVD. CHEST: Clear anteriorly. CARDIAC: S1, S2, regular. ABDOMEN: Obese, soft, nontender. EXTREMITIES: No edema. LABORATORY DATA: White blood cell count 10.6, hematocrit 24.1, and platelet count 456. Sodium 136, potassium 4.3, BUN 45, creatinine 5.4, glucose 93. ASSESSMENT: 1. Status post respiratory failure, requiring mechanical ventilation. 2. Status post laparotomy. 3. Acute renal failure. PLAN: At this point, the process is mainly rehabilitative in nature. He was placed on antibiotics on the 3rd by Dr. Cardenas. It is not clear what we are treating as the cultures are negative. I would consider stopping the antibiotics at the five-day point if nothing else is found. Job ID: [id number]
--- NOTE | 2018-10-30 10:06 | PDOC.PN ---
- Subjective Encounter Start Date: 10/30/18 Encounter Start Time: 10:04 Subjective: confused - Objective Resuscitation Status - Order Detail: 09/29/18 17:25 Resuscitation Status Routine Resuscitation Status: FULL: Full Resuscitation Vital Signs & Weight: Vital Signs (12 hours) Temp Pulse Resp BP BP Pulse Ox 10/30/18 08:23 98.3 F 100 20 104/60 93 L 10/30/18 05:46 98.3 F 97 21 H 109/70 91 L 10/30/18 01:18 98.4 F 97 22 H 99/68 97 10/29/18 22:07 98.5 F 100 24 H 104/70 100 Weight Admit Weight 310 lb Weight 277 lb 4.8 oz Most Recent Monitor Data Heart Rate from ECG 100 NIBP 126/72 NIBP BP-Mean 90 Respiration from ECG 26 SpO2 97 I&O: 10/29/18 10/30/18 10/31/18 06:59 06:59 06:59 Intake Total 1598 1234 Output Total 1999 Balance 1598 -766 Result Diagrams: 10/30/18 07:14 10/30/18 07:14 Additional Labs: Accuchecks 10/30/18 10/29/18 10/29/18 05:46 21:22 16:55 POC Glucose 90 105 121 H Phys Exam - Physical Examination Neck: no JVD Respiratory: clear to auscultation bilateral Cardiovascular: RRR, no significant murmur Gastrointestinal: soft, positive bowel sounds Musculoskeletal: no edema Dx/Plan (1) Acute renal failure Status: Acute Qualifiers: Acute renal failure type: with acute tubular necrosis Qualified Code(s): N17.0 - Acute kidney failure with tubular necrosis Comment: ischemic ATN, on dialysis (2) Acute blood loss anemia Code(s): D62 - ACUTE POSTHEMORRHAGIC ANEMIA Status: Acute (3) Acute hypercapnic respiratory failure Code(s): J96.02 - ACUTE RESPIRATORY FAILURE WITH HYPERCAPNIA Status: Resolved Comment: resolved. (4) Duodenal ulcer with hemorrhage Code(s): K26.4 - CHRONIC OR UNSPECIFIED DUODENAL ULCER WITH HEMORRHAGE Status : Resolved Comment: s/p surgical repair. On PPI. (5) Metabolic encephalopathy Code(s): G93.41 - METABOLIC ENCEPHALOPATHY Status: Chronic (6) Hemorrhagic shock Code(s): R57.8 - OTHER SHOCK Status: Resolved Comment: Due to PUD. Resolved.. (7) Fever Code(s): R50.9 - FEVER, UNSPECIFIED Status: Acute Qualifiers: Fever type: unspecified Qualified Code(s): R50.9 - Fever, unspecified Comment: Possibly due to catheter infection. Blood cultures sent. Started on Vancomycin (8) CKD (chronic kidney disease) stage 5, GFR less than 15 ml/min Code(s): N18.5 - CHRONIC KIDNEY DISEASE, STAGE 5 Status: Acute (9) Encephalopathy chronic Code(s): G93.49 - OTHER ENCEPHALOPATHY Status: Acute - Plan feverresolving, cultures neg to date- cont antibx -: acute renalfailure has become CKD 5 requiring HD -: acute encephalopathy subramanian sbecome chronic -: placement * .
[2018-10-30] MEDS: Sodium Chloride 0.45% 1,000 ML IV SCH (21:21)
[2018-10-30] MEDS: Acetaminophen 500 MG TAB PO PRN (21:22)
[2018-10-31] MEDS: Acetaminophen 500 MG TAB PO PRN (08:00)
[2018-10-31] MEDS: Ferrous Sulfate 325 MG TAB PO SCH ×2 (08:00→17:00)
[2018-10-31 08:39] LABS: #Basophils 0.1 thou/uL (0.0-0.2); #Eosinphils 1.3 thou/uL (0.0-0.7); #Lymphocytes 1.5 thou/uL (1.20-3.40); #Monocytes 1.3 thou/uL (0.11-0.59); #Neutrophils 8.1 thou/uL (1.40-6.50); %Basophils 0.9 % (0.0-1.0); %Eosinophils 10.8 % (0.0-10.0); %Lymphocytes 12.3 % (21.0-51.0); %Monocytes 10.5 % (0.0-10.0); %Neutrophils 65.6 % (42.0-75.0); Hemoglobin 7.4 g/dL (14.0-18.0); Mean Corpuscular Hemoglobin 29.5 pg (27.0-31.0); Mean Corpuscular Volume 92.3 fL (78.0-98.0); Mean Platelet Volume 6.1 fL (7.4-10.4); Platelet Count 424 thou/uL (130-400); RBC Distribution Width 14.9 % (11.5-14.5); Red Blood Cell (RBC) Count 2.49 mill/uL (4.70-6.10); White Blood Cell (WBC) Count 12.3 thou/uL (4.8-10.8)
--- NOTE | 2018-10-31 08:48 | PRG ---
DATE OF SERVICE: 10/31/2018 SERVICE: Renal Medicine. SUBJECTIVE: Mr. Garcia is a 68-year-old white male, initially admitted for hemorrhagic shock and developed multiorgan dysfunction. One of the organ damage was the kidneys, which developed ischemic ATN. He continues to be on maintenance hemodialysis since he has no evidence of renal recovery. This morning, I noted him to be more somnolent. He denies having any other complaints. He is less verbal on questioning. Recently, a blood culture on October 28, 2018, was done, which showed no growth to date. OBJECTIVE: VITAL SIGNS: Blood pressure is 126/84, heart rate 99, respiratory rate 20, temperature 98.2, and pulse ox 93%. GENERAL: Noted to be awake, comfortable, not in overt distress. SKIN: Adequate turgor. HEENT: Slightly pale conjunctivae. Anicteric sclerae. NECK: No neck mass. No carotid bruits. No JVD. CHEST: No deformities. LUNGS: Clear breath sounds. No wheezing. No crackles. HEART: Normal sinus rhythm. No murmurs. No gallops. No rubs. ABDOMEN: Globular, soft, nontender. No masses. EXTREMITIES: No edema. No deformities. MEDICATIONS: Medications of October 31, 2018, was reviewed. LABORATORY DATA: Laboratories of October 30, 2018; potassium 4.3, BUN is 46, and creatinine is 5.46. On October 30, 2018; hemoglobin 7.6, white count 10.6. Basic metabolic panel and CBC on October 31, 2018, is currently pending. ASSESSMENT AND PLAN: 1. Acute kidney injury secondary to presumed ischemic acute tubular necrosis. No evidence of renal recovery. Continuing on Monday, Monday, and Monday hemodialysis. The patient is currently at the dialysis today. Fluid removal only as tolerated by the patient. 2. Anemia, p.r.n. blood transfusion. Recheck CBC. 3. Continue Epogen and iron supplementation. Overall prognosis remains guarded. Job ID: [id number]
[2018-10-31 08:56] LABS: Anion Gap 17 mmol/L (10-20); BUN (Urea Nitrogen) 52 mg/dL (8.4-25.7); Calc. Creatinine Clearance 20 mL/min (70-130); Calcium 8.8 mg/dL (7.8-10.44); Carbon Dioxide 23 mmol/L (23-31); Chloride 101 mmol/L (98-107); Estimated GFR-MDRD 9; Glucose 92 mg/dL (80-115); Sodium 137 mmol/L (136-145)
[2018-10-31 08:57] LABS: Vancomycin, Random 18.2 ug/mL (See Comment)
[2018-10-31] MEDS ORDERED: Heparin 10,000 UNITS/ 10 ML VIAL ONE (09:00)
[2018-10-31] MEDS: Cefepime 2 GM in Sodium Chloride 0.9% 100 ML IVPB SCH ×2 (13:46→20:57)
[2018-10-31] MEDS: Pantoprazole 40 MG VIAL IVP SCH ×2 (13:47→20:58)
--- NOTE | 2018-10-31 14:22 | PDOC.PN ---
- Subjective Encounter Start Date: 10/31/18 Encounter Start Time: 14:19 Subjective: pleasantly confused - Objective Resuscitation Status - Order Detail: 09/29/18 17:25 Resuscitation Status Routine Resuscitation Status: FULL: Full Resuscitation MAR Reviewed: Yes Vital Signs & Weight: Vital Signs (12 hours) Temp Pulse Resp BP BP Pulse Ox 10/31/18 13:42 98.1 F 88 20 117/71 94 L 10/31/18 07:30 98.2 F 94 18 143/76 H 92 L 10/31/18 04:00 98.3 F 99 20 126/84 93 L Weight Admit Weight 310 lb Weight 278 lb Most Recent Monitor Data Heart Rate from ECG 100 NIBP 126/72 NIBP BP-Mean 90 Respiration from ECG 26 SpO2 97 I&O: 10/30/18 10/31/18 11/01/18 06:59 06:59 06:59 Intake Total 1234 591 Output Total 1999 Balance -766 591 Result Diagrams: 10/31/18 08:20 10/31/18 08:20 Additional Labs: Accuchecks 10/31/18 10/31/18 10/30/18 13:46 05:35 20:38 POC Glucose 92 93 111 H 10/30/18 16:41 POC Glucose 106 Phys Exam - Physical Examination Neck: no JVD Respiratory: clear to auscultation bilateral Cardiovascular: RRR, no significant murmur Gastrointestinal: soft, positive bowel sounds Musculoskeletal: no edema Dx/Plan (1) Acute renal failure Status: Acute Qualifiers: Acute renal failure type: with acute tubular necrosis Qualified Code(s): N17.0 - Acute kidney failure with tubular necrosis Comment: ischemic ATN, on dialysis (2) Acute blood loss anemia Code(s): D62 - ACUTE POSTHEMORRHAGIC ANEMIA Status: Acute (3) Acute hypercapnic respiratory failure Code(s): J96.02 - ACUTE RESPIRATORY FAILURE WITH HYPERCAPNIA Status: Resolved Comment: resolved. (4) Duodenal ulcer with hemorrhage Code(s): K26.4 - CHRONIC OR UNSPECIFIED DUODENAL ULCER WITH HEMORRHAGE Status : Resolved Comment: s/p surgical repair. On PPI. (5) Metabolic encephalopathy Code(s): G93.41 - METABOLIC ENCEPHALOPATHY Status: Chronic (6) Hemorrhagic shock Code(s): R57.8 - OTHER SHOCK Status: Resolved Comment: Due to PUD. Resolved.. (7) Fever Code(s): R50.9 - FEVER, UNSPECIFIED Status: Acute Qualifiers: Fever type: unspecified Qualified Code(s): R50.9 - Fever, unspecified Comment: Possibly due to catheter infection. Blood cultures sent. Started on Vancomycin (8) CKD (chronic kidney disease) stage 5, GFR less than 15 ml/min Code(s): N18.5 - CHRONIC KIDNEY DISEASE, STAGE 5 Status: Acute (9) Encephalopathy chronic Code(s): G93.49 - OTHER ENCEPHALOPATHY Status: Acute - Plan cont HD -: DC antibx after 5 days if cultures, etc unrevealing * .
[2018-10-31] MEDS: Sodium Chloride 0.45% 1,000 ML IV SCH (21:06)
[2018-11-01] MEDS: Cefepime 2 GM in Sodium Chloride 0.9% 100 ML IVPB SCH ×2 (08:02→20:17)
[2018-11-01] MEDS: Pantoprazole 40 MG VIAL IVP SCH ×2 (08:05→20:18)
[2018-11-01 09:07] LABS: Actual Bicarbonate (HCO3a) 26.3 mEq/L (22-28); Base Excess (BEa) 0.1 mEq/L (-2.0 to +3.0); CO2 Tension 50.6 mmHg (35.0-45.0); Calcium, Ionized 1.15 mmol/L (1.12-1.30); Carboxyhemoglobin (COHb) 1.7 gm% (0.0-3.0); Hemoglobin (Hb) 8.2 g/dL (14.0-18.0); O2 Tension (PaO2) 137.7 mmHg (> 80.0); Potassium - ABG Lab 3.85 mmol/L (3.70-5.30); pH, Arterial 7.33 (7.35-7.45)
[2018-11-01 09:08] LABS: Puncture Site RR
--- NOTE | 2018-11-01 09:36 | PRG ---
DATE OF SERVICE: 11/01/2018 SUBJECTIVE: Nursing staff pulled me into the room as he did not seem to be doing as well as he had been. I have not seen him in a couple of days. He is definitely less responsive than he was, although he does not appear to be in any respiratory distress. OBJECTIVE: VITAL SIGNS: Temperature 98.2, pulse 95, respiratory rate 24, O2 saturation 93% on 2 L, and blood pressure 137/83. HEENT: Unremarkable. NECK: No JVD. LUNGS: Coarse, mild rhonchi bilaterally. CARDIAC: S1 and S2, regular. ABDOMEN: Soft, obese. EXTREMITIES: No edema. MEDICATIONS: I reviewed his medication list. I do not see any medications that could be causing mental status changes. LABORATORY DATA: An ABG is pending. ASSESSMENT: Status post prolonged hospitalization related to perforated ulcer, prolonged respiratory failure, and acute renal failure. PLAN: ABG will be done and we will make sure that he is not retaining CO2. Job ID: [id number]
[2018-11-01] MEDS: Dextrose 5 %-0.45 % NaCl 1,000 ML IV SCH (09:53)
[2018-11-01] MEDS: Ferrous Sulfate 325 MG TAB PO SCH ×2 (09:54→17:01)
--- NOTE | 2018-11-01 10:18 | PDOC.PN ---
- Subjective Encounter Start Date: 11/01/18 Encounter Start Time: 10:16 Subjective: poorly responsive, tremulous - Objective Resuscitation Status - Order Detail: 09/29/18 17:25 Resuscitation Status Routine Resuscitation Status: FULL: Full Resuscitation MAR Reviewed: Yes Vital Signs & Weight: Vital Signs (12 hours) Temp Pulse Resp BP Pulse Ox 11/01/18 08:54 95 24 H 93 L 11/01/18 08:15 93 L 11/01/18 08:00 98.2 F 95 22 H 137/63 93 L Weight Admit Weight 310 lb Weight 278 lb Most Recent Monitor Data Heart Rate from ECG 100 NIBP 126/72 NIBP BP-Mean 90 Respiration from ECG 26 SpO2 97 I&O: 10/31/18 11/01/18 11/02/18 06:59 06:59 06:59 Intake Total 591 846 Output Total 1500 Balance 591 -654 Result Diagrams: 11/01/18 10:34 11/01/18 10:34 Additional Labs: Accuchecks 11/01/18 11/01/18 10/31/18 08:20 05:52 20:16 POC Glucose 83 88 95 10/31/18 10/31/18 16:25 13:46 POC Glucose 90 92 Phys Exam - Physical Examination Neck: no JVD coarse BS Cardiovascular: RRR, no significant murmur Gastrointestinal: soft, positive bowel sounds Musculoskeletal: edema present Dx/Plan (1) Acute renal failure Status: Acute Qualifiers: Acute renal failure type: with acute tubular necrosis Qualified Code(s): N17.0 - Acute kidney failure with tubular necrosis Comment: ischemic ATN, on dialysis (2) Acute blood loss anemia Code(s): D62 - ACUTE POSTHEMORRHAGIC ANEMIA Status: Acute (3) Acute hypercapnic respiratory failure Code(s): J96.02 - ACUTE RESPIRATORY FAILURE WITH HYPERCAPNIA Status: Resolved Comment: resolved. (4) Duodenal ulcer with hemorrhage Code(s): K26.4 - CHRONIC OR UNSPECIFIED DUODENAL ULCER WITH HEMORRHAGE Status : Resolved Comment: s/p surgical repair. On PPI. (5) Metabolic encephalopathy Code(s): G93.41 - METABOLIC ENCEPHALOPATHY Status: Chronic (6) Hemorrhagic shock Code(s): R57.8 - OTHER SHOCK Status: Resolved Comment: Due to PUD. Resolved.. (7) Fever Code(s): R50.9 - FEVER, UNSPECIFIED Status: Acute Qualifiers: Fever type: unspecified Qualified Code(s): R50.9 - Fever, unspecified Comment: Possibly due to catheter infection. Blood cultures sent. Started on Vancomycin (8) CKD (chronic kidney disease) stage 5, GFR less than 15 ml/min Code(s): N18.5 - CHRONIC KIDNEY DISEASE, STAGE 5 Status: Acute (9) Encephalopathy chronic Code(s): G93.49 - OTHER ENCEPHALOPATHY Status: Acute - Plan stat lab-cbc,cmp, ammonia, cortisol, cxr, CT brain -: above DAI neg for treatable/new problem. he is on antibx for poss pna -: for 4 days. i have discussed status with brother. his prognosis for -: recoery is dismal. i have suggested DNRB status and hospice consult -: with plan to remove care. he is in discussion with family. will return. * .
[2018-11-01 10:50] LABS: #Basophils 0.1 thou/uL (0.0-0.2); #Eosinphils 1.2 thou/uL (0.0-0.7); #Lymphocytes 1.5 thou/uL (1.20-3.40); #Monocytes 1.1 thou/uL (0.11-0.59); #Neutrophils 8.3 thou/uL (1.40-6.50); %Basophils 0.7 % (0.0-1.0); %Eosinophils 9.6 % (0.0-10.0); %Lymphocytes 12.5 % (21.0-51.0); %Monocytes 8.8 % (0.0-10.0); %Neutrophils 68.4 % (42.0-75.0); Hemoglobin 7.6 g/dL (14.0-18.0); Mean Corpuscular HGB CONC 30.9 g/dL (32.0-36.0); Mean Corpuscular Hemoglobin 28.6 pg (27.0-31.0); Mean Corpuscular Volume 92.6 fL (78.0-98.0); Mean Platelet Volume 5.9 fL (7.4-10.4); Platelet Count 384 thou/uL (130-400); RBC Distribution Width 14.9 % (11.5-14.5); Red Blood Cell (RBC) Count 2.67 mill/uL (4.70-6.10); White Blood Cell (WBC) Count 12.1 thou/uL (4.8-10.8)
[2018-11-01 11:13] LABS: ALT (SGPT) 17 U/L (8-55); AST (SGOT) 14 U/L (5-34); Albumin 2.9 g/dL (3.4-4.8); Alkaline Phosphatase 69 U/L (40-150); Anion Gap 18 mmol/L (10-20); BUN (Urea Nitrogen) 29 mg/dL (8.4-25.7); Bilirubin, Total 0.4 mg/dL (0.2-1.2); Calc. Creatinine Clearance 27 mL/min (70-130); Calcium 8.9 mg/dL (7.8-10.44); Carbon Dioxide 22 mmol/L (23-31); Chloride 101 mmol/L (98-107); Estimated GFR-MDRD 12; Globulin 4.4 g/dL (2.4-3.5); Glucose 90 mg/dL (80-115); Potassium 3.7 mmol/L (3.5-5.1); Protein, Total 7.3 g/dL (5.8-8.1)
[2018-11-01 11:26] LABS: Sodium 137 mmol/L (136-145)
--- NOTE | 2018-11-01 12:01 | RAD ---
CHEST ONE VIEW: Comparison: 10-28-18 History: Altered mental status. FINDINGS: Portable upright chest demonstrates a stable right sided HemoSplit dialysis catheter. Heart is enlarg ed. Pulmonary vessels are slightly prominent. Patchy interstitial opacities in the lung parenchyma wi th more focal alveolar opacity in the right perihilar region. No significant pleural fluid. No pneumo thorax or osseous abnormalities. IMPRESSION: Volume overload. Superimposed right perihilar pneumonia cannot be excluded. Continued surveillance is recommended. POS: CATHERINEH
[2018-11-01 12:44] VITALS: BMI 37.7
[2018-11-01 13:37] LABS: Anisocytosis SLIGHT = 6-15 cells (100X) (0-5/hpf); Band 6 % (5-11); Eosinophils 7 % (0-10); Hypochromia SLIGHT = 6-15 cells (100X) (0-5/hpf); Lymphocytes 13 % (21-51); Metamyelocyte 1 % (0-0); Monocytes 9 % (0-10); Myelocyte 1 % (0-0); Nucleated RBC 1 % (0)
--- NOTE | 2018-11-01 14:10 | CT ---
CT BRAIN PERFORMED WITHOUT CONTRAST ENHANCEMENT: History: Altered mental status. FINDINGS: The ventricular and cisternal system shows some mild atrophy. There are no signs of intracerebral hem orrhage or extraaxial fluid collections. There is left sided brock holes present, the more inferior on e has some surgical clips associated with it. The mastoid air cells are clear. There is fairly extensive mucosal disease within the sinuses and als o air fluid level within the sphenoid air cell and small air fluid level within the left maxillary si nus. IMPRESSION: 1. No acute intracranial abnormalities. 2. Sinus disease. POS: T[facility]
[2018-11-01] MEDS ORDERED: levETIRAcetam 500 MG in Sodium Chloride 0.9% 100 ML IVPB SCH (21:00)
[2018-11-02] MEDS: Dextrose 5 %-0.45 % NaCl 1,000 ML IV SCH (05:20)
[2018-11-02] MEDS ORDERED: Sodium Chloride 0.9% 10 ML ONE (07:33)
[2018-11-02] MEDS: Cefepime 2 GM in Sodium Chloride 0.9% 100 ML IVPB SCH (07:48)
[2018-11-02] MEDS: Pantoprazole 40 MG VIAL IVP SCH (07:49)
[2018-11-02] MEDS: Ferrous Sulfate 325 MG TAB PO SCH ×2 (07:54→17:00)
[2018-11-02 08:17] LABS: Vancomycin, Random 17.8 ug/mL (See Comment)
--- NOTE | 2018-11-02 09:25 | PRG ---
DATE OF SERVICE: 11/02/2018 SUBJECTIVE: Mr. Garcia continues to have rhythmic type movements when people walk into the room, apparently dissipate when people are not there. He is not eating. He is not communicative. This is entirely different from several days ago. OBJECTIVE: VITAL SIGNS: On exam, temperature 98.8, pulse 82, respirations 20, O2 sat 95%, blood pressure 111/69. HEENT: Otherwise, unremarkable. NECK: No JVD. CHEST: Clear anteriorly. CARDIAC: S1, S2. Regular. ABDOMEN: Soft. EXTREMITIES: No edema. LABORATORY DATA: His ABG yesterday showed a pH of 7.33, pCO2 of 50, PO2 137. His white blood cell count was 12.1, hematocrit 24.7, and platelet count is 384 with no specific left shift. Sodium 137, potassium 3.7, chloride 101, CO2 , BUN 29, creatinine 4.7, and glucose 90. Cortisol level was 14. TSH 3.5. ASSESSMENT: 1. Seizure-type episode? 2. Encephalopathy. 3. Status post pneumonia, prolonged ICU stay with respiratory failure. 4. Status post treatment of perforated duodenal ulcer. 5. Acute renal failure. PLAN: He looks stable, other than the rhythmic movements. He has been started on anticonvulsants by the primary team. It is a very difficult situation as his prognosis seems poor, otherwise. We will continue to follow with you. Job ID: [id number]
--- NOTE | 2018-11-02 10:21 | PRG ---
DATE OF SERVICE: 11/02/2018 SUBJECTIVE: Mr. Garcia is a 68-year-old white male, who was admitted for hemorrhagic shock with multiorgan dysfunction. He developed acute kidney injury from ischemic ATN. Still currently on maintenance hemodialysis. The patient has deteriorated from a mental status point of view. He became less responsive. A CAT scan of the head was done, which showed no acute intracranial abnormality. He has also been noted to have involuntary movements. He is being treated for seizure disorder. I am holding dialysis today to wait for more stabilization with this patient. Discussion for palliative care has been done with this patient's brother. OBJECTIVE: VITAL SIGNS: Blood pressure 111/69, heart rate 92, respiratory rate 20, temperature 98.8, and pulse ox 95%. GENERAL EXAM: Noted to be unresponsive. Positive for involuntary tremors. SKIN: Adequate turgor. HEENT: Slightly pale conjunctivae. Anicteric sclerae. NECK: No neck mass. No carotid bruits. No JVD. CHEST: No deformities. LUNGS: Clear breath sounds. No wheezing. No crackles. HEART: Normal sinus rhythm. No murmurs, gallops, or rubs. ABDOMEN: Globular, soft, nontender. No masses. EXTREMITIES: No edema. No deformities. LABORATORY DATA: Laboratories of November 01, 2018, was reviewed. Medication November 02, 2018, was reviewed. ASSESSMENT AND PLAN: 1. Acute kidney injury/ischemic acute tubular necrosis. Hold dialysis today. We will re-evaluate in the morning for further dialysis. 2. Decreased mentation, involuntary muscle movements/tremors? of seizure disorder. Currently, on antiseizure medications. 3. Anemia, as needed blood transfusion. Continue weekly Epogen. Job ID: [id number]
--- NOTE | 2018-11-02 13:45 | PDOC.PN ---
- Subjective Encounter Start Date: 11/02/18 Encounter Start Time: 13:43 Subjective: unresponsive - Objective Resuscitation Status - Order Detail: 11/02/18 13:41 Resuscitation Status Routine Resuscitation Status: DNAR: NO Resuscitation Discussed with: discussed at length with mother, father, brother DANETTE Reviewed: Yes Vital Signs & Weight: Vital Signs (12 hours) Temp Pulse Resp BP Pulse Ox 11/02/18 12:43 98.6 F 91 20 157/61 H 93 L 11/02/18 08:43 98.8 F 92 20 111/69 95 11/02/18 08:00 95 Weight Admit Weight 310 lb Weight 278 lb Most Recent Monitor Data Heart Rate from ECG 100 NIBP 126/72 NIBP BP-Mean 90 Respiration from ECG 26 SpO2 97 I&O: 11/01/18 11/02/18 11/03/18 06:59 06:59 06:59 Intake Total 846 1250 Output Total 1500 Balance -654 1250 Result Diagrams: 11/01/18 10:34 11/01/18 10:34 Additional Labs: Accuchecks 11/02/18 11/02/18 11/01/18 11:39 05:52 21:33 POC Glucose 103 113 H 100 11/01/18 16:51 POC Glucose 99 Phys Exam - Physical Examination Neck: no JVD coarse bs Cardiovascular: RRR, no significant murmur Gastrointestinal: soft, positive bowel sounds Musculoskeletal: edema present Dx/Plan (1) Acute renal failure Status: Acute Qualifiers: Acute renal failure type: with acute tubular necrosis Qualified Code(s): N17.0 - Acute kidney failure with tubular necrosis Comment: ischemic ATN, on dialysis (2) Acute blood loss anemia Code(s): D62 - ACUTE POSTHEMORRHAGIC ANEMIA Status: Acute (3) Acute hypercapnic respiratory failure Code(s): J96.02 - ACUTE RESPIRATORY FAILURE WITH HYPERCAPNIA Status: Resolved Comment: resolved. (4) Duodenal ulcer with hemorrhage Code(s): K26.4 - CHRONIC OR UNSPECIFIED DUODENAL ULCER WITH HEMORRHAGE Status : Resolved Comment: s/p surgical repair. On PPI. (5) Metabolic encephalopathy Code(s): G93.41 - METABOLIC ENCEPHALOPATHY Status: Chronic (6) Hemorrhagic shock Code(s): R57.8 - OTHER SHOCK Status: Resolved Comment: Due to PUD. Resolved.. (7) Fever Code(s): R50.9 - FEVER, UNSPECIFIED Status: Acute Qualifiers: Fever type: unspecified Qualified Code(s): R50.9 - Fever, unspecified Comment: Possibly due to catheter infection. Blood cultures sent. Started on Vancomycin (8) CKD (chronic kidney disease) stage 5, GFR less than 15 ml/min Code(s): N18.5 - CHRONIC KIDNEY DISEASE, STAGE 5 Status: Acute (9) Encephalopathy chronic Code(s): G93.49 - OTHER ENCEPHALOPATHY Status: Acute - Plan discussed with family. recommended, DNAR, withdrawal of Tx, hospice -: Answered all questions. DNAR put on cart, consulted CM, palliative care. * .
[2018-11-02] MEDS ORDERED: Morphine 2 MG/ML SYRINGE SLOW IVP PRN (17:22)
--- NOTE | 2018-11-02 17:22 | PDOC.EVN ---
Event Note - Event Note Event Note: family agrees to remove all tx: HD, iv fluids, antibx. palliative care only
[2018-11-03] MEDS: Ferrous Sulfate 325 MG TAB PO SCH ×2 (07:49→16:18)
--- NOTE | 2018-11-03 11:54 | PDOC.PN ---
- Subjective Encounter Start Date: 11/03/18 Encounter Start Time: 11:52 Patient seen and examined, family at bedside, they state that the patient apparently hadn't progressed enough for the hospice facility to accept him, no other issues or concerns. - Objective Resuscitation Status - Order Detail: 11/02/18 13:41 Resuscitation Status Routine Resuscitation Status: DNAR: NO Resuscitation Discussed with: discussed at length with mother, father, brother Vital Signs & Weight: Vital Signs (12 hours) Temp Pulse Resp BP Pulse Ox 11/03/18 08:36 98.3 F 89 20 137/78 94 L 11/03/18 08:19 95 Weight Admit Weight 310 lb Weight 278 lb Most Recent Monitor Data Heart Rate from ECG 100 NIBP 126/72 NIBP BP-Mean 90 Respiration from ECG 26 SpO2 97 I&O: 11/02/18 11/03/18 11/04/18 06:59 06:59 06:59 Intake Total 1250 450 Output Total 2 Balance 1250 448 Result Diagrams: 11/01/18 10:34 11/01/18 10:34 Additional Labs: Accuchecks 11/02/18 11/02/18 16:43 11:39 POC Glucose 111 H 103 Phys Exam - Physical Examination Constitutional: NAD HEENT: PERRLA, moist MMs, sclera anicteric Neck: no nodes, no JVD, supple coarse breath sounds no respiratory distress 2/6 JOVANI tachycardia Gastrointestinal: soft, non-tender, no distention Musculoskeletal: pulses present, edema present Dx/Plan (1) Acute GI bleeding Code(s): K92.2 - GASTROINTESTINAL HEMORRHAGE, UNSPECIFIED Status: Deleted (2) Acute respiratory failure Code(s): J96.00 - ACUTE RESPIRATORY FAILURE, UNSP W HYPOXIA OR HYPERCAPNIA Status: Deleted (3) Hemorrhagic shock Code(s): R57.8 - OTHER SHOCK Status: Resolved Comment: Due to PUD. Resolved.. (4) Metabolic encephalopathy Code(s): G93.41 - METABOLIC ENCEPHALOPATHY Status: Chronic (5) UGIB (upper gastrointestinal bleed) Code(s): K92.2 - GASTROINTESTINAL HEMORRHAGE, UNSPECIFIED Status: Deleted Comment: - Plan * denied from [facility] per family as the patient has no progressed enough for him to qualify as hospice * comfort care for now * will await to see if family decide on a different location * I will try and reach out to [facility] as well to see how the patient would qualify as the patient has significantly poor prognosis and currently is off dialysis, patient had a dialysis dependent MARCK and hasn't produced much urine since HD was stopped, last HD was on 10/31/2018 per family, case d/w type copyist patient is not ESRD yet * case and plan d/w patient's family at length (mother, father, brother) they understand and agree with this plan.
--- NOTE | 2018-11-03 12:39 | PRG ---
DATE OF SERVICE: 11/03/2018 SUBJECTIVE: This morning, he remains unresponsive. His family states that he is having some retained secretions. OBJECTIVE: VITAL SIGNS: Temperature 98, pulse 89, respiratory rate 20, sats 95%, and blood pressure 137/78. CHEST: Bilateral rhonchi. CARDIAC: Normal S1 and S2. No gallops. ABDOMEN: Soft. IMPRESSION: Status post respiratory failure, encephalopathy, retained secretions, renal failure, hemorrhagic shock. PLAN: Comfort care has made a DNR. Continue neb treatments as tolerated. Supportive care. Job ID: [id number]
[2018-11-04] MEDS: Ferrous Sulfate 325 MG TAB PO SCH ×2 (09:25→17:24)
--- NOTE | 2018-11-04 10:09 | PDOC.PN ---
- Subjective Encounter Start Date: 11/04/18 Encounter Start Time: 10:08 Patient seen and examined, no new issues overnight, no family at bedside. - Objective Resuscitation Status - Order Detail: 11/02/18 13:41 Resuscitation Status Routine Resuscitation Status: DNAR: NO Resuscitation Discussed with: discussed at length with mother, father, brother Vital Signs & Weight: Weight Admit Weight 310 lb Weight 278 lb Most Recent Monitor Data Heart Rate from ECG 100 NIBP 126/72 NIBP BP-Mean 90 Respiration from ECG 26 SpO2 97 I&O: 11/03/18 11/04/18 11/05/18 06:59 06:59 06:59 Intake Total 450 10 Output Total 2 Balance 448 10 Result Diagrams: 11/01/18 10:34 11/01/18 10:34 Phys Exam - Physical Examination uremic jerking HEENT: PERRLA, moist MMs Neck: no nodes, no JVD, supple Respiratory: no wheezing, no rales, no rhonchi tachycardia, faint murmur appreciated Gastrointestinal: soft, non-tender Musculoskeletal: pulses present, edema present Dx/Plan (1) Acute GI bleeding Code(s): K92.2 - GASTROINTESTINAL HEMORRHAGE, UNSPECIFIED Status: Deleted (2) Acute respiratory failure Code(s): J96.00 - ACUTE RESPIRATORY FAILURE, UNSP W HYPOXIA OR HYPERCAPNIA Status: Deleted (3) Hemorrhagic shock Code(s): R57.8 - OTHER SHOCK Status: Resolved Comment: Due to PUD. Resolved.. (4) Metabolic encephalopathy Code(s): G93.41 - METABOLIC ENCEPHALOPATHY Status: Chronic (5) UGIB (upper gastrointestinal bleed) Code(s): K92.2 - GASTROINTESTINAL HEMORRHAGE, UNSPECIFIED Status: Deleted Comment: - Plan * The patient appears to have had a downturn slightly from yesterday * the patient does not have any family at bedside * prognosis overall poor * appears to have rhythmic uremic jerking movements, will start ativan for now, no HD for now, patient is a dialysis depending MARCK, case d/w Dr. Romero yesterday * patient may pass away in the next 24-48hrs for now * continue comfort care * family aware of poor prognosis, not at bedside * plan d/w nurse, nursing staff to call me if any issues.
--- NOTE | 2018-11-04 11:34 | PRG ---
DATE OF SERVICE: 11/04/2018 SUBJECTIVE: Josh Garcia this morning is less responsive. Hospice consult was initiated. OBJECTIVE: VITAL SIGNS: Temperature 98, pulse 100, respiratory rate 18, sats 97% on 2 L, blood pressure 132/77. CHEST: Anterior rhonchi. CARDIAC: Normal S1, S2. No gallops. ABDOMEN: No masses. IMPRESSION: Multiorgan failure, respiratory failure, renal failure, hemorrhagic shock, encephalopathy. PLAN: Comfort care. Job ID: [id number]
[2018-11-04] MEDS: Lorazepam 2 MG/ML VIAL SLOW IVP PRN ×2 (12:12→18:07)
[2018-11-04 21:00] VITALS: BP 118/79; TEMP 98.5
--- NOTE | 2018-11-05 15:33 | DIS ---
DATE OF ADMISSION: 09/29/2018 DATE OF DISCHARGE: 11/04/2018 ADMITTING DIAGNOSES: 1. Sepsis with septic shock. 2. Acute hypercapnic respiratory failure. 3. Gastrointestinal bleed. 4. Acute kidney injury. 5. Blood-loss anemia. 6. Congestive heart failure. 7. Hypothyroidism. DISCHARGE DIAGNOSES: 1. Sepsis with septic shock, resolved. 2. Respiratory failure, resolved. 3. Gastrointestinal bleed, stable. 4. Dialysis dependent acute kidney injury. 5. Anemia, stable. 6. Hypothyroidism, stable. 7. Congestive heart failure, stable. 8. Morbid obesity. HOSPITAL COURSE: This is a 68-year-old male who was admitted to the Internal Medicine Team, followed very closely by ICU as well as Nephrology. The patient was admitted to the hospital with septic shock and sepsis, treated aggressively with antibiotics and fluids. Lactic acidosis was found to be in 12.5. The patient was given broad-spectrum coverage, was also transfused blood, and stabilized. The patient was found to be dialysis dependent MARCK with worsening condition. Overall, his physical health and condition kept deteriorating throughout the course of his hospital stay. The patient's prognosis was discussed at length between all such specialist and the family. It was decided that after aggressive care and the poor outcome that the patient was having, the family opted to pursue comfort and palliation. The patient was set up with [facility] and discharged to [facility]. Case and plan discussed with the patient's family at length. They understood and agreed with this plan. DISPOSITION: Hospice. FOLLOWUP: With hospice team. DIET: As tolerated. ACTIVITY: As tolerated with assistance as needed. MEDICATIONS: See MAR. CONDITION: Stable. PROGNOSIS: Terminal. Case and plan discussed with the patient's family at length and they understood and agreed with this plan. Job ID: [id number]
== END 2018-11-04 21:22 | disposition hospice, inpatient (51) | DRG 326 ==
LOC: ERS 13:45 → CCU 18:45 → IMCU/EMU 10-16 16:26 → T4-B 10-18 12:38
PROVIDERS: ADMIT Family Medicine; ATTEND Family Medicine
PROC: 0BH17EZ Insertion of Endotracheal Airway into Trachea, Via Natural or Artificial Opening (ICD-10-PCS; 2018-09-29)
PROC: 5A1955Z Respiratory Ventilation, Greater than 96 Consecutive Hours (ICD-10-PCS; 2018-09-29)
PROC: 30243N1 Transfusion of Nonautologous Red Blood Cells into Central Vein, Percutaneous Approach (ICD-10-PCS; 2018-09-29)
PROC: 06HM33Z Insertion of Infusion Device into Right Femoral Vein, Percutaneous Approach (ICD-10-PCS; 2018-09-29)
PROC: 5A1D70Z Performance of Urinary Filtration, Intermittent, Less than 6 Hours Per Day (ICD-10-PCS; 2018-09-29)
PROC: 5A1D70Z Performance of Urinary Filtration, Intermittent, Less than 6 Hours Per Day (ICD-10-PCS; 2018-09-30)
PROC: 0W3P8ZZ Control Bleeding in Gastrointestinal Tract, Via Natural or Artificial Opening Endoscopic (ICD-10-PCS; 2018-10-01)
PROC: 5A1D70Z Performance of Urinary Filtration, Intermittent, Less than 6 Hours Per Day (ICD-10-PCS; 2018-10-01)
PROC: 0DJ08ZZ Inspection of Upper Intestinal Tract, Via Natural or Artificial Opening Endoscopic (ICD-10-PCS; 2018-10-02)
PROC: 5A1D70Z Performance of Urinary Filtration, Intermittent, Less than 6 Hours Per Day (ICD-10-PCS; 2018-10-02)
PROC: 0DQ90ZZ Repair Duodenum, Open Approach (ICD-10-PCS; principal; 2018-10-03)
PROC: 0D870ZZ Division of Stomach, Pylorus, Open Approach (ICD-10-PCS; 2018-10-03)
PROC: 0DU907Z Supplement Duodenum with Autologous Tissue Substitute, Open Approach (ICD-10-PCS; 2018-10-03)
PROC: 0JH63XZ Insertion of Tunneled Vascular Access Device into Chest Subcutaneous Tissue and Fascia, Percutaneous Approach (ICD-10-PCS; 2018-10-03)
PROC: 02HV33Z Insertion of Infusion Device into Superior Vena Cava, Percutaneous Approach (ICD-10-PCS; 2018-10-03)
PROC: 0W3P8ZZ Control Bleeding in Gastrointestinal Tract, Via Natural or Artificial Opening Endoscopic (ICD-10-PCS; 2018-10-03)
PROC: 5A1D70Z Performance of Urinary Filtration, Intermittent, Less than 6 Hours Per Day (ICD-10-PCS; 2018-10-04)
PROC: 3E0436Z Introduction of Nutritional Substance into Central Vein, Percutaneous Approach (ICD-10-PCS; 2018-10-05)
PROC: 5A1D70Z Performance of Urinary Filtration, Intermittent, Less than 6 Hours Per Day (ICD-10-PCS; 2018-10-06)
PROC: 5A1D70Z Performance of Urinary Filtration, Intermittent, Less than 6 Hours Per Day (ICD-10-PCS; 2018-10-07)
PROC: 5A1D70Z Performance of Urinary Filtration, Intermittent, Less than 6 Hours Per Day (ICD-10-PCS; 2018-10-08)
PROC: 5A1D70Z Performance of Urinary Filtration, Intermittent, Less than 6 Hours Per Day (ICD-10-PCS; 2018-10-09)
PROC: 5A1D70Z Performance of Urinary Filtration, Intermittent, Less than 6 Hours Per Day (ICD-10-PCS; 2018-10-11)
PROC: 5A1D70Z Performance of Urinary Filtration, Intermittent, Less than 6 Hours Per Day (ICD-10-PCS; 2018-10-11)
PROC: 5A1D70Z Performance of Urinary Filtration, Intermittent, Less than 6 Hours Per Day (ICD-10-PCS; 2018-10-13)
PROC: 5A1D70Z Performance of Urinary Filtration, Intermittent, Less than 6 Hours Per Day (ICD-10-PCS; 2018-10-14)
PROC: 5A1D70Z Performance of Urinary Filtration, Intermittent, Less than 6 Hours Per Day (ICD-10-PCS; 2018-10-15)
PROC: 5A1D70Z Performance of Urinary Filtration, Intermittent, Less than 6 Hours Per Day (ICD-10-PCS; 2018-10-17)
PROC: 5A1D70Z Performance of Urinary Filtration, Intermittent, Less than 6 Hours Per Day (ICD-10-PCS; 2018-10-19)
PROC: 5A1D70Z Performance of Urinary Filtration, Intermittent, Less than 6 Hours Per Day (ICD-10-PCS; 2018-10-22)
PROC: 5A1D70Z Performance of Urinary Filtration, Intermittent, Less than 6 Hours Per Day (ICD-10-PCS; 2018-10-24)
PROC: 5A1D70Z Performance of Urinary Filtration, Intermittent, Less than 6 Hours Per Day (ICD-10-PCS; 2018-10-26)
PROC: 5A1D70Z Performance of Urinary Filtration, Intermittent, Less than 6 Hours Per Day (ICD-10-PCS; 2018-10-29)
PROC: 5A1D70Z Performance of Urinary Filtration, Intermittent, Less than 6 Hours Per Day (ICD-10-PCS; 2018-10-31)
DX: K26.4 Chronic or unspecified duodenal ulcer with hemorrhage (principal); R57.8 Other shock; N17.0 Acute kidney failure with tubular necrosis; J96.02 Acute respiratory failure with hypercapnia; J96.01 Acute respiratory failure with hypoxia; G93.41 Metabolic encephalopathy; A41.9 Sepsis, unspecified organism; R65.21 Severe sepsis with septic shock; Z51.5 Encounter for palliative care; Z66 Do not resuscitate; D62 Acute posthemorrhagic anemia; Z68.41 Body mass index [BMI] 40.0-44.9, adult; E87.2 Acidosis; E46 Unspecified protein-calorie malnutrition; N18.5 Chronic kidney disease, stage 5; E03.9 Hypothyroidism, unspecified; R13.10 Dysphagia, unspecified; E87.6 Hypokalemia; E66.01 Morbid (severe) obesity due to excess calories; K25.9 Gastric ulcer, unspecified as acute or chronic, without hemorrhage or perforation
CPT/HCPCS: 31500; 36415; 36416; 36430; 36556; 70450; 71045; 74150; 76770; 78582; 80048; 80053; 80076; 80202; 81001; 81003; 81015; 82140; 82533; 82550; 82553; 82570; 82805; 83540; 83550; 83605; 83735; 84100; 84156; 84443; 84484; 85014; 85018; 85025; 85049; 85379; 85610; 85730; 86704; 86706; 86708; 86803; 86850; 86900; 86901; 87040; 87340; 90471; 90670; 90935; 93005; 93306; 93970; 94003; 94640; 94660; 96361; 96365; 96367; 96375; A4217; A9540; A9558; C1752; C9113; G0009; G0257; G0365; J0131; J0171; J0360; J0670; J0692; J0696; J1200; J1644; J1815; J1953; J2001; J2060; J2250; J2270; J2370; J2543; J2704; J2920; J2997; J3010; J3370; J3475; J3480; J7050; J7070; J7611; J7620; P9016; P9035; P9047; P9059; Q4081; Q9967